=== PATIENT | male | born 1975 | race Caucasian/White ===

== ENCOUNTER 2016-12-18 11:32 | Emergency (ER) | payer OTHER ==
[2016-12-18 13:18] LABS: Hematocrit 43 % (42-52); Hemoglobin 14.5 g/dl (14.0-18.0); Mean Corpuscular HGB Conc 34 g/dl (31-36); Mean Corpuscular Hemoglobin 32 pg (27-31); Mean Corpuscular Volume 94 fL (80-94); Mean Platelet Volume 10 um3 (7.4-10.4); Red Blood Count 4.59 10^6/ul (4.0-5.4); Red Cell Distribution Width 13 % (10.5-15); White Blood Count 10.3 10^3/ul (3.5-10.8)
[2016-12-18 13:44] LABS: Albumin 4.5 g/dL (3.2-5.2); BUN/Creatinine Ratio 11.2 (8-20); Calcium 9.1 mg/dL (8.6-10.3); EGFR African American 89.7 (>60); EGFR Non-African American 69.7 (>60); Potassium 3.6 mmol/L (3.5-5.0); Total Bilirubin 0.4 mg/dL (0.2-1.0); Total Protein 7.5 g/dL (6.4-8.9)
[2016-12-18 14:56] LABS: C Reactive Protein 1.74 mg/L (< 5.00)
--- NOTE | 2016-12-18 15:28 | RAD ---
Indication: Headache; worsening migraines. Visual changes. Comparison: September 26, 2006 MRI brain. Technique: Noncontrast CT vertex of skull through foramen magnum. Report: Indolent foci of ossification of the interhemispheric falx without concern. Unremarkable cerebral sulci, ventricles, and basal cisterns. Negative for mendez matter white matter obscuration, intra or extra-axial hemorrhage, or mass effect. Unremarkable orbital contents. No suspicious calvarial or skull base lesion evident. Grossly clear visualized paranasal sinuses and mastoid air spaces. Unremarkable scalp. IMPRESSION: Negative unenhanced CT of the brain.
[2016-12-18 16:22] LABS: Urine Bilirubin Negative (Negative); Urine Glucose Negative (Negative); Urine Nitrite Negative (Negative)
[2016-12-18] MEDS ORDERED: Lidocaine 1% INJ* 10 MG/ML 30 ML SDV ONE (18:16)
[2016-12-18 18:28] LABS: Erythrocyte Sed Rate 9 mm/Hr (0-14)
[2016-12-18] MEDS ORDERED: NS 0.9% 1000 ML* 1,000 ML IV ONE (19:07)
[2016-12-18] MEDS ORDERED: Ondansetron INJ* 2 MG/ML VIAL IV ONE (19:07)
[2016-12-18 19:38] LABS: CSF Glucose 65 mg/dL (40-70)
[2016-12-18 20:03] LABS: BF WBC Count #1 2; BF WBC Count #2 5; Body Fluid Appearance Clear
[2016-12-18 20:04] LABS: WBC counts within 15%? Yes
[2016-12-18 20:05] LABS: BF RBC Count #1 6; BF RBC Count #2 6; RBC counts within 6%? Yes
[2016-12-18 20:07] LABS: Body Fluid WBC 4 /mcL
[2016-12-18 21:49] VITALS: BP 136/76
--- NOTE | 2016-12-19 10:02 | ED ---
Ashley Marie Auryana, scribed for Ulysses Gamez MD on 12/18/16 at 1453 . Neurological HPI - HPI Summary HPI Summary: 41 year old male presents with diffuse myalgia starting 1.5 weeks ago and worse since a few days ago. He reports it started as a migraine 2 weeks straight (MRA - negative), and then developed arm pain, and neck pain. He reports that the headache returned but is not like a migraine (/10 currently). For 1 week he has had numbness in the bilateral upper and lower extremities with numbness at the roof of the mouth. He also reports eye pain with eye movement, middle back pain (starting 5 days ago), and SOB on exertion (starting about 5 days ago). He denies any rashes, arthralgia, chest pain or any photophobia. Patient was seen on Sunday at Dr. Maher office (PCP) - suspected reaction to a mosquito bite a few weeks ago. PMHx is significant for migraines (usually last 8-10 hours). He denies any tobacco use (former) and rare alcohol use. - History of Current Complaint Chief Complaint: EDNeurologicalDeficit Stated Complaint: NUMBNESS, IN HAND AND FEET AND MOUTH Time Seen by Provider: 12/18/16 12:14 Hx Obtained From: Patient Onset/Duration: Gradual Onset, Started weeks ago, Still Present Timing: Constant Onset Severity: Moderate Current Severity: Mild Neurological Deficit Location: Generalized Headache Location: Diffuse (Right), Diffuse (Left) Pain Intensity: 5 Pain Scale Used: 0-10 Numeric Character: Numbness/Tingling Associated Signs and Symptoms: Positive: Headache, Pain - myalgia diffuse, Neck Pain/Stiffness, Shortness of Breath - Allergy/Home Medications Allergies/Adverse Reactions: Allergies Allergy/AdvReac Type Severity Reaction Status Date / Time Codeine Allergy Mild Rash Verified 11/22/16 13:44 Home Medications: Home Medications Beclomethasone Dipropionate (N [Qnasl] 2 spray BOTH NARES DAILY 12/18/16 [ History Confirmed 12/18/16] LevoCETirizine TAB (NF) [Xyzal TAB (NF)] 5 mg PO BEDTIME 12/18/16 [History Confirmed 12/18/16] PMH/Surg Hx/FS Hx/Imm Hx Endocrine/Hematology History: Denies: Hx Diabetes Cardiovascular History: Denies: Hx Hypercholesterolemia, Hx Hypertension, Hx Pacemaker/ICD, Hx Peripheral Vascular Disease Respiratory History: Reports: Hx Asthma History: Denies: Hx Dialysis, Hx Renal Disease Musculoskeletal History: Denies: Hx Arthritis, Hx Rheumatoid Arthritis, Hx Osteoporosis, Hx Scoliosis Sensory History: Denies: Hx Cataracts, Hx Contacts or Glasses, Hx Glaucoma, Hx Hearing Aid Opthamlomology History: Denies: Hx Cataracts, Hx Contacts or Glasses, Hx Glaucoma Neurological History: Reports: Hx Headaches Denies: Hx Seizures, Hx Transient Ischemic Attacks (TIA), Other Neuro Impairments/Disorders Psychiatric History: Denies: Hx Anxiety, Hx Depression, Hx Panic Disorder - Surgical History Surgery Procedure, Year, and Place: ADNOIDS REMOVED 6MTHS OLD, LT KNEE ARTHROSCOPY 02/06, URETHERAL STRICTURE REMOVED 2007 Infectious Disease History: No Infectious Disease History: Denies: Traveled Outside the [place] in Last 30 Days - Family History Known Family History: Negative: Seizure Disorder - Social History Alcohol Use: None Hx Substance Use: No Substance Use Type: Reports: None Hx Tobacco Use: No Smoking Status (MU): Never Smoked Tobacco Review of Systems Constitutional: Negative Negative: Fever, Chills Eyes: Other - eye pain with movement Negative: Photophobia, Erythema ENT: Negative Negative: Sore Throat Cardiovascular: Negative Negative: Chest Pain Positive: Shortness Of Breath - on exertion Genitourinary: Negative Negative: dysuria, hematuria Positive: Myalgia. Negative: Arthralgia Skin: Negative Negative: Rash Positive: Headache, Numbness - bilateral upper and lower ext ; and the roof of the mouth Psychological: Normal All Other Systems Reviewed And Are Negative: Yes Physical Exam - Summary Physical Exam Summary: Constitutional: Well-developed, Well-nourished, Alert. (-) Distressed Skin: Warm, Dry HENT: Eyes: Conjunctiva normal, appears photophobic. Neck: Musculoskeletal ROM normal neck. (-) JVD, (-) Stridor, (-) Tracheal deviation Cardio: Rhythm regular, rate normal, Heart sounds normal; Intact distal pulses; The pedal pulses are 2+ and symmetric. Radial pulses are 2+ and symmetric. (-) Murmur Pulmonary/Chest wall: Effort normal. (-) Respiratory distress, (-) Wheezes, (-) Rales Abd: Soft. (-) Tenderness, (-) Distension, (-) Guarding, (-) Rebound Musculoskeletal: (-) Edema Lymph: (-) Cervical adenopathy Neuro: Alert, Oriented x3, Strength normal, Cranial nerves II-XII are grossly intact. (-) Dysmetria, (-) Nystagmus, (-) Ataxia by finger to nose testing, (-) Sensory deficit. Psych: Mood and affect Normal. Triage Information Reviewed: Yes Vital Signs On Initial Exam: Initial Vitals Temp Pulse Resp BP 98.2 F 129 20 144/98 12/18/16 11:41 12/18/16 11:41 12/18/16 11:41 12/18/16 11:41 Vital Signs Reviewed: Yes - [place] Coma Scale Coma Scale Total: 15 Procedures - Lumbar Puncture Position: Lateral Decubitus - left Aseptic Technique: Local Anesthesia Spinal Needle Used: 22 Gauge - 3.5 in needle Lumbar Puncture Note: technique is limited by body habitus, 1/2 mL of fluid obtained during leg extension for intracranial reading. due leg extensions, fluid stopped flowing. Patient was unable to tolerate left lateral decubitis position further and became pre-syncopal in upright position. opening pressure = 14cm of H2O Diagnostics - Vital Signs Vital Signs Temp Pulse Resp BP Pulse Ox 12/18/16 13:00 114 18 124/103 97 12/18/16 12:32 97.6 F 119 16 152/110 97 12/18/16 12:30 122 13 152/110 96 12/18/16 12:27 137/94 12/18/16 12:15 96 12/18/16 11:41 98.2 F 129 20 144/98 - Laboratory Lab Results: Lab Results 12/18/16 12/18/16 12/18/16 Range/Units 12:55 12:55 12:55 WBC 10.3 (3.5-10.8) 10^3/ul RBC 4.59 (4.0-5.4) 10^6/ul Hgb 14.5 (14.0-18.0) g/dl Hct 43 (42-52) % MCV 94 (80-94) fL MCH 32 H (27-31) pg MCHC 34 (31-36) g/dl RDW 13 (10.5-15) % Plt Count 287 (150-450) 10^3/ul MPV 10 (7.4-10.4) um3 Neut % (Auto) 52.0 (38-83) % Lymph % (Auto) 34.6 (25-47) % Churchill % (Auto) 8.7 (1-9) % Eos % (Auto) 3.2 (0-6) % Baso % (Auto) 1.5 (0-2) % Absolute Neuts (auto) 5.3 (1.5-7.7) 10^3/ul Absolute Lymphs (auto) 3.5 (1.0-4.8) 10^3/ul Absolute Monos (auto) 0.9 H (0-0.8) 10^3/ul Absolute Eos (auto) 0.3 (0-0.6) 10^3/ul Absolute Basos (auto) 0.2 (0-0.2) 10^3/ul Absolute Nucleated RBC 0.01 10^3/ul Nucleated RBC % 0.1 INR (Anticoag Therapy) 0.91 (0.89-1.11) APTT 30.0 (26.0-36.3) seconds Sodium 139 (133-145) mmol/L Potassium 3.6 (3.5-5.0) mmol/L Chloride 104 (101-111) mmol/L Carbon Dioxide 27 (22-32) mmol/L Anion Gap 8 (2-11) mmol/L BUN 13 (6-24) mg/dL Creatinine 1.16 (0.67-1.17) mg/dL Est GFR ( Amer) 89.7 (>60) Est GFR (Non-Af Amer) 69.7 (>60) BUN/Creatinine Ratio 11.2 (8-20) Glucose 98 (70-100) mg/dL Lactic Acid (0.5-2.0) mmol/L Calcium 9.1 (8.6-10.3) mg/dL Total Bilirubin 0.40 (0.2-1.0) mg/dL AST 21 (13-39) U/L ALT 40 (7-52) U/L Alkaline Phosphatase 109 H (34-104) U/L Troponin I 0.00 (<0.04) ng/mL Total Protein 7.5 (6.4-8.9) g/dL Albumin 4.5 (3.2-5.2) g/dL Globulin 3.0 (2-4) g/dL Albumin/Globulin Ratio 1.5 (1-3) // Range/Units 12:55 WBC (3.5-10.8) 10^3/ul RBC (4.0-5.4) 10^6/ul Hgb (14.0-18.0) g/dl Hct (42-52) % MCV (80-94) fL MCH (27-31) pg MCHC (31-36) g/dl RDW (10.5-15) % Plt Count (150-450) 10^3/ul MPV (7.4-10.4) um3 Neut % (Auto) (38-83) % Lymph % (Auto) (25-47) % Churchill % (Auto) (1-9) % Eos % (Auto) (0-6) % Baso % (Auto) (0-2) % Absolute Neuts (auto) (1.5-7.7) 10^3/ul Absolute Lymphs (auto) (1.0-4.8) 10^3/ul Absolute Monos (auto) (0-0.8) 10^3/ul Absolute Eos (auto) (0-0.6) 10^3/ul Absolute Basos (auto) (0-0.2) 10^3/ul Absolute Nucleated RBC 10^3/ul Nucleated RBC % INR (Anticoag Therapy) (0.89-1.11) APTT (26.0-36.3) seconds Sodium (133-145) mmol/L Potassium (3.5-5.0) mmol/L Chloride (101-111) mmol/L Carbon Dioxide (22-32) mmol/L Anion Gap (2-11) mmol/L BUN (6-24) mg/dL Creatinine (0.67-1.17) mg/dL Est GFR ( Amer) (>60) Est GFR (Non-Af Amer) (>60) BUN/Creatinine Ratio (8-20) Glucose (70-100) mg/dL Lactic Acid 1.6 (0.5-2.0) mmol/L Calcium (8.6-10.3) mg/dL Total Bilirubin (0.2-1.0) mg/dL AST (13-39) U/L ALT (7-52) U/L Alkaline Phosphatase (34-104) U/L Troponin I (<0.04) ng/mL Total Protein (6.4-8.9) g/dL Albumin (3.2-5.2) g/dL Globulin (2-4) g/dL Albumin/Globulin Ratio (1-3) Result Diagrams: 12/18/16 12:55 12/18/16 12:55 Lab Statement: Any lab studies that have been ordered have been reviewed, and results considered in the medical decision making process. - CT BRAIN CT Interpretation: No Acute Changes CT Interpretation Completed By: Radiologist - EKG 12:50 EKG Interpretation: sinus tachycardia @ 11 BPM. Re-Evaluation - Re-Evaluation First Eval Re-Evaluation Time: 19:25 - patient declines pain medication Course/Dx - Course Assessment/Plan: 41 year old male presents with diffuse myalgia starting 1.5 weeks ago and worse since a few days ago. He reports it started as a migraine 2 weeks straight (MRA- negative), and then developed arm pain, and neck pain. He reports that the headache returned but is not like a migraine (/10 currently). For 1 week he has had numbness in the bilateral upper and lower extremities with numbness at the roof of the mouth. He also reports eye pain with eye movement, middle back pain (starting 5 days ago), and SOB on exertion (starting about 5 days ago). He denies any rashes, arthralgia, chest pain or any photophobia. Patient was seen on Sunday at Dr. Maher office (PCP) - suspected reaction to a mosquito bite a few weeks ago. PMHx is significant for migraines ( usually last 8-10 hours). He denies any tobacco use (former) and rare alcohol use. Test results show normal anticoagulants, D-Dimer <200, lactic acid #1 1.6 , lactic acid #2 1.1, Alk. Phos. 109, troponin #1 0.00, troponin #2 0.00, and CRP 1.74. UA is negative. CT BRAIN- NAD. EKG sinus tachycardia @ 11 BPM. DDx: radiculopathy, electrolyte abnormality, viral meningitis, conversion d/o. -do not suspect stroke. Patient will be signed out to Dr. Hirsch at 20: 00 pending CSF lab results and diagnosis. - Differential Dx Differential Diagnoses Neuro: Positive: Other - radiculopathy, electrolyte abnormality, viral meningitis, conversion d/o -do not suspect stroke - Diagnoses Provider Diagnoses: Myalgia, Parasthesia - Physician Notifications Discussed Care Of Patient With: Jalen Rodriguez Time Discussed With Above Provider: 14:51 - agrees with plan to do LP, and alco recommends metabolic work up Discharge - Discharge Plan Condition: Stable Disposition: OTHER Discharge Disposition Comment: signout to Dr. Hirsch at 20:00 pending CSF follow up, diagnosis, and dispo Patient Education Materials: Musculoskeletal Pain (ED) Referrals: Jalen Rodriguez MD [Medical Doctor] - 3 Days (Please f/u in 2-3 days please.) Jun Maher MD [Primary Care Provider] - The documentation as recorded by the Ashley gatica Auryana accurately reflects the service I personally performed and the decisions made by me, Ulysses Gamez MD.
== END 2016-12-18 22:05 ==
LOC: ED 11:32
DX: M79.1 Myalgia (principal); R20.2 Paresthesia of skin; R51 Headache; R06.02 Shortness of breath
CPT/HCPCS: 36415; 70450; 80053; 81003; 82945; 83605; 84157; 84484; 85025; 85379; 85610; 85652; 85730; 86140; 87070; 87205; 89051; 93005; 96374; 99283; J2001; J2405

== ENCOUNTER 2016-12-22 17:23 | Emergency (ER) | payer OTHER ==
[2016-12-22 18:58] VITALS: BP 155/97
--- NOTE | 2016-12-22 19:13 | ED ---
Felisha Marie Edward, scribed for Jose Ramon Swartz MD on 12/22/16 at 1742 . Neurological HPI - HPI Summary HPI Summary: 41 y/o male presents to ED c/o L sided facial droop at around 15:00 today. Patient also c/o numbness in feet and in the roof of his mouth going on for a couple of weeks. No motor weakness of extremities. Patient states there are no problems swallowing and no speech deficit. Denies GRIFFITH, CP and loss of vision. Patient was having an MRI as his symptoms started today. - History of Current Complaint Chief Complaint: EDNeurologicalDeficit Stated Complaint: NUMBNESS LT SIDE OF FACE/HANDS/FEET Hx Obtained From: Patient Onset/Duration: Sudden Onset, Started hours ago - 15:00 today, Still Present Timing: Constant Neurological Deficit Location: Facial - L side face and mouth, RLE - Feet, LLE - Feet Character: Numbness/Tingling - Extremities and L side face, Sensory Loss - Allergy/Home Medications Allergies/Adverse Reactions: Allergies Allergy/AdvReac Type Severity Reaction Status Date / Time Codeine Allergy Mild Rash Verified 12/20/16 10:50 PMH/Surg Hx/FS Hx/Imm Hx Previously Healthy: No Endocrine/Hematology History: Denies: Hx Diabetes Cardiovascular History: Denies: Hx Hypercholesterolemia, Hx Hypertension, Hx Pacemaker/ICD, Hx Peripheral Vascular Disease Respiratory History: Reports: Hx Asthma History: Denies: Hx Dialysis, Hx Renal Disease Musculoskeletal History: Denies: Hx Arthritis, Hx Rheumatoid Arthritis, Hx Osteoporosis, Hx Scoliosis Sensory History: Denies: Hx Cataracts, Hx Contacts or Glasses, Hx Glaucoma, Hx Hearing Aid Opthamlomology History: Denies: Hx Cataracts, Hx Contacts or Glasses, Hx Glaucoma Neurological History: Reports: Hx Headaches Denies: Hx Seizures, Hx Transient Ischemic Attacks (TIA), Other Neuro Impairments/Disorders Psychiatric History: Denies: Hx Anxiety, Hx Depression, Hx Panic Disorder - Surgical History Surgery Procedure, Year, and Place: ADNOIDS REMOVED 6MTHS OLD, LT KNEE ARTHROSCOPY 02/06, URETHERAL STRICTURE REMOVED 2007 Infectious Disease History: Denies: Traveled Outside the [place] in Last 30 Days - Family History Known Family History: Negative: Seizure Disorder - Social History Occupation: Employed Full-time Alcohol Use: None Hx Substance Use: No Substance Use Type: Reports: None Hx Tobacco Use: No Smoking Status (MU): Never Smoked Tobacco Review of Systems Constitutional: Negative Eyes: Negative ENT: Negative Cardiovascular: Negative Negative: Chest Pain Respiratory: Negative Gastrointestinal: Negative Genitourinary: Negative Musculoskeletal: Negative Skin: Negative Neurological: Other - No trouble swallowing, no loss of vision Positive: Weakness - L side face, Numbness - Extremities and roof of mouth. Negative: Headache, Slurred Speech Psychological: Normal All Other Systems Reviewed And Are Negative: Yes Physical Exam - Summary Physical Exam Summary: The patient is well-nourished in no acute distress and in no acute pain. The skin is warm and dry and skin color reflects adequate perfusion. HEENT: The head is normocephalic and atraumatic. The pupils are equal and reactive. The conjunctivae are clear and without drainage. Nares are patent and without drainage. There is droop off of the nostrils but no rhinorrhea. Mouth reveals moist mucous membranes and the throat is without erythema and exudate. The external ears are intact. The ear canals are patent and without drainage. The tympanic membranes are intact. The corner of his mouth and droops down. He is not able to lift or furrow his eyebrows. Neck is supple with full range of motion and non-tender. There are no carotid bruits. There is no neck vein distension. Respiratory: Chest is non-tender. Lungs are clear to auscultation and breath sounds are symmetrical and equal. Cardiovascular: Hear is regular rate and tachycardic. There is no murmur or rub auscultated. There is no peripheral edema and pulses are symmetrical and equal. Abdomen: The abdomen is obese, soft and non-tender. There are normal bowel sounds heard in all four quadrants and there is no organomegaly palpated. Musculoskeletal: There is no back pain noted. Extremities are non-tender with full range of motion. There is good capillary refill. There is no peripheral edema or calf tenderness elicited. There are good distal pulses. Neurological: Patient is alert and oriented to person, place and time. The patient has symmetrical motor strength in all four extremities. Cranial nerves are grossly intact except for cranial nerve 7 - both motor and sensory. Deep tendon reflexes are symmetrical and equal in all four extremities. There is no pronator drift. The patient's [id number] and [id number] are intact. There is no speech deficit. There are no focal neurological deficits except cranial nerve 7. Psychiatric: The patient has an appropriate affect and does not exhibit any anxiety or depression. No GRIFFITH. GRIFFITH beginning of the week. [facility] symptoms started before MRI. Hasn't smoked in 20 years. No PMHx. Employed full-time Triage Information Reviewed: Yes Vital Signs On Initial Exam: Initial Vitals Temp Pulse Resp BP Pulse Ox 98.4 F 135 20 175/107 98 12/22/16 17:32 12/22/16 17:32 12/22/16 17:32 12/22/16 17:32 12/22/16 17:32 Vital Signs Reviewed: Yes Diagnostics - Vital Signs Vital Signs Temp Pulse Resp BP Pulse Ox 12/22/16 17:32 98.4 F 135 20 175/107 98 - Laboratory Lab Statement: Any lab studies that have been ordered have been reviewed, and results considered in the medical decision making process. - EKG 1 EKG Rhythm: Sinus Tachycardia ST Segment: Normal NIH Scale - NIH Scale Level of Consciousness: Alert/Keenly Responsive Ask Patient the Month and His/Her Age: Both Correct Ask Pt to Open/Close Eyes and Leach Runner/Release Non-Paretic Hand: Both Correctly Best Gaze (Only Horizontal Eye Movement): Normal Visual Field Testing: No Visual Loss Facial Paresis-Pt to Smile & Close Eyes or Grimace Symmetry: Partial Paralysis Motor Function - Right Arm: No Drift-Holds 10 Seconds Motor Function - Left Arm: No Drift-Holds 10 Seconds Motor Function - Right Leg: No Drift-Holds 10 Seconds Motor Function - Left Leg: No Drift-Holds 10 Seconds Limb Ataxia-Must be out of Proportion to Weakness Present: Absent Sensory (Use Pinprick to Test Arms/Legs/Trunk/Face): Normal Best Language (Describe Picture, Name Items): No Aphasia Dysarthria (Read Several Words): Normal Extinction and Inattention: No Abnormality Total Score: 2 Course/Dx - Course Assessment/Plan: 41 y/o male presents to ED c/o L sided facial droop at around 15:00 today. Patient also c/o numbness in feet and in the roof of his mouth going on for a couple of weeks. No motor weakness of extremities. Patient states there are no problems swallowing and no speech deficit. Denies GRIFFITH, CP and loss of vision. Patient was having an MRI as his symptoms started today. EKG done in the ED shows sinus tachycardia with no ST elevations. Patient's old medical records were reviewed on visit. An MRI of the brain taken today was negative for acute pathology, although it did show some disc disease in the neck. Discussed the case with Dr. Rodriguez who came to the MD to see the patient. Dr. Rodriguez believes the patient has Lyme's disease. The patient will be discharged home with a prescription of Doxycycline and instructed to f/u with Dr. Maher and Dr. De La Rosa. - Differential Dx Differential Diagnoses Neuro: Positive: Monroy's Palsy, Transient Ischemic Attack , Other - cranial nerve palsy, GB, trigeminal neuralgia - Diagnoses Provider Diagnoses: Lyme disease - Physician Notifications Discussed Care Of Patient With: Jalen Rodriguez Time Discussed With Above Provider: 17:55 Instructed by Provider To: MD Will See In ED Discharge - Discharge Plan Condition: Stable Disposition: HOME Prescriptions: DOXYcycline CAP(*) [DOXYcycline 100MG CAP(*)] 100 mg PO BID #42 cap Patient Education Materials: Lyme Disease (ED) Referrals: Jun Maher MD [Primary Care Provider] - 3 Days (Please f/u in 2-3 days) Aruna De La Rosa MD [Medical Doctor] - 3 Days (Please f/u in 2-3 days) The documentation as recorded by the Felisha gatica Edward accurately reflects the service I personally performed and the decisions made by , Jose Ramon Swartz MD.
--- NOTE | 2016-12-23 04:01 | CONS ---
CC: Jun Maher MD; Aruna De La Rosa MD NEUROLOGY CONSULTATION REPORT: DATE OF CONSULTATION: 12/22/16 REFERRING PROVIDER: Jose Ramon Swartz DO. LOCATION: He is in the emergency room. CHIEF COMPLAINT: Facial palsy, hand and feet pain and numbness. HISTORY OF PRESENT ILLNESS: John Barrett is a 41-year-old gentleman, who first started to become ill just about 2 weeks ago or perhaps a little less. He started to get pain and numbness in his hands and wrists. Within a few days he was getting pain and numbness in his feet. It has been persistent ever since and progressed a little bit proximally. He developed back pain and some neck pain and also a headache. He ended up in the emergency room on 12/18/16 with a bad headache and the symptoms described above. He had a number of laboratory investigations including a spinal tap notable for 4 white blood cells per microliter, 7 red blood cells, glucose of 65 and a CSF total protein elevated at 65. There is no differential reported on the white cells, said to be quantity insufficient. Today, he had an MRI of the brain and cervical spine ordered by Dr. Aruna De La Rosa, who he saw in consultation a few days ago. Just prior to the MRI or maybe a couple of hours before, he started to have some numbness to the left side of his face. It progressed over several hours to left facial weakness. He came over to the emergency room from MRI scanning after development of a left facial weakness. He had a bad headache last night, but he does not have one today. He has some left ear pain that just began a couple of hours ago around the time the face started to feel numb. He continues with pain in his hands, wrists, and forearms , and numbness in his hands. He also has pain and numbness in his feet and aching in his proximal lower extremities, particularly in the hamstrings which feel tight. He still has some back pain. He has not had any bug bites other than a mosquito bite a couple of weeks ago. He has not had any rashes, swollen joints, fevers, or chills. He has not had any recent travel. He has not had any infectious illnesses in the last couple of months, specifically, no diarrhea or flu-like symptoms. He has not had any immunizations. His feet feel numb, but he does not feel that he has lost any strength and he feels his balance is preserved. He has not noticed any double vision. There has been no change in speech. He just had a number of laboratory studies, which I was able to review on our office EMR ordered by Dr. De La Rosa. He had a negative Lyme screen on 12/19/16, negative CCP, negative NACHO, normal vitamin B12. Blood work from the emergency room visit on 12/18/16 notable for normal CBC, sedimentation rate of 9, INR and PTT within normal limits, chemistry profile unremarkable other than a borderline elevated alkaline phosphatase at 109, CRP normal at 1.74. PAST MEDICAL HISTORY: His past medical history is notable for generally good health. He has seasonal allergies. He does not take any prescription medications on a regular basis other than beclomethasone nasal spray. He takes Xyzal at bedtime when his allergies flare up. He has not had any antibiotics in recent weeks. ALLERGIES: He is listed as having an allergy to CODEINE. REVIEW OF SYSTEMS: Negative for intestinal problems, no problems with constipation, urinary retention. He does state that he seems to void more frequently recently. He denied any faint or lightheadedness. He has not had any falls. He has not noticed any change in taste or change in hearing. He is not aware of any tick bites. There has been no swelling of joints or skin rashes. PHYSICAL EXAMINATION: He is well nourished and well hydrated. Temperature is 98.4 temporally, blood pressure is 150/100 on the monitor, heart rate is running 110 to 120 and sinus on the monitor, respiratory rate is 20, oxygen saturation is 98% on room air. Skin is warm and dry. Lungs are clear bilaterally. Heart is in a regular rate and rhythm without murmurs heard. Carotid pulses are present and no bruits. Oral mucosa is moist and atraumatic. Tympanic membrane on the left is clear and I do not see any lesions in the external auditory canal. Neck is supple. Neurological exam: Pupils react equally from 6 down to 3 mm. Eye movements are normal. Funduscopic exam reveals sharp discs bilaterally. Visual cisneros are full to confrontation. There is peripheral pattern in left facial palsy. He is able to close the left eye. He is not able to raise the left frontalis very much and he has weakness on the left lower facial musculature as well. Right facial musculature appears normal. Palate and tongue appear normal, tongue protrudes at the midline, and palate rises symmetrically. There is no dysarthria. Sensory exam to light touch is reported as less in the left face than the right but he feels it. Hearing is intact bilaterally and neck strength is normal. Motor exam reveals normal muscle tone, strength, and bulk, although there is pain with proximal lower extremity testing. He does have mild intrinsic hand muscle weakness in the ulnar distribution bilaterally. Sensory exam is notable for stocking glove loss of light touch to just above the wrists and in the lower extremities to just above the ankles. There is decreased vibration in the toes bilaterally, but proprioception is intact. Pin discrimination is diminished in the legs to about 3 or 4 inches above the ankles and in the hands to about the wrists. Reflexes are rated biceps 2/2, brachioradialis 2/2, knees 2/2, ankles 1/1. Plantar responses are flexor bilaterally. He has no sustention or action tremor. Gcfzro-pw-yznr maneuver is normal. Heel -to- davis maneuver is normal but caused pain in his proximal leg muscles. Romberg sign is absent. Gait tested just a few steps in the exam room is normal. He is alert and oriented and a good detailed historian. Memory is intact and language is fluent. He has good attention, concentration, and fund of knowledge. DIAGNOSTIC STUDIES/LAB DATA: Other data includes a cervical spine MRI, which I reviewed and feels a small disk bulge at C5-6 but no intraaxial abnormalities or central canal stenosis. MRI of the brain was likewise reviewed and looks to be a normal MRI of the brain without contrast. EKG is reviewed with Dr. Swartz and revealed sinus tachycardia but normal intervals. He had a MR angiogram of the brain on 11/30/[address] Maher for headaches and that was normal. Incidentally, I should note that he does have a history of migraine headaches going back for about a year. IMPRESSION: My impression is that Mr. Barrett may have Lyme disease. His Lyme titers are negative on 12/19/16, but he has only had symptoms for just about 2 weeks or perhaps a little less. 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 Guillain-[place] syndrome or one of its variants is a consideration but he has had symptoms now for 2 weeks or close to it and has just now developed a facial palsy, which would be a pretty late development. Also he has intact reflexes in the upper extremities and knees, which would also strongly argue against Guillain-[place] syndrome with almost 2 weeks of symptoms. West Nile can cause meningoencephalitis with facial palsy, but I would expect him to be encephalopathic, febrile, and have an inflammatory spinal fluid. Connective tissue disease has been evaluated with a number of laboratory studies and he has a normal sed rate and that seems unlikely as well. Recommend treating him with doxycycline 100 mg twice per day for 3 weeks. I told him if he gets worse instead of better he should come back to the emergency room, we can admit him for intravenous antibiotics and possible repeat spinal tap. I have discussed my impression with Dr. Swartz as well. Provided he does improve on doxycycline, then I think he can follow up with Dr. Maher and Dr. De La Rosa. [id number]/[facility] #: [id number] MTDD
== END 2016-12-22 19:14 | disposition home or self-care (01) ==
LOC: ED 17:23
DX: A69.20 Lyme disease, unspecified (principal); R53.1 Weakness
CPT/HCPCS: 93005; 99282

== ENCOUNTER 2016-12-25 10:02 | Inpatient (IN) | payer OTHER ==
[2016-12-25] MEDS ORDERED: NS 0.9% 1000 ML* 1,000 ML IV ONE (13:36)
[2016-12-25] MEDS ORDERED: Ondansetron INJ* 2 MG/ML VIAL IV PRN (13:36)
[2016-12-25 14:04] LABS: Hematocrit 47 % (42-52); Hemoglobin 15.4 g/dl (14.0-18.0); Mean Corpuscular HGB Conc 33 g/dl (31-36); Mean Corpuscular Hemoglobin 31 pg (27-31); Mean Corpuscular Volume 93 fL (80-94); Mean Platelet Volume 9 um3 (7.4-10.4); Red Blood Count 5.04 10^6/ul (4.0-5.4); Red Cell Distribution Width 13 % (10.5-15); White Blood Count 10.8 10^3/ul (3.5-10.8)
[2016-12-25 14:21] LABS: Albumin 4.5 g/dL (3.2-5.2); BUN/Creatinine Ratio 14.7 (8-20); C Reactive Protein 1.76 mg/L (< 5.00); Calcium 9.5 mg/dL (8.6-10.3); EGFR Non-African American 80.9 (>60); Globulin 3.2 g/dL (2-4); Potassium 3.7 mmol/L (3.5-5.0); Total Bilirubin 0.8 mg/dL (0.2-1.0); Total Protein 7.7 g/dL (6.4-8.9)
[2016-12-25 14:47] LABS: Erythrocyte Sed Rate 18 mm/Hr (0-14)
[2016-12-25] MEDS: Ondansetron INJ* 2 MG/ML VIAL IV SCH ×2 (15:00→21:27)
[2016-12-25] MEDS: Meclizine TAB* 12.5 MG PO SCH ×2 (15:00→21:27)
[2016-12-25] MEDS ORDERED: Gadoteridol* (CONTRAST) 279.3 MG/ML 10 ML IV ONE (15:03)
--- NOTE | 2016-12-25 15:50 | RAD ---
Indication: Progressive polyneuropathy. Sagittal axial and coronal T1-weighted images were obtained after intravenous injection of 20 mL of ProHance. Review of the noncontrast images performed on December 22, 2016 was performed. Ventricular structures are midline. No abnormally enhancing lesions are identified. Mastoid air cells and paranasal sinuses are unremarkable. IMPRESSION: No abnormally enhancing lesions are identified.
[2016-12-25] MEDS: NS 0.9% 1000 ML* 1,000 ML IV SCH (17:04)
[2016-12-25] MEDS ORDERED: PROCHLORPERAZINE INJ 5 MG/ML 2 ML VIAL IV PRN (18:53)
[2016-12-25] MEDS ORDERED: Cyanocobalamin INJ * 1,000 MCG/ML VIAL 1 ML VIAL IM ONE (19:20)
--- NOTE | 2016-12-25 21:02 | RAD ---
INDICATION: Thoracic spine pain COMPARISON: None TECHNIQUE: Sagittal T2 localizing, coronal T2, sagittal T2, sagittal T1, sagittal inversion recovery, and T2 weighted axial images were acquired. FINDINGS: Cord: There are no intrinsic abnormalities in the cord. Alignment: There is mild kyphosis. Thoracic spine alignment is otherwise normal. Vertebrae: There are no compression deformities. There is normal marrow signal. Disc spaces: There is mild multilevel degenerative disc disease with loss of the height and water content of multiple discs. At T7-T8 and T8-T9 there are moderate-sized central disc herniations which leads to effacement of the CSF anterior to the cord. There are no additional significant disc bulges or herniations. Paravertebral soft tissues: Normal IMPRESSION: Mid thoracic spine degenerative disc disease with small moderate-sized central disc herniations at T7-T8 and T8-T9.
[2016-12-25] MEDS: Artificial Tear OPHTH.OINT* 3.5 GM BOTH EYES SCH (21:36)
[2016-12-25] MEDS ORDERED: Artificial Tear OPHTH.OINT* 3.5 GM LEFT EYE SCH (22:00)
[2016-12-26] MEDS: Artificial Tear OPHTH.OINT* 3.5 GM BOTH EYES SCH ×7 (01:57→23:54)
[2016-12-26] MEDS: Ondansetron INJ* 2 MG/ML VIAL IV SCH ×4 (01:57→20:19)
[2016-12-26] MEDS: Meclizine TAB* 12.5 MG PO SCH ×3 (05:15→21:30)
--- NOTE | 2016-12-26 05:43 | HP ---
CC: Dr. De La Rosa; Dr. Maher * HISTORY AND PHYSICAL: DATE OF CONSULTATION: 12/25/16 PRIMARY CARE PROVIDER: Dr. Maher. CHIEF COMPLAINT: Double vision and vomiting. HISTORY OF PRESENT ILLNESS: Mr. Barrett is a 41-year-old male who's story began in mid October. He states that since that time, he has been having daily migraines. The patient saw Dr. Maher in the office where an MRA was ordered of the brain. The patient states that this was performed. He continued to have headaches. On 12/07/16, he had awakened with his hands and arms hurting. He states that by 12/09/16, the pain has turned to numbness. The patient states that by 12/18/16, his feet were also numb and he continued to have headaches. His back also hurt. Therefore, he presented to the emergency room. In the ER, an LP was performed. He states that the LP was not felt to be of any significance and he was discharged home. The patient was referred to Dr. De La Rosa who he saw on either the or of this past week and was ordered to have an MRI of the brain again. The patient states that he went to have the MRI done at [facility]. He noted that when he got out of the MRI , his left face was droopy. The patient went to the emergency room to be evaluated. In the ER, the patient was seen in consultation by Dr. Rodriguez, who noted that the patient's CSF from his lumbar puncture on 12/18/16 had an elevated protein level. Lab work obtained from Dr. Maher's office was essentially negative including a negative Lyme screen. At that time, it was Dr. Rodriguez's impression that he had polyradiculoneuritis, joint pain, and a facial palsy. Lyme disease was considered to be high up on the differential. Guillain- [place] was considered; however, the patient has intact reflexes in the upper extremities and knees, which would argue against Guillain-[place]. West Nile meningoencephalitis with facial palsy was considered; however, as he was not encephalopathic or febrile, felt that this was much more unlikely. It was recommended at that time the patient be treated with doxycycline 100 mg twice daily for 3 weeks. On the morning of the day of admission, 12/25/16, the patient contacted Dr. De La Rosa's office to inform them that he developed double vision and vomiting. The patient states that he had developed mild nausea on Sunday. By Sunday, he states he could not keep anything down. The patient states that he had off and on double vision starting on the Sunday prior to admission; however, by Sunday, the double vision was constant. He has been holding his right eye closed as it improves the double vision. He states that he cannot close his left eye completely. He does note that the vomiting started about the same time as the double vision became constant. He denies any zaida spinning sensation while at rest; however, when he is standing, he does note a slight spinning sensation. The patient denies any recent sick contact. He denies any recent viral illnesses. PAST MEDICAL HISTORY: 1. Asthma. 2. Allergic rhinitis. PAST SURGICAL HISTORY: 1. Left knee arthroscopy. 2. Ureteral stricture removal. 3. Adenoidectomy. MEDICATIONS: 1. Xyzal. 2. Qnasl. ALLERGIES: CODEINE, which causes hallucinations or vomiting. FAMILY HISTORY: Mother is living, she is 60 and healthy. Dad is living, he is 71 and has a history of hypertension. SOCIAL HISTORY: The patient does not smoke. He drinks alcohol on occasion. 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 He is not . He has no children. He indicates that his mom, Lorraine, would be his healthcare proxy. REVIEW OF SYSTEMS: The patient denies any weakness in his arms and legs. He states that the numbness in his hands and feet is not progressing, but has not improved. He does not feel hungry at all. He only states that he feels like he is going to vomit. He states that he has felt hot at home, but his temperature has been normal when checked. He denies any chest pain, palpitations, or lower extremity swelling. He denies any cough, shortness of breath. He admits to the nausea and vomiting as well as abdominal discomfort that he believes is from frequent vomiting. He denies any diarrhea or constipation. No hematochezia. No hematuria. No dysuria. No difficulty swallowing. He continues to have a daily headache. He had been taking Advil for the pain; however, since this past Sunday, he has not been taking anything as he vomits it right back up. He does note that when he has tried to walk, he does feel like if he is staggering, but does not tend to tip to one side over another. PHYSICAL EXAMINATION GENERAL: The patient is a well-developed, middle-aged male, sitting up in the stretcher, holding a basin up to his chin, but in no acute distress. VITAL SIGNS: Blood pressure 151/95, pulse 101, respirations 16, temp 98.3, O2 sat is 97% on room air. HEENT: Pupils are round. They appear to constrict to light. Extraocular muscle movements are intact. However, the patient states that it makes him incredibly nauseous to be looking in different directions and have both eyes opened. When the patient is looking directly forward, it almost appears as if his eyes are slightly crossed. Oropharynx is clear. Oral mucosa is moist. There is no submandibular, cervical, or supraclavicular adenopathy. Thyroid is not enlarged. No thyroid nodules are noted. PULMONARY: Lungs are clear to auscultation bilaterally. CARDIAC: Normal S1 and S2. Heart rate is mildly tachycardic, but regular. There is no lower extremity edema. ABDOMEN: Bowel sounds are present. Abdomen is soft, nontender, nondistended. MUSCULOSKELETAL: There is no cyanosis or clubbing of the digits. There is full active range of motion of all 4 extremities. SKIN: Warm and dry. There are no rashes. NEURO: The patient's upper extremity strength is normal and symmetric bilaterally. Lower extremity strength is 5/5 and symmetric bilaterally. The patient does note intact sensation to his hands and feet; however, it does feel more dull than sensation more proximally in the hands and feet. PSYCH: The patient is alert. He is oriented x3 and affect appears appropriate. LABORATORY DATA/DIAGNOSTIC STUDIES: WBC 10.8, hemoglobin 15.4, hematocrit 47, platelets 319. ESR 118. INR 0.96. Sodium 134, potassium 3.7, chloride 100, CO2 23, BUN of 15, creatinine 1.02, glucose 111. Calcium 9.5. Bilirubin 0.8, AST 24, ALT 41, alk phos 116. CRP 1.76. Albumin 4.5. MRI brain, no abnormally enhancing lesions identified. ASSESSMENT AND PLAN: Mr. Barrett is a 41-year-old male who has had in approximately a month and a half progression of symptoms, which started as migraine headaches to the development of numbness of his hands and feet, a left facial palsy, now double vision, who is admitted directly [facility] for evaluation of the progressive symptoms. 1. Polyradiculoneuritis, diplopia. At this point, I am awaiting consultation by Dr. Miner. It is highly likely he will need a repeat lumbar puncture. Lyme is still on the differential as to the cause of his symptoms. Therefore, we will go ahead and start IV ceftriaxone. Will have the patient patch one eye to help with his diplopia. 2. Vomiting. I question if this may be related to the doxycycline versus his diplopia. Despite him keeping one eye closed, he notes that he still is vomiting. Again, we will switch from doxycycline to IV ceftriaxone for the possibility of Lyme disease. Vashti have multiple antiemetics available to the patient for his nausea. 3. DVT prophylaxis. According to the Adult Thrombosis Prophylaxis Risk Factor Assessment Guide, the patient has a total risk factor score of 1, making him low risk. SCDs for now will be utilized as DVT prophylaxis while awaiting a decision on repeat lumbar puncture. 4. Code status is full and again, the patient indicates his mom is his healthcare proxy. TIME SPENT: 65 minutes were spent admitting this patient. [id number]/[facility] #: [id number] BLU
[2016-12-26] MEDS: NS 0.9% 1000 ML* 1,000 ML IV SCH (06:22)
--- NOTE | 2016-12-26 06:42 | CONS ---
CONSULTATION REPORT: DATE OF CONSULT: 12/25/16 REASON FOR CONSULT: Progressive neurologic symptoms. REQUESTING PHYSICIAN: Dr. Torres. DATE OF REQUEST: 12/25/16 HISTORY OF PRESENT ILLNESS: John Barrett is a 41-year-old gentleman who was recently discharged from the hospital after workup for progressive neurologic symptoms. He started approximately two weeks ago with discomfort in hands which progressed to a numbness, followed by his feet becoming numb, top of roof of his mouth becoming numb and pain in the thoracic region of his spine in the area of T8- T9. He was evaluated in the emergency room 12/18 for these symptoms along with bad headache and neck pain. He had a spinal tap, which showed protein of 65, 4 white blood cells, 7 red blood cells with no growth on culture. He went on to have an MRI of the brain and cervical spine on 12/22/16 , which did not reveal a cause for his symptoms. He, that day started having progression of symptoms with left facial weakness, left facial numbness. Dr. Rodriguez saw him in consultation on the 22 December (see his consultation for summary of Mr. Barrett's workup). He had had as an outpatient a low normal B12 at 234. His sedimentation rate was 10, repeated at 18. Today, his CRP was 1.76. CCP, IgG and IgA were negative. Lyme IgG and IgM were negative. His NACHO was negative. In 2012, he had had an SSA, SSB, double stranded DNA and [employer]. In the last couple of days since discharge he has developed, nausea, vomiting and double vision. He describes a binocular horizontal diplopia. Of note, there has been no rashes, petechiae, change in speech, change in swallow, chest pain, chest pressure, shortness of breath. He denies any change in bowel or bladder function including retention or incontinence. There has been no history of blood transfusions, IV drug use, sexual partners with HIV or known risk factors for HIV. He has been on doxycycline for Lyme since his admission. He does note that he is unsteady on his feet; this started with diplopia. He has also noticed that his muscles are tight and when he straightens them, they are painful. He denies any joint pain other than his back. There has been no fever. His is neck is stiff, but he is able to turn it without significant increase in pain. There has been no position related headache. PAST MEDICAL HISTORY: Includes seasonal allergies, and he has had previous arthroscopic surgery on his knee. CURRENT MEDICATIONS: Include: 1. Ceftriaxone 2 g q.24 hours. 2. Meclizine 25 mg q.8 hours. 3. Ondansetron 4 mg IV q.6 hours. 4. Compazine 10 mg q.6 hours p.r.n., nausea. 5. Sodium chloride at 100 mL an hour. ALLERGIES: He has allergy to codeine, listed in the chart. He denied any other drug allergies. FAMILY HISTORY: Includes his mother in 60s and father in 70s who are in good health, his brother who is healthy. He has no children. He is single. SOCIAL HISTORY: There is no history of recent smoking. He denies alcohol use, drug use, IV drug use or use of in the past of cocaine or heroin. 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 PHYSICAL EXAM: On examination, Mr. Barrett's temperature is 98.3. His heart rate is 86. Respiratory rate 25, saturation 97. Blood pressure 151/95. He had a regular cardiac rhythm. His lungs were clear to auscultation. There was no carotid bruits. There was no evidence of rash, petechiae, splinter hemorrhages. He had no evidence of cord palpation of his legs. His neck was supple. He was awake, alert, and articulate. His pupils were equal and responsive to light. There was no evidence I could see of papilledema in the right eye, the left was harder to visualize. There are full extraocular movements with the exception of some difficulty in upward gaze of the right eye which seem to have slower lag behind the left eye. He felt there was double vision however in all eye movements. His facial expression was asymmetric with a left peripheral VIIth. He could close his eyes, but his orbicularis oculi was weaker on the left than the right. His smile was best on the left. He had decreased sensation to light touch in the V1, V2, V3 distribution on the left. His hearing was equal to finger rub. His palate was upgoing. Tongue was midline. Sternocleidomastoid and trapezius were 5/5 in strength. There was normal bulk and tone. No pronator drift. Full strength in the upper and lower extremities with [id number]-qr-redp and qeku-tg-kxlz movements. Vibration sensation was decreased by 20 seconds at the large toe, 10 seconds at the ankle. Proprioception was intact. There was no asymmetry to pinprick, cold or light touch. He did have decreased sharp to the ankle, decreased cool to the ankle and to the just above the elbows. His reflexes were 2+ in the upper extremities , 2+ at the knees, 1+ at the ankles. Toes were flexor response. Further gait testing was not performed given clinical status. The patient visibly looked uncomfortable with holding his left hand over his left eye. DIAGNOSTIC STUDIES/LAB DATA: Data today includes, CBC with a white count of 10.8. Hemoglobin and hematocrit were within normal limits with normal platelet count. He had 8.1 absolute neutrophils. Sedimentation rate today was 18. His INR was 0.96. His chemistry showed a chloride that was low at 100. Glucose elevated at 111. Alk- phos elevated at 116. His C. reactive protein was 1.76. Again his B12 as an outpatient was 234, previous sedimentation rate 10. CCP, IgG, IgA negative. NACHO negative. Lyme IgG and IgM negative and previous spinal fluid was as noted above. His MRI post gadolinium did not show any significant changes. He has previously had an MRA of the brain on 11/29/16. MRI pre-gadolinium on 12/22/16, MRI of the cervical spine on 12/22/16, none of which showed pathology to explain his current symptoms. Disk disease was noted on cervical spine and evidence of some osteoarthritis. Please see reports for further details. Dr. Rodriguez's note was reviewed. IMPRESSION: This 41-year-old gentleman with multifocal progressive neurologic symptoms and findings including cranial neuropathies, hand and foot numbness and headache raising suspicion of CSF process given the distribution of symptoms. Given the pain in the thoracic region with his initial symptoms, I will ask for an MRI of the thoracic spine to make sure we do not see an obvious process in the cord or abscess. As long as there are no contraindications on this film we will suggest proceeding with a lumbar puncture with Anesthesiology' s help obtaining an opening pressure in left lateral decubitus position, further direction regarding CSF analysis will be given in the morning. We may need ID input according to the results of cell count, protein, glucose. I have reviewed his MRI scans and I will plan to re-review his MRI brain with radiology as looking at the post heriberto images I question whether there may be a falx process with small areas of enhancement. Depending on the above results, the EMG nerve conduction studies may be needed in regards to demyelinating autoimmune process. The GBS is less likely given the headache and persistent reflexes, however, it is on differential diagnosis. He does have a left bells palsy and I will suggest proceeding with artificial tears and Lacri-Lube for eye protection. He has ongoing difficulty with nausea and scheduled ondansetron should be provided, meclizine has also been provided, however, I am hearing less history of vertigo on today's visit more that of instability in the setting of diplopia. Nursing has requested eye patch which may be helpful with his diplopia. For now, he is continued on ceftriaxone IV for treatment of central nervous system process. TIME SPENT: Over an hour and a half was spent in direct patient care. All above was discussed with the patient. All questions were answered. [id number]/[facility] #: [id number] BLU
--- NOTE | 2016-12-26 07:52 | PN ---
Subjective Date of Service: 12/26/16 Interval History: Pt is feeling better in that he does not feel like he needs to throw up. He states he actually feels hungry. He has had an eye patch in place which has helped with the double vision. The patient states he has not removed the patch to see if he still has double vision with it removed. Objective Active Medications: Artificial Tears (Lacrilube Oint*) 1 applic BOTH EYES Q4H [facility] Last Admin: 12/26/16 05:16 Dose: Not Given Artificial Tears (Lacrilube Oint*) 1 applic LEFT EYE UC ONCE [facility] Stop: 12/29/16 23:59 Sodium Chloride (Ns 0.9% 1000 Ml*) 1,000 mls @ 100 mls/hr IV PER RATE [facility] Stop: 12/26/16 23:44 Last Admin: 12/26/16 06:22 Dose: 100 mls/hr Ceftriaxone Sodium 2 gm/ (Sodium Chloride) 100 mls @ 200 mls/hr IVPB Q24H [facility] Last Admin: 12/25/16 17:03 Dose: 200 mls/hr Meclizine HCl (Antivert Tab*) 25 mg PO Q8HR [facility] Last Admin: 12/26/16 05:15 Dose: 25 mg Ondansetron HCl (Zofran Inj*) 4 mg IV Q6H [facility] Last Admin: 12/26/16 01:57 Dose: 4 mg Prochlorperazine Edisylate (Compazine Inj*) 10 mg IV Q6H PRN PRN Reason: NAUSEA Vital Signs 12/25/16 12/25/16 12/25/16 13:46 15:00 16:00 Temperature 98.3 F Pulse Rate 101 Respiratory 16 10 25 Rate Blood Pressure 151/95 (mmHg) O2 Sat by Pulse 97 Oximetry 12/25/16 12/25/16 12/25/16 19:50 20:00 23:48 Temperature 98.2 F 99.4 F Pulse Rate 73 77 Respiratory 20 20 18 Rate Blood Pressure 138/79 145/61 (mmHg) O2 Sat by Pulse 97 97 Oximetry 12/26/16 03:45 Temperature 98.3 F Pulse Rate 66 Respiratory 16 Rate Blood Pressure 136/81 (mmHg) O2 Sat by Pulse 95 Oximetry Oxygen Devices in Use Now: None Appearance: Middle aged male lying in bed, NAD Eyes: No Scleral Icterus, - - L eye patched, but when removed left eye ? turned in medially, pt reports continued diplopia Ears/Nose/Mouth/Throat: Mucous Membranes Moist Respiratory: Symmetrical Chest Expansion and Respiratory Effort, Clear to Auscultation Cardiovascular: NL Sounds; No Murmurs; No JVD, RRR, No Edema Abdominal: NL Sounds; No Tenderness; No Distention Extremities: No Clubbing, Cyanosis Skin: No Rash or Ulcers, No Nodules or Sclerosis Neurological: Alert and Oriented x 3, NL Muscle Strength and Tone Result Diagrams: 12/25/16 13:55 12/25/16 13:55 Assess/Plan/Problems-Billing Mr Barrett is a 41 yo M who has a h/o seasonal allergies and asthma who has developed multifocal progressive cranial neuropathies, hand/foot numbness and headache and was admitted yesterday after he developed diplopia. - Patient Problems (1) Polyneuropathy Current Visit: Yes Status: Acute Code(s): G62.9 - POLYNEUROPATHY, UNSPECIFIED SNOMED Code(s): 69952940 Comment: The patient has developed progressive polyneuropathies. Dr. Miner saw the patient last evening and has recommended repeat LP with opening pressure. Will also get ID involved due to the concern of lyme disease. Continue ceftriaxone 2g IV daily for now. Await further recommendations from neurology/ID. I will get ahold of anesthesia to get the LP performed hopefully this AM. (2) Diplopia Current Visit: Yes Status: Acute Code(s): H53.2 - DIPLOPIA SNOMED Code(s) : 60914779 Comment: Only better with patching the eye. Continue the patching for now. (3) Asthma Current Visit: Yes Status: Acute Code(s): J45.909 - UNSPECIFIED ASTHMA, UNCOMPLICATED SNOMED Code(s): 251794674 Comment: No signs of exacerbation. Monitor for symptoms. (4) DVT prophylaxis Current Visit: Yes Status: Acute Code(s): IWC3448 - SNOMED Code(s): 983402187 Comment: SCDs (5) Full code status Current Visit: Yes Status: Acute Code(s): Z78.9 - OTHER SPECIFIED HEALTH STATUS SNOMED Code(s): 886709522
[2016-12-26] MEDS: Acetaminophen TAB* 325 MG PO PRN ×3 (11:32→21:30)
[2016-12-26 17:01] LABS: CSF Glucose 66 mg/dL (40-70)
[2016-12-26 17:10] LABS: Body Fluid Appearance Clear
[2016-12-26 17:27] LABS: Body Fluid Total Cells Counted 100
[2016-12-26 17:28] LABS: BF RBC Count #1 0; BF RBC Count #2 0; BF WBC Count #1 11; BF WBC Count #2 9; Body Fluid WBC 10 /mcL; WBC counts within 15%? Yes
[2016-12-26 17:29] LABS: RBC counts within 6%? Yes; Technical Review Performed By MER0007
[2016-12-26] MEDS: Acetaminophen TAB* 325 MG PO SCH (18:17)
[2016-12-26] MEDS ORDERED: diPHENhydraMINE IV* 50 MG in NS 0.9% 50 ML* 50 ML IVPB SCH (18:30)
[2016-12-26] MEDS ORDERED: IMMUNE GLOBULN IV SCH (19:00)
[2016-12-26] MEDS ORDERED: [UNRECOGNIZED DRUG - OTHER] IV SCH (19:00)
[2016-12-27] MEDS: Ondansetron INJ* 2 MG/ML VIAL IV SCH ×4 (02:12→20:47)
[2016-12-27] MEDS: Artificial Tear OPHTH.OINT* 3.5 GM BOTH EYES SCH ×6 (04:32→23:20)
[2016-12-27] MEDS: Morphine INJ* 2 MG/ML 1 ML SYRINGE IV PRN ×2 (04:38→23:32)
[2016-12-27] MEDS: Meclizine TAB* 12.5 MG PO SCH ×3 (05:53→21:45)
--- NOTE | 2016-12-27 08:33 | PN ---
Subjective Date of Service: 12/27/16 Interval History: Pt is feeling ok. He has not noticed any new neurologic symptoms. Last night while/after receiving the IVIG he felt a sensation of fluid sloshing in his chest. He denied SOB with that. Objective Active Medications: Acetaminophen (Tylenol Tab*) 650 mg PO Q4H PRN PRN Reason: PAIN Last Admin: 12/26/16 21:30 Dose: 650 mg Acetaminophen (Tylenol Tab*) 650 mg PO Q24HR@1800 [facility] Stop: 12/30/16 18:01 Last Admin: 12/26/16 18:17 Dose: Not Given Artificial Tears (Lacrilube Oint*) 1 applic BOTH EYES Q4H [facility] Last Admin: 12/27/16 04:32 Dose: Not Given Artificial Tears (Lacrilube Oint*) 1 applic LEFT EYE UC ONCE [facility] Stop: 12/29/16 23:59 Ceftriaxone Sodium 2 gm/ (Sodium Chloride) 100 mls @ 200 mls/hr IVPB Q24H [facility] Last Admin: 12/26/16 14:03 Dose: 200 mls/hr Immune Globulin 5 gm/ Immune (Globulin 40 gm/ IV Solution) 900 mls @ 0 mls/hr IV DAILY@1800 [facility]; Per Protocol PRN Reason: Protocol Stop: 12/30/16 18:01 Diphenhydramine HCl 50 mg/ (Sodium Chloride) 51 mls @ 102 mls/hr IVPB Q24HR@ 1730 [facility] Stop: 12/30/16 17:59 Meclizine HCl (Antivert Tab*) 25 mg PO Q8HR [facility] Last Admin: 12/27/16 05:53 Dose: 25 mg Morphine Sulfate (Morphine Inj (Syringe)*) 2 mg IV Q4H PRN PRN Reason: PAIN - MILD Last Admin: 12/27/16 04:38 Dose: 2 mg Ondansetron HCl (Zofran Inj*) 4 mg IV Q6H [facility] Last Admin: 12/27/16 02:12 Dose: 4 mg Prochlorperazine Edisylate (Compazine Inj*) 10 mg IV Q6H PRN PRN Reason: NAUSEA Vital Signs 12/26/16 12/26/16 12/26/16 11:26 15:12 15:19 Temperature 99.0 F 98.7 F 99.1 F Pulse Rate 89 96 92 Respiratory 18 20 16 Rate Blood Pressure 137/75 137/85 150/84 (mmHg) O2 Sat by Pulse 96 96 95 Oximetry 12/26/16 12/26/16 12/26/16 16:50 19:20 20:00 Temperature 98.5 F 99.4 F Pulse Rate 71 87 Respiratory 16 20 16 Rate Blood Pressure 142/82 142/85 (mmHg) O2 Sat by Pulse 97 94 Oximetry 12/26/16 12/26/16 12/26/16 20:22 21:14 21:15 Temperature Pulse Rate 83 Respiratory 16 19 16 Rate Blood Pressure 145/83 (mmHg) O2 Sat by Pulse 95 Oximetry 12/26/16 12/26/16 12/26/16 21:19 21:22 21:30 Temperature 97.9 F Pulse Rate Respiratory 16 Rate Blood Pressure 145/80 (mmHg) O2 Sat by Pulse Oximetry 12/26/16 12/26/16 12/26/16 21:44 21:45 21:59 Temperature Pulse Rate 76 74 Respiratory Rate Blood Pressure 133/81 146/85 (mmHg) O2 Sat by Pulse 95 94 Oximetry 12/26/16 12/26/16 12/26/16 22:01 22:14 22:29 Temperature Pulse Rate 78 76 78 Respiratory Rate Blood Pressure 152/85 (mmHg) O2 Sat by Pulse 94 94 95 Oximetry 12/26/16 12/26/16 12/26/16 22:30 22:45 22:59 Temperature Pulse Rate 76 74 Respiratory Rate Blood Pressure 148/80 137/79 136/79 (mmHg) O2 Sat by Pulse 95 94 Oximetry 12/26/16 12/26/16 12/26/16 23:01 23:09 23:14 Temperature 98.0 F Pulse Rate 75 76 71 Respiratory 20 Rate Blood Pressure (mmHg) O2 Sat by Pulse 95 97 95 Oximetry 12/26/16 12/26/16 12/26/16 23:15 23:16 23:26 Temperature Pulse Rate 72 71 Respiratory Rate Blood Pressure 130/82 140/82 (mmHg) O2 Sat by Pulse 95 95 Oximetry 12/26/16 12/27/16 12/27/16 23:44 00:00 00:15 Temperature Pulse Rate 74 69 66 Respiratory Rate Blood Pressure 136/87 120/66 (mmHg) O2 Sat by Pulse 94 94 95 Oximetry 12/27/16 12/27/16 12/27/16 00:25 01:00 02:00 Temperature Pulse Rate 75 Respiratory 0 0 Rate Blood Pressure 127/65 (mmHg) O2 Sat by Pulse 96 Oximetry 12/27/16 12/27/16 12/27/16 03:00 03:38 04:00 Temperature 98.0 F Pulse Rate 73 Respiratory 0 16 15 Rate Blood Pressure 148/59 (mmHg) O2 Sat by Pulse 98 Oximetry 12/27/16 12/27/16 04:38 05:38 Temperature Pulse Rate Respiratory 16 16 Rate Blood Pressure (mmHg) O2 Sat by Pulse Oximetry Oxygen Devices in Use Now: None Appearance: Middle aged male sitting up in bed, eating breakfast, NAD Eyes: No Scleral Icterus, - - L eye patched Respiratory: Symmetrical Chest Expansion and Respiratory Effort, Clear to Auscultation Cardiovascular: NL Sounds; No Murmurs; No JVD, RRR, No Edema Extremities: No Clubbing, Cyanosis Skin: No Nodules or Sclerosis Neurological: Alert and Oriented x 3, NL Muscle Strength and Tone Result Diagrams: 12/25/16 13:55 12/25/16 13:55 Microbiology and Other Data: Microbiology 12/26/16 16:12 CSF Gram Stain (Tube 3) - Final Cerebral Spinal Fluid Assess/Plan/Problems-Billing Mr Barrett is a 41 yo M who has a h/o seasonal allergies and asthma who has developed multifocal progressive cranial neuropathies, hand/foot numbness and headache and was admitted yesterday after he developed diplopia. - Patient Problems (1) Polyneuropathy Current Visit: Yes Status: Acute Code(s): G62.9 - POLYNEUROPATHY, UNSPECIFIED SNOMED Code(s): 53609343 Comment: Dr. Miner has initiated IVIG thearpy due to features of demyelination and abnormal protein level in the CSF. Continue ceftriaxone 2g IV daily. Await any further recommendations from Dr. Ag. (2) Diplopia Current Visit: Yes Status: Acute Code(s): H53.2 - DIPLOPIA SNOMED Code(s) : 04731662 Comment: Only better with patching the eye. Continue the patching for now. (3) Asthma Current Visit: Yes Status: Acute Code(s): J45.909 - UNSPECIFIED ASTHMA, UNCOMPLICATED SNOMED Code(s): 419299292 Comment: No signs of exacerbation. Monitor for symptoms. (4) DVT prophylaxis Current Visit: Yes Status: Acute Code(s): QPO6314 - SNOMED Code(s): 295805394 Comment: SCDs (5) Full code status Current Visit: Yes Status: Acute Code(s): Z78.9 - OTHER SPECIFIED HEALTH STATUS SNOMED Code(s): 146894186
--- NOTE | 2016-12-27 13:40 | PM ---
PAIN TREATMENT PROCEDURE NOTE: DATE OF PROCEDURE: 12/26/16 CHIEF COMPLAINT: Double vision. HISTORY: The patient is a 41-year-old male who was an inpatient in the hospital. He was admitted wi th diplopia and vomiting. The patient had been seen in the emergency room where a lumbar puncture w as performed and was worked up for possible polyradicular neuritis. Lyme disease was also considere d behind the differential. He was prescribed doxycycline 100 mg twice a day for 3 weeks, however, ye day the patient developed double vision and vomiting. So, he was admitted to the hospital. He was seen in consultation by Dr. Miner who recommended a repeat diagnostic lumbar puncture, checkin g opening pressures. I had a chance to discuss the procedure with the patient. I went over the ris k, benefits and alternatives to therapy. I discussed the possibility of a postdural puncture headac he and pain at the site of the procedure. After discussing this, informed consent was obtained. PROCEDURE NOTE: The patient was placed in a left lateral decubitus position. His low back prepped and draped in the usual sterile fashion. 3 cc of 1% lidocaine was used for local anesthesia at the L3-4 interspace. A 22-gauge spinal needle was directed to the interspinous space at the L3-L4 level . Initially I had a transient right lower extremity paraesthesia. The needle was redirected and up on redirection, I was able to identify the subarachnoid space without paresthesias or blood noted, w ith free flow of clear cerebrospinal fluid. An opening pressure was obtained and it was 860 mm. I then proceeded to collect 4 vials of cerebrospinal fluid, which will be sent to the laboratory per Lily Miner's orders. The needle was withdrawn. The patient tolerated the procedure well and will b e returned to his room. [id number]/[facility] #: [id number]
[2016-12-27 14:29] LABS: Albumin 3.3 g/dL (3.4-4.7); Total Protein(PEP) 6.4 g/dL (6.3 - 7.9)
--- NOTE | 2016-12-27 15:13 | PN ---
CC: Dr. Jalen Rodriguez; Dr. Aruna De La Rosa * PROGRESS NOTE: DATE OF SERVICE: 12/26/16 HISTORY OF PRESENT ILLNESS: Mr. John Barrett had similar symptoms overnight. There was some decreased nausea with eye patch and medications. We proceeded to obtain an EMG, nerve conduction this morning that showed findings of sensorimotor axonal polyneuropathy with some features on nerve conduction studies to suggest early demyelination with temporal dispersion as well as increased distal latency. 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 Given increased headache with progression of symptoms , repeat LP was suggested and was obtained this afternoon. He had had an MRI of the thoracic spine which did not show any swelling in the cord, this was a noncontrast film with disk disease but no clear intrinsic cord abnormality or compression of the cord. Please see report for further details. This film was reviewed directly. PHYSICAL EXAMINATION: On examination, Mr. Barrett's blood pressure was 142/82, his pulse was 71, respiratory rate 16, saturation 97%, temperature is 98.5 degrees Fahrenheit. There is a regular cardiac rhythm. His lungs are clear to auscultation. There is no evidence of peripheral edema and no evidence of petechiae. He is wearing an eye patch, when removing this he did have full extraocular movements; however, again there were a lag on upgaze in the right eye and this was again evident when closing eyes and opening eyes. His pupil on the right side was slightly large compared to the left. His facial expression was asymmetric with a left peripheral seventh nerve palsy. He was able to close his eyes, however, not with as much force as the contralateral side. There was normal bulk and tone. No pronator drift. Good strength in the upper and lower extremities. Normal ihrqmy-py-xdgn movements. I held off on his hetz-yb-icxe movements as he has just had a lumbar puncture. His reflexes continued to be 2+ in the upper extremities. In the lower extremities , his right knee was 2+, left knee was hard to obtain, right ankle was absent, left was 1+. He denied asymmetries to light touch. DIAGNOSTIC STUDIES/LAB DATA: Data includes MRI of the thoracic spine, which showed no clear cause for his symptoms. Please see report for details. His film was reviewed directly. EMG and nerve conduction studies, which again showed findings of a sensorimotor axonal polyneuropathy with some features to suggest early demyelination with simple dispersion. There was also increased distal latency in some nerves and some minimal changes on EMG. Please see report for details. Repeat lumbar puncture showed an opening pressure of 160 mm. His glucose was 66, protein was elevated at 129. He had 10 white blood cells, no red blood cells. MAR was reviewed. IMPRESSION: Mr. aBrrett is a 41-year-old gentleman with progressive multifocal symptoms with symptoms of peripheral neuropathy in the hands and feet, multiple cranial neuropathies with left seventh nerve palsy, possible sixth involvement with decreased sensation on the left hand side and now diplopia and suggestion of partial right third nerve palsy with significant elevation on protein with minimal increase in white count. 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 We will proceed with treatment with IVIG with premedication of Benadryl and Tylenol. Education was given to the patient regarding the fact this is a blood product and there can be allergic reaction. We talked about protocol of close following vitals and infusion and premedications. For differential diagnosis of AMSAN, we will check anti-ganglioside antibodies. We will be checking a GQ1b antibody for Sims Kuhn syndrome. Differential diagnosis does include paraneoplastic antibody panel and I have asked that this be performed including anti-Hu antibody, as we will also check an SPEP, both in peripheral and on CSF, as well as arsenic level and vitamin B1 level. No risk factors for HIV could be identified. Of note, GBS can be associated with Campylobacter jejuni, CMV, EBV, HIV, and Zika. Dr. Ag is evaluating the patient and I appreciated him giving input re: importance of further ID testing. He is on ceftriaxone IV. TIME SPENT: Over an hour and half was spent in direct patient care in addition to performing EMG and nerve conduction studies. Over 50% of this time was spent in education and counseling regarding diagnosis, differential diagnosis, findings on exam, workup to date, further workup planned, potential for using medications, medication potential side effects and benefits. All questions were answered. [id number]/[facility] #: [id number] [facility]
--- NOTE | 2016-12-27 17:03 | CONS ---
CONSULTATION REPORT: DATE OF CONSULT: 12/27/16 REQUESTING PHYSICIAN: Dr. Torres. CONSULTING SERVICE: Infectious Disease. REASON FOR CONSULT: Neuropathy, elevated spinal fluid protein, question infectious etiology. IMPRESSION: Two to three weeks of peripheral neuropathy, abnormal EMG, normal brain imaging with MRI with and without contrast, no spinal cord lesion, also with left 7th nerve palsy. I do not suspect an infectious etiology for this constellation of symptoms. Question of borrelia infection, its usual neurologic involvement, the peripheral nerves has painful radiculopathy, I think , involvement of polyneuropathy is unlikely for Lyme. HIV test is not a bad idea for any patient. RECOMMENDATION: I will add HIV antibody, which he gave verbal consent for and follow up the spinal fluid results that were recently obtained. HISTORY OF PRESENT ILLNESS: This is a 41-year-old man with numbness of his hands and feet, left 7th nerve palsy. He had no symptoms of infectious prodrome , no preceding diarrhea or fever. He had a lumbar puncture done in the ER on , the protein was 65, white cells were 4. He had another one done yesterday, white cells 10, protein 129, glucose 66. Outpatient Lyme antibody was negative. CSF Gram stain here was negative. Brain MRI was negative. He had IVIG last night. He has had no travel or sick contacts. PAST MEDICAL HISTORY: 1. Asthma. 2. Rhinitis. 3. Status post left knee arthroscopy. 4. Status post treatment of ureteral stricture. MEDICATIONS: 1. Tylenol. 2. Meclizine. 3. Benadryl. ALLERGIES: CODEINE. FAMILY HISTORY: No recurrent infections. SOCIAL HISTORY: He lives in [place]. 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 No travel. No sick contacts. He has a pet cat. REVIEW OF SYSTEMS: All negative to full review of systems except as noted above. PHYSICAL EXAM: Vital Signs: Temperature 36.8, heart rate 80, respiratory rate 12, blood pressure 143/83, O2 sat 97% on room air. General: He is awake, not in distress. HEENT: There is no conjunctival hemorrhage. Oropharynx without lesions. Neck is supple without nuchal rigidity. Heart has regular rate and rhythm without murmurs, rubs, or gallops. Lungs are clear to auscultation bilaterally. Abdomen: Soft, nontender, and nondistended. There are bowel sounds present. Skin: There is no rash or splinter hemorrhages. Musculoskeletal: There is no spine tenderness to palpation. No joint synovitis. Neurologic: He moves all the extremities. Strength is 5/5 in the biceps, triceps, quadriceps, tibialis anterior, gastrocnemius bilaterally. There is no lower extremity clonus bilaterally. He has left facial weakness. He seems to have a slightly dysconjugate gaze but with seemingly full range of motion of the eye balls. LABORATORY DATA: White blood cell count 10, hemoglobin 15, platelets 319. Creatinine 1. ALT 41. CRP 1.7. Please see impressions and recommendations outlined above, which I have discussed with Dr. Torres. Thank you for asking me to see Mr. Barrett in consultation. [id number]/[facility] #: [id number] BLU
[2016-12-27] MEDS: diPHENhydraMINE IV* 50 MG in NS 0.9% 50 ML* 50 ML IVPB SCH (17:16)
[2016-12-27] MEDS: Acetaminophen TAB* 325 MG PO SCH (17:16)
[2016-12-27] MEDS: [UNRECOGNIZED DRUG - OTHER] IV SCH (18:42)
[2016-12-27] MEDS: IMMUNE GLOBULN IV SCH (18:42)
[2016-12-28] MEDS: Ondansetron INJ* 2 MG/ML VIAL IV SCH ×4 (02:26→21:24)
--- NOTE | 2016-12-28 03:34 | PN ---
FOLLOWUP NOTE: DATE OF FOLLOWUP: 12/27/16 HISTORY OF PRESENT ILLNESS: Mr. Barrett received his first dose of IVIG last night for differential diagnosis of Guillain-[place] syndrome, in particular Sims Kuhn syndrome, he tolerated it well. At the after the infusion, however, he felt a 'sloshing' in his chest, his sat was 95%, respiratory rate was 18. Crackles were noted in the lower lobes by Nursing. He also had some pain in his head and his back, which improved with morphine. Of note, he had this prior to IVIG. He denies any other new symptoms on today's visit. PHYSICAL EXAMINATION: On examination, his temperature is 98 degrees, pulse was 88, respiratory rate 16, saturation 98%, blood pressure 148/59. He had a regular cardiac rhythm. His lungs were clear to auscultation. There is no carotid bruit. No evidence of rash and no evidence of edema at the ankles. Also , there was no cord palpated in his calves. He was awake, alert, articulate. He continues to have diplopia with difficulty with stability and upward movement of the right eye, perhaps slight fullness to the right eyelid compared to the left. He continues having a significant left peripheral 7th nerve palsy , able to close the left eye, but weaker orbicularis oculi, and weakness in orbicularis humaira movement on the left. There was no pronator drift. He had full strength in his upper and lower extremities. His vibration sensation continued to be decreased at the large toes by 20 seconds, 10 seconds at the ankles. Proprioception was intact. His reflexes were 2+ in the upper extremity , 2+ at the right knee, absent at the left knee, absent at the ankles. MEDICATIONS: MAR was reviewed. He will be receiving his second dose of IVIG tonight. IMPRESSION: Mr. 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 Workup for this differential diagnosis with anti- ganglioside antibodies has been sent off along with workup for differential diagnosis including thiamine deficiency, arsenic exposure, sarcoidosis, and neoplastic cause with perineoplastic antibody and SPEP. I await ID input as Guillain-[place] can be associated with Campylobacter jejuni, CMV, EBV, HIV and Zika. I appreciate Dr. Ag's input. Because of his feeling of fluid in his chest after IVIG, I will ask that the infusion rate be kept at 283 mL an hour. Pharmacy has been notified, and I will discuss this with nursing staff. TIME SPENT: Over 30 minutes were spent in direct patient care. Education was given to the patient regarding diagnosis, differential diagnosis, laboratory workup, and plans for treatment. [id number]/[facility] #: [id number] MTDD
[2016-12-28] MEDS: Artificial Tear OPHTH.OINT* 3.5 GM BOTH EYES SCH ×5 (04:47→21:24)
[2016-12-28] MEDS: Meclizine TAB* 12.5 MG PO SCH ×3 (05:59→21:23)
[2016-12-28 06:09] LABS: Whole Blood Vitamin B1 Level 116 nmol/L (70-180)
[2016-12-28] MEDS: Acetaminophen TAB* 325 MG PO PRN (08:53)
--- NOTE | 2016-12-28 10:16 | PN ---
Progress Note - Progress Note Date of Service: 12/28/16 SOAP: Subjective: CC: numbness HPI: 41 yo man with neuropathy and CN 7 palsy with double vision, on IVIG. No fever or rash. Loose stool x3 today, not urgent, a few times yesterday, no abd pain; appetite ok. Objective: [] Vital Signs Temp 37.0 C 12/28/16 07:15 Pulse 86 12/28/16 07:15 Resp 12 12/28/16 08:00 BP 158/81 12/28/16 07:15 Pulse Ox 97 12/28/16 07:15 Intake & Output 12/27/16 12/28/16 12/28/16 18:59 06:59 18:59 Intake Total 920 867 230 Output Total 0 Balance 920 867 230 Intake: Medicated IV 867 Immunoglobulin 867 Oral 920 0 230 Output: Urine 0 Other: Estimated Void Medium # Bowel Movements 0 # Voids 3 3 Gen:awake, no distress HEENT:PERRL, MMM Neck:supple Heart:RRR no murmur Lungs:CTA BL Abd:+BS NTND soft Skin: no rash MSK: no spine tenderness Laboratory Results - last 24 hr 12/26/16 12/26/16 12/26/16 14:16 14:16 14:16 Total Protein (PEP) 6.4 Albumin (PEP) 3.3 L Albumin/Globulin (PEP) 1.05 Disnq-0-Frtbpuduq 0.2 Hkxbb-8-Yqynjvsxa 0.8 Ouyc-0-Eymovfnq 1.1 Gamma Globulins 1.0 PEP Impression See comment Angiotensin Convert Enz 21 Whole Bld Vitamin B1 116 Fluid Cell Count Rvw By Arsenic <1 HIV 1&2 Antibody 12/26/16 12/26/16 14:16 16:12 Total Protein (PEP) Albumin (PEP) Albumin/Globulin (PEP) Xvgvb-6-Slczgzmrx Rtuzh-4-Uypxwkhzh Hicv-3-Zomfqaxm Gamma Globulins PEP Impression Angiotensin Convert Enz Whole Bld Vitamin B1 Fluid Cell Count Rvw By Arsenic HIV 1&2 Antibody Nonreactive Assessment: 1. diarrhea, likely abx associated; not related to underlying neurologic issue, had a loose stool a couple weeks ago which also is not c/w infectious colitis 2. peripheral and cranial neuropathy ?AIDP Plan: 1. imodium prn Discussed with Dr Torres
[2016-12-28] MEDS ORDERED: Loperamide CAP* 2 MG PO ONE (10:17)
[2016-12-28 15:07] LABS: BUN/Creatinine Ratio 12.5 (8-20); Blood Urea Nitrogen 15 mg/dL (6-24); CO2 Carbon Dioxide 23 mmol/L (22-32); Calcium 8.8 mg/dL (8.6-10.3); Chloride 102 mmol/L (101-111); EGFR African American 86.2 (>60); EGFR Non-African American 67.1 (>60); Glucose 116 mg/dL (70-100); Sodium 134 mmol/L (133-145)
[2016-12-28] MEDS ORDERED: HYDROcodone/ACETAMIN 5-325 MG* 1 TAB PO PRN (16:07)
--- NOTE | 2016-12-28 16:19 | PN ---
Subjective Date of Service: 12/28/16 Interval History: Pt is having loose stools. He stated 5 stools today. He has a headache today as well. No SOB. No odd sloshing feeling when receiving the IVIG last night. He states he still has double vision when his eye is not patched. Objective Active Medications: Acetaminophen (Tylenol Tab*) 650 mg PO Q4H PRN PRN Reason: PAIN Last Admin: 12/28/16 08:53 Dose: 650 mg Acetaminophen (Tylenol Tab*) 650 mg PO Q24HR@1800 [facility] Stop: 12/30/16 18:01 Last Admin: 12/27/16 17:16 Dose: 650 mg Hydrocodone Bitart/Acetaminophen ([place] 5-325 Tab*) 1 tab PO Q4H PRN PRN Reason: PAIN Artificial Tears (Lacrilube Oint*) 1 applic BOTH EYES Q4H [facility] Last Admin: 12/28/16 11:28 Dose: 1 applic Artificial Tears (Lacrilube Oint*) 1 applic LEFT EYE UC ONCE [facility] Stop: 12/29/16 23:59 Immune Globulin 5 gm/ Immune (Globulin 40 gm/ IV Solution) 900 mls @ 0 mls/hr IV DAILY@1800 KAYCEE; Per Protocol PRN Reason: Protocol Stop: 12/30/16 18:01 Last Admin: 12/27/16 18:42 Dose: 71 mls/hr Diphenhydramine HCl 50 mg/ (Sodium Chloride) 51 mls @ 102 mls/hr IVPB Q24HR@ 1730 [facility] Stop: 12/30/16 17:59 Last Admin: 12/27/16 17:16 Dose: 102 mls/hr Loperamide HCl (Imodium Cap*) 2 mg PO .SEE DIRECTIONS PRN PRN Reason: DIARRHEA Meclizine HCl (Antivert Tab*) 25 mg PO Q8HR [facility] Last Admin: 12/28/16 14:29 Dose: 25 mg Morphine Sulfate (Morphine Inj (Syringe)*) 2 mg IV Q4H PRN PRN Reason: PAIN - MILD Last Admin: 12/27/16 23:32 Dose: 2 mg Ondansetron HCl (Zofran Inj*) 4 mg IV Q6H [facility] Last Admin: 12/28/16 14:29 Dose: 4 mg Prochlorperazine Edisylate (Compazine Inj*) 10 mg IV Q6H PRN PRN Reason: NAUSEA Vital Signs 12/27/16 12/27/16 12/27/16 17:16 18:16 18:34 Temperature Pulse Rate 88 Respiratory 18 16 Rate Blood Pressure (mmHg) O2 Sat by Pulse 94 Oximetry 12/27/16 12/27/16 12/27/16 18:42 18:45 18:58 Temperature 99.2 F Pulse Rate 91 88 99 Respiratory 18 Rate Blood Pressure 143/90 143/90 145/84 (mmHg) O2 Sat by Pulse 91 91 98 Oximetry 12/27/16 12/27/16 12/27/16 19:00 19:15 19:30 Temperature Pulse Rate 82 90 85 Respiratory Rate Blood Pressure 151/84 148/91 144/82 (mmHg) O2 Sat by Pulse 91 91 94 Oximetry 12/27/16 12/27/16 12/27/16 19:31 19:45 20:00 Temperature Pulse Rate 83 79 Respiratory 18 Rate Blood Pressure 147/77 (mmHg) O2 Sat by Pulse 89 92 Oximetry 12/27/16 12/27/16 12/27/16 20:15 20:30 20:45 Temperature Pulse Rate 87 85 87 Respiratory Rate Blood Pressure 147/80 150/82 155/89 (mmHg) O2 Sat by Pulse 93 91 92 Oximetry 12/27/16 12/27/16 12/27/16 20:50 21:00 22:00 Temperature Pulse Rate 144 78 81 Respiratory Rate Blood Pressure 147/79 143/74 (mmHg) O2 Sat by Pulse 96 93 95 Oximetry 12/27/16 12/27/16 12/27/16 22:30 23:00 23:13 Temperature 98.5 F Pulse Rate 78 86 Respiratory Rate Blood Pressure 139/74 153/89 (mmHg) O2 Sat by Pulse 94 98 Oximetry 12/27/16 12/28/16 12/28/16 23:32 00:32 03:38 Temperature 98.7 F Pulse Rate 71 Respiratory 16 16 16 Rate Blood Pressure 161/96 (mmHg) O2 Sat by Pulse 98 Oximetry 12/28/16 12/28/16 12/28/16 03:41 07:15 08:00 Temperature 98.7 F 98.6 F Pulse Rate 78 86 Respiratory 16 12 12 Rate Blood Pressure 148/92 158/81 (mmHg) O2 Sat by Pulse 96 97 Oximetry 0812/28/16 12/28/16 11:12 11:28 13:28 Temperature 98.9 F Pulse Rate 87 Respiratory 12 18 20 Rate Blood Pressure 151/72 (mmHg) O2 Sat by Pulse 97 Oximetry 12/28/16 15:32 Temperature 99.2 F Pulse Rate 84 Respiratory 20 Rate Blood Pressure 145/80 (mmHg) O2 Sat by Pulse 97 Oximetry Oxygen Devices in Use Now: None Appearance: Middle aged male sitting up in bed, NAD Eyes: No Scleral Icterus Ears/Nose/Mouth/Throat: Mucous Membranes Moist Respiratory: Symmetrical Chest Expansion and Respiratory Effort, Clear to Auscultation Cardiovascular: NL Sounds; No Murmurs; No JVD, RRR, No Edema Abdominal: NL Sounds; No Tenderness; No Distention Extremities: No Clubbing, Cyanosis Skin: No Rash or Ulcers, No Nodules or Sclerosis Neurological: Alert and Oriented x 3, NL Muscle Strength and Tone Result Diagrams: 12/25/16 13:55 12/28/16 14:18 Microbiology and Other Data: Microbiology 12/26/16 16:12 CSF Gram Stain (Tube 3) - Final Cerebral Spinal Fluid Assess/Plan/Problems-Billing Mr Barrett is a 41 yo M who has a h/o seasonal allergies and asthma who has developed multifocal progressive cranial neuropathies, hand/foot numbness and headache and was admitted yesterday after he developed diplopia. - Patient Problems (1) Polyneuropathy Current Visit: Yes Status: Acute Code(s): G62.9 - POLYNEUROPATHY, UNSPECIFIED SNOMED Code(s): 28227998 Comment: Continue IVIG therapy-tonight will be day #3/5. ? Guillian Cordell vs Levi Kuhn. No further recommendations at this time. (2) Diarrhea Current Visit: Yes Status: Acute Code(s): R19.7 - DIARRHEA, UNSPECIFIED SNOMED Code(s): 40789200 Comment: Likely secondary to ceftriaxone. This has now been stopped. Continue to monitor and give imodium. (3) Diplopia Current Visit: Yes Status: Acute Code(s): H53.2 - DIPLOPIA SNOMED Code(s) : 40511096 Comment: Only better with patching the eye. Continue the patching for now. (4) Asthma Current Visit: Yes Status: Acute Code(s): J45.909 - UNSPECIFIED ASTHMA, UNCOMPLICATED SNOMED Code(s): 245798950 Comment: No signs of exacerbation. Monitor for symptoms. (5) DVT prophylaxis Current Visit: Yes Status: Acute Code(s): SED2605 - SNOMED Code(s): 480414269 Comment: SCDs (6) Full code status Current Visit: Yes Status: Acute Code(s): Z78.9 - OTHER SPECIFIED HEALTH STATUS SNOMED Code(s): 533503913
[2016-12-28] MEDS: Acetaminophen TAB* 325 MG PO SCH (17:05)
[2016-12-28] MEDS: diPHENhydraMINE IV* 50 MG in NS 0.9% 50 ML* 50 ML IVPB SCH (17:05)
[2016-12-28] MEDS: Loperamide CAP* 2 MG PO PRN (17:57)
[2016-12-28] MEDS: IMMUNE GLOBULN IV SCH (17:58)
[2016-12-28] MEDS: [UNRECOGNIZED DRUG - OTHER] IV SCH (17:58)
[2016-12-28 21:04] LABS: Anion Gap 9 mmol/L (2-11)
[2016-12-29] MEDS: Artificial Tear OPHTH.OINT* 3.5 GM BOTH EYES SCH ×6 (00:09→21:24)
[2016-12-29] MEDS: Ondansetron INJ* 2 MG/ML VIAL IV SCH ×4 (02:19→19:26)
[2016-12-29 05:17] LABS: BUN/Creatinine Ratio 10.5 (8-20); Calcium 8.7 mg/dL (8.6-10.3); EGFR African American 91.5 (>60); EGFR Non-African American 71.1 (>60); Potassium 3.9 mmol/L (3.5-5.0)
[2016-12-29] MEDS: Meclizine TAB* 12.5 MG PO SCH ×3 (05:44→21:22)
--- NOTE | 2016-12-29 05:46 | PN ---
FOLLOWUP NOTE: DATE OF FOLLOWUP: 12/28/16 HISTORY OF PRESENT ILLNESS: Overnight, John Barrett received IVIG. His rate was kept at lower than previous. He denies any difficulty other than some headache and back pain. His headache improved with Tylenol, his back pain with morphine. There has been no new symptoms. If anything he feels, he is stabilized. On further questioning with the diplopia, there may be some improvement as there seems to be less spread of the images. He has had no nausea or vomiting. His headache may be improved. PHYSICAL EXAMINATION: On examination, his most recent temperature was 98.6 degrees Fahrenheit, heart rate 86, respiratory rate 18, saturation 97%, and blood pressure was 158/81. He had a regular cardiac rhythm. His lungs were clear to auscultation. There is no carotid bruit. He had no peripheral edema. Peripheral pulses were intact in the feet. He was awake, alert, articulate. He had full extraocular movements and it was hard to visualize any change in the movement of the right eye. He continues to have stable left peripheral 7th nerve palsy. There was no pronator drift. He had full strength in his upper and lower extremities. Vibration sensation was decreased at the right large toe by 15 to 20 seconds, 10 seconds at the right ankle, decreased at the left large toe by 10 seconds. Proprioception was intact. Sharp and cool were decreased at the ankles. Pinprick to the wrist, cool was otherwise intact, and the arm reflexes were 2+ in the upper extremities, 2+ in the right knee, 1+ in the left knee, absent in the right ankle, 1+ in the left ankle. LABORATORY DATA: Laboratory tests do reveal a BI level 116. His HIV is nonreactive. Arsenic is less than 1. We will await further testing from [facility]. 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 He is on day 3 of IVIG, which he will receive this evening. It appears he has stabilized, if not improved. ID input is very much appreciated. I have suggested that he proceed with physical therapy and occupational therapy given his instability. He is to let us know how he does with pain control. He may need medication with Tylenol and morphine given different responsiveness of his different types of pain. I will repeat metabolic panel to ensure stable renal function in the setting of receiving significant volume of IVIG. Lastly, I questioned a falx process on his previous MRI and reviewed this with Radiology who indicated it is most likely calcification. TIME SPENT: Over 30 minutes was spent in direct patient care. [id number]/[facility] #: [id number] MTDLily
[2016-12-29] MEDS: Acetaminophen TAB* 325 MG PO PRN (08:54)
--- NOTE | 2016-12-29 10:46 | PN ---
Subjective Date of Service: 12/29/16 Interval History: Pt is feeling better. He continues to have double vision but the images are closer together than they were previously. He feels nauseated currently due to his eye not being patched (he requested the patch to stay off for now due to irritation related to the tape). Objective Active Medications: Acetaminophen (Tylenol Tab*) 650 mg PO Q4H PRN PRN Reason: PAIN Last Admin: 12/29/16 08:54 Dose: 650 mg Acetaminophen (Tylenol Tab*) 650 mg PO Q24HR@1800 [facility]CE[facility] Stop: 12/30/16 18:01 Last Admin: 12/28/16 17:05 Dose: 650 mg Hydrocodone Bitart/Acetaminophen ([place] 5-325 Tab*) 1 tab PO Q4H PRN PRN Reason: PAIN Artificial Tears (Lacrilube Oint*) 1 applic BOTH EYES Q4H [facility] Last Admin: 12/29/16 08:57 Dose: 1 applic Artificial Tears (Lacrilube Oint*) 1 applic LEFT EYE UC ONCE [facility] Stop: 12/29/16 23:59 Immune Globulin 5 gm/ Immune (Globulin 40 gm/ IV Solution) 900 mls @ 0 mls/hr IV DAILY@1800 [facility]CE[facility]; Per Protocol PRN Reason: Protocol Stop: 12/30/16 18:01 Last Admin: 12/28/16 17:58 Dose: 71 mls/hr Diphenhydramine HCl 50 mg/ (Sodium Chloride) 51 mls @ 102 mls/hr IVPB Q24HR@ 1730 [facility] Stop: 12/30/16 17:59 Last Admin: 12/28/16 17:05 Dose: 102 mls/hr Loperamide HCl (Imodium Cap*) 2 mg PO .SEE DIRECTIONS PRN PRN Reason: DIARRHEA Last Admin: 12/28/16 17:57 Dose: 2 mg Meclizine HCl (Antivert Tab*) 25 mg PO Q8HR [facility] Last Admin: 12/29/16 05:44 Dose: 25 mg Morphine Sulfate (Morphine Inj (Syringe)*) 2 mg IV Q4H PRN PRN Reason: PAIN - MILD Last Admin: 12/27/16 23:32 Dose: 2 mg Ondansetron HCl (Zofran Inj*) 4 mg IV Q6H [facility] Last Admin: 12/29/16 08:55 Dose: 4 mg Prochlorperazine Edisylate (Compazine Inj*) 10 mg IV Q6H PRN PRN Reason: NAUSEA Vital Signs 12/28/16 12/28/16 12/28/16 11:12 11:28 13:28 Temperature 98.9 F Pulse Rate 87 Respiratory 12 18 20 Rate Blood Pressure 151/72 (mmHg) O2 Sat by Pulse 97 Oximetry 12/28/16 12/28/16 12/28/16 15:32 17:05 17:57 Temperature 99.2 F Pulse Rate 84 Respiratory 20 20 20 Rate Blood Pressure 145/80 (mmHg) O2 Sat by Pulse 97 Oximetry 12/28/16 12/28/16 12/28/16 18:00 18:04 18:08 Temperature 99.2 F 99.2 F Pulse Rate 96 92 Respiratory 18 18 18 Rate Blood Pressure 145/78 145/78 (mmHg) O2 Sat by Pulse 98 97 Oximetry 12/28/16 12/28/16 12/28/16 18:15 18:30 18:45 Temperature Pulse Rate 92 90 91 Respiratory Rate Blood Pressure 140/78 154/75 141/74 (mmHg) O2 Sat by Pulse 98 97 97 Oximetry 12/28/16 12/28/16 12/28/16 19:00 19:15 19:27 Temperature Pulse Rate 94 88 Respiratory 16 Rate Blood Pressure 143/73 143/72 (mmHg) O2 Sat by Pulse 96 95 Oximetry 12/28/16 12/28/16 12/28/16 19:30 19:43 19:57 Temperature 99.0 F Pulse Rate 91 92 Respiratory 20 16 Rate Blood Pressure 146/76 146/67 (mmHg) O2 Sat by Pulse 96 96 Oximetry 12/29/16 12/29/16 12/29/16 00:01 03:49 07:24 Temperature 99.4 F 99.3 F 98.8 F Pulse Rate 82 82 77 Respiratory 16 16 24 Rate Blood Pressure 156/92 161/82 156/85 (mmHg) O2 Sat by Pulse 96 95 98 Oximetry 12/29/16 08:00 Temperature Pulse Rate Respiratory 16 Rate Blood Pressure (mmHg) O2 Sat by Pulse Oximetry Oxygen Devices in Use Now: None Appearance: Middle aged male sitting in a chair, NAD Eyes: No Scleral Icterus Ears/Nose/Mouth/Throat: Mucous Membranes Moist Respiratory: Symmetrical Chest Expansion and Respiratory Effort, Clear to Auscultation Cardiovascular: NL Sounds; No Murmurs; No JVD, RRR, No Edema Abdominal: NL Sounds; No Tenderness; No Distention Extremities: No Clubbing, Cyanosis Skin: No Rash or Ulcers, No Nodules or Sclerosis Neurological: Alert and Oriented x 3 Result Diagrams: 12/25/16 13:55 12/29/16 04:48 Microbiology and Other Data: Microbiology 12/26/16 16:12 CSF Gram Stain (Tube 3) - Final Cerebral Spinal Fluid Assess/Plan/Problems-Billing Mr Barrett is a 41 yo M who has a h/o seasonal allergies and asthma who has developed multifocal progressive cranial neuropathies, hand/foot numbness and headache and was admitted yesterday after he developed diplopia. - Patient Problems (1) Polyneuropathy Current Visit: Yes Status: Acute Code(s): G62.9 - POLYNEUROPATHY, UNSPECIFIED SNOMED Code(s): 78819658 Comment: Continue IVIG therapy-tonight will be day #4/5. ? Guillian [place] vs Levi Kuhn. He seems to have had some mild improvement in symptoms. (2) Diarrhea Current Visit: Yes Status: Acute Code(s): R19.7 - DIARRHEA, UNSPECIFIED SNOMED Code(s): 48879218 Comment: Loose stools continue though he had not had any diarrhea today. (3) Diplopia Current Visit: Yes Status: Acute Code(s): H53.2 - DIPLOPIA SNOMED Code(s) : 01209116 Comment: Continues but perhaps is slightly better. Continue to patch as needed. (4) Asthma Current Visit: Yes Status: Acute Code(s): J45.909 - UNSPECIFIED ASTHMA, UNCOMPLICATED SNOMED Code(s): 353740080 Comment: No signs of exacerbation. Monitor for symptoms. (5) DVT prophylaxis Current Visit: Yes Status: Acute Code(s): ISA0684 - SNOMED Code(s): 634958132 Comment: SCDs (6) Full code status Current Visit: Yes Status: Acute Code(s): Z78.9 - OTHER SPECIFIED HEALTH STATUS SNOMED Code(s): 963784717
[2016-12-29] MEDS: Loperamide CAP* 2 MG PO PRN (13:47)
[2016-12-29 17:16] LABS: CSF Angiotension Conv Enz 1.8 U/L (0.0-2.5)
[2016-12-29] MEDS: diPHENhydraMINE IV* 50 MG in NS 0.9% 50 ML* 50 ML IVPB SCH (18:23)
[2016-12-29] MEDS: Acetaminophen TAB* 325 MG PO SCH (19:31)
[2016-12-29] MEDS: IMMUNE GLOBULN IV SCH (19:47)
[2016-12-29] MEDS: [UNRECOGNIZED DRUG - OTHER] IV SCH (19:47)
[2016-12-30] MEDS: Acetaminophen TAB* 325 MG PO PRN (00:22)
[2016-12-30] MEDS: Artificial Tear OPHTH.OINT* 3.5 GM BOTH EYES SCH ×7 (00:25→23:24)
[2016-12-30] MEDS: Morphine INJ* 2 MG/ML 1 ML SYRINGE IV PRN (01:21)
[2016-12-30] MEDS: Ondansetron INJ* 2 MG/ML VIAL IV SCH ×4 (01:21→22:27)
--- NOTE | 2016-12-30 03:18 | PN ---
PROGRESS NOTE: DATE OF FOLLOWUP: 12/29/16 HISTORY: Mr. Barrett received his third dose of IVIg last night. He continues to get headaches and back pain which he is able to manage with current pain regimen. He has noticed some continued improvement in vision and balance. PHYSICAL EXAMINATION: On examination, his most recent vitals include temperature of 98.8 degrees Fahrenheit, pulse 77, respiratory rate 18, saturation 98%, blood pressure 156/84. He had a regular cardiac rhythm. His lungs were clear to auscultation. He continued to have weakness of the left face compared to the right. He had full extraocular movements with question of some lag and upgaze on the right. There was no pronator drift. He had normal biscfh-pj-ygtd and heel-to- davis movements. His reflexes were 2+ in the upper extremities and 2+ in the knees, absent at the ankles. DATA: Includes a metabolic panel from today which showed sodium slightly low at 131, creatinine was improved at 1.14, glucose is 107. His ganglioside antibody panel came back negative. Paraneoplastic antibody panel was pending. IMPRESSION AND PLAN: Mr. Barrett is a 41-year-old gentleman with history of progressive neuropathy with cranial neuropathies most consistent with Guillain- [place]; however, differential diagnosis does include acute motor sensory axonal neuropathy. He is day number 4 with IVIG. I have asked for repeat creatinine to ensure stability. His blood pressure is slightly elevated and I will defer treatment to the hospitalist team. His lungs are clear. He seems to be tolerating the fluid load without difficulty. Paraneoplastic panel is still pending. As an outpatient, he saw Dr. De La Rosa. After discharge on Sunday, he should follow up with Dr. De La Rosa over the next 2 to 3 weeks. Overall, I am pleased to see how well he is doing. On today's visit, his mother was at bedside. Education was provided and all questions were answered. [id number]/[facility] #: [id number] BLU
[2016-12-30 06:24] LABS: EGFR African American 95.3 (>60); EGFR Non-African American 74.1 (>60); Potassium 4.5 mmol/L (3.5-5.0)
[2016-12-30] MEDS: Loperamide CAP* 2 MG PO PRN ×2 (07:08→14:32)
[2016-12-30] MEDS: Meclizine TAB* 12.5 MG PO SCH ×3 (07:08→21:55)
--- NOTE | 2016-12-30 13:45 | PN ---
Subjective Date of Service: 12/30/16 Interval History: Mr. Barrett notes minimal but continued improvement in his diplopia and hand/ feet numbness. He denies other complaint including chest pain, SOB, nausea, or abdominal pain. He continues to have a small amount of diarrhea, 3 small BMs reported today. Objective Active Medications: Acetaminophen (Tylenol Tab*) 650 mg PO Q4H PRN Acetaminophen (Tylenol Tab*) 650 mg PO Q24HR@1800 KAYCEE Hydrocodone Bitart/Acetaminophen ([place] 5-325 Tab*) 1 tab PO Q4H PRN Artificial Tears (Lacrilube Oint*) 1 applic BOTH EYES Q4H KAYCEE Immune Globulin 5 gm/ Immune (Globulin 40 gm/ IV Solution) 900 mls @ 0 mls/hr IV DAILY@1800 KAYCEE; Per Protocol Diphenhydramine HCl 50 mg/ (Sodium Chloride) 51 mls @ 102 mls/hr IVPB Q24HR@ 1730 KAYCEE Loperamide HCl (Imodium Cap*) 2 mg PO .SEE DIRECTIONS PRN Meclizine HCl (Antivert Tab*) 25 mg PO Q8HR KAYCEE Morphine Sulfate (Morphine Inj (Syringe)*) 2 mg IV Q4H PRN Ondansetron HCl (Zofran Inj*) 4 mg IV Q6H KAYCEE Prochlorperazine Edisylate (Compazine Inj*) 10 mg IV Q6H PRN Vital Signs 12/29/16 12/29/16 12/29/16 13:47 15:47 15:54 Temperature 98.2 F Pulse Rate 74 Respiratory 18 18 16 Rate Blood Pressure 156/86 (mmHg) O2 Sat by Pulse 97 Oximetry 12/29/16 12/29/16 12/29/16 18:23 19:23 19:36 Temperature 98.0 F Pulse Rate 82 Respiratory 18 20 16 Rate Blood Pressure 166/92 (mmHg) O2 Sat by Pulse 100 Oximetry 12/29/16 12/29/16 12/29/16 20:00 20:17 20:21 Temperature 97.7 F Pulse Rate 79 80 Respiratory 20 14 Rate Blood Pressure 154/86 (mmHg) O2 Sat by Pulse 98 97 Oximetry 12/29/16 12/29/16 12/29/16 20:46 21:01 21:20 Temperature 98.4 F 98.1 F 98.2 F Pulse Rate 70 74 71 Respiratory 16 20 16 Rate Blood Pressure 145/82 145/86 143/88 (mmHg) O2 Sat by Pulse 98 98 98 Oximetry 12/29/16 12/29/16 12/29/16 21:37 21:43 22:20 Temperature 98.1 F 98.1 F 98.4 F Pulse Rate 71 69 70 Respiratory 16 16 16 Rate Blood Pressure 148/88 148/88 142/82 (mmHg) O2 Sat by Pulse 97 98 95 Oximetry 12/29/16 12/29/16 12/29/16 22:46 23:22 23:23 Temperature 98.4 F 98.5 F 98.5 F Pulse Rate 65 66 66 Respiratory 16 20 20 Rate Blood Pressure 147/85 145/82 145/82 (mmHg) O2 Sat by Pulse 96 98 98 Oximetry 12/29/16 12/30/16 12/30/16 23:56 00:11 00:37 Temperature 98.4 F 98.4 F 98.4 F Pulse Rate 74 76 65 Respiratory 20 20 20 Rate Blood Pressure 138/82 142/82 153/84 (mmHg) O2 Sat by Pulse 96 97 97 Oximetry 12/30/16 12/30/16 12/30/16 01:21 02:21 07:08 Temperature Pulse Rate Respiratory 18 20 18 Rate Blood Pressure (mmHg) O2 Sat by Pulse Oximetry 12/30/16 12/30/16 12/30/16 07:16 07:34 09:08 Temperature 98.1 F Pulse Rate 65 Respiratory 18 18 18 Rate Blood Pressure 147/82 (mmHg) O2 Sat by Pulse 98 Oximetry Oxygen Devices in Use Now: None Appearance: Male sitting up in bed in NAD Eyes: No Scleral Icterus Ears/Nose/Mouth/Throat: Mucous Membranes Moist Neck: Trachea Midline Respiratory: Symmetrical Chest Expansion and Respiratory Effort, Clear to Auscultation Cardiovascular: NL Sounds; No Murmurs; No JVD, No Edema Abdominal: NL Sounds; No Tenderness; No Distention Lymphatic: No Cervical Adenopathy Extremities: No Edema Skin: No Rash or Ulcers Neurological: Alert and Oriented x 3, NL Muscle Strength and Tone, - - Reports numbness to feet and hands Nutrition: Taking PO's Result Diagrams: 12/25/16 13:55 12/30/16 05:23 Microbiology and Other Data: Microbiology 12/26/16 16:12 CSF Gram Stain (Tube 3) - Final Cerebral Spinal Fluid Assess/Plan/Problems-Billing Mr Barrett is a 41 yo M who has a h/o seasonal allergies and asthma who has developed multifocal progressive cranial neuropathies, hand/foot numbness and headache and was admitted yesterday after he developed diplopia. - Patient Problems (1) Polyneuropathy Comment: - He continues to have had some mild improvement in symptoms. - Appreciate neurology consultation. 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 - Continue IVIG therapy-tonight will be day #5/5. (2) Diplopia Comment: - Continues but perhaps is slightly better. - Continue to patch as needed. (3) Diarrhea Comment: - Minimal loose stools. - Continue imodium prn. (4) Asthma Comment: - No signs of exacerbation. (5) Hypertension Comment: - SBP 140-160s. - Patient denies having elevated BP in the past and would like to wait to follow up with Dr. Maher before starting a new medication. (6) DVT prophylaxis Comment: - SCDs. (7) Full code status Status and Disposition: Inpatient with LOS > 2 days. Anticipate discharge to home tomorrow.
[2016-12-30] MEDS ORDERED: amLODIPine TAB* 5 MG PO SCH (17:00)
[2016-12-30] MEDS: diPHENhydraMINE IV* 50 MG in NS 0.9% 50 ML* 50 ML IVPB SCH (17:01)
[2016-12-30] MEDS: Acetaminophen TAB* 325 MG PO SCH (17:05)
[2016-12-30] MEDS: IMMUNE GLOBULN IV SCH (18:13)
[2016-12-30] MEDS: [UNRECOGNIZED DRUG - OTHER] IV SCH (18:13)
--- NOTE | 2016-12-30 23:45 | PN ---
PROGRESS NOTE: DATE OF VISIT/DICTATION: 12/30/16 PATIENT OF: Dr. Neeta Miner and Dr. Torres. 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 His headache is somewhat better now. He still has some back pain. He is able to walk with a walker and feels stable in this setting. He still has numbness. He had a subjective sense of global weakness before, but he does not feel that at this current time. MEDICATIONS: Include: 1. Meclizine 25 mg q.8 hours. 2. Lacri-Lube 3. His p.r.n. medications including hydrocodone, Imodium, and Compazine. PHYSICAL EXAMINATION: He has no other complaints. Temperature today 99.3, pulse 87, respiratory rate 18, blood pressure 158/91. He is alert and oriented with normal speech and comprehension. He still complains of double vision with slight inability to fully abduct his eye on either side, this was not noticed before, but he does not notice any increased double vision on lateral gaze. He had some slight left facial weakness. Strength was 5/5. Reflexes were 1+ with trace ankle jerks. Chest: Clear. Cardiovascular: Regular rate and rhythm. LABORATORY DATA: I reviewed his testing including negative Lyme titers, ganglioside antibody panel negative. His CSF had 10 white cells and a total protein of 129 on the second spinal tap. PLAN: The plan is for him to complete his IVIG and then discharged to home with close followup with either Dr. De La Rosa or if he is not available, Dr. Miner in the next week or two. I discussed with the family getting an eye patch. Apparently, it is not in the hospital and the mom is going to get this at the pharmacy. Thank you for sharing his case. [id number]/[facility] #: [id number] [facility] SYSTEM[facility]
[2016-12-31] MEDS: Ondansetron INJ* 2 MG/ML VIAL IV SCH ×2 (01:37→08:10)
[2016-12-31] MEDS: Artificial Tear OPHTH.OINT* 3.5 GM BOTH EYES SCH ×3 (04:01→08:44)
[2016-12-31] MEDS: Meclizine TAB* 12.5 MG PO SCH (05:08)
[2016-12-31] MEDS: Morphine INJ* 2 MG/ML 1 ML SYRINGE IV PRN (05:28)
[2016-12-31 08:12] VITALS: BP 138/67
[2016-12-31] MEDS: Acetaminophen TAB* 325 MG PO PRN (11:15)
--- NOTE | 2016-12-31 11:43 | PN ---
Subjective Date of Service: 12/31/16 Interval History: Mr. Barrett states that he feels slightly better than yesterday. He continues to have some diplopia and hand/foot numbness. He denies chest pain, SOB, nausea , or abdominal pain. Objective Active Medications: Acetaminophen (Tylenol Tab*) 650 mg PO Q4H PRN PRN Reason: PAIN Last Admin: 12/31/16 11:15 Dose: 650 mg Hydrocodone Bitart/Acetaminophen ([place] 5-325 Tab*) 1 tab PO Q4H PRN PRN Reason: PAIN Last Admin: 12/29/16 13:47 Dose: 1 tab Artificial Tears (Lacrilube Oint*) 1 applic BOTH EYES Q4H KAYCEE Last Admin: 12/31/16 08:44 Dose: 1 applic Loperamide HCl (Imodium Cap*) 2 mg PO .SEE DIRECTIONS PRN PRN Reason: DIARRHEA Last Admin: 12/30/16 14:32 Dose: 2 mg Meclizine HCl (Antivert Tab*) 25 mg PO Q8HR [facility] Last Admin: 12/31/16 05:08 Dose: 25 mg Morphine Sulfate (Morphine Inj (Syringe)*) 2 mg IV Q4H PRN PRN Reason: PAIN - MILD Last Admin: 12/31/16 05:28 Dose: 2 mg Ondansetron HCl (Zofran Inj*) 4 mg IV Q6H [facility] Last Admin: 12/31/16 08:10 Dose: Not Given Prochlorperazine Edisylate (Compazine Inj*) 10 mg IV Q6H PRN PRN Reason: NAUSEA Vital Signs 12/30/16 12/30/16 12/30/16 14:32 15:08 16:32 Temperature 99.3 F Pulse Rate 87 Respiratory 18 20 16 Rate Blood Pressure 158/91 (mmHg) O2 Sat by Pulse 97 Oximetry 12/30/16 12/30/16 12/30/16 17:01 18:01 18:18 Temperature Pulse Rate 104 Respiratory 18 16 Rate Blood Pressure 162/90 (mmHg) O2 Sat by Pulse 96 Oximetry 12/30/16 12/30/16 12/30/16 18:19 18:30 18:45 Temperature 98.8 F 98.7 F 98.6 F Pulse Rate 104 96 98 Respiratory 16 16 16 Rate Blood Pressure 162/90 141/79 147/82 (mmHg) O2 Sat by Pulse 96 95 96 Oximetry 12/30/16 12/30/16 12/30/16 19:00 19:15 19:30 Temperature 98.6 F 98.8 F Pulse Rate 97 92 96 Respiratory 16 16 16 Rate Blood Pressure 142/83 144/80 139/80 (mmHg) O2 Sat by Pulse 96 95 97 Oximetry 12/30/16 12/30/16 12/30/16 19:41 20:00 22:12 Temperature 98.9 F 98.7 F 98.6 F Pulse Rate 98 86 82 Respiratory 16 18 17 Rate Blood Pressure 136/82 137/83 142/78 (mmHg) O2 Sat by Pulse 95 95 97 Oximetry 12/30/16 12/31/16 12/31/16 23:49 03:57 05:28 Temperature 98.6 F 98.7 F Pulse Rate 86 75 Respiratory 16 16 20 Rate Blood Pressure 134/85 146/92 (mmHg) O2 Sat by Pulse 95 96 Oximetry 12/31/16 12/31/16 12/31/16 06:28 07:21 08:00 Temperature 98.5 F Pulse Rate 76 Respiratory 18 18 18 Rate Blood Pressure 138/67 (mmHg) O2 Sat by Pulse 98 Oximetry Oxygen Devices in Use Now: None Appearance: Male lying in bed in NAD Eyes: No Scleral Icterus Ears/Nose/Mouth/Throat: NL Teeth, Lips, Gums, Mucous Membranes Moist Neck: Trachea Midline Respiratory: Symmetrical Chest Expansion and Respiratory Effort, Clear to Auscultation Cardiovascular: NL Sounds; No Murmurs; No JVD, No Edema Abdominal: NL Sounds; No Tenderness; No Distention Lymphatic: No Cervical Adenopathy Extremities: No Edema Skin: No Rash or Ulcers Neurological: Alert and Oriented x 3, NL Muscle Strength and Tone, - - Numbness to hands and feet Nutrition: Taking PO's Result Diagrams: 12/25/16 13:55 12/30/16 05:23 Microbiology and Other Data: Microbiology 12/26/16 16:12 CSF Gram Stain (Tube 3) - Final Cerebral Spinal Fluid Assess/Plan/Problems-Billing Mr Barrett is a 41 yo M who has a h/o seasonal allergies and asthma who has developed multifocal progressive cranial neuropathies, hand/foot numbness and headache and was admitted yesterday after he developed diplopia. - Patient Problems (1) Polyneuropathy Comment: - He continues to have had some mild improvement in symptoms. - Appreciate neurology consultation. 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 - Completed course of IVIG therapy. (2) Diplopia Comment: - Continues but perhaps is slightly better. - Continue to patch as needed. (3) Diarrhea Comment: - Resolved. (4) Asthma Comment: - No signs of exacerbation. (5) Hypertension Comment: - SBP 140-160s. - Patient denies having elevated BP in the past and would like to wait to follow up with Dr. Maher before starting a new medication. (6) DVT prophylaxis Comment: - SCDs. (7) Full code status Status and Disposition: Inpatient with LOS > 2 days. Discharge to home.
--- NOTE | 2017-01-01 06:31 | DS ---
CC: Dr. Maher * [facility] MEDICINE DISCHARGE SUMMARY: DATE OF ADMISSION: 12/25/16 DATE OF DISCHARGE: 12/31/16 PRIMARY CARE PHYSICIAN: Dr. Maher. ATTENDING PHYSICIAN: Dr. Nieves Jain * (dictation provided by Aide Poon NP.). PRIMARY DIAGNOSIS: Guillain-Willoughby with Sims Kuhn syndrome. SECONDARY DIAGNOSES: 1. Asthma. 2. Allergic rhinitis. PAST SURGICAL HISTORY: 1. Left knee arthroscopy. 2. Ureteral stricture removal. 3. Adenoidectomy. MEDICATIONS AT THE TIME OF DISCHARGE: 1. Xyzal p.r.n. 2. QNASL p.r.n. HOSPITAL COURSE: Mr. Barrett is a 41-year-old male with a past medical history of asthma, who presented to the hospital on 12/25/16 with concern for double vision and vomiting. Please see the dictated H and P from Dr. Sugey Torres for complete details but in brief, the patient was having daily migraines since mid October. He was followed in Dr. Maher's office where he had an MRA of the brain performed and showed no acute abnormality. On 12/07/16, he awakened with his hands and arms hurting, and then by 12/09/16, he states that this pain in his hands and arms had turned to numbness, and then by 12/18/16, he tells his feet were also numb. He continued to have headaches throughout this time. He also had pain in his back. He was seen in the ER on 12/18/16, at which time, a lumbar puncture was performed, which was essentially unremarkable except for an elevated protein level to 65. He was referred to Dr. De La Rosa, had an MRI of the brain performed on 12/22/16, which showed no acute abnormality. He has had a negative lyme screen. However, based on overall clinical picture, it was still felt that lyme was high in the differential and therefore the patient was treated with doxycycline. On 12/25/16, the patient contacted Dr. De La Rosa's office to inform him that he had now developed double vision and vomiting. During this hospitalization, Mr. Barrett had an MRI of the brain on 12/25/16, which showed no abnormality. He had a thoracic spine MRI, which showed mid thoracic spine degenerative disk disease with small moderate-sized central disk herniations at T7-T8 and T8-T9. He was seen in consultation by Dr. Neeta Miner, who suspected that perhaps the patient had Guillain-Willoughby with possible Sims Kuhn variant. He did have a lumbar puncture repeated on 12/26 and again the protein was elevated now to 129. I refer you to Dr. Miner' s note for full details of her differential diagnosis and concerns; however ultimately she felt that the constellation of symptoms was highly suggestive of Sims Kuhn variant Guillain- Willoughby and opted to start IVIG treatment. The patient received a 5-day course of IVIG. Over the course of this period of time , he has had slow but steady improvement in his symptoms of diplopia and numbness although they do persist. We will note that Mr. Barrett was seen in consultation by Dr. Ag from Infectious Diseases, who did not suspect an infectious etiology for the constellation of symptoms. Mr. Barrett is doing well today and plans are for him to be discharged home to follow up with Dr. De La Rosa or Dr. Miner in the office in the next 1 to 2 weeks. DISPOSITION: To home. DIET: Regular. ACTIVITY: As tolerated. FOLLOWUP PLANS: Please follow up with Dr. De La Rosa or Dr. Miner depending on their availability in the next 1 to 2 weeks. TIME SPENT: Approximately 60 minutes was spent on the discharge of this patient , more than half the time spent with the patient at the bedside reviewing the events leading up to this hospitalization, performing the physical examination, and reviewing my plan of care. AIDE POON NP [id number]/[facility] #: [id number] BLU
[2017-01-01 16:17] LABS: Anti-Glial/Neuronal Nuc Ab-1 A Negative titer (<1:240); Anti-Neuronal Nuclear Ab Type1 Negative titer (<1:240); Anti-Neuronal Nuclear Ab Type2 Negative titer (<1:240); Anti-Neuronal Nuclear Ab Type3 Negative titer (<1:240); CRMP-5 IgG Antibody Negative titer (<1:240); Purkinje Cell Cytoplasm Typ Tr Negative titer (<1:240); Purkinje Cell Cytoplasm Type 1 Negative titer (<1:240); Purkinje Cell Cytoplasm Type 2 Negative titer (<1:240)
== END 2016-12-31 12:59 | disposition home or self-care (01) | DRG 95 ==
LOC: UNDOADMOB 13:42 → MEDTELE 13:42 → OBSVTOIN 13:43 → MEDTELE 13:43
PROVIDERS: ADMIT Hospitalist; ATTEND Internal Medicine
PROC: 009U3ZX Drainage of Spinal Canal, Percutaneous Approach, Diagnostic (ICD-10-PCS; principal; 2016-12-26)
PROC: 4A10X4Z Monitoring of Central Nervous Electrical Activity, External Approach (ICD-10-PCS; 2016-12-26)
PROC: 30233S1 Transfusion of Nonautologous Globulin into Peripheral Vein, Percutaneous Approach (ICD-10-PCS; 2016-12-26)
DX: G61.0 Guillain-Barre syndrome (principal); K52.1 Toxic gastroenteritis and colitis; G62.9 Polyneuropathy, unspecified; M51.24 Other intervertebral disc displacement, thoracic region; I10 Essential (primary) hypertension; G43.909 Migraine, unspecified, not intractable, without status migrainosus; Z88.5 Allergy status to narcotic agent; Z82.49 Family history of ischemic heart disease and other diseases of the circulatory system; Z72.89 Other problems related to lifestyle; G51.0 Bell's palsy; H53.2 Diplopia; R11.10 Vomiting, unspecified; M47.892 Other spondylosis, cervical region; M54.9 Dorsalgia, unspecified; J45.909 Unspecified asthma, uncomplicated; M51.34 Other intervertebral disc degeneration, thoracic region; T36.95XA Adverse effect of unspecified systemic antibiotic, initial encounter
CPT/HCPCS: 36415; 70552; 72146; 80048; 80053; 82164; 82175; 82550; 82945; 83516; 83519; 83520; 84155; 84157; 84165; 84425; 85025; 85610; 85652; 85730; 86140; 86255; 86256; 86703; 87070; 87205; 89051; 95885; 95886; 95911; A9270-GY; A9579; J0696; J1200; J1568; J2270; J2405; J3420

== ENCOUNTER 2017-07-17 16:20 | Observation (INO) | payer OTHER ==
--- OUTSIDE RECORDS SUMMARY | 2017-07-17 17:00 | XMS REPORT ---
:1975 External Reference #:[id number] Author Organization [facility] Address [address] [address] Phone [phone] Care Team Providers Name Role Phone Jun Maher MD Primary Care Physician Unavailable Payers Type Date Identification Numbers Payment Provider Subscriber Commercial Policy Number: [id number] [employer] John Barrett PayID: [id number] [address] [place] [address] Problems Date Description Provider Status Onset: 05/14/2017 Migraine without aura Aruna De La Rosa M.D. Active Onset: 05/14/2017 Guillain-Tazewell syndrome Aruna De La Rosa M.D. Active Family History Date Family Member(s) Problem(s) Comments General No Current Problems Social History Type Date Description Comments ETOH Use Occasionally consumes alcohol Smoking Patient is a former smoker Recreational Drug Use Denies Drug Use Allergies, Adverse Reactions, Alerts Date Description Reaction Status Severity Comments 12/19/2016 Codeine active Medications Medication Date Status Form Strength Qnty SIG Indications Ordering Provider Zomig 06/21/ Active Tablets 2.5mg 12tabs take 1-2 G65.0 Arunamikey Mata 2017 tablet by Rj mouth as M.D. needed Sumatriptan 05/14/ Active Tablets 100mg 12tabs 1/2-1 tab G43.009 Aruna Mata 2017 by mouth Rj, as needed M.D. Dulera / Active Aerosol 100-5mcg/A [address] twice a day Qnasl / Active Aerosol 80mcg/Act twice a Unknown 0000 day Pseudoephedrine / Active Tablets 30mg 1 by Unknown HCL 0000 mouth three times a day as needed Excedrin Extra / Active Tablets 250-250-65 2-3 tab Unknown Strength 0000 mg by mouth prn. Tylenol Extra / Active Tablets 500mg 2 by Unknown Strength 0000 mouth as needed Aspirin / Active Tablets 325mg [address] mouth every day prn Levocetirizine / Active Tablets 5mg Take 1 Unknown Dihydrochloride 0000 Tablet By Mouth At Bedtime Flexeril 02/23/ Hx Tablets 10mg 40tabs 1 po qhs Arnold 2010 - prn Justin 01/02Manoj Ramírez 2016 Medications Administered in Office Medication Date Status Form Strength Qnty SIG Indications Ordering Provider Depomedrol Administered Injection Arnold 80MG 012 Desiree Anderson Vital Signs Date Vital Result Comment 06/21/2017 Height 71 inches 5'11" Weight 258.00 lb Heart Rate 86 /min BP Systolic Sitting 128 mmHg BP Diastolic Sitting 76 mmHg Respiratory Rate 16 /min BMI (Body Mass Index) 36.0 kg/m2 05/14/2017 Height 71 inches 5'11" Weight 258.00 lb Heart Rate 92 /min BP Systolic 126 mmHg BP Diastolic 88 mmHg Respiratory Rate 14 /min BMI (Body Mass Index) 36.0 kg/m2 03/15/2017 Height 71 inches 5'11" Weight 255.00 lb Heart Rate 84 /min BP Systolic Sitting 126 mmHg BP Diastolic Sitting 80 mmHg Respiratory Rate 16 /min BMI (Body Mass Index) 35.6 kg/m2 01/02/2017 Height 71 inches 5'11" Weight 260.00 lb Heart Rate 88 /min BP Systolic Sitting 136 mmHg BP Diastolic Sitting 92 mmHg Respiratory Rate 16 /min BMI (Body Mass Index) 36.3 kg/m2 12/19/2016 Height 71 inches 5'11" Weight 265.00 lb Heart Rate 84 /min BP Systolic 130 mmHg BP Diastolic 84 mmHg Respiratory Rate 15 /min Pain Level 5 took tylenol before visit BMI (Body Mass Index) 37.0 kg/m2 07/21/2010 Height 71 inches 5'11" Weight 254.00 lb BP Systolic 130 mmHg BP Diastolic 82 mmHg BMI (Body Mass Index) 35.4 kg/m2 Results Description No Information Procedures Date CPT Code Description Status 12/26/2016 84767 Nerve Conduction 07-08 Studies Completed 12/26/2016 38818 Needle Electromyography Complete, Five Or More Muscles Completed Studied 12/26/2016 07734 Needle Electromyography Each Extremity W/Related Completed Paraspinal Areas 12/18/2011 06398 Arthroscopy,Knee, Synovectomy Plica Or Shelf Resect Completed 12/18/2011 57373 Arthroscopy,Knee, Synovectomy Plica Or Shelf Resect Completed 07/12/2011 10442 Inject/Drain Joint/Bursa Major Completed 02/23/2011 69864 Rad Shoulder Comp, Min. 2 Views Completed 03/31/2009 96220 ECHO Transthoracic, Real-Time 2D With Doppler And Color Completed Flow 03/09/2009 55065 ECHO Stress Test Incl Perf Contiuous ekg Monitoring Completed W/Phys Superv Encounters Type Date Location Provider CPT E/M Dx Office Visit 05/14/2017 [facility] Aruna De La Rosa, 99736 G43.009 1:[facility]p [facility] R53.83 G65.0 Office Visit 03/15/2017 10:00a [facility] Aruna De La Rosa 41334 G61.0 [facility] H53.2 Office Visit 01/02/2017 9:45a [facility] Aruna De La Rosa, 13145 G61.0 [facility] Office Visit 12/31/2016 8:35a [facility], Aide Poon, N.P. 18272 G61.0 Hospitalists J45.20 H53.2 J30.2 Office Visit 12/30/2016 11:19a [facility] [address] G61.0 Office Visit 12/30/2016 8:35a [facility]heide Poon, N.P. 82993 G61.0 Hospitalists J45.20 H53.2 J30.2 Office Visit 12/29/2016 11:19a [facility] Neeta Miner 68149 G61.0 Desiree Office Visit 12/29/2016 8:34a [facility],heide Torres 56490 G61.0 Hospitalists Desiree J45.20 H53.2 J30.2 Office Visit 12/28/2016 12:51p [facility] Azael Urban, 01444 R19.7 Infectious Diseases Desiree G51.8 G62.9 Office Visit 12/28/2016 11:19a [facility] Neeta Miner, 57257 G61.0 M.D. Office Visit 12/28/2016 8:34a [facility] Sugey Fitchr, 16052 G61.0 Hospitalists M.DChandana J45.20 H53.2 J30.2 Office Visit 12/27/2016 8:33a [facility], Sugey Brian, 59546 G61.0 Hospitalists M.DChandana J45.20 H53.2 J30.2 Office Visit 12/27/2016 11:18a [facility] Neeta Khanfroilan, 84087 G61.0 M.D. Office Visit 12/27/2016 12:47p [facility] Azael Osullivan 58481 G51.8 Infectious Diseases Desiree Urban G62.9 Office Visit 12/26/2016 11:17a [facility] Neeta Khanfroilan, 17721 G61.0 M.D. Office Visit 12/26/2016 8:33a [facility], Sugey Torres, 51516 G62.9 Hospitalists MSloane J45.20 H53.2 J30.2 Office Visit 12/25/2016 11:16a [facility] Neeta Khanfroilan, 49630 G52.7 MSloane R20.2 R51 Office Visit 12/25/2016 8:33a [facility], Sugey Torres, 31101 G62.9 Hospitalists MSloane J45.20 H53.2 J30.2 Office Visit 12/22/2016 11:14a [facility] Jalen Loya 97906 R29.810 Desiree Rodriguez R20.2 Office Visit 12/19/2016 9:00a [facility] Aruna De La Rosa, 64233 R51 [facility] R20.2 Office Visit 08/08/2012 3:15p [facility], 26959 719.46 C.M.Paresh Ramírez Office Visit 11/22/2011 8:30a [facility] 06041 836.0 C.M.A. M.D. Office Visit 08/23/2011 9:30a [facility] 81128 836.0 C.M.A. M.DChandana 719.46 Office Visit 07/12/2011 9:30a [facility] AllenDesiree thurston 82392 836.0 C.M.A. 715.96 Office Visit 07/04/2011 8:30a [facility] AllenDesiree thurston 54226 836.0 C.M.A. 836.0 Office Visit 04/06/2011 4:00p [facility] 63486 719.46 C.M.A. M.D. Office Visit 12/15/2010 10:00a [facility] 64392 719.46 C.M.A. M.D. Office Visit 10/20/2010 10:00a [facility] 09866 719.46 C.M.A. M.D. Office Visit 09/08/2010 10:00a [facility] 34160 719.46 C.M.A. M.D. Office Visit 03/09/2009 10:30a [facility] Poonam Loya 60498 786.50 Desiree Sidhu 785.1 Plan of Care Future Appointment(s):10/11/2017 8:45 am - Aruna De La Rosa M.D. at [facility]06/21/2017 - Aruna De La Rosa M.D.G65.0 Sequelae of Guillain-Tazewell syndromeNew Medication:Zomig 2.5 mgFollow up:4 MONTHSRecommendations:with next migraines, first try zomig 2.5 mg without aleve....if not helpful eniough then take [id number] mg 1 hr later....then for next headache taske zomig 2.5 mg plus aleve 440 mg, and if that not fully helpful with next headache take zomig 5 mg plus aleve 440 mg.....if zomig not helpul or not tolerated call me about Rx for relpax 40 mg. keep accurate headache calendar.G43.009 Migraine w/o aura, not intractable, w/o status migrainosus
[2017-07-17] MEDS ORDERED: Aspirin Low Dose CHEW TAB* 81 MG PO ONE (17:24)
--- NOTE | 2017-07-17 17:55 | RAD ---
INDICATION: Chest pain COMPARISON: August 10, 2011 TECHNIQUE: An AP portable view obtained at 1744 hours is submitted. FINDINGS: Bones/Soft Tissues: There are no acute bony findings. Cardiomediastinal: The cardiomediastinal silhouette is normal. Lungs: There are no infiltrates. Pleura: There are no pleural effusions. Other: None IMPRESSION: NO ACTIVE DISEASE.
[2017-07-17 18:17] LABS: ABS Basophils 0.2 10^3/ul (0-0.2); ABS Eosinophils 0.3 10^3/ul (0-0.6); ABS Lymphocytes 2.1 10^3/ul (1.0-4.8); ABS Monocytes 0.6 10^3/ul (0-0.8); ABS Neutrophils 4.9 10^3/ul (1.5-7.7); ABS Nucleated RBC 0 10^3/ul; Eosinophil % 3.6 % (0-6); Hematocrit 47 % (42-52); Hemoglobin 15.7 g/dl (14.0-18.0); Lymphocyte % 26.3 % (25-47); Mean Corpuscular HGB Conc 34 g/dl (31-36); Mean Corpuscular Hemoglobin 31 pg (27-31); Mean Corpuscular Volume 92 fL (80-94); Mean Platelet Volume 9 um3 (7.4-10.4); Nucleated Red Blood Cells % 0.1; Platelet Count 302 10^3/ul (150-450); Red Blood Count 5.04 10^6/ul (4.0-5.4); Red Cell Distribution Width 14 % (10.5-15)
[2017-07-17 18:33] LABS: EGFR Non-African American 67.4 (>60)
[2017-07-17] MEDS ORDERED: Nitroglycerin TAB 0.4 MG* 0.4 MG TAB SL ONE (18:36)
--- NOTE | 2017-07-17 19:02 | RAD ---
INDICATION: Syncope COMPARISON: CT brain December 18, 2016 TECHNIQUE: Noncontrast axial source images were acquired from the skull base to the vertex. FINDINGS: Ventricles/sulci: The ventricles and cisterns are normal in size and configuration for age. Brain parenchyma: There is no focal parenchymal finding, evidence of intracranial mass, or intracranial mass effect. Intracranial hemorrhage:None. Extra-axial spaces: There are no abnormal extra axial fluid collections or evidence of extra-axial mass. Calvarium: There is no calvarial fracture or other calvarial abnormality. Scalp: There is no evidence of scalp or extracalvarial soft tissue abnormality. Paranasal sinuses/mastoid: The paranasal sinuses and mastoid air cells are clear. Other: Incidental note is made of calcification of the falx. IMPRESSION: NEGATIVE EXAMINATION
[2017-07-17] MEDS ORDERED: Ondansetron INJ* 2 MG/ML VIAL IV PRN (19:31)
[2017-07-17] MEDS ORDERED: Acetaminophen TAB* 325 MG PO PRN (19:31)
[2017-07-17] MEDS ORDERED: Albuterol 2.5 MG/3 ML NEB.SOL* (0.083%) INH PRN (19:45)
--- NOTE | 2017-07-17 20:23 | ED ---
Lianet Marie Thomas, scribed for Ruma Ortiz MD on 07/17/17 at 1805 . HPI Chest Pain - HPI Summary HPI Summary: The patient is a 42 year old male who took his migraine medication Zolmitriptan 1.25 mg for this first time today at 08:30. The patient developed chest pain at around 08:45. Shortly after developing chest pain, the patient had loss of consciousness for four hours. After becoming conscious again, the patient waited in his apartment before driving himself to the emergency department. In the emergency department, he has left-sided chest pain described as tightness. The pain is rated 4/10, but previously it was 8/10. There is no radiation of the pain. He has never experienced chest pain before. The patient denies leg pain. - History of Current Complaint Chief Complaint: EDChestPainROMI Time Seen by Provider: 07/17/17 17:23 Hx Obtained From: Patient Onset/Duration: Started Hours Ago - onset this morning, Still Present Time of Onset: 08:40 Timing: Constant Current Severity: Moderate Pain Intensity: 4 Pain Scale Used: 0-10 Numeric Chest Pain Radiates: No Character: Tightness Aggravating Factor(s): Nothing Alleviating Factor(s): Nothing Associated Signs and Symptoms: Positive: Chest Pain, Other: - Loss of consciousness; NEGATIVE: leg pain. Negative: Fever Related History: Obesity - Additional Pertinent History Primary Care Physician: [id number] - Allergy/Home Medications Allergies/Adverse Reactions: Allergies Allergy/AdvReac Type Severity Reaction Status Date / Time MS Codeine [Codeine] Allergy Mild hallucinations Verified 12/26/16 09:11 and vomiting Home Medications: Home Medications Beclomethasone Dipropionate [Qnasl] 2 spray BOTH NARES DAILY 07/17/17 [History Confirmed 07/17/17] Zolmitriptan (NF) [Zomeg (NF)] 5 - 10 mg PO DAILY PRN 07/17/17 [History Confirmed 07/17/17] PMH/Surg Hx/FS Hx/Imm Hx Endocrine/Hematology History: Denies: Hx Diabetes, Hx Anemia, Hx Unexplained Bleeding, Other Endocrine/ Hematological Disorders Cardiovascular History: Denies: Hx Aneurysm, Hx Angina, Hx Angioplasty, Hx Auto Implanted Cardiovert Defib, Hx Cardiac Arrest, Hx Cardiomegaly, Hx Congenital Heart Disease, Hx Congestive Heart Failure, Hx Coronary Artery Disease, Hx Deep Vein Thrombosis, Hx Embolism, Hx Hypercholesterolemia, Hx Hypotension, Hx Hypertension, Hx Pacemaker/ICD, Hx Peripheral Vascular Disease, Hx Rheumatic Fever, Hx Syncope, Hx Valvular Heart Disease, Other Cardiovascular Problems/Disorders Respiratory History: Reports: Hx Asthma, Hx Pneumonia, Hx Seasonal Allergies Denies: Other Respiratory Problems/Disorders GI History: Denies: Other GI Disorders History: Denies: Hx Dialysis, Hx Renal Disease, Other Problems/Disorders Musculoskeletal History: Reports: Hx Arthritis, Hx Back Problems Denies: Hx Rheumatoid Arthritis, Hx Osteoporosis, Hx Scoliosis, Other Musculoskeletal History Sensory History: Reports: Hx Contacts or Glasses - glasses Denies: Hx Cataracts, Hx Eye Injury, Hx Eye Prosthesis, Hx Glaucoma, Hx Legally Blind, Hx Macular Degeneration, Hx Vision Problem, Hx Deafness, Hx Hearing Aid, Hx Hearing Problem, Other Sensory Impairments Opthamlomology History: Reports: Hx Contacts or Glasses - glasses Denies: Hx Cataracts, Hx Eye Injury, Hx Eye Prosthesis, Hx Glaucoma, Hx Legally Blind, Hx Macular Degeneration, Hx Vision Problem, Other Sensory Impairments Neurological History: Reports: Hx Headaches, Hx Migraine Denies: Hx Dementia, Hx Developmental Delay, Hx Nerve Disease, Hx Seizures, Hx Spinal Cord Injury, Hx Transient Ischemic Attacks (TIA), Other Neuro Impairments/Disorders Psychiatric History: Reports: Hx Depression, Hx Inpatient Treatment - 2008, Hx Suicide Attempt Denies: Hx Anxiety, Hx Panic Disorder, Other Psychiatric Issues/Disorders - Surgical History Surgery Procedure, Year, and Place: ADNOIDS REMOVED 6MTHS OLD, LT KNEE ARTHROSCOPY 02/06, URETHERAL STRICTURE REMOVED 2007 Hx Anesthesia Reactions: No Infectious Disease History: No Infectious Disease History: Reports: Hx Shingles Denies: Traveled Outside the [place] in Last 30 Days - Family History Known Family History: Negative: Cardiac Disease, Seizure Disorder - Social History Alcohol Use: None Hx Substance Use: No Substance Use Type: Reports: None Hx Tobacco Use: Yes Smoking Status (MU): Former Smoker Review of Systems Negative: Fever Positive: Chest Pain Negative: Other - leg pain Neurological: Other - Loss of consiousness All Other Systems Reviewed And Are Negative: Yes Physical Exam - Summary Physical Exam Summary: Appearance: well-appearing, mild pain distress, Well-nourished Skin: Warm, color reflects adequate perfusion Head: Normal Head/Face inspection Eyes: Conjunctiva clear. Pupils are enlarged. ENT: Normal inspection Neck: Supple, no nodes, no JVD. Respiratory: Lungs clear, Normal breath sounds, no respiratory distress Cardio: RRR, No murmur, pulses normal, brisk capillary refill Abdomen: soft, nontender Bowel sounds: present Musculoskeletal: Strength Intact/ ROM intact. No calf tenderness. No edema. Neuro: Alert and oriented x3, muscle tone normal, facial symmetry, speech normal , sensory/motor intact . CN II-XII intact. Motor function 5/5. Sensations intact. Gait WNL Psychological: Normal Triage Information Reviewed: Yes Vital Signs On Initial Exam: Initial Vitals Temp Pulse Resp BP Pulse Ox 98.3 F 94 18 138/87 100 07/17/17 16:26 07/17/17 16:26 07/17/17 16:26 07/17/17 16:26 07/17/17 16:26 Vital Signs Reviewed: Yes Diagnostics - Vital Signs Vital Signs Temp Pulse Resp BP Pulse Ox 07/17/17 16:26 98.3 F 94 18 138/87 100 - Laboratory Lab Results: Lab Results 07/17/17 07/17/17 07/17/17 Range/Units 18:00 18:00 18:00 WBC 8.0 (3.5-10.8) 10^3/ul RBC 5.04 (4.0-5.4) 10^6/ul Hgb 15.7 (14.0-18.0) g/dl Hct 47 (42-52) % MCV 92 (80-94) fL MCH 31 (27-31) pg MCHC 34 (31-36) g/dl RDW 14 (10.5-15) % Plt Count 302 (150-450) 10^3/ul MPV 9 (7.4-10.4) um3 Neut % (Auto) 60.7 (38-83) % Lymph % (Auto) 26.3 (25-47) % [place] % (Auto) 7.4 (1-9) % Eos % (Auto) 3.6 (0-6) % Baso % (Auto) 2.0 (0-2) % Absolute Neuts (auto) 4.9 (1.5-7.7) 10^3/ul Absolute Lymphs (auto) 2.1 (1.0-4.8) 10^3/ul Absolute Monos (auto) 0.6 (0-0.8) 10^3/ul Absolute Eos (auto) 0.3 (0-0.6) 10^3/ul Absolute Basos (auto) 0.2 (0-0.2) 10^3/ul Absolute Nucleated RBC 0 10^3/ul Nucleated RBC % 0.1 INR (Anticoag Therapy) 0.90 (0.77-1.02) APTT 33.0 (26.0-36.3) seconds D-Dimer, Quantitative < 200 (Less Than 230) ng/mL Sodium 136 (133-145) mmol/L Potassium 4.0 (3.5-5.0) mmol/L Chloride 101 (101-111) mmol/L Carbon Dioxide 28 (22-32) mmol/L Anion Gap 7 (2-11) mmol/L BUN 15 (6-24) mg/dL Creatinine 1.19 H (0.67-1.17) mg/dL Est GFR ( Amer) 86.6 (>60) Est GFR (Non-Af Amer) 67.4 (>60) BUN/Creatinine Ratio 12.6 (8-20) Glucose 91 (70-100) mg/dL Lactic Acid (0.5-2.0) mmol/L Calcium 10.0 (8.6-10.3) mg/dL Magnesium 2.3 (1.9-2.7) mg/dL Total Bilirubin 0.50 (0.2-1.0) mg/dL AST 22 (13-39) U/L ALT 59 H (7-52) U/L Alkaline Phosphatase 148 H (34-104) U/L Total Creatine Kinase 84 (10-223) U/L CK-MB (CK-2) 0.9 (0.6-6.3) ng/mL Troponin I 0.00 (<0.04) ng/mL Total Protein 8.6 (6.4-8.9) g/dL Albumin 5.1 (3.2-5.2) g/dL Globulin 3.5 (2-4) g/dL Albumin/Globulin Ratio 1.5 (1-3) 07/17/17 Range/Units 18:00 WBC (3.5-10.8) 10^3/ul RBC (4.0-5.4) 10^6/ul Hgb (14.0-18.0) g/dl Hct (42-52) % MCV (80-94) fL MCH (27-31) pg MCHC (31-36) g/dl RDW (10.5-15) % Plt Count (150-450) 10^3/ul MPV (7.4-10.4) um3 Neut % (Auto) (38-83) % Lymph % (Auto) (25-47) % [place] % (Auto) (1-9) % Eos % (Auto) (0-6) % Baso % (Auto) (0-2) % Absolute Neuts (auto) (1.5-7.7) 10^3/ul Absolute Lymphs (auto) (1.0-4.8) 10^3/ul Absolute Monos (auto) (0-0.8) 10^3/ul Absolute Eos (auto) (0-0.6) 10^3/ul Absolute Basos (auto) (0-0.2) 10^3/ul Absolute Nucleated RBC 10^3/ul Nucleated RBC % INR (Anticoag Therapy) (0.77-1.02) APTT (26.0-36.3) seconds D-Dimer, Quantitative (Less Than 230) ng/mL Sodium (133-145) mmol/L Potassium (3.5-5.0) mmol/L Chloride (101-111) mmol/L Carbon Dioxide (22-32) mmol/L Anion Gap (2-11) mmol/L BUN (6-24) mg/dL Creatinine (0.67-1.17) mg/dL Est GFR ( Amer) (>60) Est GFR (Non-Af Amer) (>60) BUN/Creatinine Ratio (8-20) Glucose (70-100) mg/dL Lactic Acid 1.2 (0.5-2.0) mmol/L Calcium (8.6-10.3) mg/dL Magnesium (1.9-2.7) mg/dL Total Bilirubin (0.2-1.0) mg/dL AST (13-39) U/L ALT (7-52) U/L Alkaline Phosphatase (34-104) U/L Total Creatine Kinase (10-223) U/L CK-MB (CK-2) (0.6-6.3) ng/mL Troponin I (<0.04) ng/mL Total Protein (6.4-8.9) g/dL Albumin (3.2-5.2) g/dL Globulin (2-4) g/dL Albumin/Globulin Ratio (1-3) Result Diagrams: 07/17/17 18:00 07/17/17 18:00 Lab Statement: Any lab studies that have been ordered have been reviewed, and results considered in the medical decision making process. - Radiology CXR Xray Interpretation: No Acute Changes - NO ACTIVE DISEASE. Dr. Ortiz has reviewed this report. Radiology Interpretation Completed By: Radiologist - CT CT Brain CT Interpretation Completed By: Radiologist - ORDERED--SEE [facility] - EKG 16:31 Cardiac Rate: NL EKG Rhythm: Sinus Rhythm - at 87 BPM EKG Interpretation: Normal AVIVCT, normal QTc, normal axis. EKG Comparison: No Significant Change - from prior EKG on 12/22/16 Chest Pain Course/Dx - Course Course Of Treatment: Patients medications reviewed this visit. High blood pressure noted. Allergies noted. Assessment/Plan: The patient is a 42 year old male who took his migraine medication Zolmitriptan 1.25 mg for this first time today at 08:30. The patient developed chest pain at around 08:45. Shortly after developing chest pain, the patient had loss of consciousness for four hours. After becoming conscious again , the patient waited in his apartment before driving himself to the emergency department. In the emergency department, he has left-sided chest pain described as tightness. The patient was given ASA 324. Bloodwork was ordered. EKG and CXR were obtained. CT Brain is ordered--see [facility] for results. I spoke with Dr. Olivarez, neurology, who tells me to instruct the patient never to take triptans again. Dr. Olivarez says that triptans do give vagal spasms, so the patient should be brought in and observed. He says triptans do not cause carotid dissections. He says triptans do not cause carotid dissections. Dr. Scherer will admit the patient. - Diagnoses Provider Diagnoses: Chest pain, Adverse reaction to Zolmitriptan - Provider Notifications Discussed Care Of Patient With: Kirt Olivarez Time Discussed With Above Provider: 18:24 Instructed by Provider To: Other - I spoke with Dr. Olivarez, neurology, who tells me to instruct the patient never to take triptans again. Dr. Olivarez says that triptans do give vagal spasms, so the patient should be brought in and observed. He says triptans do not cause carotid dissections. Dr. Scherer will admit the patient. Discharge - Discharge Plan Condition: Stable Disposition: ADMITTED TO [facility] The documentation as recorded by the Lianet gatica Thomas accurately reflects the service I personally performed and the decisions made by me, Ruma Ortiz MD.
--- NOTE | 2017-07-17 21:42 | HP ---
CC: Dr. Maher * HISTORY AND PHYSICAL: DATE OF ADMISSION: 07/17/17 PRIMARY CARE PROVIDER: Dr. Maher. ATTENDING PHYSICIAN WHILE IN THE HOSPITAL: Dr. Sugey Torres * (report dictated by Regan Howard NP). CHIEF COMPLAINT: 1. Chest pain. 2. Syncope. HISTORY OF PRESENTING ILLNESS: Mr. Barrett is a 42-year-old male patient. 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 He says he gets 1 to 2 migraines a week. He had been taking triptans previously. He recently was started on Zomig. He took 1 dose this morning as he was having a migraine. Shortly after taking it, he noticed he was getting chest tightness, pressure that was going into his jaw, down his arm in the left side. Again, described as a pressure. He shortly thereafter fainted. He believes he was on the floor for about 4 hours. He says he woke up, still having some chest pressure. It had not gone completely away, but it certainly felt improved. He was concerned. He called his neurologist, told him about the Zomig. They told him to stop taking that. Recommended that if he was continuing to have chest pain that he should come into the ER. He says that he typically can walk up a flight of stairs. He does not get any chest pain with this. He denied having any associated nausea or shortness of breath. He says days leading up to this, he had not been sick, he had not been short of breath. He has not been having any episodes of chest tightness or pressure. No abdominal discomfort. He came into the ED. There was concern because of this syncope and the fact he did have a syncopal episode , we were asked to evaluate for admission. PAST MEDICAL HISTORY: Significant for: 1. Asthma. 2. Allergic rhinitis. 3. Guillain-Mccool. 4. Migraines. PAST SURGICAL HISTORY: 1. He has had knee arthroscopy. 2. He has had urethral stricture repair. 3. He has had an adenoidectomy. MEDICATIONS: Home meds include: 1. Zomig 1 tablet daily as needed for migraines. 2. QNASL 2 sprays both nares daily. ALLERGIES TO MEDICATIONS: Include TRIPTANS and CODEINE. FAMILY HISTORY: He says his mother is healthy. Father has a history of hypertension. SOCIAL HISTORY: Surrogate decision maker is the patient's mother, Ana. The patient does not smoke. He does not drink. REVIEW OF SYSTEMS: There is no documented fever. He denied having any significant weight change. No double vision. No ear discharge. Denied having any rhinorrhea. No sore throat. No thyroid enlargement. There is chest pain per my HPI. There is no abdominal pain. No nausea, no vomiting. No dysuria, no frequency. No seizure, no loss of consciousness. No pruritus, no skin ulcerations. Review of 14 systems completed, all others negative. PHYSICAL EXAMINATION GENERAL: At this time, Mr. Barrett is a 42-year-old male patient. He appears to be well-nourished and well-developed, does not appear to be in any acute distress. VITAL SIGNS: Blood pressure 129/75, pulse 92, respirations 16, O2 sat 98%, temperature 98.3. HEENT: Head: Atraumatic, normocephalic. Eyes: EOMs are intact. Sclerae are anicteric and not pale. Throat: Oral mucosa appears to be moist. No oropharyngeal erythema. NECK: Supple. LUNGS: Clear to auscultation bilaterally. No wheeze, rales, or rhonchi. HEART: Sounds S1, S2. Regular rate and rhythm. No murmurs, rubs, or gallops. ABDOMEN: Soft, flat, and nontender. Bowel sounds present. EXTREMITIES: Pulses 2+ throughout. Able to move all 4 extremities with 5/5 strength. NEUROLOGIC: The patient is awake, alert, and oriented x3. Splitting Machine Operator were equal. No gross focal deficits. SKIN: Intact. DIAGNOSTIC STUDIES/LAB DATA: WBC of 8, RBC of 4.04, hemoglobin of 15.7, hematocrit 47, platelet count of 302. INR of 0.90, PTT of 33, D-dimer less than 200. Sodium was 136, potassium was 4, chloride of 101, bicarb 28, BUN 15, creatinine 1.19, glucose 91, lactate 1.2, calcium 10, total mag 2.3. Total bili 0.5, AST 22, ALT 59, alk phos 148. CK 84, CK-MB 0.9. Troponin is 0. Albumin of 5.1. CT brain was negative exam. Chest x-ray showed no active disease. EKG shows normal sinus rhythm, rate of 87. No ST elevations. No T-wave inversions. He has got flattened T waves in lead II; actually, they were inverted in lead III and aVF. We looked at the previous EKG, inconsistent. Old medical records were reviewed. ASSESSMENT AND PLAN: Mr. Barrett is a 42-year-old male patient coming into the ED today with complaints of chest discomfort and syncope in the setting of Zomig. We were asked to evaluate for admission. He will be admitted under observation status for: 1. Chest pain. At this point, currently it could be related to the triptan. I am going to go ahead and cycle those troponins. We will get a lipid, A1c in the morning. In addition to this, also we will go ahead and do a stress test tomorrow and we will check an echo and we will continue to follow, but I suspect . I will place the patient on aspirin daily. 2. Syncope. I looked up Zomig, there is a risk they can cause syncope. I will get orthostatic blood pressures. I will get that echo and we will continue to follow. 3. Elevated liver function tests. They are mildly elevated. We will repeat these in the morning. If they do not come down, we could consider imaging. 4. Asthma. I will continue p.r.n. nebs. 5. Allergic rhinitis. Continue meds as described. 6. History of Guillian-Mccool and migraines. Follow with his primary neurologist. 7. Code status. Full code. 8. DVT prophylaxis. He will be placed on SCDs. 9. Fluids, electrolytes, and nutrition. He can have a healthy diet and n.p.o. after midnight. TIME SPENT: On the admission 60 minutes, greater than half the time was spent face- to-face with the patient obtaining my history and physical; other half time was spent going over the plan of care with the patient and implementing plan of care. I did discuss the plan of care with my attending, Dr. Torres; she is in agreement. REGAN HOWARD, STEPHEN [id number]/[facility] #: [id number] [facility]
[2017-07-18 06:27] LABS: ABS Basophils 0.2 10^3/ul (0-0.2); ABS Eosinophils 0.4 10^3/ul (0-0.6); ABS Lymphocytes 3.4 10^3/ul (1.0-4.8); ABS Monocytes 0.7 10^3/ul (0-0.8); ABS Neutrophils 4.1 10^3/ul (1.5-7.7); ABS Nucleated RBC 0 10^3/ul; Eosinophil % 4.6 % (0-6); Hematocrit 40 % (42-52); Hemoglobin 13.4 g/dl (14.0-18.0); Lymphocyte % 38.8 % (25-47); Mean Corpuscular HGB Conc 34 g/dl (31-36); Mean Corpuscular Hemoglobin 31 pg (27-31); Mean Corpuscular Volume 92 fL (80-94); Mean Platelet Volume 9 um3 (7.4-10.4); Nucleated Red Blood Cells % 0.1; Platelet Count 267 10^3/ul (150-450); Red Blood Count 4.33 10^6/ul (4.0-5.4); Red Cell Distribution Width 13 % (10.5-15); White Blood Count 8.7 10^3/ul (3.5-10.8)
[2017-07-18 06:37] LABS: INR 0.93 (0.77-1.02)
[2017-07-18 06:42] LABS: EGFR Non-African American 75.3 (>60)
[2017-07-18] MEDS ORDERED: Perflutren Lipid Microsphere* 3 ML VIAL ONE (08:59)
[2017-07-18] MEDS ORDERED: Aspirin EC Low Dose* 81 MG TAB.EC PO SCH (09:00)
--- NOTE | 2017-07-18 11:13 | ECHO ---
Patient: LESLIE GAMBINO [facility] Rec#: [id number] : 1975 Date: 07/18/2017 Age: 42y Height: 177.8 cm / 70.0 in Weight: 116.57 kg / 256.9 lbs Sex: M BSA: 2.32 Room#: [facility] Admit Date#: 07/17/2017 Type: Inpatient Referring: Regan Howard NP Reading: Johanny Regan MD Cytopathology Technologist: Neeta Patterson,TANVICS,RDMS CC: Jun Maher MD Transthoracic Echocardiogram Indication: CP, Syncope BP: 113/60 HR: 73 Rhythm: NSR Findings History: Guillian-[place], asthma Technical Comments: The study quality is good. Left Ventricle: The left ventricular chamber size is normal. Mild concentric left ventricular hypertrophy is observed. There is a prominent septal knuckle. Global left ventricular wall motion and contractility are within normal limits. The estimated ejection fraction is 55-60%. Normal left ventricular diastolic filling is observed. Left Atrium: The left atrial chamber size is normal. Right Ventricle: The right ventricular chamber size and systolic function are within normal limits. The right ventricle wall thickness is mildly increased. Right Atrium: The right atrium is mildly dilated. Aortic Valve: The aortic valve is trileaflet. There is no evidence of aortic valve thickening. Systolic excursion of the aortic valve is normal. There is a trace of aortic regurgitation. There is no evidence of aortic stenosis. Mitral Valve: The mitral valve leaflets appear normal. There is a trace of mitral regurgitation. There is no evidence of mitral stenosis. Tricuspid Valve: The tricuspid valve leaflets are normal. There is trace tricuspid regurgitation. No pulmonary hypertension is noted. Pulmonic Valve: There is no evidence of pulmonic valve thickening. There is a trace pulmonic regurgitation. Pericardium: There is no significant pericardial effusion. Aorta: There is no dilatation of the ascending aorta. There is no dilatation of the aortic arch. The aortic root is normal in size. Pulmonary Artery: The main pulmonary artery appears normal. Venous: The inferior vena cava appears normal in size. There is an approximate 50% respiratory change in the inferior vena cava dimension. Contrast: Definity was used to optimize study. A total of 2 ml was used Conclusions Mild concentric left ventricular hypertrophy is observed. Global left ventricular wall motion and contractility are within normal limits. The estimated ejection fraction is 55-60%. Normal left ventricular diastolic filling is observed. The right ventricle wall thickness is mildly increased. The right ventricular chamber size and systolic function are within normal limits. The right atrium is mildly dilated. All valves appear structurally normal. There is a trace of mitral regurgitation. No prior echo to compare. There is trace tricuspid regurgitation. Measurements Name Value Normal Range RVIDd (AP) 2D 3 cm (0.9 - 2.6) RVDdMajor (2D) 3.1 cm (2.2 - 4.4) RAd ISD 4CH 5.1 cm (3.4 - 4.9) RA (A4C)W 4.8 cm (2.9 - 4.6) IVSd (2D) 1.5 cm (0.6 - 1) LVPWd (2D) 1.3 cm (0.6 - 1) LVIDd (2D) 4.8 cm (3.6 - 5.4) LVIDs (2D) 2.4 cm - LV FS (2D) 50 % (25 - 45) Aortic Annulus 2.2 cm (1.4 - 2.6) Ao root diameter (2D) 3.8 cm (2.1 - 3.5) Ascending Ao 2.9 cm (2.1 - 3.4) Aortic arch 2.7 cm (1.8 - 3.4) LA dimension (AP) 2D 4.2 cm (2.3 - 3.8) LAd ISD 4CH 6.3 cm (2.9 - 5.3) LA ISD 4CH W 4.6 cm (2.5 - 4.5) Name Value Normal Range LA ESV SP 4CH (A/L) 64.26 ml - LA ESV SP 2CH (A/L) 57.6 ml - LA ESV BP (A/L) 63.91 ml - LA ESV BP (A/L) index 28 ml/m2 - LA ESV SP 4CH (MOD) 59.04 ml - LA ESV SP 2CH (MOD) 54.81 ml - Name Value Normal Range MV E-wave Vmax 0.8 m/sec - MV deceleration time 186 msec - MV A-wave Vmax 0.5 m/sec - MV E:A ratio 1.6 ratio - P. vein S-wave Vmax 0.5 m/sec - P. vein D-wave Vmax 0.44 m/sec - P. vein S:D Vmax ratio 1.1 ratio - P. vein A-wave duration 140 msec - LV septal e' Vmax 0.08 m/sec - LV lateral e' Vmax 0.11 m/sec - LV E:e' septal ratio 10 ratio - LV E:e' lateral ratio 7 ratio - Name Value Normal Range AV Vmax 1.2 m/sec - AV VTI 24.2 cm - AV peak gradient 6 mmHg - AV mean gradient 2.9 mmHg - LVOT Vmax 1 m/sec - LVOT VTI 21 cm - LVOT peak gradient 4 mmHg - LVOT mean gradient 2.1 mmHg - VICTOR M Vmax 1.2 m/sec - Name Value Normal Range RAP 8 mmHg - IVC diameter 1.6 cm - Name Value Normal Range PV Vmax 0.6 m/sec - PV peak gradient 1.4 mmHg -
--- NOTE | 2017-07-18 11:30 | RAD ---
Edited for charges. INDICATION: Chest pain. COMPARISON: There are no prior studies available for comparison. Technique: A single day myocardial perfusion stress study was performed. Initially a resting study was performed. The patient was given an intravenous injection of 10.8 mCi of technetium 99m tetrofosmin and and the heart was imaged in multiple projections. The patient returned later in the day and under the direction of Dr. Regan, the patient was exercised to a peak heart rate of 171 beats per minute which was 96% of the maximum predicted heart rate. Subsequently the patient was given intravenous injection of 25.4 mCi of technetium 99m tetrofosmin and the heart was imaged in multiple projections. Images were reconstructed in the axial, sagittal and coronal planes and in a 3- D format. FINDINGS: The left ventricle ejection fraction is calculated at 53%. There appears to be normal wall motion present. Review of the images demonstrates a small area of decreased activity on the post exercise images in the anterior wall which appears normal on the resting data set. No other focal abnormalities are seen. IMPRESSION: FINDINGS SUGGESTIVE OF A SMALL AREA OF ISCHEMIA IN THE ANTERIOR WALL. ASSESSMENT: Low risk. Based on imaging criteria from ACC/AHA 2002 Guideline Update for the Management of Patients With Chronic Stable Angina Table 23. Noninvasive Risk Stratification. MTDD
[2017-07-18 11:42] VITALS: BP 127/71
--- NOTE | 2017-07-19 11:50 | DS ---
DISCHARGE SUMMARY: DATE OF ADMISSION: 07/17/17. DATE OF DISCHARGE: 07/18/17. ADMITTING PROVIDER: Regan Howard NP PRIMARY CARE PROVIDER: Dr. Maher. ATTENDING PHYSICIAN: Jagjit Prince MD CHIEF COMPLAINT: Chest pain/tightness; syncope. 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 HISTORY OF PRESENT ILLNESS AND HOSPITAL COURSE: John Barrett is a 42-year-old male with past [facility] history of asthma, allergic rhinitis, Guillain-Hathaway, migraine headaches, former smoker. He was recently started on zolmitriptan (Zomig) for his migraines and is followed by Dr. De La Rosa of [facility] for this condition. On morning of admission around 8 a.m., he had a migraine and within about 10 t o 15 minutes after taking it, he started developing chest tightness and pressure that radiated up to his jaw, down his arm on the left side. He was in bed and believes he lost consciousness and woke up 4 hours later. He was still having some chest pressure in the emergency room, though much better th an before. He called his neurologist, who told him to stop taking the zolmitriptan and to present fo r evaluation in the emergency room. He is still having chest tightness. There, he received 324 mg a spirin and 0.4 mg nitroglycerin and his chest tightness has abated ever since. He was admitted for s yncope, chest pain, ACS rule out. He had 3 troponins that were 0.00, 0.00, and 0.00. He had a risk stratification workup. His LDL was 145, HDL 41. A1c was 5.4. He had an echocardiogram, which showed ejection fraction of 55% to 60%, trace mitral valve regurgitation, trace tricuspid valve regurgitati on, and nuclear stress test which was read as low risk, though did have a suggestion of a small area of ischemia in the anterior wall. His EKGs prior were consistent with T-wave inversions in the infer ior leads. He is being recommended to follow up with a supervisor [facility] as an outpatient given his risk factors of hyperlipidemia, obesity (BMI 35.7). He denies significant family history of cardiac disea se. He is a former smoker, 5 to 6 pack a year total, quit approximately 20 years ago, he says. His suspicion is that his triptan may have caused coronary artery vasospasm causing his chest tightness/p ain. He was given a referral to Dr. Johanny Regan and told to also discuss lifestyle modifications wi th Dr. Maher. His 10-year ASCVD risk is 2.3%. He was not started on statin upon discharge, but russ d to discuss with Dr. Maher. DISCHARGE MEDICATIONS: Include QNASL 2 sprays both nares daily. Of note, he was told to stop his zolmitriptan (Zomig). DISCHARGE DIET: Recommended heart healthy. ACTIVITY LEVEL: No restrictions. Recommended to increase exertion and activity levels, which he aguirre s not do currently. FOLLOWUP: Please follow up with Dr. Maher. He has appointment scheduled on 07/23/17 at 3:30 p.m.. Also suggested to follow up with Dr. Johanny Regan of Cardiology. TIME SPENT: Time spent on discharge was 35 minutes. [id number]/[facility] #: [id number]
== END 2017-07-18 12:50 | disposition home or self-care (01) ==
LOC: ED 16:20 → MEDTELE 19:28
PROVIDERS: ADMIT Hospitalist; ATTEND Internal Medicine
DX: R07.9 Chest pain, unspecified (principal); Z87.891 Personal history of nicotine dependence; R55 Syncope and collapse; J45.909 Unspecified asthma, uncomplicated; J30.9 Allergic rhinitis, unspecified; G61.0 Guillain-Barre syndrome; G43.909 Migraine, unspecified, not intractable, without status migrainosus; R94.5 Abnormal results of liver function studies
CPT/HCPCS: 36415; 70450; 71045; 78452; 80048; 80053; 80061; 80076; 80307; 82550; 82553; 83036; 83605; 83735; 84484; 85025; 85379; 85610; 85730; 93005; 93017; 93306; 96374; 99285; A9270-GY; A9502; G0378

== ENCOUNTER 2018-10-02 13:53 | Inpatient (IN) | payer OTHER ==
--- NOTE | 2018-10-02 14:22 | ED ---
Skin Complaint - HPI Summary HPI Summary: Pt. is a 43 y.o male who presents to the ER for weakness in bilateral LEs since yesterday. Pt. also notes numbness up to his chest and an overall "pins and needles" pain. Pt. has a hx of Guillain-[place] syndrome. He follows with neurologist, Dr. Olivarez, who referred pt. to ER today. Past medical hx of asthma and allergies. Pt. notes some chest discomfort today. Symptoms are severe in severity. No current modifying factors. Pt. ambulatory with a cane today. - History of Current Complaint Chief Complaint: EDNeurologicalDeficit Time Seen by Provider: 10/02/18 14:04 Stated Complaint: NUMBNESS PER DR OFFICE Pain Intensity: 8 - Additional Pertinent History Primary Care Physician: [id number] - Allergy/Home Medications Allergies/Adverse Reactions: Allergies Allergy/AdvReac Type Severity Reaction Status Date / Time codeine Allergy Mild Hallucinati Verified 09/17/18 14:48 ons gabapentin Allergy Anxiety Verified 10/02/18 14:11 [id number] Antimigraine Allergy Palpitation Verified 10/02/18 13:58 Agents s Home Medications: Home Medications Azelastine/Fluticasone RONNIE(NF [Dymista(NF)] 2 spray BOTH NARES BID 10/02/18 [ History Confirmed 10/02/18] Omeprazole CAP (NF) [Prilosec CAP* 20 MG] 20 mg PO DAILY 10/02/18 [History Confirmed 10/02/18] predniSONE [Prednisone 20 MG TAB] 60 mg PO DAILY 10/02/18 [History Confirmed 01/13] PMH/Surg Hx/FS Hx/Imm Hx Previously Healthy: Yes Endocrine/Hematology History: Denies: Hx Diabetes, Hx Anemia, Hx Unexplained Bleeding, Other Endocrine/ Hematological Disorders Cardiovascular History: Reports: Hx Hypercholesterolemia Denies: Hx Aneurysm, Hx Angina, Hx Angioplasty, Hx Auto Implanted Cardiovert Defib, Hx Cardiac Arrest, Hx Cardiomegaly, Hx Congenital Heart Disease, Hx Congestive Heart Failure, Hx Coronary Artery Disease, Hx Deep Vein Thrombosis, Hx Embolism, Hx Hypotension, Hx Hypertension, Hx Pacemaker/ICD, Hx Peripheral Vascular Disease, Hx Rheumatic Fever, Hx Syncope, Hx Valvular Heart Disease, Other Cardiovascular Problems/Disorders Respiratory History: Reports: Hx Asthma, Hx Pneumonia, Hx Seasonal Allergies Denies: Other Respiratory Problems/Disorders GI History: Denies: Other GI Disorders History: Denies: Hx Dialysis, Hx Renal Disease, Other Problems/Disorders Musculoskeletal History: Reports: Hx Arthritis, Hx Back Problems Denies: Hx Rheumatoid Arthritis, Hx Osteoporosis, Hx Scoliosis, Other Musculoskeletal History Sensory History: Reports: Hx Contacts or Glasses - glasses Denies: Hx Cataracts, Hx Eye Injury, Hx Eye Prosthesis, Hx Glaucoma, Hx Legally Blind, Hx Macular Degeneration, Hx Vision Problem, Hx Deafness, Hx Hearing Aid, Hx Hearing Problem, Other Sensory Impairments Opthamlomology History: Reports: Hx Contacts or Glasses - glasses Denies: Hx Cataracts, Hx Eye Injury, Hx Eye Prosthesis, Hx Glaucoma, Hx Legally Blind, Hx Macular Degeneration, Hx Vision Problem, Other Sensory Impairments Neurological History: Reports: Hx Headaches, Hx Migraine Denies: Hx Dementia, Hx Developmental Delay, Hx Nerve Disease, Hx Seizures, Hx Spinal Cord Injury, Hx Transient Ischemic Attacks (TIA), Other Neuro Impairments/Disorders Psychiatric History: Reports: Hx Depression, Hx Inpatient Treatment - 2008, Hx Suicide Attempt Denies: Hx Anxiety, Hx Panic Disorder, Other Psychiatric Issues/Disorders - Surgical History Surgery Procedure, Year, and Place: LEFT KNEE ARTHOSCOPY. STRICTURE REMOVED FROM [facility]. ADENOIDS Hx Anesthesia Reactions: No Infectious Disease History: No Infectious Disease History: Reports: Hx Shingles Denies: Traveled Outside the [place] in Last 30 Days - Family History Known Family History: Positive: Non-Contributory Negative: Cardiac Disease, Seizure Disorder - Social History Occupation: Employed Full-time Lives: Alone Alcohol Use: None Hx Substance Use: No Substance Use Type: Reports: None Hx Tobacco Use: Yes Smoking Status (MU): Former Smoker Review of Systems Constitutional: Negative Negative: Fever, Chills Eyes: Negative ENT: Negative Positive: Chest Pain. Negative: Palpitations Respiratory: Negative Negative: Shortness Of Breath, Cough Gastrointestinal: Negative Negative: Abdominal Pain, Vomiting, Diarrhea Genitourinary: Negative Positive: Other - leg weakness Skin: Negative Positive: Headache, Numbness All Other Systems Reviewed And Are Negative: Yes Physical Exam Triage Information Reviewed: Yes Vital Signs On Initial Exam: Initial Vitals Temp Pulse Resp BP Pulse Ox 98.1 F 119 18 187/127 97 10/02/18 13:54 10/02/18 13:54 10/02/18 13:54 10/02/18 13:54 10/02/18 13:54 Vital Signs Reviewed: Yes Appearance: Positive: Well-Appearing - Pt. sitting on side of bed, present. Pleasant. Skin: Positive: Warm, Dry Head/Face: Positive: Normal Head/Face Inspection Eyes: Positive: Normal, EOMI, AMPARO, Conjunctiva Clear Neck: Positive: Supple. Negative: Nuchal Rigidity Respiratory/Lung Sounds: Positive: Clear to Auscultation, Breath Sounds Present Cardiovascular: Positive: Normal, RRR Musculoskeletal: Positive: Other - 3/5 strength in bilateral LEs. Neurological: Positive: Normal, Alert, Oriented to Person Place, Time, CN Intact II-III Psychiatric: Positive: Affect/Mood Appropriate - [place] Coma Scale Best Eye Response: 4 - Spontaneous Best Motor Response: 6 - Obeys Commands Best Verbal Response: 5 - Oriented Coma Scale Total: 15 Diagnostics - Vital Signs Vital Signs Temp Pulse Resp BP Pulse Ox 10/02/18 13:54 98.1 F 119 18 187/127 97 - Laboratory Result Diagrams: 10/02/18 14:33 10/02/18 14:33 Lab Statement: Any lab studies that have been ordered have been reviewed, and results considered in the medical decision making process. Course/Dx - Course Course Of Treatment: Pt. presenting with worsening leg weakness and numbness. Pt. examined by Dr. Olivarez, neurology. He is concerned for CIDP. Dr. Olivarez would like pt. admitted for IGIV and further workup. I spoke hospitalist, Dr. Grant, and she has accepted pt. to her service. ECG done at 1409 shows a sinus tachy of 111, normal axis, no ST elevation or depression. similar to prior tracing. - Diagnoses Provider Diagnoses: Chronic inflammatory demyelinating polyneuritis Discharge - Sign-Out/Discharge Documenting (check all that apply): Patient Departure Patient Received Moderate/Deep Sedation with Procedure: No - Discharge Plan Condition: Stable Disposition: ADMITTED TO [facility] Referrals: Jun Maher MD [Primary Care Provider] - - Billing Disposition and Condition Condition: STABLE Disposition: Admitted to [facility]
[2018-10-02 14:44] LABS: Hematocrit 46 % (42-52); Hemoglobin 15.5 g/dL (14.0-18.0); Mean Corpuscular HGB Conc 34 g/dL (31-36); Mean Corpuscular Hemoglobin 31 pg (27-31); Mean Corpuscular Volume 91 fL (80-94); Mean Platelet Volume 8.6 fL (7.4-10.4); Platelet Count 349 10^3/uL (150-450); Red Blood Count 5.07 10^6 /uL (4.18-5.48); Red Cell Distribution Width 14 % (10.5-15); White Blood Count 10.7 10^3/uL (3.5-10.8)
--- OUTSIDE RECORDS SUMMARY | 2018-10-02 14:52 | XMS REPORT | Continuity of Care Document ---
:1975 External Reference #:[id number] Author Name Fabiola Coello Care Team Providers Name Role Phone Jun Maher MD Primary Care Physician Unavailable Payers Date Identification Numbers Payment Provider Subscriber Policy Number: [id number] [employer] Leslie Barrett PayID: [id number] [address] [place] [address] Advance Directives Description No Information Available Problems Active Problems Provider Date Migraine without aura Aruna De La Rosa M.D. Onset: 05/14/2017 Guillain-[place] syndrome Aruna De La Rosa M.D. 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 Tobacco Use Start: Unknown Former Cigarette End: Unknown Smoker Smoking Status Reviewed: 09/23/18 Former Cigarette Smoker ETOH Use Rarely consumes alcohol Tobacco Use Start: Unknown Patient is a former quit 1997 End: Unknown smoker Recreational Drug Use Denies Drug Use Exercise Type/Frequency Does not exercise Allergies, Adverse Reactions, Alerts Active Allergies Reaction Severity Comments Date Codeine 12/19/2016 Triptans 10/05/2017 Gabapentin 01/21/2018 Ambien 01/21/2018 Medications Active Medications SIG Qnty Indications Ordering Date Provider Prednisone 3 tablets by 120tabs G61.81 Jose Antonio Howard 09/23/2018 20mg Tablets mouth daily N.P. Calcium 600 + D 1 tablet daily 30tabs G61.81 Jose Antonio Howard 09/23/2018 N.P. [id number] Tablets Omeprazole 1 by mouth 30caps G61.81 Jose Antonio Howard, 09/23/[address] every day N.P. Vitamin Deficiency inject 1000 mcg 3units Neeta Miner, 08/23/2018 Injectable System-B12 every week for M.D. 4 weeks 1000mcg/ML Kit Pseudoephedrine HCL 1 by mouth Unknown 30mg three times a Tablets day as needed Aspirin 1 by mouth Unknown 325mg Tablets DR every day prn Levocetirizine Take 1 Tablet Unknown Dihydrochloride By Mouth AT 5mg Tablets Bedtime Advair HFA Inhale 2 Puffs Unknown 115-21mcg/Act By Mouth Twice Aerosol Daily Dymista one puff each Unknown 137-50mcg/Act nostril bid am Suspension and hs Vitamin B-12 1 by mouth Unknown 1000mcg every day (OTC) Tablets History Medications Amoxicillin/Clavulanate 1 tab by 10tabs J31.2 Alejandro Osullivan 02/04/2018 - Potassium mouth two Desiree Ag 02/15/2018 500-125mg Tablets times per day Diltiazem CD 1 by mouth 90caps R94.39 Navin Loya 10/05/2017 - 120mg Caps ER 24HR every day DO Juan 08/04/2018 (PT Not FACC Taking) Atorvastatin Calcium 1 by mouth 90tabs I20.1 Navin Loya 10/05/2017 - 20mg Tablets every day DO Juan 08/04/2018 (PT Not FACC Taking) Zomig take 1-2 12tabs G43.009 Aruna Mata 06/21/2017 - 2.5mg Tablets tablet by Desiree De La Rosa 09/19/2017 mouth as needed Sumatriptan Succinate 1/2-1 tab 12tabs G43.009 Aruna Mata 05/14/2017 - 100mg Tablets by mouth as Desiree De La Rosa 09/19/2017 needed Flexeril 1 po qhs 40tabs Arnold 02/23/2011 - 10mg Tablets prn Desiree Anderson 01/02/2017 Advair Diskus 1 puff by 60units Unknown - 250-50mcg/Dose Aerosol mouth twice 09/12/2017 a day Qnasl twice a day Unknown - 80mcg/Act Aerosol 11/25/2017 Excedrin Extra Strength 2-3 tab by Unknown - [phone] mouth prn. 08/04/2018 Tablets Tylenol Extra Strength 2 by mouth Unknown - 500mg Tablets as needed 08/04/2018 Dulera inhale two Unknown - 100-5mcg/Act Aerosol puffs by 07/08/2017 mouth twice a day Medications Administered in Office Medication SIG Qnty Indications Ordering Provider Date Depomedrol 80MG Arnold Anderson M.D. 07/12/2011 Injection Immunizations Description No Information Available Vital Signs Date Vital Result Comment 09/23/2018 3:34pm Height 71 inches 5'11" Weight 260.00 lb Heart Rate 93 /min BP Systolic 130 mmHg BP Diastolic 82 mmHg BMI (Body Mass Index) 36.3 kg/m2 08/28/2018 3:12pm Height 71 inches 5'11" Weight 265.00 lb Heart Rate 96 /min BP Systolic Sitting 140 mmHg BP Diastolic Sitting 86 mmHg BMI (Body Mass Index) 37.0 kg/m2 08/05/2018 3:16pm Height 71 inches 5'11" Weight 264.00 lb Heart Rate 84 /min BP Systolic 116 mmHg BP Diastolic 84 mmHg Body Temperature 97.6 F Pain Level 0 BMI (Body Mass Index) 36.8 kg/m2 02/04/2018 4:35pm Height 71 inches 5'11" Weight 274.12 lb Heart Rate 120 /min BP Systolic Sitting 110 mmHg BP Diastolic Sitting 90 mmHg Respiratory Rate 14 /min Body Temperature 99.3 F BMI (Body Mass Index) 38.2 kg/m2 01/21/2018 2:21pm Height 71 inches 5'11" Weight 276.38 lb Heart Rate 107 /min BP Systolic Sitting 130 mmHg BP Diastolic Sitting 84 mmHg Respiratory Rate 14 /min Body Temperature 98.9 F O2 % BldC Oximetry 97 % BMI (Body Mass Index) 38.5 kg/m2 11/26/2017 4:07pm Height 71 inches 5'11" Weight 272.00 lb with shoes Heart Rate 86 /min BP Systolic 120 mmHg lue lg cuff BP Diastolic 72 mmHg lue lg cuff BP Systolic Sitting 115 mmHg BP Diastolic Sitting 80 mmHg Respiratory Rate 17 /min BMI (Body Mass Index) 37.9 kg/m2 Ejection Fraction 55-60% 07/18/2017 echo 10/05/2017 10:16am Height 71 inches 5'11" Weight 268.00 lb w/ shoes Heart Rate 68 /min BP Systolic 120 mmHg Lue BP Diastolic 86 mmHg Lue BP Systolic Sitting 124 mmHg Rue BP Diastolic Sitting 86 mmHg Rue BP Systolic Standing 114 mmHg Rue BP Diastolic Standing 80 mmHg Rue Respiratory Rate 18 /min BMI (Body Mass Index) 37.4 kg/m2 Ejection Fraction 55-60% as of 06/2017 echo 09/20/2017 8:42am Height 71 inches 5'11" Weight 258.00 lb Heart Rate 80 /min BP Systolic 114 mmHg BP Diastolic 78 mmHg Respiratory Rate 14 /min BMI (Body Mass Index) 36.0 kg/m2 06/21/2017 10:12am Height 71 inches 5'11" Weight 258.00 lb Heart Rate 86 /min BP Systolic Sitting 128 mmHg BP Diastolic Sitting 76 mmHg Respiratory Rate 16 /min BMI (Body Mass Index) 36.0 kg/m2 05/14/2017 1:51pm Height 71 inches 5'11" Weight 258.00 lb Heart Rate 92 /min BP Systolic 126 mmHg BP Diastolic 88 mmHg Respiratory Rate 14 /min BMI (Body Mass Index) 36.0 kg/m2 03/15/2017 10:10am Height 71 inches 5'11" Weight 255.00 lb Heart Rate 84 /min BP Systolic Sitting 126 mmHg BP Diastolic Sitting 80 mmHg Respiratory Rate 16 /min BMI (Body Mass Index) 35.6 kg/m2 01/02/2017 9:37am Height 71 inches 5'11" Weight 260.00 lb Heart Rate 88 /min BP Systolic Sitting 136 mmHg BP Diastolic Sitting 92 mmHg Respiratory Rate 16 /min BMI (Body Mass Index) 36.3 kg/m2 12/19/2016 9:09am Height 71 inches 5'11" Weight 265.00 lb Heart Rate 84 /min BP Systolic 130 mmHg BP Diastolic 84 mmHg Respiratory Rate 15 /min Pain Level 5 took tylenol before visit BMI (Body Mass Index) 37.0 kg/m2 07/21/2010 3:38pm Height 71 inches 5'11" Weight 254.00 lb BP Systolic 130 mmHg BP Diastolic 82 mmHg BMI (Body Mass Index) 35.4 kg/m2 Results Test Date Facility Test Result H/L Range Note Laboratory test 09/17/2018 [facility] CSF Protein 99 mg/dL High 15-45 finding [address] [place] [address] [phone] CSF Glucose 65 mg/dL N 40-70 CSF Cell Count 09/17/2018 [facility] Body Fluid Cerebral Spinal [address] [place] [address] [phone] Body Fluid Appearance Clear Body Fluid Color Colorless CSF Tube # 4 Body Fluid Volume 1.5 mL Body Fluid WBC 0 /mcL Body Fluid RBC 2 /mcL Body Fluid Neutrophils 1 % Body Fluid Lymph 85 % Body Fluid Burke 14 % Body Fluid Other Cells 2 Body Fluid Total Cells Counted 100 Body Fluid Comment SEE COMMENTS 1 Fluid Reviewed By MD (SEE NOTE) 2 Vitamin B12 And 08/23/2018 [facility] Vitamin B12 283 pg/mL N 180-914 3 Folate Serum [facility] [place] [address] [phone] Folic Acid (Folate) 10.14 ng/mL >3.99 Laboratory test 08/23/2018 [facility] Hemoglobin A1c 5.5 % N 4.0-5.6 4 finding [facility] (Glyco HGB) [place] [address] [phone] Lyme Screen W/ Reflex To WB Negative Negative Protein 08/23/2018 [facility] Total 6.9 g/dL 6.3 - Electrophoresis [facility] Protein(Pep) 7.[address] [place] [address] [phone] Albumin 3.6 g/dL 3.4-4.7 Alpha-1 Globulin 0.1 g/dL 0.1-0.3 Alpha-2 Globulin 0.9 g/dL 0.6-1.0 Beta Globulin 1.1 g/dL 0.7-1.2 Gamma Globulin 1.2 g/dL 0.6-1.6 Albumin/Globulin Ratio 1.09 Impression See Comment 5 Laboratory test 08/23/2018 [facility] Cyclic Citrullinated < 15.6 U 6 finding 101 [facility] [place] [address] [phone] Nuclear AB (Luisa) By Ifa Igg <1:80 (Negative) 7 Ssa/SSB Abs Igg 08/23/2018 [facility] SS-A/Ro Antibody <0.[address] [place] [address] [phone] SS-B/La Antibody <0.2 U 9 Neutrophil Cytoplasmic 08/23/2018 [facility] C-Anca Negative Negative AB [address] [place] [address] [phone] P-Anca Negative Negative 10 Ganglioside 08/23/2018 [facility] Monosialo GM1 <1:250 <=1: 500 Antibody Panel 101 [facility] [place] [address] [phone] Monosialo GM1 IgM Antibody <1:250 <=1:1000 Asialo GM1 IgG Antibody <1:250 <=1:4000 Asialo GM1 IgM Antibody <1:250 <=1:4000 Disialo GD1b IgG Antibody <1:250 <=1:1000 Disialo GD1b IgM Antibody <1:250 <=1:1000 11 Laboratory test 03/08/2018 [facility] Homocysteine 14 mcmol/L Abnormal 12 finding [address] [place] [address] [phone] Vitamin B12 And 03/04/2018 [facility] Vitamin B12 169 pg/mL Low 180- 13 Folate Serum 101 [facility] [address] [place] [address] [phone] Folic Acid (Folate) 10.26 ng/mL >3.99 Protein 03/04/2018 [facility] Total 7.0 g/dL 6.3 - Electrophoresis 101 [facility] Protein(Pep) 7.9 [place] [address] [phone] Albumin 3.6 g/dL 3.4-4.7 Alpha-1 Globulin 0.2 g/dL 0.1-0.3 Alpha-2 Globulin 0.9 g/dL 0.6-1.0 Beta Globulin 1.1 g/dL 0.7-1.2 Gamma Globulin 1.2 g/dL 0.6-1.6 Albumin/Globulin Ratio 1.08 Impression See Comment 14 Iron & Iron Binding 03/04/2018 [facility] Iron 139 g/dL N 50 -212 [address] [place] [address] [phone] Unsaturated Iron Binding 215 g/dL Total Iron Binding Capacity 354 g/dL N 250-450 Transferrin 253 mg/dL N 203-362 % Iron Saturation 39 % N 15-55 Laboratory test 03/04/2018 [facility] Intrinsic Negative Negative [address] [place] [address] Blocking AB [phone] Methylmalonic Acid Mma 0.16 nmol/mL <=0.40 16 Tick-Borne Panel 02/19/2018 [facility] Babesia Negative Negative PCR Blood [address] [place] [address] [phone] Babesia ducani Negative Negative Babesia divergens/Mo-1 Negative Negative 17 Anaplasma phagocytophilum Negative Negative Ehrlichia chaffeensis Negative Negative Ehrlichia ewingii/canis Negative Negative Ehrlichia muris-like Negative Negative 18 B. miyamotoi PCR, B Negative Negative 19 CBC Auto Diff 02/19/2018 [facility] White Blood 6.4 10^3/uL N 3.5-10.[address] [place] [address] [phone] Red Blood Count 4.27 10^6/uL N 4.00-5.40 Hemoglobin 13.1 g/dL Low 14.0-18.0 Hematocrit 38 % Low 42-52 Mean Corpuscular Volume 90 fL N 80-94 Mean Corpuscular Hemoglobin 31 pg N 27-31 Mean Corpuscular HGB Conc 34 g/dL N 31-36 Red Cell Distribution Width 14 % N 10.5-15 Platelet Count 278 10^3/uL N 150-450 Mean Platelet Volume 9.5 um3 N 7.4-10.4 Abs Neutrophils 3.1 10^3/uL N 1.5-7.7 Abs Lymphocytes 2.4 10^3/uL N 1.0-4.8 Abs Monocytes 0.6 10^3/uL N 0-0.8 Abs Eosinophils 0.2 10^3/uL N 0-0.6 Abs Basophils 0.1 10^3/uL N 0-0.2 Abs Nucleated RBC 0 10^3/uL Granulocyte % 48.6 % N 38-83 Lymphocyte % 37.5 % N 25-47 Monocyte % 9.0 % High 0-7 Eosinophil % 3.5 % N 0-6 Basophil % 1.4 % N 0-2 Nucleated Red Blood Cells % 0.1 Laboratory test 02/19/2018 [facility] Ferritin 54.5 ng/mL N 24 -[address] [place] [address] [phone] C Reactive Protein 1.94 mg/L N <8.01 Blood Culture SEE RESULT BELOW 20 N gonorrhoea Misc 01/21/2018 [facility] Neisseria TNP () [address] [place] [address] [phone] C trachomatis Misc 01/21/2018 [facility] Chlamydia TNP () [address] [place] [address] [phone] Urinalysis Profile 01/21/2018 [facility] Urine Color Yellow [address] [place] [address] [phone] Urine Appearance Clear Urine Specific [place] 1.011 N 1.010-1.030 Urine pH 5.0 N 5-9 Urine Urobilinogen Negative Negative Urine Ketones Negative Negative Urine Protein Negative Negative Urine Leukocytes Negative Negative Urine Blood Negative Negative Urine Nitrite Negative Negative Urine Bilirubin Negative Negative Urine Glucose Negative Negative Laboratory test 01/21/2018 [facility] Hemoglobin A1c 5.5 % N 4.0-5.[address] (Glyco HGB) [place] [address] [phone] Comp Metabolic 01/21/2018 [facility] Sodium 140 N 135-[address] mmol/[place] [address] [phone] Potassium 3.8 mmol/L N 3.5-5.0 Chloride 107 mmol/L N 101-111 Co2 Carbon Dioxide 27 mmol/L N 22-32 Anion Gap 6 mmol/L N 2-11 Glucose 103 mg/dL High 70-100 Blood Urea Nitrogen 13 mg/dL N 6-24 Creatinine 1.07 mg/dL N 0.67-1.17 BUN/Creatinine Ratio 12.1 N 8-20 Calcium 9.0 mg/dL N 8.6-10.3 Total Protein 6.5 g/dL N 6.4-8.9 Albumin 4.1 g/dL N 3.2-5.2 Globulin 2.4 g/dL N 2-4 Albumin/Globulin Ratio 1.7 N 1-3 Total Bilirubin 0.30 mg/dL N 0.2-1.0 Alkaline Phosphatase 151 U/L High 34-104 Alt 80 U/L High 7-52 Ast 33 U/L N 13-39 Egfr Non- 76.2 >60 Egfr 92.2 >60 24 Laboratory test 01/21/2018 [facility] Blood Culture SEE RESULT [address] [place] [address] [phone] C Reactive Protein 1.97 mg/L N <8.01 HIV 1/2 AB 01/21/2018 [facility] HIV 1 2 Nonreactive Nonreactive [address] [place] [address] [phone] CBC Auto Diff 01/21/2018 [facility] White Blood 6.2 10^3/uL N 3.5-10.[address] [place] [address] [phone] Red Blood Count 4.15 10^6/uL N 4.00-5.40 Hemoglobin 12.7 g/dL Low 14.0-18.0 Hematocrit 38 % Low 42-52 Mean Corpuscular Volume 91 fL N 80-94 Mean Corpuscular Hemoglobin 31 pg N 27-31 Mean Corpuscular HGB Conc 34 g/dL N 31-36 Red Cell Distribution Width 14 % N 10.5-15 Platelet Count 281 10^3/uL N 150-450 Mean Platelet Volume 9.2 um3 N 7.4-10.4 Abs Neutrophils 3.1 10^3/uL N 1.5-7.7 Abs Lymphocytes 2.2 10^3/uL N 1.0-4.8 Abs Monocytes 0.5 10^3/uL N 0-0.8 Abs Eosinophils 0.3 10^3/uL N 0-0.6 Abs Basophils 0.2 10^3/uL N 0-0.2 Abs Nucleated RBC 0 10^3/uL Granulocyte % 49.9 % N 38-83 Lymphocyte % 35.3 % N 25-47 Monocyte % 7.4 % High 0-7 Eosinophil % 4.9 % N 0-6 Basophil % 2.5 % High 0-2 Nucleated Red Blood Cells % 0 Laboratory test 11/23/2017 [facility] LDL Cholesterol 75 mg/dL [address] [place] [address] [phone] 1 DIFF DONE ON CONCENTRATED SMEAR 2 No evidence of an acute inflammatory response. No evidence of malignancy. Reviewed by Colette Vital MD 3 Normal Range 180 to 914 Indeterminate Range 145 to 180 Deficient Range <145 4 Therapeutic target for the treatment of diabetes mellitus patients is <7% HBA1C, and in selective patients <6.0%. Please refer to [place] [employer] diabetic care guidelines for further information. 5 RESULT: No apparent monoclonal protein on serum electrophoresis. Test Performed by: [place] [address] 6 REFERENCE VALUE <20.0 (Negative) Test Performed by: [place] [address] 7 <1:80 (Negative) REFERENCE VALUE <1:80 (Negative) Test Performed by: [place] [address] 8 REFERENCE VALUE <1.0 (Negative) 9 REFERENCE VALUE <1.0 (Negative) Test Performed by: [place] [address] 10 Negative for cANCA and pANCA patterns by immunofluorescence. ADDITIONAL INFORMATION This test was developed and its performance characteristics determined by [facility] in a manner consistent with CLIA requirements. This test has not been cleared or approved by the U.S. Food and Drug Administration. Test Performed by: [facility] - [address] [address] 11 ADDITIONAL INFORMATION This test was developed and its performance characteristics determined by [facility] in a manner consistent with CLIA requirements. This test has not been cleared or approved by the U.S. Food and Drug Administration. Test Performed by: [facility] - [address] [address] 12 The homocysteine concentration is elevated in this sample. Increased homocysteine has been associated with an increased risk of cardiovascular disease, cerebrovascular disease, peripheral arterial disease and thrombosis. Vitamin deficiencies (B6, B12 and folic acid) may also cause an increased homocysteine concentration. Inborn errors of methionine metabolism are a potential, but less likely, possibility for hyperhomocysteinemia. Consider plasma or serum methylmalonic acid analysis to rule out vitamin B12 deficiency. REFERENCE VALUE <=13 (Fasting) ADDITIONAL INFORMATION This test was developed and its performance characteristics determined by [facility] in a manner consistent with CLIA requirements. This test has not been cleared or approved by the U.S. Food and Drug Administration. Test Performed by: [facility] - [address] [address] 13 Normal Range 180 to 914 Indeterminate Range 145 to 180 Deficient Range <145 14 RESULT: No apparent monoclonal protein on serum electrophoresis. Test Performed by: [facility] - [address] [address] 15 Positive in 50% of persons with pernicious anemia. Test Performed by: [facility] - [address] [address] 16 ADDITIONAL INFORMATION This test was developed and its performance characteristics determined by [facility] in a manner consistent with CLIA requirements. This test has not been cleared or approved by the U.S. Food and Drug Administration. Test Performed by: [facility] - [address] [address] 17 ADDITIONAL INFORMATION This test was developed and its performance characteristics determined by [facility] in a manner consistent with CLIA requirements. This test has not been cleared or approved by the U.S. Food and Drug Administration. 18 ADDITIONAL INFORMATION This test was developed and its performance characteristics determined by [facility] in a manner consistent with CLIA requirements. This test has not been cleared or approved by the U.S. Food and Drug Administration. 19 ADDITIONAL INFORMATION This test was developed and its performance characteristics determined by [facility] in a manner consistent with CLIA requirements. This test has not been cleared or approved by the U.S. Food and Drug Administration. Test Performed by: [facility] - [address] [address] 20 SEE RESULT BELOW Name: LESLIE BARRETT : [address]: Alejandro Ag MD Acct: [id number] Unit: [id number] AGE: 42 Location: LABCRAFT Re02/19/18 SEX: M Status: REG REF SPEC: [id number] MAXIMINO: 02/19/[address]: Alejandro Ag MD REQ: [id number] RECD: 02/19/18 STATUS: COMP _ SOURCE: BLOOD ART SPDESC: ORDERED: Blood Cult Procedure Result Reported Site Aerobic Culture Bottle Final 02/24/18- 1243 ML No Growth Day 5 Anaerobic Culture Bottle Final 02/24/18- 1243 ML No Growth Day 5 * ML - Main Lab . END OF REPORT DEPARTMENT OF PATHOLOGY, [address] [place] [address] Olegario Eagle M.D. Director [facility] # [id number] 21 Mary Grace vazquez [facility] [place], Amplified RNA was cancelled on 01/23/2018 at 16:17; Improper collection. Test Performed by: [facility] [address] [place] [id number] 22 Prudencio cid [facility] [place], Amplified RNA was cancelled on 01/23/2018 at 16:17; Improper collection. Test Performed by: [facility] [address] [id number] 23 Therapeutic target for the treatment of diabetes mellitus patients is <7% HBA1C, and in selective patients <6.0%. Please refer to [place] [employer] diabetic care guidelines for further information. 24 Because ethnic data is not always readily available, this report includes an eGFR for both -Americans and non- Americans. The National Kidney Disease Education Program (NKDEP) does not endorse the use of the MDRD equation for patients that are not between the ages of 18 and 70, are , have extremes of body size, muscle mass, or nutritional status, or are non- or non-. According to the National Kidney Foundation, irrespective of diagnosis, the stage of the disease is based on the level of kidney function: Stage Description GFR(mL/min/1.73 m(2)) 1 Kidney damage with normal or decreased GFR 90 2 Kidney damage with mild decrease in GFR 60-89 3 Moderate decrease in GFR 30-59 4 Severe decrease in GFR 15-29 5 Kidney failure <15 (or dialysis) 25 SEE RESULT BELOW Name: IMMANUELLESLIE : [address]: Alejandro Ag MD Acct: [id number] Unit: [id number] AGE: 42 Location: LAB Re01/21/18 SEX: M Status: REG REF SPEC: [id number] MAXIMINO: 01/21/18-[address] [facility] [address]: Alejandro Ag MD REQ: [id number] RECD: 01/21/18 STATUS: COMP _ SOURCE: BLOOD,VENO SPDESC: ORDERED: Blood Cult Procedure Result Reported Site Aerobic Culture Bottle Final 01/26/18- 1632 ML No Growth Day 5 Anaerobic Culture Bottle Final 01/26/18- 1632 ML No Growth Day 5 * ML - Main Lab . END OF REPORT DEPARTMENT OF PATHOLOGY, [address] [place] [address] Olegario Eagle M.D. Director [facility] # [id number] 26 It is recognized that currently available assays for the detection of antibodies to HIV-1 and/or HIV-2 may not detect all infected individuals. HIV antibodies may be undetectable in some stages of the infection and in some clinical conditions. The performance of this assay has not been established for populations of infants or children. Assayed by Chemiluminescence Microparticle Immunoassay on the Siemens Advia Centaur CP. Values obtained with different methods or kits cannot be used interchangeably.The diagnostic specificity of the ADVIA Centaur 1/O/2 Enhanced assay in the low risk population was 99.90% (6052/6058) with a 95% confidence interval of 99.78 to 99.96%. 27 Desirable: <100 Near Optimal: 100-129 Borderline High: 130-159 High: 160-189 Very High: >189 Procedures Date Code Description Status 08/23/2018 72409 Nerve Conduction -08 Studies Completed 08/23/2018 95522 Needle Electromyography Each Extremity W/Related Completed Paraspinal Areas 10/23/2017 87727 Holter Monitor Review (24 hr)dr review & interp only Completed 10/17/2017 66558 ECG Monitor/Recording W/Visual Superimposition Completed Scanning 10/05/2017 68149 EKG Tracing & Interpretation Completed 07/18/2017 88119 ECHO Transthorasic Realtime 2D W Doppler & Color Flow Completed Hosp 07/18/2017 19212 Treadmill Interp/Report Only Completed 07/18/2017 83944 Stress Test Supervsn W/Out I/R Completed 12/26/2016 40109 Needle Electromyography Each Extremity W/Related Completed Paraspinal Areas 12/26/2016 68126 Needle Electromyography Complete, Five Or More Muscles Completed Studied 12/26/2016 69017 Nerve Conduction 07-08 Studies Completed 12/19/2016 [id number] Diabetic Retinal Eye Exam Completed 12/18/2011 48465 Arthroscopy,Knee, Synovectomy Plica Or Shelf Resect Completed 12/18/2011 17844 Arthroscopy,Knee, Synovectomy Plica Or Shelf Resect Completed 07/12/201110 Inject/Drain Joint/Bursa Major W/O US Completed 02/23/2011 96644 Rad Shoulder Comp, Min. 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, unsp cervical region R20.0 Anesthesia of skin Office Visit 02/04/2018 4:20p [facility] Azael Osullivan J31.2 Chronic Infectious Desiree Ag pharyngitis Diseases R50.9 Fever, unspecified Office Visit 01/21/2018 2:00p [facility] Azael Osullivan R50.9 Fever, Infectious Desiree Ag unspecified Diseases J03.90 Acute tonsillitis, unspecified Office Visit 11/26/2017 4:00p [facility] Navin Loya I20.9 Angina pectoris, Of [facility] [address] DO Juan unspecified FACC E78.5 Hyperlipidemia, unspecified Office Visit 10/05/2017 [place] Navin SChandana R94.39 Abnormal result of 10:40a Cardiology Of [facility], other cardiovascular [facility] function study I20.1 Angina pectoris with documented spasm E78.5 Hyperlipidemia, unspecified E66.8 Other obesity Z68.37 Body mass index (BMI) 37.0-37.9, adult Office Visit 09/20/2017 [place] Krishna G43.009 Migraine w/o 8:30a Neurologic Desiree Bear aura, not Services Of [facility] [address] intractable, w/o status migrainosus R20.2 Paresthesia of skin 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 Jagjit Prince, R07.9 Chest pain, Assoc,pc unspecified Hospitalists R55 Syncope and collapse J45.20 Mild intermittent asthma, uncomplicated Office Visit 07/17/2017 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 R53.83 Other fatigue Office Visit 05/14/2017 [place] Aruna Mata G43.009 Migraine w/o aura, 1:45p Neurologic Desiree De La Rosa not intractable, Services Of [facility] [address] w/o status migrainosus R53.83 Other fatigue 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 Aide Poon G61.0 Guillain-[place] 8:35a Assoc,pc N.P. syndrome Hospitalists J45.20 Mild intermittent asthma, uncomplicated H53.2 Diplopia J30.2 Other seasonal allergic rhinitis Office 12/30/2016 Neurohospitalist Kirt G61.0 Guillain[place] Visit 11:19a Clinic MD Sher syndrome Office 12/30/2016 [facility] Aide Poon G61.0 Guillain[place] Visit 8:35a Assoc,pc Hospitalists Maosn. syndrome J45.20 Mild intermittent asthma, uncomplicated H53.2 Diplopia J30.2 Other seasonal allergic rhinitis Office 12/29/2016 Neurohospitalist Neeta G61.0 Guillain[place] Visit 11:19a Clinic Desiree Miner syndrome Office 12/29/2016 [facility] Sugey G61.0 Guillain[place] Visit 8:34a Assoc,pc Hospitalists Rhea Torres syndrome J45.20 Mild intermittent asthma, uncomplicated H53.2 Diplopia J30.2 Other seasonal allergic rhinitis Office 12/28/2016 Neurohospitalist Neeta G61.0 Guillain[place] Visit 11:19a Africa Miner M.D. syndrome Office 12/28/2016 [facility] Azael Osullivan R19.7 Diarrhea, Visit 12:51p Infectious Diseases conchita Ag M.D. G51.8 Other disorders of facial nerve G62.9 Polyneuropathy, unspecified Office Visit 12/28/2016 [facility] G61.0 Guillain[place] 8:34a Assoc,heide Torres D.OChandana syndrome Hospitalists J45.20 Mild intermittent asthma, uncomplicated H53.2 Diplopia J30.2 Other seasonal allergic rhinitis Office Visit 12/27/2016 12:47p [facility] Azael Osullivan G51.8 Other disorders Infectious Desiree Ag of facial nerve Diseases G62.9 Polyneuropathy, unspecified Office 12/27/2016 Neurohospitalist Neeta G61.0 Guillain[place] Visit 11:18a Africa Miner M.D. syndrome Office 12/27/2016 [facility] G61.0 Guillain[place] Visit 8:33a Assoc, Hospitalists Brian D.O. syndrome J45.20 Mild intermittent asthma, uncomplicated H53.2 Diplopia J30.2 Other seasonal allergic rhinitis Office Visit 12/26/2016 [facility] G62.9 Polyneuropathy, 8:33a Assoc,heide Torres D.OChandana unspecified Hospitalists J45.20 Mild intermittent asthma, uncomplicated H53.2 Diplopia J30.2 Other seasonal allergic rhinitis Office 12/26/2016 Neurohospitalist Neeta G61.0 Guillain[place] Visit 11:17a Africa Miner M.D. syndrome Office 12/25/2016 Neurohospitalist Neeta G52.7 Disorders of Visit 11:16a Africa Miner M.D. multiple cranial nerves R20.2 Paresthesia of skin R51 Headache Office Visit 12/25/2016 [facility] G62.9 Polyneuropathy, 8:33a Assoc,heide Torres D.O. unspecified Hospitalists J45.20 Mild intermittent asthma, uncomplicated H53.2 Diplopia J30.2 Other seasonal allergic rhinitis Office Visit 12/22/2016 Neurohospitalist aJlen Loya R29.810 Facial 11:14a Clinic Desiree Rodriguez weakness R20.2 Paresthesia of skin Office Visit 12/19/2016 9:00a [place] Neu[facility]ic Aruna De La Rosa, R51 Headache Services Of [place] Ramírez R20.2 Paresthesia of skin Office Visit 08/08/2012 3:15p Orthopedic Arnold 719.46 Pain Joint Lower Services Of Desiree Anderson Leg C.M.A. Office Visit 11/22/2011 8:30a Barak Barrett 836.0 Dislocation Knee Services Of Desiree Anderson Tear Of Medial C.M.A. Cartilage Or Meniscus Curren Office Visit 08/23/2011 9:30a Barak Barrett 836.0 Dislocation Knee Services Of Desiree Anderson Tear Of Medial C.M.A. Cartilage Or Meniscus Curren 719.46 Pain Joint Lower Leg Office Visit 07/12/2011 9:30a Barak Anderson 836.0 Dislocation Knee Services Of M.DChandana Tear Of Medial C.M.A. Cartilage Or Meniscus Curren 715.96 Osteoarthrosis Unspec Genlzd Or Localized Lower Leg Office Visit 07/04/2011 8:30a Barak Anderson 836.0 Dislocation Knee Services Of M.DChandana Tear Of Medial C.M.A. Cartilage Or Meniscus Curren 836.0 Dislocation Knee Tear Of Medial Cartilage Or Meniscus Curren Office Visit 04/06/2011 4:00p Barak Anderson 719.46 Pain Joint Services Of C.M.A. M.D. Lower Leg Office Visit 12/15/2010 10:00a Barak Anderson 719.46 Pain Joint Services Of C.M.A. M.D. Lower Leg Office Visit 10/20/2010 10:00a Barak Anderson 719.46 Pain Joint Services Of C.M.A. M.D. Lower Leg Office Visit 09/08/2010 10:00a Barak Anderson 719.46 Pain Joint Services Of C.M.A. M.D. Lower Leg Office Visit 03/09/2009 10:30a [place] [facility] Poonam Loya 786.50 Pain Chest Desiree Sidhu Unspec 785.1 Palpitations Plan of Treatment Future Appointment(s):10/25/2018 3:30 pm - Jose Antonio Howard N.P. at [place] [facility]09/23/2018 - Jose Antonio Howard N.P.G61.81 Chronic inflammatory demyelinating polyneuritisNew Medication:Prednisone 20 mg - 3 tablets by mouth dailyCalcium 600 + D 600-200 mg-Unit - 1 tablet dailyOmeprazole 20 mg - 1 by mouth every dayReferral:[facility], Clinic/CenterFollow up:4 weeksRecommendations:call in a week to let us know how he is wcuuyR80.009 Migraine without aura, not intractable, without status migra
[2018-10-02 15:02] LABS: Albumin 4.6 g/dL (3.2-5.2); Albumin/Globulin Ratio 1.5 (1-3); BUN/Creatinine Ratio 17.3 (8-20); Calcium 9.7 mg/dL (8.6-10.3); EGFR African American 94.8 (>60); EGFR Non-African American 78.3 (>60); Magnesium 2.1 mg/dL (1.9-2.7); Potassium 4.3 mmol/L (3.5-5.0); Total Bilirubin 0.7 mg/dL (0.2-1.0); Total Protein 7.6 g/dL (6.4-8.9)
[2018-10-02 15:22] LABS: ABS Basophils 0.1 10^3/ul (0-0.2); ABS Lymphocytes 1.2 10^3/ul (1.0-4.8); ABS Monocytes 0.3 10^3/ul (0-0.8); ABS Neutrophils 9.2 10^3/ul (1.5-7.7); Nucleated Red Blood Cells % 0.1
[2018-10-02] MEDS ORDERED: Al Hydrox/Mg Hydrox/Simet LIQ* 30 ML UDC PO PRN (16:07)
[2018-10-02] MEDS ORDERED: IMMUNE GLOBULN IV ONE (16:07)
[2018-10-02] MEDS ORDERED: [UNRECOGNIZED DRUG - OTHER] IV ONE (16:07)
[2018-10-02] MEDS ORDERED: hydrALAZINE IV* 20 MG/ML VIAL IV SLOW PU PRN (16:28)
[2018-10-02] MEDS: Acetaminophen TAB* 325 MG PO PRN (16:44)
[2018-10-02] MEDS ORDERED: [UNRECOGNIZED DRUG - OTHER] IV SCH (17:00)
[2018-10-02] MEDS ORDERED: IMMUNE GLOBULN IV SCH (17:00)
--- NOTE | 2018-10-02 18:55 | HP ---
CC: Dr. Jun Maher; Dr. Jalen Rodriguez* HISTORY AND PHYSICAL: DATE OF ADMISSION: 10/02/18 PROVIDER: AI Cantu ATTENDING PHYSICIAN: Dr. La Grant* (dictated by AI Cantu). PRIMARY CARE PROVIDER: Dr. Jun Maher. NEUROLOGIST: Dr. Jalen Rodriguez. CHIEF COMPLAINT: New peripheral weakness and increased neuropathy. HISTORY OF PRESENT ILLNESS: John Barrett is a 43-year-old white male with past medical history significant for chronic inflammatory demyelinating polyneuropathy, Guillain-[place] syndrome in 2017, migraine without aura, asthma, hypertension, hyperlipidemia, who presents to the emergency department with new weakness and increasing numbness. The patient has been following at Dr. Rodriguez 's office for his chronic inflammatory demyelinating polyneuropathy. He was last seen in the office on 09/23/18 by nurse practitioner, Regan Howard. At that time, his progressive numbness was increasing and then included numbness from his feet to just below his navel as well as numbness from his hands up to his shoulders bilaterally and numbness to the left side of his face. He was not experiencing weakness at this time. From that visit, he was prescribed 60 mg of prednisone as well as oral calcium and vitamin D and Prilosec and he has been taking these medications as prescribed. For the last week, the numbness has spread to about his nipple line and since yesterday, he has been developing weakness. He noticed since yesterday, he has had difficulty ambulating. He has not driven since this time. Today he noticed that he was having difficulty buttoning his shirt. His left-sided facial numbness is still present and he noticed that it does feel more numb. He has not had difficulty with bowel movements, passing urine, or with breathing. Denies chest pain and chest palpitations. He denies fever/chills, recent illness, and sick contacts. ED COURSE: Vital signs when the patient arrived to the emergency department included temperature 98.1, heart rate 119, respiratory rate 18, O2 sat 97%, blood pressure 187/127. The patient did not receive any medication in the emergency department. The hospitalists were asked to evaluate the patient for admission. PAST MEDICAL HISTORY: 1. Chronic inflammatory demyelinating polyneuropathy since 2018 2. Guillain-[place] syndrome in 2017. 3. Migraine without aura. 4. Environmental allergies. 5. Asthma. 6. Hyperlipidemia. 7. Hypertension. PAST SURGICAL HISTORY: 1. Right knee arthroscopy. 2. Urethral stricture surgery. 3. Adenoidectomy. HOME MEDICATIONS: 1. Pseudoephedrine 30 mg by mouth 3 times a day p.r.n. 2. Aspirin 325 p.o. p.r.n. pain. 3. Levocetirizine 5 mg p.o. daily. 4. Advair 115/21 mcg inhaled 2 puffs daily. 5. Dymista 137/50 mcg inhaled each nostril b.i.d. 6. Vitamin B12 1000 mcg 1 p.o. daily. 7. Prednisone 60 mg p.o. daily. 8. Omeprazole 20 mg p.o. daily. 9. Calcium and vitamin D supplement. ALLERGIES: The patient had vasospasm to TRIPTANS. The patient reports hallucination to CODEINE, paranoia to GABAPENTIN, and suicidal ideation to AMBIEN. FAMILY HISTORY: Father with hypertension, alive at age 73. Mother with history of breast cancer, alive at age 70. SOCIAL HISTORY: The patient is unmarried, without children. He lives alone. He works in [employer] at [employer]. He is a former smoker, who smoked about 1-pack a day for 5 years and quit in 1997. He denies alcohol and drug use. The patient lists his mother, Ana Barrett as his surrogate medical decision maker, her phone number is [phone]. REVIEW OF SYSTEMS: An 11-point review of systems was completed and all pertinent positives and negatives are above in the HPI. All other systems are negative. PHYSICAL EXAMINATION GENERAL: Obese white male, lying comfortably upright in the hospital stretcher , appearing in no acute distress. HEENT: Head: Normocephalic, atraumatic. Eyes: PERRL. Sclerae anicteric. EOMI. No nystagmus. ENT: Mucous membranes moist. NECK: Supple without JVP. LUNGS: Chest expansion is symmetrical with respirations. Lungs are clear to auscultation throughout. CARDIO: Regular rate and rhythm without murmurs, rubs, or gallops. ABDOMEN: Normoactive bowel sounds x4 quadrants. Abdomen is soft, nontender and nondistended without masses or hepatosplenomegaly. EXTREMITIES: No clubbing, edema, or cyanosis. NEURO: Reflexes 0/4 patella and Achilles reflex. Biceps reflex 2/4 bilaterally. No sensation of pain, rather the patient feels pressure throughout lower extremities bilaterally. Sensation to light touch is not intact throughout lower extremities bilaterally. Sensation to light touch throughout the upper extremities is diminished, but equal. Sensation to light touch is diminished on the left aspect of the face. Upper extremity and handgrip strength is 5/5 bilaterally. Strength is 4/5 bilaterally in the quads and at the ankles. The patient is unable to ambulate on toes. The patient is unable to squat. The patient is able to ambulate without ataxia, otherwise no ataxia present. Cranial nerves II through XII are grossly intact. PSYCH: The patient is pleasant and cooperative. SKIN: Skin is warm, dry and intact. No ecchymosis or rashes. DIAGNOSTIC STUDIES/LAB DATA: White blood cell count 10.7, hemoglobin 15.5, hematocrit 46, platelet count 349. Sodium 135, potassium 4.3, chloride 102, carbon dioxide 21, anion gap 12, BUN 18, creatinine 1.04, glucose 151, calcium 9.7, mag 2.1. Trop 0.00. Total bili 0.70, AST 67, ALT 101, alk phos 146. Total protein 7.6, albumin 4.6, globulin 3.0. EKG on 10/02/18, normal sinus rhythm with tachycardia to 111 beats per minute. No ST elevations or depressions. Isolated wide QRS to lead III, not consistent with any bundle branch blocks, otherwise unchanged from EKG in 2018. ASSESSMENT AND PLAN: John Barrett is a 43-year-old white male with past medical history of chronic inflammatory demyelinating polyneuropathy, history of Guillain- [place] syndrome in 2017, asthma, hypertension, hyperlipidemia and migraine without aura, who presents to the emergency department with increasing numbness and new peripheral weakness. The patient will be admitted inpatient for: 1. Acute on chronic polyneuropathy with new peripheral weakness. Neurology has been consulted and Dr. Olivarez recommends treatment with IVIG. The patient will be started on 50 g IVIG daily for 5 days. The patient will have neuro checks every 4 hours, negative inspiratory force measured every 6 hours. Postvoid residual is pending. MRI of head without contrast has been ordered. His home prednisone has been held and Neurology will continue to follow and we appreciate recommendations. Ordering continuous pulse ox as well. At this time , the patient has no difficulty with bowel/bladder incontinence and respiratory status is stable. 2. Elevated LFTs. It appears that the patient had LFTs within normal limits during his last hospitalization. We will recheck this tomorrow and check hepatitis panel. It is possible that the patient may have nonalcoholic steatosis. He does not have a history of drinking heavily. If LFTs remain elevated, consider liver ultrasound. 3. Hypertension. The patient carries a history of hypertension, but appears to not be taking daily medications. He was not hypertensive in the clinic on his most recent neurology visit, but he has been hypertensive in the emergency department today. I ordered p.r.n. hydralazine for systolic blood pressure over 160. Additionally, we will order metoprolol tartrate 12.5 mg p.o. b.i.d. and continue to monitor especially considering the patient has been tachycardic. 4. Tachycardia. EKG is without ischemic changes. The patient does have history of anxiety and this is likely a contributing factor. As previously mentioned, added metoprolol and we will continue to monitor. The patient will be admitted on telemetry. 5. Asthma. The patient takes Advair at home and we will continue with the formulary equivalent. 6. FEN. Electrolytes are within normal limits. No IV fluids indicated. 7. Code status: The patient is full code. 8. DVT prophylaxis. The patient has a DVT risk score of 2. We will start Lovenox 40 mg daily. TIME SPENT: Approximately 55 minutes was spent on this admission, approximately half this time was spent at bedside. This case has been reviewed by my attending, Dr. La Grant, and she agrees with this plan of care. AI CANTU [id number]/[facility] #: [id number] BLU
--- NOTE | 2018-10-02 19:12 | CONS ---
CONSULTATION REPORT: DATE OF CONSULT: 10/02/18 PATIENT OF: Dr. Bear; Regan Howard NP; and Dr. Grant.* HISTORY OF PRESENT ILLNESS: This is a 43-year-old man that I am asked to evaluate for progressive numbness and gait disturbance. Of note, he presented in November 2016 with what was felt to be a [place] variant of Guillain- [place]. 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 He had negative Lyme titers. Ganglioside antibody panel was negative. He then had no symptoms other than some mild left facial numbness for the next 2 years' time; however, he developed numbness that began in his feet and fingers and over the past several months progressed over and includes his whole hand and increased up over his legs up to his trunk. He has had worsening left facial numbness with this as well. When he was seen on 08/28/18 by Moi Vazquez NP, he felt that his strength had been decreased in his lower extremities, but denied any falls. He had loss of reflexes and he had decreased sensation distally. He has had an EMG on 08/23/18, which showed a demyelinating sensory and motor polyneuropathy. He had a spinal tap and had followup on 09/23/18 with Regan Howard NP, who noticed further numbness. He also had worsening migraines. He has had a history of recent kidney stones. At that time, his Romberg showed minimum moderate sway with eyes closed and he had trace reflexes, sensory loss. His CSF had a protein of 99 with 0 white cells. He was started on 60 mg of prednisone at that point. In the past few days' time, he has had progressive weakness in his legs and he has been unable to stand without support in the past day. He has had no change in bowel or bladder. No shortness of breath. No difficulty swallowing. His numbness has continued to slowly worsen over time. PAST MEDICAL HISTORY: Medical problems include migraines, asthma, hyperlipidemia, kidney stones. MEDICATIONS: Include: 1. Vitamin B12. 2. Pseudoephedrine as needed. 3. Prednisone 3 tabs p.o. daily. 4. Omeprazole 20 mg every day. 5. Levocetirizine at bedtime. 6. Aspirin 325 as needed. 7. Advair 2 puffs by mouth twice a day. FAMILY HISTORY: There is family history of hypertension and breast cancer. 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 He is a former smoker, quit in 1997. He rarely consumes alcohol. PHYSICAL EXAM: Vital signs include temperature 98.1, pulse 110, respirations 22 , blood pressure 163/121. He is alert and oriented with normal speech and comprehension. Cranial nerves II through XII were intact other than subjective feelings of decreased sensation in the left side of his face. He had a somewhat flat affect, but he states that this is what he always is like and that is not any facial weakness. Neck was supple. Motor exam revealed normal tone in the arms other than trace weakness in both triceps. He had in his legs weakness including 3/5 strength in dorsiflexion of both feet with plantarflexion just being trace weak. He had trace weakness in his quadriceps bilaterally. He had 5-/5 strength in his right hip flexors. He had significant glove stocking, vibratory and light touch loss in arms and legs. He had absent reflexes. He had difficulty standing. When he stood, he needed to use a cane. He had a positive Romberg and he had wide- based stance. I allowed him to take a step or two and he was very unsteady. Chest: Clear. Cardiovascular: Regular rate and rhythm. Abdomen is soft with positive bowel sounds. DIAGNOSTIC STUDIES/LAB DATA: Labs include a normal CBC. Chemistry had a bicarb of 21, glucose 151, AST 67, ALT 101. His lumbar MRI scan done in June showed mild degenerative disk disease. IMPRESSION AND PLAN: I discussed with the patient, Regan Howard, and Dr. Grant that most likely this represents return of his inflammatory polyradiculopathy. 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 It is essentially would be the same disease process. He has been briefly on steroids , but given his significant worsening, we will need to treat him with IVIG. I have spoken to Dr. Grant and she is beginning this. We would be checking a postvoid residual and screening him for his pulmonary function, but I think that these things would like to be normal since he does not have any symptoms referable to this. He will be on a monitored bed. I am not sure why his liver function tests are elevated, but I will ask Dr. Grant to do appropriate studies before IVIG is given and his serologies may be obscured. Thank you for sharing his case. [id number]/[facility] #: [id number] BLU
[2018-10-02] MEDS ORDERED: Morphine INJ* 2 MG/ML 1 ML SYRINGE (TWO MG - NEW SYRINGE VERSION) IV PRN (20:16)
[2018-10-02] MEDS ORDERED: NF:Azelastine/Fluticasone 137-50 MCG BTL (NF) BOTH NARES SCH (21:00)
[2018-10-02] MEDS: Enoxaparin(*) 40 MG/0.4 ML SYR SUBCUT SCH (21:03)
[2018-10-02] MEDS: Metoprolol Tartrate TAB* 25 MG PO SCH ×3 (21:04→21:21)
[2018-10-02] MEDS: Cetirizine* 10 MG TAB PO SCH (21:06)
[2018-10-02] MEDS: Mometasone/Formoter 200/5 MDI INH SCH (22:05)
[2018-10-02] MEDS: Fluticasone NASAL SPRAY 50MCG* 16 gm SPRAY BTL BOTH NARES SCH (23:05)
[2018-10-03 07:18] LABS: ABS Basophils 0.1 10^3/ul (0-0.2); ABS Eosinophils 0.1 10^3/ul (0-0.6); ABS Neutrophils 6.7 10^3/ul (1.5-7.7); Eosinophil % 1.4 %; Hematocrit 39 % (42-52); Hemoglobin 13.1 g/dL (14.0-18.0); Lymphocyte % 27.7 %; Mean Corpuscular HGB Conc 34 g/dL (31-36); Mean Corpuscular Hemoglobin 31 pg (27-31); Mean Corpuscular Volume 91 fL (80-94); Nucleated Red Blood Cells % 0.1; Platelet Count 264 10^3/uL (150-450); Red Blood Count 4.26 10^6 /uL (4.18-5.48); Red Cell Distribution Width 14 % (10.5-15); White Blood Count 10.9 10^3/uL (3.5-10.8)
[2018-10-03 07:42] LABS: BUN/Creatinine Ratio 17.6 (8-20); Calcium 8.9 mg/dL (8.6-10.3); EGFR African American 96.9 (>60); EGFR Non-African American 80.1 (>60); Potassium 3.9 mmol/L (3.5-5.0)
[2018-10-03] MEDS: Metoprolol Tartrate TAB* 25 MG PO SCH ×2 (08:34→20:56)
[2018-10-03] MEDS: Pantoprazole TAB * 40 MG TAB PO SCH (08:34)
[2018-10-03] MEDS: Fluticasone NASAL SPRAY 50MCG* 16 gm SPRAY BTL BOTH NARES SCH ×2 (08:34→23:00)
[2018-10-03] MEDS: Cyanocobalamin TAB* 500 MCG PO SCH (08:34)
[2018-10-03] MEDS: Mometasone/Formoter 200/5 MDI INH SCH ×2 (09:24→19:00)
[2018-10-03 11:19] LABS: Hepatitis B Surface Antigen Nonreactive (Nonreactive)
[2018-10-03 11:38] LABS: Hepatitis C Antibody Nonreactive (Nonreactive)
--- NOTE | 2018-10-03 13:30 | PN ---
Subjective Date of Service: 10/03/18 Interval History: Patient is without complaints at time of evaluation. He believes his weakness in his arms and legs is improving. He reports that the pain associated with his numbness/tingling is improving as well. Denies difficulty with taking deep inspiration or other respiratory difficulty. Passing urine and moving bowels. Denies chest pain, abd pain, n/v. Patient has been ambulating with walker while in this hospital. Objective Active Medications: Acetaminophen (Tylenol Tab*) 650 mg PO Q4H PRN PRN Reason: FEVER/PAIN Last Admin: 10/02/18 16:44 Dose: 650 mg Al Hydrox/Mg Hydrox/Simethicone (Maalox Plus*) 30 ml PO Q6H PRN PRN Reason: INDIGESTION Cetirizine HCl (Zyrtec*) 10 mg PO BEDTIME [facility] Last Admin: 10/02/18 21:06 Dose: 10 mg Cyanocobalamin (Vitamin B12 Tab*) 1,000 mcg PO DAILY [facility] Last Admin: 10/03/18 08:34 Dose: 1,000 mcg Enoxaparin Sodium (Lovenox(*)) 40 mg SUBCUT Q24H [facility] Last Admin: 10/02/18 21:03 Dose: 40 mg Fluticasone Propionate (Flonase Nasal [place] 50mcg*) 2 spray BOTH NARES BID [facility] Last Admin: 10/03/18 08:34 Dose: 2 spray Hydralazine HCl (Apresoline Iv*) 5 mg IV SLOW PU Q6H PRN PRN Reason: SYSTOLIC BP GREATER THAN: Immune Globulin 40 gm/ Immune (Globulin 10 gm/ IV Solution) 500 mls @ 0 mls/hr IV 1945 [facility]; Protocol Stop: 10/06/18 19:46 Metoprolol Tartrate (Lopressor Tab*) 12.5 mg PO BID [facility] Last Admin: 10/03/18 08:34 Dose: 12.5 mg Mometasone Furoate/Formoterol Fumar (Dulera 200/5 Mdi*) 1 puff INH BID [facility]; Protocol Last Admin: 10/03/18 09:24 Dose: 1 puff Morphine Sulfate (Morphine Inj (Syringe))*) 2 mg IV Q4H PRN PRN Reason: PAIN - MILD Last Admin: 10/02/18 21:02 Dose: 2 mg Pantoprazole Sodium (Protonix Tab*) 40 mg PO DAILY [facility] Last Admin: 10/03/18 08:34 Dose: 40 mg Vital Signs - 8 hr 10/03/18 10/03/18 10/03/18 05:30 06:07 06:30 Temperature 98.1 F 98.2 F 97.7 F Pulse Rate 87 80 78 Respiratory 17 19 16 Rate Blood Pressure 131/75 135/78 138/80 (mmHg) O2 Sat by Pulse 97 98 100 Oximetry 10/03/18 10/03/18 10/03/18 07:00 07:30 08:00 Temperature 98.2 F 98.1 F 97.4 F Pulse Rate 81 81 78 Respiratory 18 14 14 Rate Blood Pressure 116/69 118/65 123/72 (mmHg) O2 Sat by Pulse 99 97 96 Oximetry 10/03/18 10/03/18 10/03/18 08:30 09:00 09:25 Temperature 98.7 F 98.0 F Pulse Rate 78 80 Respiratory 14 14 14 Rate Blood Pressure 141/83 134/74 (mmHg) O2 Sat by Pulse 95 96 Oximetry 10/03/18 09:30 Temperature 97.6 F Pulse Rate 77 Respiratory 16 Rate Blood Pressure 136/69 (mmHg) O2 Sat by Pulse 98 Oximetry Oxygen Devices in Use Now: None Appearance: Obese white male, laying upright in hospital bed, appearing comfortable and in NAD Eyes: No Scleral Icterus, PERRLA Ears/Nose/Mouth/Throat: Mucous Membranes Moist Neck: NL Appearance and Movements; NL JVP Respiratory: Symmetrical Chest Expansion and Respiratory Effort, Clear to Auscultation Cardiovascular: NL Sounds; No Murmurs; No JVD, RRR Abdominal: - - Abdomen soft, nontender, nondistended, no masses or hepatosplenomegaly Extremities: No Edema, No Clubbing, Cyanosis Skin: No Rash or Ulcers Neurological: Alert and Oriented x 3, - - Strength 5/5 in bilateral UEs and LEs , however unable to walk on toes or squat; sensation to pain diminished in bilateral LEs; sensation to light touch not intact from toes to nipples which is unchanged; sensation to light touch throughout UEs bilaterally diminished which is unchanged Result Diagrams: 10/03/18 06:40 10/03/18 06:40 Assess/Plan/Problems-Billing Assessment: 43 yo white male with PMHx hx of Guillain [place] syndrome, chronic inflammatory demyelinating polyneuropathy, asthma, migraine, HTN, and HLD presents with worsening off neuropathy and new weakness. Admitted for treatment with IVIG. - Patient Problems (1) Chronic inflammatory demyelinating polyradiculoneuropathy Code(s): G61.81 - CHRONIC INFLAMMATORY DEMYELINATING POLYNEURITIS SNOMED Code( s): 379819018 Comment: -strength diminished at admission, appears improved today although he remains unable to toe walk or squat; level and degree of neuropathy appears unchanged today -no respiratory difficulty, no bowel/bladder incontinence -patient last seen in neurology office 09/23/18 in which it was noted he was having neuropathy from toes to navel bilaterally and from fingertips to shoulders bilaterally; at this time his strength was intact; at admission, his neuropathy had spread from navel to approx nipple line -IVIG 50 grams daily to continue, today is day 2/5; no infusion reactions yesterday and will continue to monitor -measuring NIF q6hrs; NIF today 60 cm/H2O -post void residual was 45 ml yesterday in ED; will recheck post void residual today -Neurology is following and appreciate Dr. 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; no peripheral residual sxs until development in January 2018; has been following with [facility] Neurology outpatient (3) Transaminitis Code(s): R74.0 - NONSPEC ELEV OF LEVELS OF TRANSAMNS & LACTIC ACID DEHYDRGNSE SNOMED Code(s): 743900066 Comment: -At admission: AST 67, ALT 101, Alk Phos 146 -Today: AST 21, ALT 65, Alk phos 108 -improving today, possibly due to poor perfusion of liver in setting of illness -hepatitis panel negative -no alcohol use hx (4) Asthma Code(s): J45.909 - UNSPECIFIED ASTHMA, UNCOMPLICATED SNOMED Code(s): 446072311 Comment: -continue home LABA/steroid inhaler; no evidence of acute exacerbation (5) Hypertension Code(s): I10 - ESSENTIAL (PRIMARY) HYPERTENSION SNOMED Code(s): 43391462 Comment: -pt carries prior dx of hypertension but does not take medication at home for this -pt was hypertensive at admission as well as tachycardic -started metoprolol tartrate 12.5 mg po BID, will continue -tachycardia now resolved, pt normotensive today -prn hydralazine IV for SBP>160 is ordered (6) DVT prophylaxis Code(s): LJG2500 - SNOMED Code(s): 952662372 Comment: -continue lovenox 40 mg (7) Full code status Code(s): Z78.9 - OTHER SPECIFIED HEALTH STATUS SNOMED Code(s): 888884462 Status and Disposition: Admitted inpatient for IVIG treatment for 5 days. Appreciate PT/OT evaluations for disposition planning.
[2018-10-03 15:04] LABS: Albumin 3.6 g/dL (3.2-5.2); Indirect Bilirubin 0.4 mg/dL (0.3-1.0); Total Bilirubin 0.5 mg/dL (0.2-1.0)
[2018-10-03 15:10] LABS: Globulin 3.5 g/dL (2-4); Total Protein 7.1 g/dL (6.4-8.9)
[2018-10-03] MEDS: Enoxaparin(*) 40 MG/0.4 ML SYR SUBCUT SCH (17:13)
[2018-10-03] MEDS ORDERED: IMMUNE GLOBULN IV SCH (19:45)
[2018-10-03] MEDS ORDERED: [UNRECOGNIZED DRUG - OTHER] IV SCH (19:45)
--- NOTE | 2018-10-03 20:03 | PN ---
PROGRESS NOTE: DATE OF SERVICE: 10/03/18. PATIENT OF: AI Cantu and Regan Howard NP HISTORY: This is a 43-year-old man I am seeing in followup of his inflammatory polyradiculopathy. He notes that his tingling in his hands and feet are improved and he feels stronger and he can stand a little bit with more strength and less wobbly than yesterday. PHYSICAL EXAM: Cranial nerves II through XII were normal other than he still has left facial numbness. Motor exam reveals improvement in dorsiflexion. He has 5-/5 strength in dorsiflexion bilaterally. He has only trace weakness in hip flexion. Triceps were both trace weak still. Chest: Clear. Cardiovascular : Regular rate and rhythm. Abdomen is soft with positive bowel sounds. DIAGNOSTIC STUDIES/LAB DATA: His MRI scan was normal and I reviewed it. He had normal CBC, CMP other than mildly elevated liver function tests and he had negative hepatitis B and C antibodies. IMPRESSION: John has an inflammatory neuropathy that it appears improved even with the first dose of IVIG. He will complete a 5 day course. I discussed with him and his that it is very possible he will need episodic treatment with IVIG in the future, but we will see how his course goes and he will need to be followed closely as an outpatient. Thank you for sharing his case. [id number]/[facility] #: [id number] BLU
[2018-10-03] MEDS: Cetirizine* 10 MG TAB PO SCH (20:56)
[2018-10-04 05:35] LABS: ABS Basophils 0.1 10^3/ul (0-0.2); ABS Eosinophils 0.2 10^3/ul (0-0.6); ABS Lymphocytes 3.4 10^3/ul (1.0-4.8); ABS Monocytes 0.7 10^3/ul (0-0.8); ABS Neutrophils 3.4 10^3/ul (1.5-7.7); Eosinophil % 2.7 %; Hematocrit 37 % (42-52); Hemoglobin 12.5 g/dL (14.0-18.0); Lymphocyte % 43.7 %; Mean Corpuscular HGB Conc 34 g/dL (31-36); Mean Corpuscular Hemoglobin 31 pg (27-31); Mean Corpuscular Volume 91 fL (80-94); Mean Platelet Volume 8.6 fL (7.4-10.4); Nucleated Red Blood Cells % 0.2; Platelet Count 254 10^3/uL (150-450); Red Blood Count 4.07 10^6 /uL (4.18-5.48); Red Cell Distribution Width 14 % (10.5-15); White Blood Count 7.9 10^3/uL (3.5-10.8)
[2018-10-04 05:50] LABS: BUN/Creatinine Ratio 17.5 (8-20); Calcium 8.5 mg/dL (8.6-10.3); EGFR African American 85.2 (>60); EGFR Non-African American 70.4 (>60); Potassium 3.9 mmol/L (3.5-5.0)
[2018-10-04] MEDS: Mometasone/Formoter 200/5 MDI INH SCH ×2 (08:39→19:22)
[2018-10-04] MEDS: Fluticasone NASAL SPRAY 50MCG* 16 gm SPRAY BTL BOTH NARES SCH ×2 (09:02→20:01)
[2018-10-04] MEDS: Cyanocobalamin TAB* 500 MCG PO SCH (09:02)
[2018-10-04] MEDS: Pantoprazole TAB * 40 MG TAB PO SCH (09:02)
[2018-10-04] MEDS: Metoprolol Tartrate TAB* 25 MG PO SCH ×2 (09:02→20:01)
--- NOTE | 2018-10-04 11:58 | PN ---
Subjective Date of Service: 10/04/18 Interval History: Pt seen and examined. Meds and labs reviewed. CC: Mentions that the pins and needles sensation and discomfort is better today than yesterday; progressive improvement ROS: Denied GRIFFITH/dizziness, F/C, N/V, CP, SOB, increased cough, sputum production , abd pain, diarrhea, constipation, dysuria, throat pain, and new skin lesions. The rest of the 14 point ROS are unremarkable. PHYSICAL EXAM: GEN APPEARANCE: Awake, not in acute distress HEENT: NC/AT, PERRLA, moist oral mucosa, (-) throat erythema NECK: Soft, supple, (-) cervical LAD, (-)JVD HEART: S1S2 WNL, RRR, No MRG CHEST: CTA, BL, GAE, No W/R/R ABD: Soft, ND/NT, NABS 4x Q EXT: No C/C/E SKIN: Warm to touch PSYCH: No active psychosis, hallucinations, depression, SI/HI Objective Active Medications: Acetaminophen (Tylenol Tab*) 650 mg PO Q4H PRN PRN Reason: FEVER/PAIN Last Admin: 10/02/18 16:44 Dose: 650 mg Al Hydrox/Mg Hydrox/Simethicone (Maalox Plus*) 30 ml PO Q6H PRN PRN Reason: INDIGESTION Cetirizine HCl (Zyrtec*) 10 mg PO BEDTIME [facility] Last Admin: 10/03/18 20:56 Dose: 10 mg Cyanocobalamin (Vitamin B12 Tab*) 1,000 mcg PO DAILY [facility] Last Admin: 10/04/18 09:02 Dose: 1,000 mcg Enoxaparin Sodium (Lovenox(*)) 40 mg SUBCUT Q24H [facility] Last Admin: 10/03/18 17:13 Dose: 40 mg Fluticasone Propionate (Flonase Nasal [place] 50mcg*) 2 spray BOTH NARES BID [facility] Last Admin: 10/04/18 09:02 Dose: 2 spray Hydralazine HCl (Apresoline Iv*) 5 mg IV SLOW PU Q6H PRN PRN Reason: SYSTOLIC BP GREATER THAN: Immune Globulin 40 gm/ Immune (Globulin 10 gm/ IV Solution) 500 mls @ 0 mls/hr IV 194 [facility]; Protocol Stop: 10/06/18 19:46 Last Admin: 10/03/18 19:43 Dose: 36 mls/hr Metoprolol Tartrate (Lopressor Tab*) 12.5 mg PO BID [facility] Last Admin: 10/04/18 09:02 Dose: 12.5 mg Mometasone Furoate/Formoterol Fumar (Dulera 200/5 Mdi*) 1 puff INH BID [facility]; Protocol Last Admin: 10/04/18 08:39 Dose: 1 puff Morphine Sulfate (Morphine Inj (Syringe))*) 2 mg IV Q4H PRN PRN Reason: PAIN - MILD Last Admin: 10/02/18 21:02 Dose: 2 mg Pantoprazole Sodium (Protonix Tab*) 40 mg PO DAILY [facility] Last Admin: 10/04/18 09:02 Dose: 40 mg Vital Signs - 8 hr 10/04/18 10/04/18 10/04/18 04:15 04:45 05:15 Temperature 98.1 F 98.4 F 97.4 F Pulse Rate 73 76 83 Respiratory 16 20 20 Rate Blood Pressure 108/56 112/63 124/68 (mmHg) O2 Sat by Pulse 97 97 96 Oximetry 10/04/18 10/04/18 10/04/18 05:45 06:15 06:45 Temperature 72 F 98.2 F 98.5 F Pulse Rate 72 71 74 Respiratory 18 18 17 Rate Blood Pressure 115/60 119/62 114/64 (mmHg) O2 Sat by Pulse 97 97 98 Oximetry 10/04/18 10/04/18 10/04/18 07:15 07:23 07:45 Temperature 98.1 F 98.3 F Pulse Rate 97 76 Respiratory 16 16 16 Rate Blood Pressure 113/64 114/65 (mmHg) O2 Sat by Pulse 94 96 Oximetry 10/04/18 10/04/18 08:41 11:45 Temperature 98.1 F Pulse Rate 70 74 Respiratory 16 16 Rate Blood Pressure 148/94 (mmHg) O2 Sat by Pulse 97 98 Oximetry Oxygen Devices in Use Now: None Result Diagrams: 10/04/18 05:07 10/04/18 05:07 Assess/Plan/Problems-Billing Assessment: 43 yo white male with PMHx hx of Guillain [place] syndrome, chronic inflammatory demyelinating polyneuropathy, asthma, migraine, HTN, and HLD presents with worsening off neuropathy and new weakness. Admitted for treatment with IVIG. - Patient Problems (1) Chronic inflammatory demyelinating polyradiculoneuropathy Current Visit: Yes Status: Acute Code(s): G61.81 - CHRONIC INFLAMMATORY DEMYELINATING POLYNEURITIS SNOMED Code(s): 390108717 Comment: -Continues to improve -Strength diminished at admission, appears improved today although he remains unable to toe walk or squat; level and degree of neuropathy appears unchanged today -no respiratory difficulty, no bowel/bladder incontinence -patient last seen in neurology office 09/23/18 in which it was noted he was having neuropathy from toes to navel bilaterally and from fingertips to shoulders bilaterally; at this time his strength was intact; at admission, his neuropathy had spread from navel to approx nipple line -IVIG 50 grams daily, day 3/ -Will await further Neurology input (2) History of Guillain-[place] syndrome Current Visit: Yes Status: Acute Code(s): Z86.69 - PERSONAL HISTORY OF DIS OF THE NERVOUS SYS AND SENSE ORGANS SNOMED Code(s): 595515012399154 Comment: -diagnosed GBS in 2016 with associated [place] Palsy; no peripheral residual sxs until development in January 2018; has been following with [facility] Neurology outpatient -measuring NIF q6hrs; NIF today 60 cm/[id number] w/respiratory therapist given he has been passing this; asked respiratory therapist to D/C monitoring; no S/S consistent with diapgragmatic paralysis or effects in secondary muscles of respiration (3) Transaminitis Current Visit: Yes Status: Acute Code(s): R74.0 - NONSPEC ELEV OF LEVELS OF TRANSAMNS & LACTIC ACID DEHYDRGNSE SNOMED Code(s): 095805486 Comment: -LFTs continue to improve -Unclear cause but may be due to hepatosteatosis ---will obtain Liver U/S -hepatitis panel negative -no alcohol use hx (4) Asthma Current Visit: No Status: Acute Code(s): J45.909 - UNSPECIFIED ASTHMA, UNCOMPLICATED SNOMED Code(s): 044737829 Comment: -Not in acute exacerbation -continue home LABA/steroid inhaler (5) Hypertension Current Visit: No Status: Acute Code(s): I10 - ESSENTIAL (PRIMARY) HYPERTENSION SNOMED Code(s): 34578838 Comment: -pt carries prior dx of hypertension but does not take medication at home for this -pt was hypertensive at admission as well as tachycardic -started metoprolol tartrate 12.5 mg po BID, will continue -tachycardia now resolved, pt normotensive today -prn hydralazine IV for SBP>160 is ordered (6) DVT prophylaxis Current Visit: No Status: Acute Code(s): VKK7651 - SNOMED Code(s): 313656581 Comment: -continue lovenox 40 mg Status and Disposition: Admitted inpatient for IVIG treatment for 5 days. Appreciate PT/OT evaluations for disposition planning.
[2018-10-04] MEDS: Acetaminophen TAB* 325 MG PO PRN ×2 (16:17→21:35)
[2018-10-04] MEDS: Enoxaparin(*) 40 MG/0.4 ML SYR SUBCUT SCH (16:17)
[2018-10-04] MEDS: IMMUNE GLOBULN IV SCH (16:54)
[2018-10-04] MEDS: [UNRECOGNIZED DRUG - OTHER] IV SCH (16:54)
[2018-10-04] MEDS ORDERED: Ondansetron INJ* 2 MG/ML VIAL IV PRN (18:51)
--- NOTE | 2018-10-04 18:53 | PN ---
NEUROLOGICAL FOLLOWUP NOTE: DATE OF SERVICE: 10/04/18 HISTORY: He feels that he is stronger in his extremities today compared to yesterday and that his walking is much improved. He feels like he has rolled back the clock on the progression to at least several weeks. He is able to walk with assistance of a walker around the halls. No shortness of breath. PHYSICAL EXAM: Temperature 98.1, pulse 74, respiratory rate 16, blood pressure 148/94. He is alert and oriented with normal speech and comprehension. Cranial nerves II through XII were intact other than some left facial numbness. Motor exam revealed normal tone. He had trace weakness in his right dorsiflexion and plantar flexion. Intact strength in his left foot and he has only trace weakness in his both triceps, otherwise strength was intact. Reflexes remain trace. Chest: Clear. Cardiovascular: Regular rate and rhythm. Abdomen is soft with positive bowel sounds. IMPRESSION: John has a chronic progressive demyelinating disease with a significant improvement on his IVIG and he will complete his 5-day course. I will have him call in to Dr. Knight to see if we can move the infusions up a little bit each day, so he can go home on Sunday evening rather than being here until Sunday. I will be signing his case out to Dr. Bear, who will be the one who is following him up as an outpatient as well. Thank you for sharing his case. [id number]/[facility] #: [id number] BLU
[2018-10-04] MEDS: Cetirizine* 10 MG TAB PO SCH (20:01)
[2018-10-05] MEDS: Mometasone/Formoter 200/5 MDI INH SCH ×2 (07:03→20:09)
[2018-10-05] MEDS: Pantoprazole TAB * 40 MG TAB PO SCH (09:12)
[2018-10-05] MEDS: Fluticasone NASAL SPRAY 50MCG* 16 gm SPRAY BTL BOTH NARES SCH ×2 (09:12→20:16)
[2018-10-05] MEDS: Cyanocobalamin TAB* 500 MCG PO SCH (09:12)
[2018-10-05] MEDS: Metoprolol Tartrate TAB* 25 MG PO SCH ×2 (09:12→20:16)
[2018-10-05] MEDS ORDERED: Polyethylene Glycol 3350* 17 GM PACKET PO STA (10:27)
[2018-10-05] MEDS ORDERED: ASA APAP CAFFEINE ES PO PRN (10:28)
[2018-10-05] MEDS: Senna TAB PO SCH (12:10)
[2018-10-05] MEDS: Docusate CAP* 100 MG PO SCH (12:10)
--- NOTE | 2018-10-05 12:10 | PN ---
Subjective Date of Service: 10/05/18 Length of Stay: 3 Days Interval History: He continues to improve. Strength is returning, he is now ambulating. Sensory symptoms are improved as well. He continues to have a level around T1-2 which has not changed but the painful paresthesias have improved. No shortness of breath, no dysphagia. Tolerating the IVIG. Has had some headaches, more migrainous in nature with some photophobia/phonophobia, none currently. Mild nausea, no vomiting. No meningismus. He is otherwise doing very well. Objective Active Medications: Acetam/Aspirin/Caff/Calcium Glucon (Excedrin Extra Strength 250-250-65 Mg (Nf)) 2 tab PO Q6H PRN PRN Reason: MIGRAINE HEADACHE Acetaminophen (Tylenol Tab*) 650 mg PO Q4H PRN PRN Reason: FEVER/PAIN Last Admin: 10/04/18 21:35 Dose: 650 mg Al Hydrox/Mg Hydrox/Simethicone (Maalox Plus*) 30 ml PO Q6H PRN PRN Reason: INDIGESTION Cetirizine HCl (Zyrtec*) 10 mg PO BEDTIME [facility] Last Admin: 10/04/18 20:01 Dose: 10 mg Cyanocobalamin (Vitamin B12 Tab*) 1,000 mcg PO DAILY [facility] Last Admin: 10/05/18 09:12 Dose: 1,000 mcg Docusate Sodium (Colace Cap*) 100 mg PO DAILY [facility] Enoxaparin Sodium (Lovenox(*)) 40 mg SUBCUT Q24H [facility] Last Admin: 10/04/18 16:17 Dose: 40 mg Fluticasone Propionate (Flonase Nasal [place] 50mcg*) 2 spray BOTH NARES BID [facility] Last Admin: 10/05/18 09:12 Dose: 2 spray Hydralazine HCl (Apresoline Iv*) 5 mg IV SLOW PU Q6H PRN PRN Reason: SYSTOLIC BP GREATER THAN: Immune Globulin 40 gm/ Immune (Globulin 10 gm/ IV Solution) 500 mls @ 0 mls/hr IV 1500 [facility]; Protocol Stop: 10/06/18 15:01 Last Admin: 10/04/18 16:54 Dose: 36 mls/hr Metoprolol Tartrate (Lopressor Tab*) 12.5 mg PO BID [facility] Last Admin: 10/05/18 09:12 Dose: 12.5 mg Mometasone Furoate/Formoterol Fumar (Dulera 200/5 Mdi*) 1 puff INH BID [facility]; Protocol Last Admin: 10/05/18 07:03 Dose: 1 puff Morphine Sulfate (Morphine Inj (Syringe))*) 2 mg IV Q4H PRN PRN Reason: PAIN - MILD Last Admin: 10/02/18 21:02 Dose: 2 mg Ondansetron HCl (Zofran Inj*) 4 mg IV Q6H PRN PRN Reason: NAUSEA Last Admin: 10/04/18 19:08 Dose: 4 mg Pantoprazole Sodium (Protonix Tab*) 40 mg PO DAILY [facility] Last Admin: 10/05/18 09:12 Dose: 40 mg Senna (Senokot Tab*) 2 tab PO DAILY [facility] Vital Signs 10/04/18 10/04/18 10/04/18 15:04 17:00 17:15 Temperature 99.7 F 98.9 F 99.1 F Pulse Rate 90 101 96 Respiratory 20 16 16 Rate Blood Pressure 156/88 152/83 164/85 (mmHg) O2 Sat by Pulse 100 100 100 Oximetry 10/04/18 10/04/18 10/04/18 17:30 17:45 18:00 Temperature 98.6 F 99.6 F 99.4 F Pulse Rate 108 100 97 Respiratory 16 16 16 Rate Blood Pressure 165/97 153/83 157/88 (mmHg) O2 Sat by Pulse 99 99 100 Oximetry 10/04/18 10/04/18 10/04/18 18:30 19:00 19:22 Temperature 100.6 F 100.0 F Pulse Rate 98 103 98 Respiratory 16 16 20 Rate Blood Pressure 164/88 152/78 (mmHg) O2 Sat by Pulse 99 97 98 Oximetry 10/04/18 10/04/18 10/04/18 19:35 20:06 20:07 Temperature 99.9 F 98.9 F Pulse Rate 104 101 Respiratory 16 16 16 Rate Blood Pressure 149/82 142/83 (mmHg) O2 Sat by Pulse 98 96 Oximetry 10/04/18 10/04/18 10/04/18 20:30 21:09 21:30 Temperature 99.8 F 100.7 F 98.1 F Pulse Rate 94 99 89 Respiratory 16 16 16 Rate Blood Pressure 143/82 145/76 135/75 (mmHg) O2 Sat by Pulse 98 97 98 Oximetry 10/04/18 10/04/18 10/04/18 22:05 22:36 23:04 Temperature 99.7 F 98.4 F 98.4 F Pulse Rate 82 91 80 Respiratory 16 16 16 Rate Blood Pressure 137/79 145/77 131/74 (mmHg) O2 Sat by Pulse 100 99 97 Oximetry 10/04/18 10/05/18 10/05/18 23:40 00:12 00:45 Temperature 98.3 F 98.2 F 99.0 F Pulse Rate 83 74 81 Respiratory 16 16 16 Rate Blood Pressure 146/86 136/77 141/80 (mmHg) O2 Sat by Pulse 97 97 98 Oximetry 10/05/18 10/05/18 10/05/18 01:05 01:35 02:33 Temperature 98.1 F 97.7 F 97.9 F Pulse Rate 81 72 81 Respiratory 16 16 16 Rate Blood Pressure 131/73 135/78 145/85 (mmHg) O2 Sat by Pulse 98 97 97 Oximetry 10/05/18 10/05/18 10/05/18 03:06 03:40 04:06 Temperature 97.9 F 98.0 F 98.2 F Pulse Rate 80 73 75 Respiratory 16 16 16 Rate Blood Pressure 137/77 141/81 145/91 (mmHg) O2 Sat by Pulse 97 97 96 Oximetry 10/05/18 10/05/18 10/05/18 04:30 04:36 05:07 Temperature 97.9 F 97.9 F 97.7 F Pulse Rate 80 80 80 Respiratory 18 18 16 Rate Blood Pressure 145/84 145/84 138/87 (mmHg) O2 Sat by Pulse 97 96 98 Oximetry 10/05/18 10/05/18 10/05/18 05:56 07:14 08:00 Temperature 98.0 F 99.0 F Pulse Rate 75 86 Respiratory 16 16 16 Rate Blood Pressure 152/86 144/86 (mmHg) O2 Sat by Pulse 97 96 Oximetry Intake and Output Last 24 Hours 10/03/18 10/04/18 10/05/18 10/06/18 06:59 06:59 06:59 06:59 Intake Total 920 2358 3679 480 Output Total 0 Balance 920 2358 3679 480 Weight 286 lb 1.6 oz Intake: IV Fluids 468 469 IGG 468 469 Oral 920 1890 3210 480 Output: Urine 0 Other: Estimated Void Large Medium # Bowel Movements 0 0 # Voids 1 1 Oxygen Devices in Use Now: None Neurology Exam: General: Well nourished, well developed, and in no acute distress HEENT: Normocephalic/atraumatic, sclera anicteric, mucous membranes moist Neck: Supple, negative Kernigs, Brudinski Chest: Clear to auscultation bilaterally Cardiovascular: Regular rate and rhythm without murmurs, rubs, gallops Abdomen: Soft, non-tender/non-distended Extremities: No clubbing, cyanosis, or edema. No redness or palpable cords Neurological Findings: Awake, alert, and oriented to person, place, and time. Speech: fluent without dysarthria, repetition intact Cranial Nerve: PERRL, EOM intact, VFF, mild left ptosis, no nystagmus, facial sensation intact, hearing intact to finger rub bilaterally, palate elevates symmetrically, tongue midline Motor: 5/5 throughout, proximal and distal extremities x4 with tone/bulk normal , no drift Sensation: Loss of LT/PP in the arms/legs/torso to upper chest, improved with no current pain Deep Tendon Reflex: Trace at the patella and biceps, absent TC, ankles. 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 He has been hospitalized now for 5 days of IVIG, now on day 4, last dose tomorrow with marked improvement in his symptoms. Hospital course has been complicated by headaches but no evidence of meningitis at this point. He notes that the headaches are very similar to his migraines. Otherwise , he has been tolerating the IVIG well. --CIDP with acute relapse. --Day 4/5 of IVIG today. Plan for D/C home tomorrow if stable --History of headaches, no strong evidence of aseptic meningitis. Headaches are similar in nature to his migraines. PRN pain meds --Marked improvement in symptoms. --He will need o/p follow up and has an appointment at [facility] in November. --We will likely need regular IVIG boosters in the upcoming weeks/months with slow wean if possible. --No evidence of blood clots, kidney function is doing well. On DVT prophylaxis --No issues with shortness of air, swallowing, speaking --He is now ambulating much better. --Mild left sided ptosis, no other focal deficits, will monitor --Headaches: History of migraines --Current headaches may be exacerbation of migraines or related to IVIG. No evidence of Aseptic meningitis --Suspicion for something like venous thrombosis is very low. Suspect these are migrainous in nature --Continue symptomatic prn treatment. Will write for Fioricet for severe headaches --If any new neurologic symptoms, will plan on imaging. --Elevated LFTs: Improved. --HTN: Better on B-dustin. Needs to follow up with PCP as outpatient. --History of asthma: Stable
--- NOTE | 2018-10-05 13:26 | PN ---
Subjective Date of Service: 10/05/18 Interval History: Pt seen and examined. Meds and labs reviewed. CC: N/A ROS: Denied GRIFFITH/dizziness, F/C, N/V, CP, SOB, increased cough, sputum production , abd pain, diarrhea, constipation, dysuria, myalgias, arthralgias, throat pain , and new skin lesions. The rest of the 14 point ROS are unremarkable. PHYSICAL EXAM: GEN APPEARANCE: Awake, not in acute distress HEENT: NC/AT, PERRLA, moist oral mucosa, (-) throat erythema NECK: Soft, supple, (-) cervical LAD, (-)JVD HEART: S1S2 WNL, RRR, No MRG CHEST: CTA, BL, GAE, No W/R/R ABD: Soft, ND/NT, NABS 4x Q EXT: No C/C/E SKIN: Warm to touch PSYCH: No active psychosis, hallucinations, depression, SI/HI Objective Active Medications: Acetaminophen (Tylenol Tab*) 650 mg PO Q4H PRN PRN Reason: FEVER/PAIN Last Admin: 10/04/18 21:35 Dose: 650 mg Acetaminophen/Butalbital/Caffeine (Fioricet Tab*) 1 tab PO Q6H PRN PRN Reason: HEADACHE/DISCOMFORT Al Hydrox/Mg Hydrox/Simethicone (Maalox Plus*) 30 ml PO Q6H PRN PRN Reason: INDIGESTION Cetirizine HCl (Zyrtec*) 10 mg PO BEDTIME [facility] Last Admin: 10/04/18 20:01 Dose: 10 mg Cyanocobalamin (Vitamin B12 Tab*) 1,000 mcg PO DAILY [facility] Last Admin: 10/05/18 09:12 Dose: 1,000 mcg Docusate Sodium (Colace Cap*) 100 mg PO DAILY [facility] Last Admin: 10/05/18 12:10 Dose: 100 mg Enoxaparin Sodium (Lovenox(*)) 40 mg SUBCUT Q24H [facility] Last Admin: 10/04/18 16:17 Dose: 40 mg Fluticasone Propionate (Flonase Nasal [place] 50mcg*) 2 spray BOTH NARES BID [facility] Last Admin: 10/05/18 09:12 Dose: 2 spray Hydralazine HCl (Apresoline Iv*) 5 mg IV SLOW PU Q6H PRN PRN Reason: SYSTOLIC BP GREATER THAN: Immune Globulin 40 gm/ Immune (Globulin 10 gm/ IV Solution) 500 mls @ 0 mls/hr IV 1500 [facility]; Protocol Stop: 10/06/18 15:01 Last Admin: 10/04/18 16:54 Dose: 36 mls/hr Metoprolol Tartrate (Lopressor Tab*) 25 mg PO BID [facility] Mometasone Furoate/Formoterol Fumar (Dulera 200/5 Mdi*) 1 puff INH BID [facility]; Protocol Last Admin: 10/05/18 07:03 Dose: 1 puff Morphine Sulfate (Morphine Inj (Syringe))*) 2 mg IV Q4H PRN PRN Reason: PAIN - MILD Last Admin: 10/02/18 21:02 Dose: 2 mg Ondansetron HCl (Zofran Inj*) 4 mg IV Q6H PRN PRN Reason: NAUSEA Last Admin: 10/04/18 19:08 Dose: 4 mg Pantoprazole Sodium (Protonix Tab*) 40 mg PO DAILY [facility] Last Admin: 10/05/18 09:12 Dose: 40 mg Senna (Senokot Tab*) 2 tab PO DAILY [facility] Last Admin: 10/05/18 12:10 Dose: 2 tab Vital Signs - 8 hr 10/05/18 10/05/18 10/05/18 05:56 07:14 08:00 Temperature 98.0 F 99.0 F Pulse Rate 75 86 Respiratory 16 16 16 Rate Blood Pressure 152/86 144/86 (mmHg) O2 Sat by Pulse 97 96 Oximetry Oxygen Devices in Use Now: None Result Diagrams: 10/04/18 05:07 10/04/18 05:07 Assess/Plan/Problems-Billing Assessment: 43 year old gentleman with a 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 He has been hospitalized now for 5 days of IVIG, now on day 4, last dose tomorrow with marked improvement in his symptoms. Hospital course has been complicated by headaches but no evidence of meningitis at this point. He notes that the headaches are very similar to his migraines. Otherwise , he has been tolerating the IVIG well. --CIDP with acute relapse. --Day 4/5 of IVIG today. Plan for D/C home tomorrow if stable --History of headaches, no strong evidence of aseptic meningitis. Headaches are similar in nature to his migraines. PRN pain meds --Marked improvement in symptoms. --He will need o/p follow up and has an appointment at [facility] Neuromuscular clinic in November. --We will likely need regular IVIG boosters in the upcoming weeks/months with slow wean if possible. --No evidence of blood clots, kidney function is doing well. On DVT prophylaxis --No issues with shortness of air, swallowing, speaking --He is now ambulating much better. --Mild left sided ptosis, no other focal deficits, will monitor --Headaches: History of migraines --Current headaches may be exacerbation of migraines or related to IVIG. No evidence of Aseptic meningitis --Suspicion for something like venous thrombosis is very low. Suspect these are migrainous in nature --Continue symptomatic prn treatment. Will write for Fioricet for severe headaches --If any new neurologic symptoms, will plan on imaging. --Elevated LFTs: Improved. --HTN: Better on B-dustin. Needs to follow up with PCP as outpatient. --History of asthma: Stable - Patient Problems (1) Chronic inflammatory demyelinating polyradiculoneuropathy Current Visit: Yes Status: Acute Code(s): G61.81 - CHRONIC INFLAMMATORY DEMYELINATING POLYNEURITIS SNOMED Code(s): 576770115 Comment: -Continues to improve -Strength diminished at admission, appears improved today although he remains unable to toe walk or squat; level and degree of neuropathy appears unchanged today -no respiratory difficulty, no bowel/bladder incontinence -patient last seen in neurology office 09/23/18 in which it was noted he was having neuropathy from toes to navel bilaterally and from fingertips to shoulders bilaterally; at this time his strength was intact; at admission, his neuropathy had spread from navel to approx nipple line -IVIG 50 grams daily, day 4/5---updated and adjusted time, however, pt mentioned did not finish infusion until early this AM; will defer w/Neuro; if so ; pt may not be able to go home until Sunday despite change (2) Angiomyolipoma Current Visit: Yes Status: Acute Code(s): D17.9 - BENIGN LIPOMATOUS NEOPLASM , UNSPECIFIED SNOMED Code(s): 43811388 Comment: -Right renal -D/W Dr. Schmitz who mentioned that any lesion <5 cm, does not even need to be followed even w/subsequent imaging -Informed pt and will defer (3) History of Guillain-[place] syndrome Current Visit: Yes Status: Acute Code(s): Z86.69 - PERSONAL HISTORY OF DIS OF THE NERVOUS SYS AND SENSE ORGANS SNOMED Code(s): 658833674412041 Comment: -diagnosed GBS in 2017 with associated [place] Palsy; no peripheral residual sxs until development in January 2018; has been following with [facility] Neurology outpatient -measuring NIF q6hrs; NIF today 60 cm/[id number] w/respiratory therapist given he has been passing this; asked respiratory therapist to D/C monitoring; no S/S consistent with diapgragmatic paralysis or effects in secondary muscles of respiration (4) Transaminitis Current Visit: Yes Status: Acute Code(s): R74.0 - NONSPEC ELEV OF LEVELS OF TRANSAMNS & LACTIC ACID DEHYDRGNSE SNOMED Code(s): 532650203 Comment: -LFTs continue to improve -Unclear cause but may be due to hepatosteatosis ---liver u/s did not reveal steatohepatitis although still possible with mild cases -Given history of CIDP, consider AIH or its related autoimmune causes of transaminitis if reccurs or gets worse -hepatitis panel negative -no alcohol use hx (5) Asthma Current Visit: No Status: Acute Code(s): J45.909 - UNSPECIFIED ASTHMA, UNCOMPLICATED SNOMED Code(s): 928299403 Comment: -Not in acute exacerbation -continue home LABA/steroid inhaler (6) Hypertension Current Visit: No Status: Acute Code(s): I10 - ESSENTIAL (PRIMARY) HYPERTENSION SNOMED Code(s): 80906159 Comment: -Uncontrolled -Increase Metoprolol to 25 mg PO BID as ordered -tachycardia now resolved, pt normotensive today -Continue prn hydralazine IV for SBP>160 is ordered (7) DVT prophylaxis Current Visit: No Status: Acute Code(s): LNT3794 - SNOMED Code(s): 941143690 Comment: -continue lovenox 40 mg Status and Disposition: Admitted inpatient for IVIG treatment for 5 days. Appreciate PT/OT evaluations for disposition planning.
[2018-10-05] MEDS: Butalb/Acetamin/Caff TAB* 1 TAB PO PRN ×2 (15:35→22:54)
[2018-10-05] MEDS: IMMUNE GLOBULN IV SCH (16:03)
[2018-10-05] MEDS: [UNRECOGNIZED DRUG - OTHER] IV SCH (16:03)
[2018-10-05] MEDS: Enoxaparin(*) 40 MG/0.4 ML SYR SUBCUT SCH (16:12)
[2018-10-05] MEDS: Cetirizine* 10 MG TAB PO SCH (20:16)
[2018-10-06] MEDS: Mometasone/Formoter 200/5 MDI INH SCH ×2 (07:06→19:19)
--- NOTE | 2018-10-06 10:12 | PN ---
Subjective Date of Service: 10/06/18 Interval History: Pt seen and examined. Meds and labs reviewed. No O/N issues. CC: N/A ROS: Denied GRIFFITH/dizziness, F/C, N/V, CP, SOB, increased cough, sputum production , abd pain, diarrhea, constipation, dysuria, myalgias, arthralgias, throat pain , and new skin lesions. The rest of the 14 point ROS are unremarkable. PHYSICAL EXAM: GEN APPEARANCE: Awake, not in acute distress HEENT: NC/AT, PERRLA, moist oral mucosa, (-) throat erythema NECK: Soft, supple, (-) cervical LAD, (-)JVD HEART: S1S2 WNL, RRR, No MRG CHEST: CTA, BL, GAE, No W/R/R ABD: Soft, ND/NT, NABS 4x Q EXT: No C/C/E SKIN: Warm to touch PSYCH: No active psychosis, hallucinations, depression, SI/HI Objective Active Medications: Acetaminophen (Tylenol Tab*) 650 mg PO Q4H PRN PRN Reason: FEVER/PAIN Last Admin: 10/04/18 21:35 Dose: 650 mg Acetaminophen/Butalbital/Caffeine (Fioricet Tab*) 1 tab PO Q6H PRN PRN Reason: HEADACHE/DISCOMFORT Last Admin: 10/05/18 22:54 Dose: 1 tab Al Hydrox/Mg Hydrox/Simethicone (Maalox Plus*) 30 ml PO Q6H PRN PRN Reason: INDIGESTION Cetirizine HCl (Zyrtec*) 10 mg PO BEDTIME [facility] Last Admin: 10/05/18 20:16 Dose: 10 mg Cyanocobalamin (Vitamin B12 Tab*) 1,000 mcg PO DAILY [facility] Last Admin: 10/05/18 09:12 Dose: 1,000 mcg Docusate Sodium (Colace Cap*) 100 mg PO DAILY [facility] Last Admin: 10/05/18 12:10 Dose: 100 mg Enoxaparin Sodium (Lovenox(*)) 40 mg SUBCUT Q24H [facility] Last Admin: 10/05/18 16:12 Dose: 40 mg Fluticasone Propionate (Flonase Nasal [place] 50mcg*) 2 spray BOTH NARES BID [facility] Last Admin: 10/05/18 20:16 Dose: 2 spray Hydralazine HCl (Apresoline Iv*) 5 mg IV SLOW PU Q6H PRN PRN Reason: SYSTOLIC BP GREATER THAN: Immune Globulin 40 gm/ Immune (Globulin 10 gm/ IV Solution) 500 mls @ 0 mls/hr IV 1500 [facility]; Protocol Stop: 10/06/18 15:01 Last Admin: 10/05/18 16:03 Dose: 39 mls/hr Metoprolol Tartrate (Lopressor Tab*) 25 mg PO BID [facility] Last Admin: 10/05/18 20:16 Dose: 25 mg Mometasone Furoate/Formoterol Fumar (Dulera 200/5 Mdi*) 1 puff INH BID [facility]; Protocol Last Admin: 10/06/18 07:06 Dose: 1 puff Morphine Sulfate (Morphine Inj (Syringe))*) 2 mg IV Q4H PRN PRN Reason: PAIN - MILD Last Admin: 10/02/18 21:02 Dose: 2 mg Ondansetron HCl (Zofran Inj*) 4 mg IV Q6H PRN PRN Reason: NAUSEA Last Admin: 10/04/18 19:08 Dose: 4 mg Pantoprazole Sodium (Protonix Tab*) 40 mg PO DAILY [facility] Last Admin: 10/05/18 09:12 Dose: 40 mg Senna (Senokot Tab*) 2 tab PO DAILY [facility] Last Admin: 10/05/18 12:10 Dose: 2 tab Vital Signs - 8 hr 10/06/18 10/06/18 02:30 03:39 Temperature 98.2 F Pulse Rate 70 Respiratory 16 19 Rate Blood Pressure 118/72 (mmHg) O2 Sat by Pulse 97 Oximetry Oxygen Devices in Use Now: None Result Diagrams: 10/04/18 05:07 10/04/18 05:07 Assess/Plan/Problems-Billing Assessment: 43 year old gentleman with a 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 He has been hospitalized now for 5 days of IVIG, now on day 4, last dose tomorrow with marked improvement in his symptoms. Hospital course has been complicated by headaches but no evidence of meningitis at this point. He notes that the headaches are very similar to his migraines. Otherwise , he has been tolerating the IVIG well. --CIDP with acute relapse. --Day 4/5 of IVIG today. Plan for D/C home tomorrow if stable --History of headaches, no strong evidence of aseptic meningitis. Headaches are similar in nature to his migraines. PRN pain meds --Marked improvement in symptoms. --He will need o/p follow up and has an appointment at [facility] Neuromuscular clinic in November. --We will likely need regular IVIG boosters in the upcoming weeks/months with slow wean if possible. --No evidence of blood clots, kidney function is doing well. On DVT prophylaxis --No issues with shortness of air, swallowing, speaking --He is now ambulating much better. --Mild left sided ptosis, no other focal deficits, will monitor --Headaches: History of migraines --Current headaches may be exacerbation of migraines or related to IVIG. No evidence of Aseptic meningitis --Suspicion for something like venous thrombosis is very low. Suspect these are migrainous in nature --Continue symptomatic prn treatment. Will write for Fioricet for severe headaches --If any new neurologic symptoms, will plan on imaging. --Elevated LFTs: Improved. --HTN: Better on B-dustin. Needs to follow up with PCP as outpatient. --History of asthma: Stable - Patient Problems (1) Chronic inflammatory demyelinating polyradiculoneuropathy Current Visit: Yes Status: Acute Code(s): G61.81 - CHRONIC INFLAMMATORY DEMYELINATING POLYNEURITIS SNOMED Code(s): 858879362 Comment: -Continues to improve -Strength diminished at admission, appears improved today although he remains unable to toe walk or squat; level and degree of neuropathy appears unchanged today -no respiratory difficulty, no bowel/bladder incontinence -patient last seen in neurology office 09/23/18 in which it was noted he was having neuropathy from toes to navel bilaterally and from fingertips to shoulders bilaterally; at this time his strength was intact; at admission, his neuropathy had spread from navel to approx nipple line -IVIG 50 grams daily, day#55---updated and adjusted time, however, infusion finishes late; for D/C in AM (2) Angiomyolipoma Current Visit: Yes Status: Acute Code(s): D17.9 - BENIGN LIPOMATOUS NEOPLASM , UNSPECIFIED SNOMED Code(s): 73415768 Comment: -Right renal -D/W Dr. Schmitz who mentioned that any lesion <5 cm, does not even need to be followed even w/subsequent imaging -Informed pt and will defer (3) History of Guillain-[place] syndrome Current Visit: Yes Status: Acute Code(s): Z86.69 - PERSONAL HISTORY OF DIS OF THE NERVOUS SYS AND SENSE ORGANS SNOMED Code(s): 383593032939513 Comment: -diagnosed GBS in 2017 with associated [place] Palsy; no peripheral residual sxs until development in January 2018; has been following with [facility] Neurology outpatient -measuring NIF q6hrs; NIF today 60 cm/[id number] w/respiratory therapist given he has been passing this; asked respiratory therapist to D/C monitoring; no S/S consistent with diapgragmatic paralysis or effects in secondary muscles of respiration (4) Transaminitis Current Visit: Yes Status: Acute Code(s): R74.0 - NONSPEC ELEV OF LEVELS OF TRANSAMNS & LACTIC ACID DEHYDRGNSE SNOMED Code(s): 184846711 Comment: -LFTs continue to improve -Unclear cause but may be due to hepatosteatosis ---liver u/s did not reveal steatohepatitis although still possible with mild cases -Given history of CIDP, consider AIH or its related autoimmune causes of transaminitis if reccurs or gets worse -Recheck levels in AM (5) Asthma Current Visit: No Status: Acute Code(s): J45.909 - UNSPECIFIED ASTHMA, UNCOMPLICATED SNOMED Code(s): 144799454 Comment: -Not in acute exacerbation -continue home LABA/steroid inhaler (6) Hypertension Current Visit: No Status: Acute Code(s): I10 - ESSENTIAL (PRIMARY) HYPERTENSION SNOMED Code(s): 50698310 Comment: -Well-controlled since yesterdays change -Continue Metoprolol to 25 mg PO BID as ordered -Continue prn hydralazine IV for SBP>160 is ordered (7) DVT prophylaxis Current Visit: No Status: Acute Code(s): OZA1867 - SNOMED Code(s): 281113749 Comment: -continue lovenox 40 mg Status and Disposition: -D/C in AM
[2018-10-06] MEDS: Metoprolol Tartrate TAB* 25 MG PO SCH ×2 (10:13→20:02)
[2018-10-06] MEDS: Pantoprazole TAB * 40 MG TAB PO SCH (10:13)
[2018-10-06] MEDS: Docusate CAP* 100 MG PO SCH (10:13)
[2018-10-06] MEDS: Cyanocobalamin TAB* 500 MCG PO SCH (10:13)
[2018-10-06] MEDS: Senna TAB PO SCH (10:13)
[2018-10-06] MEDS: Fluticasone NASAL SPRAY 50MCG* 16 gm SPRAY BTL BOTH NARES SCH ×2 (10:17→20:03)
[2018-10-06] MEDS: IMMUNE GLOBULN IV SCH (16:00)
[2018-10-06] MEDS: [UNRECOGNIZED DRUG - OTHER] IV SCH (16:00)
[2018-10-06] MEDS: predniSONE TAB* 20 MG PO SCH (16:04)
[2018-10-06] MEDS: Enoxaparin(*) 40 MG/0.4 ML SYR SUBCUT SCH (16:04)
--- NOTE | 2018-10-06 17:07 | CONS ---
CC: Dr. Bear * NEUROLOGY CONSULT FOLLOWUP: DATE OF FOLLOWUP: 10/06/18 LOCATION: He is an inpatient in room 403. HOSPITALIST: Dr. Knight. CHIEF COMPLAINT: Inflammatory neuropathy. INTERVAL HISTORY: Since yesterday, John feels well. He does not have any numbness. He has been walking independently. He had a mild headache earlier, but not now. MEDICATIONS: Reviewed, 1. He is on his last day of intravenous immunoglobulin. 2. Metoprolol 25 mg p.o. b.i.d. 3. Zofran 4 mg IV q.6 hours as needed for nausea. 4. Vitamin B12 at 1000 mcg p.o. daily. 5. Fioricet 1 p.o. q.6 hours as needed for headache. PHYSICAL EXAM: He is well nourished and well hydrated. Blood pressure 132/77, heart rate is 98 and regular, temperature 98.3. Respiratory rate is 16 and oxygen saturation is 98% on room air. Neurological Exam: Facial musculature is symmetric. Palate and tongue are normal and speech is clear. He has normal strength proximally and distally in upper and lower extremities. He is areflexic. He is alert and oriented with intact memory and fluent language. LABORATORY DATA: No new labs in the last 2 days. IMPRESSION AND PLAN: Impression is that of a chronic inflammatory demyelinating polyneuropathy responsive to IVIG. He was on prednisone for about 7 days prior to admission. I think he should be put back on prednisone and so we will start him on 60 mg today. Tentatively, he will be discharged tomorrow and follow up with Dr. Bear as an outpatient. He should continue prednisone 60 mg per day until followup at which time taper could be attempted. [id number]/[facility] #: [id number] [facility]
[2018-10-06] MEDS: Butalb/Acetamin/Caff TAB* 1 TAB PO PRN (20:02)
[2018-10-06] MEDS: Cetirizine* 10 MG TAB PO SCH (20:02)
[2018-10-07] MEDS: Acetaminophen TAB* 325 MG PO PRN (01:15)
[2018-10-07] MEDS: Butalb/Acetamin/Caff TAB* 1 TAB PO PRN (04:39)
[2018-10-07] MEDS: Mometasone/Formoter 200/5 MDI INH SCH (07:56)
[2018-10-07 08:12] LABS: Hematocrit 44 % (42-52); Hemoglobin 14.6 g/dL (14.0-18.0); Mean Corpuscular HGB Conc 34 g/dL (31-36); Mean Corpuscular Hemoglobin 31 pg (27-31); Mean Corpuscular Volume 92 fL (80-94); Mean Platelet Volume 9.4 fL (7.4-10.4); Platelet Count 293 10^3/uL (150-450); Red Blood Count 4.75 10^6 /uL (4.18-5.48); Red Cell Distribution Width 14 % (10.5-15); White Blood Count 14.6 10^3/uL (3.5-10.8)
[2018-10-07 08:14] LABS: Albumin 3.8 g/dL (3.2-5.2); Albumin/Globulin Ratio 0.5 (1-3); BUN/Creatinine Ratio 24.6 (8-20); Calcium 9.4 mg/dL (8.6-10.3); EGFR African American 85.2 (>60); EGFR Non-African American 70.4 (>60); Globulin 7.5 g/dL (2-4); Magnesium 2.2 mg/dL (1.9-2.7); Phosphorus 4.9 mg/dL (2.5-5.0); Potassium 4.3 mmol/L (3.5-5.0); Total Bilirubin 0.5 mg/dL (0.2-1.0); Total Protein 11.3 g/dL (6.4-8.9)
[2018-10-07 08:15] LABS: BUN/Creatinine Ratio 24.6 (8-20); Calcium 9.3 mg/dL (8.6-10.3); EGFR African American 85.2 (>60); EGFR Non-African American 70.4 (>60); Potassium 4.2 mmol/L (3.5-5.0)
[2018-10-07] MEDS: Senna TAB PO SCH (08:39)
[2018-10-07] MEDS: Fluticasone NASAL SPRAY 50MCG* 16 gm SPRAY BTL BOTH NARES SCH (08:39)
[2018-10-07] MEDS: Docusate CAP* 100 MG PO SCH (08:40)
[2018-10-07] MEDS: Cyanocobalamin TAB* 500 MCG PO SCH (08:40)
[2018-10-07] MEDS: Pantoprazole TAB * 40 MG TAB PO SCH (08:40)
[2018-10-07] MEDS: Metoprolol Tartrate TAB* 25 MG PO SCH (08:40)
[2018-10-07] MEDS: predniSONE TAB* 20 MG PO SCH (08:40)
[2018-10-07 11:11] VITALS: BP 151/78
--- NOTE | 2018-10-07 15:35 | DS ---
CC: Dr. La Grant; Dr. Tonya Liu; Dr. Kirt Olivarez; Dr. Jun Maher * DISCHARGE SUMMARY: DATE OF ADMISSION: DATE OF DISCHARGE: 10/07/18 DISCHARGE CONDITION: Stable. DISCHARGE DISPOSITION: Home. DISCHARGE DIAGNOSES: As follows: 1. Chronic inflammatory demyelinating polyradiculoneuropathy, exacerbation, improved. 2. Incidental angiomyolipoma of right kidney; less than 5 cm. 3. History of Guillain-[place], stable. 4. Transaminitis, unclear cause; improved; viral hepatitis and abdominal ultrasound unremarkable; defer further investigation of other causes such as autoimmune causes, to PCP given above history. 5. Asthma, history of. 6. Hypertension, history of. DISCHARGE MEDICATIONS: As follows: 1. Tylenol 650 mg p.o. q.6 p.r.n. 2. Fioricet 1 tab p.o. q.6 p.r.n., 12 tabs dispensed with 0 refills. 3. Colace 200 mg p.o. daily. 4. Advair HFA 1 puff inhalation b.i.d. 5. Levocetirizine (Xyzal) 5 mg p.o. q.h.s. 6. Metoprolol 25 mg p.o. b.i.d. 7. Omeprazole 20 mg p.o. daily. 8. Aspirin 325 mg p.o. q.6 p.r.n. 9. Dymista spray 2 sprays to both nares b.i.d. 10. Prednisone 60 mg p.o. daily. HISTORY OF PRESENT ILLNESS/HOSPITAL COURSE: The patient is a 43-year-old gentleman with history of chronic inflammatory demyelinating polyneuropathy, Guillain-[place] syndrome that was diagnosed back in 2017, as well as migraine without aura, who presented with new peripheral weakness and increased neuropathy. More specifically, he complained of progressive numbness of his feet just below his navel as well as from his hands up to his shoulders bilaterally and numbness in the left side of his face. This was thought to be due to an exacerbation of chronic inflammatory demyelinating polyneuropathy and had been seen in consultation with Neurology, who then recommended IVIG treatment, which he has received for 5 days. During his course, he had pretty unremarkable course except for bouts of his known migraine headache that is otherwise responsive to Fioricet. He was also found to have hypertension and he was advised lifestyle modifications and was started on metoprolol and currently now normotensive. He is also on pseudoephedrine and had been advised to only use this sparingly given his hypertension. He was also found to have mildly elevated liver function tests, which have subsequently improved during his hospital course. Of note, his viral screen was otherwise unremarkable along with his abdominal ultrasound, which was silent in terms of fatty liver disease given the patient is obese. It is still possible that the patient may have fatty liver disease that is not sensitive to ultrasound at this time; however, it is concerning that his LFTs also improved with improvement of his CIDP, which is thought to have some autoimmune cause. Therefore, we would defer to the patient's PCP to recheck liver function tests in the future and especially if the patient presents with drastically elevated LFTs without known cause and we will defer on this note and suggest possible future workup for autoimmune causes. The patient had been advised to follow up and/or call his PCP within 3 days post discharge. He was advised to follow up with Dr. Bear as discussed with him and he was advised to call his office to make/confirm his appointment. He was advised to try to avoid pseudoephedrine given his high blood pressure and to continue his 60 mg of prednisone and discuss any changes if any on his followup with Dr. Bear. He was advised that if his symptoms resume or develop new ones or feel unwell for any reason, he is to call his PCP first. If his PCP cannot entertain him due to scheduling issues alone, he was advised to call [facility] if the issue is nonemergent. He was advised to call my office regarding any questions, concerns, or further clarifications regarding his discharge plans and/or prescriptions and to take his medications as prescribed. REVIEW OF SYSTEMS: The patient denied any recent headaches, dizziness, fevers, chills, nausea, vomiting, chest pain, shortness of breath, increased coughing and/or sputum production, abdominal pain, diarrhea, constipation, pain and/or increased frequency on urination, myalgias, arthralgias, throat pain, or new skin lesions. The rest of the 14-point review of systems is otherwise unremarkable. PHYSICAL EXAMINATION: Reveals the most recent vital signs of record with blood pressure of 129/73, 95% saturation on room air, 68 beats per minute heart rate, 97.6 degrees Fahrenheit. General Appearance: The patient is awake, alert, and oriented x3, not in acute distress. HEENT: Normocephalic, atraumatic. PERRLA. Extraocular muscles intact. Negative for icterus. Moist oral mucosa. Negative throat erythema. Neck is soft, supple with no cervical lymphadenopathy , no JVD. Heart: S1, S2 within normal limits. Regular rate and rhythm. No murmurs, rubs, or gallops. Chest: Clear to auscultation bilaterally. Good air entry. No wheezes, rales, or rhonchi. Abdomen is soft, nondistended, nontender. Normoactive bowel sounds x4 quadrants. Extremities: No cyanosis, clubbing, or edema. Psychiatric: No active psychosis, depression, suicidal or homicidal ideation. Skin is warm to touch. TIME SPENT: The total time spent evaluating the patient, reviewing pertinent data and appropriate documentation is 45 minutes. [id number]/[facility] #: [id number] [facility]
== END 2018-10-07 11:45 | disposition home or self-care (01) | DRG 74 ==
LOC: ED 13:53 → MED 16:07
PROVIDERS: ADMIT Internal Medicine; ATTEND Student in an Organized Health Care Education/Training Program
PROC: 30233S1 Transfusion of Nonautologous Globulin into Peripheral Vein, Percutaneous Approach (ICD-10-PCS; principal; 2018-10-02)
DX: G61.81 Chronic inflammatory demyelinating polyneuritis (principal); G61.0 Guillain-Barre syndrome; E78.00 Pure hypercholesterolemia, unspecified; M19.90 Unspecified osteoarthritis, unspecified site; J45.909 Unspecified asthma, uncomplicated; G43.909 Migraine, unspecified, not intractable, without status migrainosus; F32.9 Major depressive disorder, single episode, unspecified; R40.2362 Coma scale, best motor response, obeys commands, at arrival to emergency department; D17.71 Benign lipomatous neoplasm of kidney; R40.2142 Coma scale, eyes open, spontaneous, at arrival to emergency department; R40.2252 Coma scale, best verbal response, oriented, at arrival to emergency department; I10 Essential (primary) hypertension; R00.0 Tachycardia, unspecified; K76.0 Fatty (change of) liver, not elsewhere classified; E66.9 Obesity, unspecified; R74.0 Nonspecific elevation of levels of transaminase and lactic acid dehydrogenase [LDH]; E78.5 Hyperlipidemia, unspecified; Z91.5 Personal history of self-harm; Z88.6 Allergy status to analgesic agent; Z88.5 Allergy status to narcotic agent; Z88.8 Allergy status to other drugs, medicaments and biological substances; Z86.19 Personal history of other infectious and parasitic diseases; Z87.891 Personal history of nicotine dependence; Z87.442 Personal history of urinary calculi; Z82.49 Family history of ischemic heart disease and other diseases of the circulatory system; Z68.39 Body mass index [BMI] 39.0-39.9, adult; Z79.82 Long term (current) use of aspirin; Z79.52 Long term (current) use of systemic steroids
CPT/HCPCS: 36415; 70551; 76705; 80048; 80053; 80074; 80076; 83735; 84100; 84484; 85025; 85027; 90283; 93005; 94640; 99285; A9270-GY; J1459; J1650; J2270; J2405; J7512

== ENCOUNTER 2019-04-02 18:19 | Emergency (ER) | payer OTHER ==
--- NOTE | 2019-04-02 18:23 | UC ---
Laceration HPI - HPI Summary HPI Summary: 43 yo male presents with finger laceration. 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 Bandaged the area and came directly to . States last tetanus was within the last 3 years. - History Of Current Complaint Stated Complaint: FINGER LAC Time Seen by Provider: 04/02/19 18:20 Hx Obtained From: Patient Laceration Location: Finger Mechanism Of Injury: Sharp Trauma Onset/Duration: Sudden Onset - Allergies/Home Medications Allergies/Adverse Reactions: Allergies Allergy/AdvReac Type Severity Reaction Status Date / Time codeine Allergy Mild Hallucinati Verified 04/02/19 18:32 ons gabapentin Allergy Anxiety Verified 04/02/19 18:32 [id number] Antimigraine Allergy Palpitation Verified 04/02/19 18:32 Agents s Home Medications: Home Medications Aspirin TAB* [Aspirin 325 MG TAB*] 325 mg PO DAILY PRN 04/02/19 [History Confirmed 04/02/19] Immune Globuln 10%-10GM(PRIVI) [Privigen 10% - 10GM*] 10 gm IV 04/02/19 [History ] PMH/Surg Hx/FS Hx/Imm Hx - Additional Past Medical History Additional PMH: Guillan-barre Polyneuritis Transaminitis Cardiovascular History: Hypertension Respiratory History: COPD, Asthma - Surgical History Surgical History: Yes Surgery Procedure, Year, and Place: LEFT KNEE ARTHOSCOPY. STRICTURE REMOVED FROM [facility]. ADENOIDS - Family History Known Family History: Positive: Non-Contributory Negative: Cardiac Disease, Seizure Disorder - Social History Lives: With Family Alcohol Use: None Substance Use Type: None Smoking Status (MU): Former Smoker Length of Time of Smoking/Using Tobacco: 5 years Have You Smoked in the Last Year: No When Did the Patient Quit Smoking/Using Tobacco: 20 years ago - Immunization History Most Recent Influenza Vaccination: unknown Most Recent Pneumonia Vaccination: unknown Review of Systems All Other Systems Reviewed And Are Negative: No Constitutional: Positive: Negative Skin: Positive: Other - Finger laceration Neurovascular: Positive: Negative Neurological: Positive: Negative Psychological: Positive: Negative Physical Exam - Summary Physical Exam Summary: GENERAL: NAD. WDWN. No pain distress. SKIN: LEFT MIDDLE FINGER: ulnar aspect with 5mm superficial flap-like skin tear well approximated at rest. RIGHT 5th digit: overlying proximal phalax with very superficial 3mm linear laceration well approximated at rest. CHEST: No accessory muscle use. Breathing comfortably and in no distress. CV: Pulses intact. Cap refill <2seconds NEURO: Alert. PSYCH: Age appropriate behavior. Triage Information Reviewed: Yes Vital Signs: Vital Signs: Temp Pulse Resp BP Pulse Ox 98 F 105 17 144/100 97 04/02/19 18:23 04/02/19 18:23 04/02/19 18:23 04/02/19 18:23 04/02/19 18:23 Vital Signs Reviewed: Yes Laceration Repair - Laceration Repair 1 Description: Linear Laceration Size After Repair: Length (cm) - 0.5 Irrigation With Pressure Irrigation Device: Yes Closure Material: Skin Adhesive Closure Method: Single Layer Suture Of: Skin Laceration Course/Dx - Course/Dx Course Of Treatment: Wounds were cleansed with saline. Both wounds well approximated at rest and superficial in nature, therefore dermabond was applied and bandaged with band-aid. Advised to change band-aid daily until well healed - Diagnosis Provider Diagnosis: Finger laceration Discharge ED - Sign-Out/Discharge Documenting (check all that apply): Patient Departure All imaging exams completed and their final reports reviewed: No Studies - Discharge Plan Condition: Stable Disposition: HOME Patient Education Materials: Laceration (ED), Skin Adhesive Care (ED) Referrals: Jun Maher MD [Primary Care Provider] - Additional Instructions: If you develop a fever, shortness of breath, chest pain, new or worsening symptoms - please call your PCP or go to the ED immediately. Your blood pressure was high at todays visit. Please see your primary provider within 4 weeks for recheck and re-evaluation. Change the band-aid daily until well healed (likely 4-5 days) - Billing Disposition and Condition Condition: STABLE Disposition: Home
--- OUTSIDE RECORDS SUMMARY | 2019-04-02 18:24 | XMS REPORT | Continuity of Care Document ---
:1975 External Reference #:[id number] Author Name Jose Antonio Howard N.P. (transmitted by agent of provider Hayley Dueñas) Address [address], [place] [address] Care Team Providers Name Role Phone Jun Maher MD - Family Care Team Information Manager Order [phone] Medicine Eran Carmona MD - Ophthalmology Care Team Information Manager Order Romain Vivar MD - Interventional Care Team Information Manager Order Pain Medicine Problems Active Problems Provider Date Migraine without aura Aruna De La Rosa M.D. 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 Onset: 02/10/2019 Social History Type Date Description Comments Sex Unknown Tobacco Use Start: Unknown End: Former Cigarette Smoker Unknown Smoking Status Reviewed: 03/13/19 Former Cigarette Smoker ETOH Use Rarely consumes alcohol Tobacco Use Start: Unknown End: Patient is a former smoker quit 1997 Unknown Recreational Drug Use Denies Drug Use Exercise Type/Frequency Does not exercise Allergies, Adverse Reactions, Alerts Active Allergies Reaction Severity Comments Date Codeine 12/19/2016 Triptans 10/05/2017 Gabapentin 01/21/2018 Ambien 01/21/2018 Medications Active Medications SIG Qnty Indications Ordering Provider Date Omeprazole Take 1 Capsule 90Caps Jose Antonio Howard, 01/28/2019 20mg Capsules By Mouth Every N.P. DR Moran Privigen 100 gm via iv Jose Antonio Howard, 01/06/2019 10GM/100ML over two days N.P. Solution every 3 weeks Prednisone take 6 pills a 180tabs G61.81 Jose Antonio [place], 10/23/2018 10mg Tablets day N.P. Calcium 600 + D 1 tablet daily 30tabs G61.81 [facility], 09/23/2018 N.P. [id number] Tablets Vitamin Deficiency inject 1000 mcg 3units Neeta Miner, 08/23/2018 Injectable System-B12 every week for M.D. 4 weeks 1000mcg/ML Kit Pseudoephedrine HCL 1 by mouth Unknown 30mg three times a Tablets day as needed Aspirin 1 by mouth Unknown 325mg Tablets DR every day prn Levocetirizine Take 1 Tablet Unknown Dihydrochloride By Mouth AT 5mg Bedtime Tablets Advair HFA Inhale 2 Puffs Unknown 115-21mcg/Act By Mouth Twice Aerosol Daily Dymista one puff each Unknown 137-50mcg/Act nostril bid am Suspension and hs Vitamin B-12 1 by mouth Unknown 1000mcg every day (OTC) Tablets Butalbital/Acetaminoph take 1 every 8 [facility]3], en/Caffeine hours for M.D. 50-300-40mg migraine Capsules headaches, History Medications Privigen 100gm via iv 400ml Jose Antonio Howard, 12/30/2018 - 40GM/400ML over two days N.P. 01/06/2019 Solution every 3 weeks first infusion 3 weeks after last 40gm infusion times 3 Prednisone 3 tablets by 120tabs G61.81 [facility], 09/23/2018 - 20mg mouth daily N.P. 10/23/2018 Tablets Omeprazole Take 1 Capsule 30caps G61.81 [facility], 09/23/2018 - 20mg By Mouth Every N.P. 01/27/[address] Day Medications Administered in Office Medication SIG Qnty Indications Ordering Provider Date Depomedrol 80MG Arnold Anderson M.D. 07/12/2011 Injection Immunizations Description No Information Available Vital Signs Date Vital Result Comment 03/13/2019 10:31am Height 71 inches 5'11" Weight 295.00 lb Heart Rate 82 /min BP Systolic 138 mmHg BP Diastolic 100 mmHg BMI (Body Mass Index) 41.1 kg/m2 02/10/2019 12:02pm Height 71 inches 5'11" Weight 290.00 lb Heart Rate 105 /min BP Systolic 122 mmHg BP Diastolic 92 mmHg BMI (Body Mass Index) 40.4 kg/m2 Results Test Date Facility Test Result H/L Range Note CBC Auto Diff 12/31/2018 [facility] White Blood 11.2 10^3/uL High 3.5-10.[address] [place] [address] [phone] Red Blood Count 4.30 10^6/uL Normal 4.18-5.48 Hemoglobin 14.0 g/dL Normal 14.0-18.0 Hematocrit 40 % Low 42-52 Mean Corpuscular Volume 94 fL Normal 80-94 Mean Corpuscular Hemoglobin 33 pg High 27-31 Mean Corpuscular HGB Conc 35 g/dL Normal 31-36 Red Cell Distribution Width 15 % Normal 10-15 Platelet Count 279 10^3/uL Normal 150-450 Mean Platelet Volume 9.6 fL Normal 7.4-10.4 Abs Neutrophils 9.8 10^3/uL High 1.5-7.7 Abs Lymphocytes 0.9 10^3/uL Low 1.0-4.8 Abs Monocytes 0.5 10^3/uL Normal 0-0.8 Abs Eosinophils 0.0 10^3/uL Normal 0-0.6 Abs Basophils 0.0 10^3/uL Normal 0-0.2 Abs Nucleated RBC 0.0 10^3/uL Granulocyte % 87.5 % Lymphocyte % 8.1 % Monocyte % 4.2 % Eosinophil % 0.0 % Basophil % 0.2 % Nucleated Red Blood Cells % 0.0 Comp Metabolic 12/31/2018 [facility] Sodium 139 mmol/L Normal 135-[address] [place] [address] [phone] Potassium 4.2 mmol/L Normal 3.5-5.0 Chloride 106 mmol/L Normal 101-111 Co2 Carbon Dioxide 22 mmol/L Normal 22-32 Anion Gap 11 mmol/L Normal 2-11 Glucose 248 mg/dL High 70-100 Blood Urea Nitrogen 20 mg/dL Normal 6-24 Creatinine 1.15 mg/dL Normal 0.67-1.17 BUN/Creatinine Ratio 17.4 Normal 8-20 Calcium 9.2 mg/dL Normal 8.6-10.3 Total Protein 6.6 g/dL Normal 6.4-8.9 Albumin 4.3 g/dL Normal 3.2-5.2 Globulin 2.3 g/dL Normal 2-4 Albumin/Globulin Ratio 1.9 Normal 1-3 Total Bilirubin 0.40 mg/dL Normal 0.2-1.0 Alkaline Phosphatase 104 U/L Normal 34-104 Alt 102 U/L High 7-52 Ast 35 U/L Normal 13-39 Egfr Non- 69.7 >60 Egfr 84.4 >60 1 Laboratory test 09/17/2018 [facility] CSF Protein 99 mg/dL High 15-45 finding [address] [place] [address] [phone] CSF Glucose 65 mg/dL Normal 40-70 CSF Cell Count 09/17/2018 [facility] Body Fluid Cerebral Spinal [address] [place] [address] [phone] Body Fluid Appearance Clear Body Fluid Color Colorless CSF Tube # 4 Body Fluid Volume 1.5 mL Body Fluid WBC 0 /mcL Body Fluid RBC 2 /mcL Body Fluid Neutrophils 1 % Body Fluid Lymph 85 % Body Fluid Chambers 14 % Body Fluid Other Cells 2 Body Fluid Total Cells Counted 100 Body Fluid Comment SEE COMMENTS 2 Fluid Reviewed By MD (SEE NOTE) 3 Laboratory test finding 09/17/2018 [facility] Miscellaneous Test C [address] [place] [address] [phone] 1 Because ethnic data is not always readily [...] 15-29 5 Kidney failure <15 (or dialysis) 2 DIFF DONE ON CONCENTRATED SMEAR 3 No evidence of an acute inflammatory response. No evidence of malignancy. Reviewed by Colette Vital MD 4 Protein Electro, Body Fluid Protein, Total 0.2 g/dL : Peritoneal : Pleural : Synovial : : : : : : : Transudate : Exudate : : : : : : : : Not Estab. : <3 g/dL : >3 g/dL : <2.5 g/dL : : : : : : The method performance specifications have not been established for this test in body fluid. The test result should be integrated into the clinical context for interpretation. Albumin 100.0 g/dL : Peritoneal : Pleural : Synovial : : : : : : : Transudate : Exudate : : : : : : : : Not Estab. : Not Estab. : Not Estab.: Not Estab. : : : : : : The method performance specifications have not been established for this test in body fluid. The test result should be integrated into the clinical context for interpretation. Toyhd-3-Fgbqdqgj 0.0 g/dL Not Estab. Ozedb-1-Alhlknfc 0.0 g/dL Not Estab. Beta Globulin 0.0 g/dL Not Estab. Gamma Globulin 0.0 g/dL Please note: Protein electrophoresis scan will follow via computer, mail, or sub arc operator delivery. Test Report Date: 09/19/2018; 09/21/2018 RN [facility] [address] [address] Dir: Carley De La Paz MD Procedures Date Code Description Status 12/19/2016 [id number] Diabetic Retinal Eye Exam Completed Medical Devices Description No Information Available Encounters Type Date Location Provider Dx Diagnosis Office Visit 03/13/2019 [place] Christy Brady G61.81 Chronic inflammatory 10:30a [facility] Howard NAlex demyelinating polyneuritis G43.009 Migraine w/o aura, not intractable, w/o status migrainosus R73.9 Hyperglycemia, unspecified Office Visit 02/10/2019 [place] Krishna G61.81 Chronic 12:00p Neurologic Desiree Bear inflammatory [facility] demyelinating polyneuritis G43.009 Migraine w/o aura, not intractable, w/o status migrainosus R73.9 Hyperglycemia, unspecified Office Visit 01/02/2019 [place] Jose Antonio G61.81 Chronic 2:30p Neurologic William Howard inflammatory [facility] demyelinating polyneuritis G43.009 Migraine w/o aura, not intractable, w/o status migrainosus R73.9 Hyperglycemia, unspecified Office Visit 12/09/2018 [place] Krishna G61.81 Chronic 12:15p Neurologic Desiree Bear inflammatory [facility] demyelinating polyneuritis Office Visit [place]2018 [place], G61.0 Guillain-Middleton 1:00p Neurologic N.P. syndrome [facility] G43.009 Migraine w/o aura, not intractable, w/o status migrainosus G61.81 Chronic inflammatory demyelinating polyneuritis Office Visit 10/08/2018 [place] Brady G61.0 Guillain-Middleton 11:00a Neurologic Lee N.P. syndrome 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 R74.0 Nonspec elev of levels of transamns & lactic acid dehydrgnse J45.909 Unspecified asthma, uncomplicated I10 Essential (primary) hypertension Office Visit 10/04/2018 [facility] Irineo Benitez G61.81 Chronic 9:23a Assoc,heide Knight MD inflammatory Hospital[facility] demyelinating polyneuritis 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 R74.0 Nonspec elev of levels of transamns & lactic acid dehydrgnse J45.909 Unspecified asthma, uncomplicated I10 Essential (primary) hypertension Office 10/04/2018 [facility] Kirt G61.81 Chronic Visit 7:00a Clinic MD Sher inflammatory demyelinating polyneuritis Office 10/03/2018 [facility] Kirt G61.81 Chronic Visit 7:00a Clinic MD Sher inflammatory demyelinating polyneuritis Office 10/03/2018 [facility] Karley G61.81 Chronic Visit 9:23a Assoc, Hospitalists ANTONIA Russo inflammatory demyelinating polyneuritis 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 R74.0 Nonspec elev of levels of transamns & lactic acid dehydrgnse J45.909 Unspecified asthma, uncomplicated I10 Essential (primary) hypertension Office 10/02/2018 [facility] Kirt G61.81 Chronic Visit 7:00a Clinic MD Sher inflammatory demyelinating polyneuritis Office 10/02/2018 [facility] R53.1 Weakness Visit 9:22a Assoc, Hospitalists ANTONIA Russo G62.9 Polyneuropathy, unspecified I10 Essential (primary) hypertension R00.0 Tachycardia, unspecified J45.909 Unspecified asthma, uncomplicated R74.8 Abnormal levels of other serum enzymes Office Visit 09/23/2018 [place] Jose Antonio G61.81 Chronic 3:30p Neurologic Lee N.PChandana inflammatory Services Of [employer] demyelinating polyneuritis G43.009 Migraine w/o aura, not intractable, w/o status migrainosus 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 polyneuritis 03/13/2019 G43.009 Migraine without aura, not Jose Antonio Howard, N.P. intractable, without status migra 03/13/2019 R73.9 Hyperglycemia, unspecified Jose Antonio Howard, N.P. 02/10/2019 G61.81 Chronic inflammatory demyelinating Krishna Bear M.D. polyneuritis 02/10/2019 G43.009 Migraine without aura, not Krishna Bear M.D. intractable, without status migra 02/10/2019 R73.9 Hyperglycemia, unspecified Krishna Bear M.D. 01/02/2019 G61.81 Chronic inflammatory demyelinating Jose Antonio Howard, N.P. polyneuritis 01/02/2019 G43.009 Migraine without aura, not Jose Antonio Howard, N.P. intractable, without status migra 01/02/2019 R73.9 Hyperglycemia, unspecified Jose Antonio Howard, N.P. 12/09/2018 G61.81 Chronic inflammatory demyelinating Krishna Bear M.D. 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 11/11/2018 G43.009 Migraine without aura, not Jose Antonio Howard, N.P. 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 10/08/2018 G43.009 Migraine without aura, not Jose Antonio Howard, N.P. 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 polyneuritis 10/05/2018 G43.009 Migraine without aura, not Krishna Bear M.D. 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 Irineo Knight MD 10/05/2018 R74.0 Nonspec elev of levels of transs & Irineo Knight MD lactic acid dehydrgnse 10/05/2018 J45.909 Unspecified asthma, uncomplicated Irineo Knight MD 10/05/2018 I10 Essential (primary) hypertension Irineo Knight MD 10/04/2018 G61.81 Chronic inflammatory demyelinating Kirt Olivarez MD polyneuritis 10/04/2018 G61.81 Chronic inflammatory demyelinating Irineo Knight MD polyneuritis 10/04/2018 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 Irineo Knight MD 10/04/2018 R74.0 Nonspec elev of levels of transamns & Irineo Knight MD lactic acid dehydrgnse 10/04/2018 J45.909 Unspecified asthma, uncomplicated Irineo Knight MD 10/04/2018 I10 Essential (primary) hypertension Irineo Knight MD 10/03/2018 G61.81 Chronic inflammatory demyelinating Kirt Olivarez MD polyneuritis 10/03/2018 G61.81 Chronic inflammatory demyelinating Karley Sanders'jone, PA-C polyneuritis 10/03/2018 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 Karley O'jone, PA-C 10/03/2018 R74.0 Nonspec elev of levels of transamns & Karley Tommy'jone, PA-C lactic acid dehydrgnse 10/03/2018 J45.909 Unspecified asthma, uncomplicated Karley O'jone, PA-C 10/03/2018 I10 Essential (primary) hypertension Karley Sanders'jone, PA-C 10/02/2018 G61.81 Chronic inflammatory demyelinating Kirt Olivarez MD polyneuritis 10/02/2018 R53.1 Weakness Karley O'jone, PA-C 10/02/2018 G62.9 Polyneuropathy, unspecified Karley O'jone, PA-C 10/02/2018 I10 Essential (primary) hypertension Karley O'jone, PA-C 10/02/2018 R00.0 Tachycardia, unspecified Karley O'jone, PA-C 10/02/2018 J45.909 Unspecified asthma, uncomplicated Karley O'jone, PA-C 10/02/2018 R74.8 Abnormal levels of other serum enzymes Karley Russo, PA- C 09/23/2018 G61.81 Chronic inflammatory demyelinating Jose Antonio Howard, N.P. polyneuritis 09/23/2018 G43.009 Migraine without aura, not Jose Antonio Howard N.Gregory. 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 Plan of Treatment Future Appointment(s):04/17/2019 9:30 am - Jose Antonio Howard N.Pam at [place] [facility]03/13/2019 - Jose Antonio Howard N.PamG61.81 Chronic inflammatory demyelinating polyneuritisFollow up:4 weeks ok to overbookRecommendations:keep a headache calendar make sure you have the office notes from [place] sent to usG43.009 Migraine without aura, not intractable, without status fxosjJ75.9 Hyperglycemia, unspecified Functional Status Description No Information Available Mental Status Description No Information Available Referrals Refer to Reason for Referral Status Appt Date [facility] Neuromuscular Dept [facility] Sent [address] [place] [address] [phone]
--- OUTSIDE RECORDS SUMMARY | 2019-04-02 18:25 | XMS REPORT | Continuity of Care Document ---
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 Active Problems Provider Date Elevated levels of transaminase & lactic Lacey Moore PA-C Onset: acid dehydrogenase Social History Type Date Description Comments Sex Unknown Tobacco Use Start: Unknown Patient has never smoked Smoking Status Reviewed: 01/08/19 Patient has never smoked Allergies, Adverse Reactions, Alerts Active Allergies Reaction Severity Comments Date Codeine 12/12/2018 Medications Active Medications SIG Qnty Indications Ordering Date Provider Levocetirizine 1 po qd 30tabs Zoie Hannon, 12/11/2013 Dihydrochloride [employer] 5mg Tablets Dymista Unknown 137-50mcg/Act Suspension Vitamin B-12 ER 1 by mouth every Unknown 1000mcg day Tablets ER Prednisone take 6 by mouth Unknown 10mg Tablets daily Fioricet 1 by mouth every 120caps Jun Maher, 50-300-40mg 6 hours as MD Capsules needed headache Colace 2 by mouth once Unknown 100mg Capsules daily Omeprazole 1 by mouth every Unknown 20mg Capsules DR day Metoprolol Tartrate Take 1 Tablet By Unknown 25mg Mouth Twice A Tablets Day Advair HFA Inhale 2 Puffs Unknown 115-21mcg/Act By Mouth Twice A Aerosol Day Vitamin B-2 4 tab daily Unknown 100mg Tablets Lilly 3 Unknown Calcium 600+D 1 by mouth once Unknown a day [id number] Tablets Pseudoephedrine HCL tid prn Unknown Immunizations Description No Information Available Vital Signs Date Vital Result Comment 01/08/2019 8:50am Height 71 inches 5'11" Weight 298.00 lb BP Systolic 154 mmHg BP Diastolic 86 mmHg Heart Rate 84 /min BMI (Body Mass Index) 41.6 kg/m2 Results Test Date Facility Test Result H/L Range Note Liver Function Panel 01/08/[place] [facility] [place]in 4.1 g/dL Normal 3.2-5.2 Total Bilirubin 0.40 mg/dL Normal 0.2-1.0 Direct Bilirubin 0.10 mg/dL Normal 0.03-0.18 Indirect Bilirubin 0.3 mg/dL Normal 0.3-1.0 Total Protein 6.9 g/dL Normal 6.4-8.9 Globulin 2.8 g/dL Normal 2-4 Albumin/Globulin Ratio 1.5 Normal 1-3 Alkaline Phosphatase 90 U/L Normal 34-104 Alt 161 U/L High 7-52 Ast 45 U/L High 13-39 Laboratory test 01/08/2019 [facility] [place] 1 Antitrypsin 76 mg/dL Abnormal 100 - 190 1 finding A1a Ceruloplasmin 20.5 mg/dL 2 Smooth Muscle Antibody Negative Negative 3 Liver-Kidney Microsome Igg Abs <5.0 U 4 Immunoglobulin G (Igg) 1510 mg/dL 767 - 1590 5 Lab Results 10/09/2018 N2N/CCD Import Total Protein 9.7 g/dL High 6.4- 8.3 6, 7 Albumin 4.2 g/dL 3.8-5.5 Globulin 5.5 g/dL High 2-4.8 A/G Ratio 0.8 CALC 0.6-2.3 Alk. Phosphatase 95 U/L 22-95 Alt (SGPT) 63 U/L High 7-35 8 Ast (Sgot) 22 U/L 5-34 Total Bilirubin 0.4 mg/dL 0.2-1.3 Direct Bilirubn 0.2 mg/dL 0-0.6 Indirect Bilirubin 0.20 mg/dL 0.1-1 Ferritin 112 ng/mL 22-340 GGTP 230 U/L High 9-50 9 Mitochondrial AB AMA M2 Igg 0.3 U Abnormal 10 Transferrin 252 mg/dL 203-362 11 Alkaline Phosphatase 113 U/L 40-129 Alp Liver 1% 71.6 % 27.8-76.3 Alp Liver 1 80.9 IU/L Abnormal 16.2-70.2 Alp Liver 2% 11.1 % Abnormal 0-8 Alp Liver 2 12.5 IU/L Abnormal 0-5.8 Alp Bone % 16.0 % Abnormal 19.1-67.7 Alp Bone 18.1 IU/L 12.1-42.7 Alp Intestine % 1.3 % 0-20.6 Alp Intestine 1.5 IU/L 0-11 Alp Placental NotPresent 12 Ebv Capsid Ag IgG Ab Positive Ebv Capsid Ag IgM Ab Negative Petros-Gomez Nuclear Antigen Positive Petros-Gomez Virus Interp See Comment 13 Lab Results 10/09/2018 N2N/CCD Import Ferritin 112 ng/mL 22-340 GGTP 230 U/L High 9-50 14 Mitochondrial AB AMA M2 Igg 0.3 U Abnormal 15 Transferrin 252 mg/dL 203-362 16 Alkaline Phosphatase 113 U/L 40-129 Alp Liver 1% 71.6 % 27.8-76.3 Alp Liver 1 80.9 IU/L Abnormal 16.2-70.2 Alp Liver 2% 11.1 % Abnormal 0-8 Alp Liver 2 12.5 IU/L Abnormal 0-5.8 Alp Bone % 16.0 % Abnormal 19.1-67.7 Alp Bone 18.1 IU/L 12.1-42.7 Alp Intestine % 1.3 % 0-20.6 Alp Intestine 1.5 IU/L 0-11 Alp Placental NotPresent 17 Ebv Capsid Ag IgG Ab Positive Ebv Capsid Ag IgM Ab Negative Petros-Gomez Nuclear Antigen Positive Petros-Gomez Virus Interp See Comment 18 Lab Results 10/09/2018 N2N/CCD Import Mitochondrial AB AMA M2 Igg 0.3 U Abnormal 19 Transferrin 252 mg/dL 203-362 20 Alkaline Phosphatase 113 U/L 40-129 Alp Liver 1% 71.6 % 27.8-76.3 Alp Liver 1 80.9 IU/L Abnormal 16.2-70.2 Alp Liver 2% 11.1 % Abnormal 0-8 Alp Liver 2 12.5 IU/L Abnormal 0-5.8 Alp Bone % 16.0 % Abnormal 19.1-67.7 Alp Bone 18.1 IU/L 12.1-42.7 Alp Intestine % 1.3 % 0-20.6 Alp Intestine 1.5 IU/L 0-11 Alp Placental NotPresent 21 Ebv Capsid Ag IgG Ab Positive Ebv Capsid Ag IgM Ab Negative Petros-Gomez Nuclear Antigen Positive Petros-Gomez Virus Interp See Comment 22 Lab Results 10/09/2018 N2N/CCD Import Alkaline Phosphatase 113 U/L 40- 129 Alp Liver 1% 71.6 % 27.8-76.3 Alp Liver 1 80.9 IU/L Abnormal 16.2-70.2 Alp Liver 2% 11.1 % Abnormal 0-8 Alp Liver 2 12.5 IU/L Abnormal 0-5.8 Alp Bone % 16.0 % Abnormal 19.1-67.7 Alp Bone 18.1 IU/L 12.1-42.7 Alp Intestine % 1.3 % 0-20.6 Alp Intestine 1.5 IU/L 0-11 Alp Placental NotPresent 23 Ebv Capsid Ag IgG Ab Positive Ebv Capsid Ag IgM Ab Negative Petros-Gomez Nuclear Antigen Positive Petros-Gomez Virus Interp See Comment 24 Lab Results 10/09/2018 N2N/CCD Import Ebv Capsid Ag IgG Ab Positive Ebv Capsid Ag IgM Ab Negative Petros-Gomez Nuclear Antigen Positive Petros-Gomez Virus Interp See Comment 25 CMV Igg/Igm 10/09/2018 N2N/CCD Import Cytomegalovirus IgG Positive Abnormal 26 Antibody Cytomegalovirus IgM Antibody Negative CBC Auto Diff 10/02/2018 N2N/CCD Import White Blood Count 10.7 10^3/uL 3.5-10.8 Red Blood Count 5.07 10^6/uL 4.18-5.48 Hemoglobin 15.5 g/dL 14-18 Hematocrit 46 % 42-52 Mean Corpuscular Volume 91 fL 80-94 Mean Corpuscular Hemoglobin 31 pg 27-31 Mean Corpuscular HGB Conc 34 g/dL 31-36 Red Cell Distribution Width 14 % 10.5-15 Platelet Count 349 10^3/uL 150-450 Mean Platelet Volume 8.6 fL 7.4-10.4 Abs Neutrophils 9.2 10^3/uL High 1.5-7.7 Abs Lymphocytes 1.2 10^3/uL 1-4.8 Abs Monocytes 0.3 10^3/uL 0-0.8 Abs Eosinophils 0.0 10^3/uL 0-0.6 Abs Basophils 0.1 10^3/uL 0-0.2 Abs Nucleated RBC 0.0 10^3/uL Nucleated Red Blood Cells % 0.1 1 Lab Results 10/02/2018 N2N/CCD Import Immature Granulocytes 2.0 % 0-9 Neutrophil % 84.0 % Lymphocytes % 12.0 % Monocytes % 2.0 % Metamyelocytes % 1.0 % 0-2 Myelocytes % 1.0 % 0-1 RBC Morphology Normal Comp Metabolic Panel 10/02/2018 N2N/CCD Import Sodium 135 mmol/L 135- 145 Potassium 4.3 mmol/L 3.5-5 Chloride 102 mmol/L 101-111 Co2 Carbon Dioxide 21 mmol/L Low 22-32 Anion Gap 12 mmol/L High 2-11 Glucose 151 mg/dL High 70-100 Blood Urea Nitrogen 18 mg/dL 6-24 Creatinine 1.04 mg/dL 0.67-1.17 BUN/Creatinine Ratio 17.3 1 8-20 Calcium 9.7 mg/dL 8.6-10.3 Total Protein 7.6 g/dL 6.4-8.9 Albumin 4.6 g/dL 3.2-5.2 Globulin 3.0 g/dL 2-4 Albumin/Globulin Ratio 1.5 1 1-3 Total Bilirubin 0.70 mg/dL 0.2-1 Alkaline Phosphatase 146 U/L High 34-104 Alt 101 U/L High 7-52 Ast 67 U/L High 13-39 Egfr Non- 78.3 1 Egfr 94.8 1 27 Lab Results 10/02/2018 N2N/CCD Import Magnesium 2.1 mg/dL 1.9-2.7 Troponin I 0.00 ng/mL 28 Hepatitis Acute 10/02/2018 N2N/CCD Import Hepatitis B Surface Nonreactive Panel Antigen Hepatitis B Core IgM Nonreactive Hepatitis A AB IgM Nonreactive HCV Index < 0.0 Index Hepatitis C Antibody Nonreactive Xray 09/05/2018 [facility] [place], Abdomen, Complete ([id number]) <pending> 1 Test Performed by: [facility] [employer] - [facility] [address] [place] [address] 2 REFERENCE VALUE 19.0 - 31.0 Test Performed by: [facility] [employer] - [facility] [address] [place] [address] 3 ADDITIONAL INFORMATION This test was developed and its performance characteristics determined by [facility] in a manner consistent with CLIA requirements. This test has not been cleared or approved by the U.S. Food and Drug Administration. Test Performed by: [facility] [place] [address] 4 REFERENCE VALUE <=20.0 (Negative) Test Performed by: [facility] [place] [address] 5 Test Performed by: [facility] - [address] [address] 6 3 Gold Top SSTs [id number] RESULTS VERIFIED BY REPEAT ANALYSIS 8 RESULTS VERIFIED BY REPEAT ANALYSIS 9 RESULTS VERIFIED BY REPEAT ANALYSIS 10 Interpretation: Borderline (0.1-0.3) REFERENCE VALUE <0.1 (Negative) Test Performed by: [facility] [place] [address] 11 3 Gold Top SSTs [id number] REFERENCE VALUE Not present Test Performed by: [facility] - [facility] [address] [place] [address] 13 RESULT: Results suggest past infection. ADDITIONAL INFORMATION In most populations, at least 90% of the adult population will have been infected with EBV sometime in the past and therefore, will be positive for anti-VCA/IgG and anti- EBNA. Antibodies to EBNA develop 6-8 weeks after primary infection and remain present for life. Presence of VCA/ IgM antibodies indicates recent primary infection with EBV. Test Performed by: [facility] [place] [address] 14 RESULTS VERIFIED BY REPEAT ANALYSIS 15 Interpretation: Borderline (0.1-0.3) REFERENCE VALUE <0.1 (Negative) Test Performed by: [facility] [place] [address] 16 3 Gold Top SSTs [id number] 17 REFERENCE VALUE Not present Test Performed by: [facility] - [place] [id number] 18 RESULT: Results suggest past infection. ADDITIONAL INFORMATION In most populations, at least 90% of the adult population will have been infected with EBV sometime in the past and therefore, will be positive for anti-VCA/IgG and anti- EBNA. Antibodies to EBNA develop 6-8 weeks after primary infection and remain present for life. Presence of VCA/ IgM antibodies indicates recent primary infection with EBV. Test Performed by: [facility] [place] [address] 19 Interpretation: Borderline (0.1-0.3) REFERENCE VALUE <0.1 (Negative) Test Performed by: [facility] [place] [address] 20 3 Gold Top SSTs [id number] REFERENCE VALUE Not present Test Performed by: [facility] - [facility] [address] [place] [address] 22 RESULT: Results suggest past infection. ADDITIONAL INFORMATION In most populations, at least 90% of the adult population will have been infected with EBV sometime in the past and therefore, will be positive for anti-VCA/IgG and anti- EBNA. Antibodies to EBNA develop 6-8 weeks after primary infection and remain present for life. Presence of VCA/ IgM antibodies indicates recent primary infection with EBV. Test Performed by: [facility] - [place] [employer] ([employer]) [facility] [place] [address] 23 REFERENCE VALUE Not present Test Performed by: [facility] - [facility] [address] [place] [address] 24 RESULT: Results suggest past infection. ADDITIONAL INFORMATION In most populations, at least 90% of the adult population will have been infected with EBV sometime in the past and therefore, will be positive for anti-VCA/IgG and anti- EBNA. Antibodies to EBNA develop 6-8 weeks after primary infection and remain present for life. Presence of VCA/ IgM antibodies indicates recent primary infection with EBV. Test Performed by: [facility] [place] [employer] ([employer]) [address] [place] [id number] RESULT: Results suggest past infection. ADDITIONAL INFORMATION In most populations, at least 90% of the adult population will have been infected with EBV sometime in the past and therefore, will be positive for anti-VCA/IgG and anti- EBNA. Antibodies to EBNA develop 6-8 weeks after primary infection and remain present for life. Presence of VCA/ IgM antibodies indicates recent primary infection with EBV. Test Performed by: [facility] [employer] - [facility] [address] [place] [address] 26 Interpretation: Borderline (0.1-0.3) REFERENCE VALUE <0.1 (Negative) Test Performed by: [facility] [employer] - [place] [id number] [place] [address] 27 Because ethnic data is not always readily [...] 15-29 5 Kidney failure <15 (or dialysis) 28 Troponin-I testing on Plasma Separator Tubes (PST) has a known false positive rate of 0.20-0.40%. All positive troponins reflex immediately to secondary confirmatory testing. Using the [employer] DxI 800 Access Immunoassay systems, the 99th percentile upper reference limit was demonstrated to be < 0.03 ng/mL. Procedures Description No Information Available Medical Devices Description No Information Available Encounters Type Date Location Provider Dx Diagnosis Office Visit 01/08/2019 Gastroenterology Lacey Cross R74.0 Nonspec elev of 8:45a [facility] Swanstrom, PA-C levels of transamns & lactic acid dehydrgnse Assessments Date Code Description Provider 01/08/2019 R74.0 Nonspecific elevation of levels of Laceytommy Cross Swyaatrom, PA -C transaminase and lactic acid dehydrogenase [LDH] Plan of Treatment No Information Available Functional Status Description No Information Available Mental Status Description No Information Available Referrals Description No Information Available
--- OUTSIDE RECORDS SUMMARY | 2019-04-02 18:25 | XMS REPORT | Continuity of Care Document ---
:1975 External Reference #:[id number] Author Name AI Galarza Address [address] [place] [address] Care Team Providers Name Role Phone Arnold Anderson MD - Orthopaedic Care Team Information Serology Technician Surgery Sherif Bojorquez And Pamella - Care Team Information Serology Technician Physical Therapist [facility] Utilization Drug Safety Data Management Specialist Care Team Information Serology Technician - Health Educator Eran Drake ([place] - Direct) Care Team Information Serology Technician - Otolaryngology Jun Maher MD - Family Medicine Care Team Information Serology Technician Leonel Bryan - Sports Medicine Care Team Information Serology Technician Doc Allergy & Asthma - Allergy & Care Team Information Serology Technician Immunology Martin Urban MD - Infectious Care Team Information Serology Technician [phone] Disease Problems Active Problems Provider Date Hyperlipidemia Jun Maher M.D. Onset: 04/10/2007 Asthma without status asthmaticus Jun Maher M.D. Onset: 01/24/2010 Bacterial pneumonia Jun Maher M.D. Onset: 07/26/2011 Derangement of knee Jun Maher M.D. Onset: 11/15/2011 Dermatophytosis Jun Maher M.D. Onset: 06/03/2012 Chronic nonalcoholic liver disease Jun Maher M.D. Onset: 09/11/2012 Neck pain Nasim Verma M.D. Onset: 12/30/2012 Neuralgia Nasim Verma M.D. Onset: 12/30/2012 Orchitis and epididymitis Nasim Verma M.D. Onset: 12/30/2012 Head and neck swelling Jun Maher M.D. Onset: 02/03/2013 Rheumatoid arthritis Jun Maher M.D. Onset: 09/28/2014 Refractory migraine without aura Jun Maher M.D. Onset: 02/12/2018 Allergic rhinitis Jun Maher M.D. Onset: 02/12/2018 Acute infective polyneuritis Jun Maher M.D. Onset: 10/09/2018 Social History Type Date Description Comments Sex Unknown Tobacco Use Start: Unknown Nonsmoker Tobacco Use Start: Unknown Patient has never smoked Smoking Status Reviewed: 01/07/19 Patient has never smoked Allergies, Adverse Reactions, Alerts Active Allergies Reaction Severity Comments Date Codeine hallucinations, emesis 02/01/2005 Triptans caused of heart attack 07/23/2017 Medications Active Medications SIG Qnty Indications Ordering Date Provider Freestyle Lite [facility] 01/[facility]2019 Glucose Monitoring sugar leodan Maher M.D. System times daily - Device dx e78.1 last seen 01/07/19 Freestyle Lite Test test blood 100units [place] A. 01/13/2019 Strips sugars leodan Maher M.D. times daily e78.1 last seen 01/07/19 Freestyle Lancets test blood [facility]units [facility] 01/13/2019 Misc sugar leodan Maher M.D. times a day dx: e78.1 - last seen 01/07/19 Levocetirizine 1 po qd 30tabs Zoie Hannon, 12/11/2013 Dihydrochloride CHANGE OVER 5mg Tablets Vitamin B2 400MG 1 po qd Unknown Calcium + D 1 tab daily Unknown Omeprazole 1 by mouth Unknown 20mg Capsules DR every day Metoprolol Tartrate take one tablet 60tabs [place] A. 25mg by mouth twice Desiree Maher Tablets a day Colace 2 by mouth once Unknown 100mg Capsules daily Fioricet 1 by mouth 120caps Jun Yoder 50-300-40mg every 6 hours Desiree Maher Capsules as needed headache Tylenol 2 by mouth Unknown 325mg Capsules every 6 hours as needed pain Prednisone take 3 by mouth Unknown 20mg Tablets daily Vitamin B12 1 by mouth Unknown 1000mcg Tablets every day ER Advair Diskus inhale 1 puff Unknown Aerosol by mouth two times daily - rinse mouth well after each use Dymista Unknown 137-50mcg/Act Suspension History Medications Accuchek Ashanti Meter For daily use, 1units E78.1 Jun Yoder 01/07/2019 - lifetime diagnosis Desiree Maher 01/13/2019 of E78.1 Easyplus R13N Please also 1units E78.1 Jun Yoder 01/07/2019 - Self-Monitoring dispense lancets, Desiree Maher 01/13/2019 Blood Glucose System strips, and alcohol swaps for w/Device Kit daily use to check blood sugars three times daily. Lifetime diagnosis of E78.1 Amoxicillin/Clavulan 1 by mouth two 14tabs Jun Yoder 10/24/2018 - ate Potassium times a day Desiree Maher 10/31/2018 875-125mg Tablets Work Note Out of work 10/01/18 Reynaldo Yoder 10/09/2018 - until further Desiree Maher 02/10/2019 notice Oseltamivir take 1 tablet 10caps Aimeex2 Jun Yoder 08/12/2018 - Phosphate twice a day for 5 Desiree Maher 10/09/2018 75mg days. Capsules Work Note Aimeex2 Jun Yoder 08/12/2018 - Desiree Maher 10/09/2018 Note For Work Please excuse from Reynaldo Yoder 08/12/2018 - work due to Desiree Maher 10/09/2018 illness until sypmtom free for 24 hours. Medications Administered in Office Medication SIG Qnty Indications Ordering Provider Date B-12 Injection Jun Maher M.D. 09/20/2018 Injection Injection Subcutaneous Or Jun Maher M.D. 09/20/2018 Intramuscular Injection B-12 Injection Jun Maher M.D. 09/13/2018 Injection Injection Subcutaneous Or Jun Maher M.D. 09/13/2018 Intramuscular Injection B-12 Injection Jun Maher M.D. 08/30/2018 Injection Injection Subcutaneous Or Jun Maher M.D. 08/30/2018 Intramuscular Injection B-12 Injection Jun Maher M.D. 08/23/2018 Injection Injection Subcutaneous Or Jun Maher M.D. 08/23/2018 Intramuscular Injection Immunizations CPT Code Status Date Vaccine Lot # [id number] Given 02/12/2018 Tetanus And Diptheria Adult Preservative Free [id number] >7Yrs 20006 Given 12/26/2006 Tdap Tetanus, W Pertussis [id number] Vital Signs Date Vital Result Comment 02/10/2019 8:01am BP Systolic 122 mmHg BP Diastolic 92 mmHg Heart Rate 96 /min Body Temperature 98.6 F Height 71 inches 5'11" Weight 293.00 lb BMI (Body Mass Index) 40.9 kg/m2 01/07/2019 9:06am BP Systolic 120 mmHg BP Diastolic 88 mmHg Heart Rate 80 /min Body Temperature 98.0 F Respiratory Rate 18 /min Height 71 inches 5'11" Weight 298.00 lb BMI (Body Mass Index) 41.6 kg/m2 Results Test Date Facility Test Result H/L Range Note Platelet Count 02/07/2019 [facility] Platelet Count 265 10^3/uL Normal 150-450 Mean Platelet Volume 9.2 fL Normal 7.4-10.4 Inr/Protime 02/07/2019 [facility] Inr 0.91 Normal 0.82-1.09 1 Laboratory test 02/07/2019 [facility] Partial 25.9 seconds Low 26.0-38.0 finding Thrombo Time PTT Invtg-5-Iowyycacq 01/23/2019 [facility] Wcoyg-9-Biuvz 68 mg/dL Low 90-200 2 in Phenotyp [address] [place] [address] (607)- - Phenotype (PI) MZ 3 Laboratory test 01/07/2019 [facility] Medicine Hemoglobin A1c 6.0% % High 4.1 -5.7 finding (607)- - (Fma) Laboratory test 12/18/2018 [facility]) [facility] Lab Test SEE ATTACHED finding Laboratory test 12/17/2018 [facility] Quickstrep negative Negative finding (607)- - Laboratory test 12/16/2018 [facility] Lab Test SEE ATTACHED finding Hepatic 10/09/2018 [facility](a) Total Protein 9.7 g/dL High 6.4- 8.3 4 Albumin 4.2 g/dL 3.8-5.5 Globulin 5.5 g/dL High 2.0-4.8 A/G Ratio 0.8 CALC 0.6-2.3 Alk. Phosphatase 95 U/L 22-95 Alt (SGPT) 63 U/L High 7-35 5 Ast (Sgot) 22 U/L 5-34 Total Bilirubin 0.4 mg/dL 0.2-1.3 Direct Bilirubn 0.2 mg/dL 0.0-0.6 Indirect Bilirubin 0.20 mg/dL 0.10-1.00 Laboratory test finding 10/09/2018 [facility](a) Ferritin 112 ng/mL 22-340 GGTP 230 U/L High 9-50 6 CMV Igg/Igm 10/09/2018 [facility] Cytomegalovirus IgG Positive Abnormal Negative 7, 8 Antibody Cytomegalovirus IgM Antibody Negative Negative Laboratory test finding 10/09/2018 [facility] Mitochondrial AB AMA M2 Igg 0.3 U Abnormal 9 Transferrin 252 mg/dL Normal 203-362 10 Alkaline Phos Isoenzymes 10/09/2018 [facility] Alkaline Phosphatase 113 U/L 40 - 129 Alp Liver 1% 71.6 % 27.8-76.3 Alp Liver 1 80.9 IU/L Abnormal 16.2-70.2 Alp Liver 2% 11.1 % Abnormal 0.0-8.0 Alp Liver 2 12.5 IU/L Abnormal 0.0-5.8 Alp Bone % 16.0 % Abnormal 19.1-67.7 Alp Bone 18.1 IU/L 12.1-42.7 Alp Intestine % 1.3 % 0.0-20.6 Alp Intestine 1.5 IU/L 0.0-11.0 Alp Placental NotPresent 11 Petros Gomez Comprehensive 10/09/2018 [facility] Ebv Capsid Ag IgG Ab Positive Negative Ebv Capsid Ag IgM Ab Negative Negative Petros-Gomez Nuclear Antigen Positive Negative Petrso-Gomez Virus Interp See Comment 12 CBC Auto Diff 10/02/2018 [facility] White Blood Count 10.7 10^3/uL Normal 3.5- 10.8 Red Blood Count 5.07 10^6/uL Normal 4.18-5.48 Hemoglobin 15.5 g/dL Normal 14.0-18.0 Hematocrit 46 % Normal 42-52 Mean Corpuscular Volume 91 fL Normal 80-94 Mean Corpuscular Hemoglobin 31 pg Normal 27-31 Mean Corpuscular HGB Conc 34 g/dL Normal 31-36 Red Cell Distribution Width 14 % Normal 10.5-15 Platelet Count 349 10^3/uL Normal 150-450 Mean Platelet Volume 8.6 fL Normal 7.4-10.4 Abs Neutrophils 9.2 10^3/uL High 1.5-7.7 Abs Lymphocytes 1.2 10^3/uL Normal 1.0-4.8 Abs Monocytes 0.3 10^3/uL Normal 0-0.8 Abs Eosinophils 0.0 10^3/uL Normal 0-0.6 Abs Basophils 0.1 10^3/uL Normal 0-0.2 Abs Nucleated RBC 0.0 10^3/uL Nucleated Red Blood Cells % 0.1 Hepatitis Acute Panel 10/02/2018 [facility] Hepatitis B Surface Nonreactive Nonreactive Antigen Hepatitis B Core IgM Nonreactive Nonreactive Hepatitis A AB IgM Nonreactive Nonreactive HCV Index < 0.0 Index Hepatitis C Antibody Nonreactive Nonreactive Laboratory test finding 10/02/2018 [facility] Magnesium 2.1 mg/dL Normal 1.9- 2.7 Troponin I 0.00 ng/mL <0.04 13 Comp Metabolic Panel 10/02/2018 [facility] Sodium 135 mmol/L Normal 135-145 Potassium 4.3 mmol/L Normal 3.5-5.0 Chloride 102 mmol/L Normal 101-111 Co2 Carbon Dioxide 21 mmol/L Low 22-32 Anion Gap 12 mmol/L High 2-11 Glucose 151 mg/dL High 70-100 Blood Urea Nitrogen 18 mg/dL Normal 6-24 Creatinine 1.04 mg/dL Normal 0.67-1.17 BUN/Creatinine Ratio 17.3 Normal 8-20 Calcium 9.7 mg/dL Normal 8.6-10.3 Total Protein 7.6 g/dL Normal 6.4-8.9 Albumin 4.6 g/dL Normal 3.2-5.2 Globulin 3.0 g/dL Normal 2-4 Albumin/Globulin Ratio 1.5 Normal 1-3 Total Bilirubin 0.70 mg/dL Normal 0.2-1.0 Alkaline Phosphatase 146 U/L High 34-104 Alt 101 U/L High 7-52 Ast 67 U/L High 13-39 Egfr Non- 78.3 >60 Egfr 94.8 >60 14 Manual Differential 10/02/2018 [facility] Immature Granulocytes 2.0 % Normal 0- 9 Neutrophil % 84.0 % Lymphocytes % 12.0 % Monocytes % 2.0 % Metamyelocytes % 1.0 % Normal 0-2 Myelocytes % 1.0 % Normal 0-1 RBC Morphology Normal Normal Laboratory test finding 09/17/2018 [facility] CSF Protein 99 mg/dL High 15-45 CSF Glucose 65 mg/dL Normal 40-70 CSF Cell Count 09/17/2018 [facility] Body Fluid Source Cerebral Spinal Body Fluid Appearance Clear Body Fluid Color Colorless CSF Tube # 4 Body Fluid Volume 1.5 mL Body Fluid WBC 0 /mcL Body Fluid RBC 2 /mcL Body Fluid Neutrophils 1 % Body Fluid Lymph 85 % Body Fluid [place] 14 % Body Fluid Other Cells 2 Body Fluid Total Cells Counted 100 Body Fluid Comment SEE COMMENTS 15 Fluid Reviewed By (SEE NOTE) 16 Laboratory test 09/17/2018 [facility] Miscellaneous Test C 17 finding CBC Auto Diff 09/02/2018 [facility] White Blood Count 6.3 10^3/uL Normal 3.5- 10.8 Red Blood Count 4.40 10^6/uL Normal 4.18-5.48 Hemoglobin 13.4 g/dL Low 14.0-18.0 Hematocrit 40 % Normal 36-46 Mean Corpuscular Volume 91 fL Normal 80-94 Mean Corpuscular Hemoglobin 30 pg Normal 27-31 Mean Corpuscular HGB Conc 34 g/dL Normal 31-36 Red Cell Distribution Width 14 % Normal 10.5-15 Platelet Count 309 10^3/uL Normal 150-450 Mean Platelet Volume 8.7 fL Normal 7.4-10.4 Abs Neutrophils 3.2 10^3/uL Normal 1.5-7.7 Abs Lymphocytes 2.1 10^3/uL Normal 1.0-4.8 Abs Monocytes 0.5 10^3/uL Normal 0-0.8 Abs Eosinophils 0.3 10^3/uL Normal 0-0.6 Abs Basophils 0.2 10^3/uL Normal 0-0.2 Abs Nucleated RBC 0 10^3/uL Granulocyte % 50.7 % Lymphocyte % 33.2 % Monocyte % 8.5 % Eosinophil % 4.7 % Basophil % 2.9 % Nucleated Red Blood Cells % 0 Comp Metabolic Panel 09/02/2018 [facility] Sodium 138 mmol/L Normal 135-145 Potassium 4.1 mmol/L Normal 3.5-5.0 Chloride 107 mmol/L Normal 101-111 Co2 Carbon Dioxide 25 mmol/L Normal 22-32 Anion Gap 6 mmol/L Normal 2-11 Glucose 95 mg/dL Normal 70-100 Blood Urea Nitrogen 11 mg/dL Normal 6-24 Creatinine 0.97 mg/dL Normal 0.67-1.17 BUN/Creatinine Ratio 11.3 Normal 8-20 Calcium 8.8 mg/dL Normal 8.6-10.3 Total Protein 6.8 g/dL Normal 6.4-8.9 Albumin 4.1 g/dL Normal 3.2-5.2 Globulin 2.7 g/dL Normal 2-4 Albumin/Globulin Ratio 1.5 Normal 1-3 Total Bilirubin 0.50 mg/dL Normal 0.2-1.0 Alkaline Phosphatase 121 U/L High 34-104 Alt 46 U/L Normal 7-52 Ast 19 U/L Normal 13-39 Egfr Non- 84.9 >60 Egfr 102.7 >60 18 Laboratory test 09/02/2018 [facility] LDH 150 U/L Normal 140-271 finding Laboratory test 08/23/2018 [facility] Hemoglobin A1c (Glyco 5.5 % Normal 4.0- 5.6 19 finding HGB) Folic Acid (Folate) 10.14 ng/mL >3.99 Vitamin B12 283 pg/mL Normal 180-914 20 Lyme Screen W/ Reflex To WB Negative Negative Anca AB Ser If 08/23/2018 [facility] C-Anca Negative Negative P-Anca Negative Negative 21 Laboratory test finding 08/23/2018 [facility] Nuclear AB (Luisa) By <1:80 (Negative ) 22 Ifa Igg Cyclic Citrullinated Pep Igg <15.6 U 23 Ssa/SSB Abs Igg 08/23/2018 [facility] SS-A/Ro Antibody <0.2 U 24 SS-B/La Antibody <0.2 U 25 Protein Electrophoresis 08/23/2018 [facility] Total Protein(Pep) 6.9 g/dL 6.3 - 7.9 Albumin 3.6 g/dL 3.4-4.7 Alpha-1 Globulin 0.1 g/dL 0.1-0.3 Alpha-2 Globulin 0.9 g/dL 0.6-1.0 Beta Globulin 1.1 g/dL 0.7-1.2 Gamma Globulin 1.2 g/dL 0.6-1.6 Albumin/Globulin Ratio 1.09 Impression See Comment 26 Ganglioside Antibody Panel 08/23/2018 [facility] GM1 IgG <1:250 <=1: 500 Antibody Monosialo GM1 IgM Antibody <1:250 <=1:1000 Asialo GM1 IgG Antibody <1:250 <=1:4000 As[place]o GM1 IgM Antibody <1:250 <=1:4000 Dis[place]o GD1b IgG Antibody <1:250 <=1:1000 [place] GD1b IgM Antibody <1:250 <=1:1000 27 Influenza A&B-fma 08/12/2018 [facility] Influenza A positive (607)- - Influenza B neg 1 Standard intensity warfarin therapeutic range: 2.0-3.0 High intensity warfarin therapeutic range: 2.5-3.5 2 1 sst poured off serum 3 Phenotype Population A-1-AT Concentration Incidence % Reference Interval MM 86.5% 96 - 189 MS 8.0% 83 - 161 MZ 3.9% 60 - 111 FM 0.4% 93 - 191 SZ 0.3% 42 - 75 SS 0.1% 62 - 119 ZZ 0.05% 16 - 38 FS 0.05% 70 - 128 FZ Unknown 44 - 88 FF Unknown Unknown 4 RESULTS VERIFIED BY REPEAT ANALYSIS 5 RESULTS VERIFIED BY REPEAT ANALYSIS 6 RESULTS VERIFIED BY REPEAT ANALYSIS 7 3 Gold Top SSTs [id number] Test Performed by: [facility] [place] [address] 9 Interpretation: Borderline (0.1-0.3) REFERENCE VALUE <0.1 (Negative) Test Performed by: [facility] [place] [address] 10 3 Gold Top SSTs [id number] REFERENCE VALUE Not present Test Performed by: [facility] [address] [place] [address] 12 RESULT: Results suggest past infection. ADDITIONAL INFORMATION [...] primary infection with EBV. Test Performed by: [facility] [address] [place] [address] 13 Troponin-I testing on Plasma Separator Tubes (PST) has a known false positive rate of 0.20-0.40%. All positive troponins reflex immediately to secondary confirmatory testing. Using the [employer]dwave 800 Access Immunoassay systems, the 99th percentile upper reference limit was demonstrated to be < 0.03 ng/mL. 14 Because ethnic data is not always readily [...] 15-29 5 Kidney failure <15 (or dialysis) 15 DIFF DONE ON CONCENTRATED SMEAR 16 No evidence of an acute inflammatory response. No evidence of malignancy. Reviewed by Colette Vital MD 17 Protein Electro, Body Fluid Protein, Total 0.2 [...] integrated into the clinical context for interpretation. Ytwqj-2-Dsaccuou 0.0 g/dL Not Estab. Weswl-3-Bicytone 0.0 g/dL Not Estab. Beta Globulin 0.0 g/dL Not Estab. Gamma Globulin 0.0 g/dL Please note: Protein electrophoresis scan will follow via computer, mail, or hop trainer delivery. Test Report Date: 09/19/2018; 09/21/[address] [facility] [address] Dir: Carley De La Paz MD 18 Because ethnic data is not always readily [...] 15-29 5 Kidney failure <15 (or dialysis) 19 Therapeutic target for the treatment of diabetes mellitus patients is <7% HBA1C, and in selective patients <6.0%. Please refer to [place] [employer] diabetic care guidelines for further information. 20 Normal Range 180 to 914 Indeterminate Range 145 to 180 Deficient Range <145 21 Negative for cANCA and pANCA patterns by immunofluorescence. ADDITIONAL INFORMATION This test was developed and its performance characteristics determined by [facility] in a manner consistent with CLIA requirements. This test has not been cleared or approved by the U.S. Food and Drug Administration. Test Performed by: [facility] - [address] [address] 22 <1:80 (Negative) REFERENCE VALUE <1:80 (Negative) Test Performed by: [facility] - [address] [address] 23 REFERENCE VALUE <20.0 (Negative) Test Performed by: [facility] - [address] [address] 24 REFERENCE VALUE <1.0 (Negative) 25 REFERENCE VALUE <1.0 (Negative) Test Performed by: [address] [address] 26 RESULT: No apparent monoclonal protein on serum electrophoresis. Test Performed by: [facility] - [address] [address] 27 ADDITIONAL INFORMATION This test was developed and its performance characteristics determined by [facility] in a manner consistent with CLIA requirements. This test has not been cleared or approved by the U.S. Food and Drug Administration. Test Performed by: [facility] - [address] [address] Procedures Date Code Description Status 01/07/2019 10475 Finger Or Heel Stick Completed 09/20/2018 93433 Injection Subcutaneous Or Intramuscular Completed 09/13/2018 12877 Injection Subcutaneous Or Intramuscular Completed 08/30/2018 29482 Injection Subcutaneous Or Intramuscular Completed 08/23/2018 78181 Injection Subcutaneous Or Intramuscular Completed 08/12/2018 52754 Pulse Oximetry Completed Medical Devices Description No Information Available Encounters Type Date Location Provider Dx Diagnosis Office Visit 01/07/2019 [facility] Betzy Tucker E78.1 Pure hyperglyceridemia 9:00a AI Linares Office Visit 12/17/2018 Main Office Tere Flannery J02.9 Acute pharyngitis, 11:30a STEPHEN Pope unspecified Office Visit 10/24/2018 Main Office Jun Yoder S45.991A Inj unsp blood vessel 3:00p Desiree Maher at ldr/up arm, right arm, init Office Visit 10/16/2018 [facility] Office Jun Yoder S45.991A Inj unsp blood vessel 11:40a Desiree Maher at ldr/up arm, right arm, init Office Visit 10/09/2018 [facility] Office Jun Yoder 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 01/07/2019 E78.1 Pure hyperglyceridemia AI Galarza 12/17/2018 J02.9 Acute pharyngitis, unspecified Tere Pope, STEPHEN 10/24/2018 S45.991A Other specified injury of unspecified blood Jun Maher M.D. vessel at should 10/16/2018 S45.991A Other specified injury of unspecified blood Jun Maher M.D. 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 10/09/2018 I10 Essential (primary) hypertension Jun Maher M.D. 10/09/2018 R94.5 Abnormal results of liver function studies Jun Maher M.D. 09/20/2018 D51.8 Other vitamin B12 deficiency anemias Jun Maher M.D. 09/13/2018 D51.8 Other vitamin B12 deficiency anemias Jun Maher M.D. 08/30/2018 D51.8 Other vitamin B12 deficiency anemias Jun Maher M.D. 08/23/2018 D51.8 Other vitamin B12 deficiency anemias Jun Maher M.D. 08/12/2018 J09.x2 Influenza due to identified novel influenza AI Galarza A virus with oth Plan of Treatment Future Appointment(s):04/14/2019 9:30 am - AI [facility]arza at [facility]02/10/2019 - Betzy Linares, PAE78.1 Pure hyperglyceridemiaComments: Continue to monitor, don't need to check as much. Check fasting (first thing in the morning) and 1-2hours after lunch a few times a week. Call with any alarming values. Fasting > 130 consistently. After meals consistently > 180-200M79.632 Pain in left forearmComments:After injection. Get DVT ultrasound today to rule out blood clot. We will talk at the imaging centerafter your ultrasound.AllComments:PCMHMedication Management Patient Understands medications he's taking? Yes Are there Barriers to Adherence? No Has the patient been asked about herbal supplements and therapies, and OTC meds ? Yes Care Plan1. Patient has been queried about patient's goals/ preferences and functional/lifestyle goals at relevant visits. Yes If relevant, describe: N/A2. Treatment goals as explained to the patient: above3. Are there barriers to meeting treatment goals? No If Yes, please describe:4. Self-Management goals as described to the patient: Yes As always, we strongly encourage a healthy diet and making physical activity a part of your every day life. If you have questions about how or where to start, please contact the office.Follow up:2 months or sooner prn Functional Status Description No Information Available Mental Status Description No Information Available Referrals Refer to Reason for Referral Status Appt Date Lacey Moore PA-C Abnormal LFT's jw Scheduled 01/08/[id number] [place], [place] [id number] [phone]
--- OUTSIDE RECORDS SUMMARY | 2019-04-02 18:25 | XMS REPORT | Continuity of Care Document ---
:1975 External Reference #:[id number] Author Name Lacey Moore PA-C Address [address] [place] [address] Care Team Providers Name Role Phone Jun Maher MD - Family Medicine Care Team Information Top Waddy [phone] Problems Active Problems Provider Date Elevated levels [...] po qd 30tabs Zoie Hannon, 12/11/2013 Dihydrochloride [employer] 5mg Tablets Dymista Unknown 137-50mcg/Act Suspension Vitamin [...] B-2 4 tab daily Unknown 100mg Tablets [place] 3 Unknown Calcium 600+D 1 by mouth once Unknown a day [id number] Tablets Pseudoephedrine HCL tid prn Unknown Immunizations Description No Information Available Vital Signs Date Vital Result Comment 01/08/2019 8:50am Height 71 inches 5'11" Weight 298.00 lb BP Systolic 154 mmHg BP Diastolic 86 mmHg Heart Rate 84 /min BMI (Body Mass Index) 41.6 kg/m2 Results Test Date Facility Test Result H/L Range Note Laboratory test 02/07/2019 [facility] [place] Surgical SEE RESULT 1 finding Pathology Order BELOW Platelet Count 02/07/2019 [facility] [place] Platelet Count 265 10^3/uL Normal 150-450 Mean Platelet Volume 9.2 fL Normal 7.4-10.4 Inr/Protime 02/07/2019 [facility] [place] Inr 0.91 Normal 0.82-1.09 2 Laboratory test 02/07/2019 [facility] [place] Partial Thrombo 25.9 seconds Low 26.0- 38.0 finding Time PTT Liver Function Panel 01/08/2019 [facility] [place] Albumin 4.1 g/dL Normal 3.2-5.2 Total Bilirubin 0.40 mg/dL Normal 0.2-1.0 Direct Bilirubin 0.10 mg/dL Normal 0.03-0.18 Indirect Bilirubin 0.3 mg/dL Normal 0.3-1.0 Total Protein 6.9 g/dL Normal 6.4-8.9 Globulin 2.8 g/dL Normal 2-4 Albumin/Globulin Ratio 1.5 Normal 1-3 Alkaline Phosphatase 90 U/L Normal 34-104 Alt 161 U/L High 7-52 Ast 45 U/L High 13-39 Laboratory test 01/08/2019 [facility] [place] Alpha 1 Antitrypsin 76 mg/dL Abnormal 100 - 190 3 finding A1a Ceruloplasmin 20.5 mg/dL 4 Smooth Muscle Antibody Negative Negative 5 Liver-Kidney Microsome Igg Abs <5.0 U 6 Immunoglobulin G (Igg) 1510 mg/dL 767 - 1590 7 CMV Igg/Igm 10/09/2018 N2N/CCD Import Cytomegalovirus IgG Positive Abnormal 8, 9 Antibody Cytomegalovirus IgM Antibody Negative Lab Results 10/09/2018 N2N/CCD Import Ebv Capsid Ag IgG Ab Positive Ebv Capsid Ag IgM Ab Negative Petros-Gomez Nuclear Antigen Positive Petros-Gomez Virus Interp See Comment 10 Lab Results 10/09/2018 N2N/CCD Import Alkaline Phosphatase [...] Intestine 1.5 IU/L 0-11 Alp Placental NotPresent 11 Ebv Capsid Ag IgG Ab Positive Ebv Capsid Ag IgM Ab Negative Petros-Gomez Nuclear Antigen Positive Petros-Gomez Virus Interp See Comment 12 Lab Results 10/09/2018 N2N/CCD Import Mitochondrial AB AMA M2 Igg 0.3 U Abnormal 13 Transferrin 252 mg/dL 203-362 14 Alkaline Phosphatase 113 U/L 40-129 Alp Liver 1% 71.6 % 27.8-76.3 Alp Liver 1 80.9 IU/L Abnormal 16.2-70.2 Alp Liver 2% 11.1 % Abnormal 0-8 Alp Liver 2 12.5 IU/L Abnormal 0-5.8 Alp Bone % 16.0 % Abnormal 19.1-67.7 Alp Bone 18.1 IU/L 12.1-42.7 Alp Intestine % 1.3 % 0-20.6 Alp Intestine 1.5 IU/L 0-11 Alp Placental NotPresent 15 Ebv Capsid Ag IgG Ab Positive Ebv Capsid Ag IgM Ab Negative Petros-Gomez Nuclear Antigen Positive Petros-Gomez Virus Interp See Comment 16 Lab Results 10/09/2018 N2N/CCD Import Ferritin 112 ng/mL 22-340 GGTP 230 U/L High 9-50 17 Mitochondrial AB AMA M2 Igg 0.3 U Abnormal 18 Transferrin 252 mg/dL 203-362 19 Alkaline Phosphatase 113 U/L 40-129 Alp Liver 1% 71.6 % 27.8-76.3 Alp Liver 1 80.9 IU/L Abnormal 16.2-70.2 Alp Liver 2% 11.1 % Abnormal 0-8 Alp Liver 2 12.5 IU/L Abnormal 0-5.8 Alp Bone % 16.0 % Abnormal 19.1-67.7 Alp Bone 18.1 IU/L 12.1-42.7 Alp Intestine % 1.3 % 0-20.6 Alp Intestine 1.5 IU/L 0-11 Alp Placental NotPresent 20 Ebv Capsid Ag IgG Ab Positive Ebv Capsid Ag IgM Ab Negative Petros-Gomez Nuclear Antigen Positive Petros-Gomez Virus Interp See Comment 21 Lab Results 10/09/2018 N2N/CCD Import Total Protein 9.7 g/dL High 6.4- 8.3 22 Albumin 4.2 g/dL 3.8-5.5 Globulin 5.5 g/dL High 2-4.8 A/G Ratio 0.8 CALC 0.6-2.3 Alk. Phosphatase 95 U/L 22-95 Alt (SGPT) 63 U/L High 7-35 23 Ast (Sgot) 22 U/L 5-34 Total Bilirubin 0.4 mg/dL 0.2-1.3 Direct Bilirubn 0.2 mg/dL 0-0.6 Indirect Bilirubin 0.20 mg/dL 0.1-1 Ferritin 112 ng/mL 22-340 GGTP 230 U/L High 9-50 24 Mitochondrial AB AMA M2 Igg 0.3 U Abnormal 25 Transferrin 252 mg/dL 203-362 26 Alkaline Phosphatase 113 U/L 40-129 Alp Liver 1% 71.6 % 27.8-76.3 Alp Liver 1 80.9 IU/L Abnormal 16.2-70.2 Alp Liver 2% 11.1 % Abnormal 0-8 Alp Liver 2 12.5 IU/L Abnormal 0-5.8 Alp Bone % 16.0 % Abnormal 19.1-67.7 Alp Bone 18.1 IU/L 12.1-42.7 Alp Intestine % 1.3 % 0-20.6 Alp Intestine 1.5 IU/L 0-11 Alp Placental NotPresent 27 Ebv Capsid Ag IgG Ab Positive Ebv Capsid Ag IgM Ab Negative Petros-Gomez Nuclear Antigen Positive Petros-Gomez Virus Interp See Comment 28 CBC Auto Diff 10/02/2018 N2N/CCD Import White [...] Egfr Non- 78.3 1 Egfr 94.8 1 29 Lab Results 10/02/2018 N2N/CCD Import Magnesium 2.1 mg/dL 1.9-2.7 Troponin I 0.00 ng/mL 30 Hepatitis Acute 10/02/2018 N2N/CCD Import Hepatitis B Surface Nonreactive Panel Antigen Hepatitis B Core IgM Nonreactive Hepatitis A AB IgM Nonreactive HCV Index < 0.0 Index Hepatitis C Antibody Nonreactive Xray 09/05/2018 [facility] [place] Radiology US, Abdomen, Complete ([id number]) <pending> 1 SEE RESULT BELOW Name: IMMANUEL,JOHN : [address]: Lacey CLOUD Acct: [id number] Unit: [id number] AGE: 43 Location: Re02/07/19 SEX: M Status: REG REF SPEC: [id number] MAXIMINO: 02/07/[address]: Lacey CLOUD REQ: [id number] RECD: 02/07/19-134 STATUS: ALBINA HERNANDEZ DR: Nena Newell MD _ ORDERED: LEVEL 5, SPEC [facility] [place] FINAL DIAGNOSIS Liver, core biopsy: -- Limited core sample with mild reactive hepatocellular changes and focal bile duct metaplasia. See comment. Comment: The core sample is limited (6 mm in length) and demonstrates only one partial portal tract demonstrating focal bile duct metaplasia. Well-preserved portal tracts is not present for evaluation. A single fibrous band is noted intervening likely representing subcapsular liver parenchyma. The parenchyma demonstrates mild reactive changes and minimal macrovesicular steatosis. No inflammation is seen. No hepatocellular or limiting plate necrosis is seen. No bile deposition is seen. A trichrome stain performed with appropriate controls demonstrates no fibrosis. The findings are nonspecific though some degree of cholestasis is suggested by the focal bile duct metaplasia. Correlation with clinical and serologic studies is recommended. 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 CLINICAL HISTORY Elevated alkaline phosphatase and transaminases, borderline anti- mitochondrial antibody, obesity PRE-OPERATIVE DIAGNOSIS R74.0, R74.8 CONTINUED ON NEXT PAGE DEPARTMENT OF PATHOLOGY, [address] [place], [place] [id number] Olegario Eagle M.D. Director [facility] # [id number] GROSS DESCRIPTION The specimen is received in formalin labeled, Liver Core Biopsy, and consists of a 0.8 x 0.1 cm tapia-red soft tissue core admixed with scant tapia-orange soft tissue fragments. Entirely submitted, one cassette. Signed by and Reported on: Olegario Eagle MD 1007 END OF REPORT DEPARTMENT OF PATHOLOGY, [address] [place] [address] Olegario Eagle M.D. Director [facility] # [id number] 2 Standard intensity warfarin therapeutic range: 2.0-3.0 High intensity warfarin therapeutic range: 2.5-3.5 3 Test Performed by: [facility] - [facility] [address] [place] [address] 4 REFERENCE VALUE 19.0 - 31.0 Test Performed by: [facility] - [facility] [address] [place] [address] 5 ADDITIONAL INFORMATION This test was developed and its performance characteristics determined by [facility] in a manner consistent with CLIA requirements. This test has not been cleared or approved by the U.S. Food and Drug Administration. Test Performed by: [facility] - [address] [address] 6 REFERENCE VALUE <=20.0 (Negative) Test Performed by: [facility] [address] 7 Test Performed by: [facility] [address] 8 3 [facility] [id number] Interpretation: Borderline (0.1-0.3) REFERENCE VALUE <0.1 (Negative) Test Performed by: [facility] [address] 10 RESULT: Results suggest past infection. ADDITIONAL INFORMATION [...] with EBV. Test Performed by: [facility] [address] 11 REFERENCE VALUE Not present Test Performed by: [facility] - [facility] [address] [place] [address] 12 RESULT: Results suggest past infection. ADDITIONAL [...] with EBV. Test Performed by: [facility] [address] 13 Interpretation: Borderline (0.1-0.3) REFERENCE VALUE <0.1 (Negative) Test Performed by: [facility] [address] 14 3 [employer] SSTs [id number] REFERENCE VALUE Not present Test Performed by: [facility] - [facility] [address] [place] [address] 16 RESULT: Results suggest past infection. ADDITIONAL INFORMATION [...] primary infection with EBV. Test Performed by: [facility] - [facility] [address] [place] [address] 17 RESULTS VERIFIED BY REPEAT ANALYSIS 18 Interpretation: Borderline (0.1-0.3) REFERENCE VALUE <0.1 (Negative) Test Performed by: [place] [address] 19 3 [employer] SSTs [id number] REFERENCE VALUE Not present Test Performed by: [facility] - [address] [address] 21 RESULT: Results suggest past infection. ADDITIONAL INFORMATION [...] with EBV. Test Performed by: [facility] - [facility] [address] [place] [address] 22 RESULTS VERIFIED BY REPEAT ANALYSIS 23 RESULTS VERIFIED BY REPEAT ANALYSIS 24 RESULTS VERIFIED BY REPEAT ANALYSIS 25 Interpretation: Borderline (0.1-0.3) REFERENCE VALUE <0.1 (Negative) Test Performed by: [facility] - [facility] [address] [place] [address] 26 3 [facility] SSTs [id number] 27 REFERENCE VALUE Not present Test Performed by: [facility] - [facility] [address] [place] [address] 28 RESULT: Results suggest past infection. ADDITIONAL INFORMATION [...] with EBV. Test Performed by: [facility] - [facility] [address] [place] [address] 29 Because ethnic data is not always readily [...] 15-29 5 Kidney failure <15 (or dialysis) 30 Troponin-I testing on Plasma Separator Tubes (PST) has a known false positive rate of 0.20-0.40%. All positive troponins reflex immediately to secondary confirmatory testing. Using the [employer] DxI 800 Access Immunoassay systems, the 99th percentile upper reference limit was demonstrated to be < 0.03 ng/mL. Procedures Description No Information Available Medical Devices Description No Information Available Encounters Type Date Location Provider Dx Diagnosis Office Visit 01/08/2019 [facility] Lacey Cross R74.0 Nonspec elev of 8:45a [facility], PA-C levels of transamns & lactic acid dehydrgnse Assessments Date Code Description Provider 01/08/2019 R74.0 Nonspecific elevation of levels of Lacey Moore PA -C transaminase and lactic acid dehydrogenase [LDH] Plan of Treatment No Information Available Functional Status Description No Information Available Mental Status Description No Information Available Referrals Description No Information Available
--- OUTSIDE RECORDS SUMMARY | 2019-04-02 18:25 | XMS REPORT | Continuity of Care Document ---
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 Problems Active Problems Provider Date Elevated levels [...] po qd 30tabs Zoie Hannon, 12/11/2013 Dihydrochloride [employer] 5mg Tablets Dymista Unknown 137-50mcg/Act Suspension Vitamin [...] B-2 4 tab daily Unknown 100mg Tablets [place] 3 Unknown Calcium 600+D 1 by mouth once Unknown a day [id number] Tablets Pseudoephedrine HCL tid prn Unknown Immunizations Description No Information Available Vital Signs Date Vital Result Comment 01/08/2019 8:50am Height 71 inches 5'11" Weight 298.00 lb BP Systolic 154 mmHg BP Diastolic 86 mmHg Heart Rate 84 /min BMI (Body Mass Index) 41.6 kg/m2 Results Test Date Facility Test Result H/L Range Note Platelet Count 02/07/2019 [facility] [place] Platelet Count 265 10^3/uL Normal 150-450 Mean Platelet Volume 9.2 fL Normal 7.4-10.4 Inr/Protime 02/07/2019 [facility] [place] Inr 0.91 Normal 0.82-1.09 1 Laboratory test 02/07/2019 [facility] [place] Partial Thrombo 25.9 seconds Low 26.0- 38.0 finding Time PTT Liver Function Panel 01/08/2019 [facility] [place] Albumin 4.1 g/dL Normal 3.2-5.2 Total Bilirubin 0.40 mg/dL Normal 0.2-1.0 Direct Bilirubin 0.10 mg/dL Normal 0.03-0.18 Indirect Bilirubin 0.3 mg/dL Normal 0.3-1.0 Total Protein 6.9 g/dL Normal 6.4-8.9 Globulin 2.8 g/dL Normal 2-4 Albumin/Globulin Ratio 1.5 Normal 1-3 Alkaline Phosphatase 90 U/L Normal 34-104 Alt 161 U/L High 7-52 Ast 45 U/L High 13-39 Laboratory test 01/08/2019 [facility] [place] Alpha 1 Antitrypsin 76 mg/dL Abnormal 100 - 190 2 finding A1a Ceruloplasmin 20.5 mg/dL 3 Smooth Muscle Antibody Negative Negative 4 Liver-Kidney Microsome Igg Abs <5.0 U 5 Immunoglobulin G (Igg) 1510 mg/dL 767 - 1590 6 CMV Igg/Igm 10/09/2018 N2N/CCD Import Cytomegalovirus IgG Positive Abnormal 7, 8 Antibody Cytomegalovirus IgM Antibody Negative Lab Results 10/09/2018 N2N/CCD Import Ebv Capsid Ag IgG Ab Positive Ebv Capsid Ag IgM Ab Negative Petros-Gomez Nuclear Antigen Positive Petros-Gomez Virus Interp See Comment 9 Lab Results 10/09/2018 N2N/CCD Import Alkaline Phosphatase [...] Intestine 1.5 IU/L 0-11 Alp Placental NotPresent 10 Ebv Capsid Ag IgG Ab Positive Ebv Capsid Ag IgM Ab Negative Petros-Gomez Nuclear Antigen Positive Petros-Gomez Virus Interp See Comment 11 Lab Results 10/09/2018 N2N/CCD Import Mitochondrial AB AMA M2 Igg 0.3 U Abnormal 12 Transferrin 252 mg/dL 203-362 13 Alkaline Phosphatase 113 U/L 40-129 Alp Liver 1% 71.6 % 27.8-76.3 Alp Liver 1 80.9 IU/L Abnormal 16.2-70.2 Alp Liver 2% 11.1 % Abnormal 0-8 Alp Liver 2 12.5 IU/L Abnormal 0-5.8 Alp Bone % 16.0 % Abnormal 19.1-67.7 Alp Bone 18.1 IU/L 12.1-42.7 Alp Intestine % 1.3 % 0-20.6 Alp Intestine 1.5 IU/L 0-11 Alp Placental NotPresent 14 Ebv Capsid Ag IgG Ab Positive Ebv Capsid Ag IgM Ab Negative Petros-Gomez Nuclear Antigen Positive Petros-Gomez Virus Interp See Comment 15 Lab Results 10/09/2018 N2N/CCD Import Ferritin 112 ng/mL 22-340 GGTP 230 U/L High 9-50 16 Mitochondrial AB AMA M2 Igg 0.3 U Abnormal 17 Transferrin 252 mg/dL 203-362 18 Alkaline Phosphatase 113 U/L 40-129 Alp Liver 1% 71.6 % 27.8-76.3 Alp Liver 1 80.9 IU/L Abnormal 16.2-70.2 Alp Liver 2% 11.1 % Abnormal 0-8 Alp Liver 2 12.5 IU/L Abnormal 0-5.8 Alp Bone % 16.0 % Abnormal 19.1-67.7 Alp Bone 18.1 IU/L 12.1-42.7 Alp Intestine % 1.3 % 0-20.6 Alp Intestine 1.5 IU/L 0-11 Alp Placental NotPresent 19 Ebv Capsid Ag IgG Ab Positive Ebv Capsid Ag IgM Ab Negative Petros-Gomez Nuclear Antigen Positive Petros-Gomez Virus Interp See Comment 20 Lab Results 10/09/2018 N2N/CCD Import Total Protein 9.7 g/dL High 6.4- 8.3 21 Albumin 4.2 g/dL 3.8-5.5 Globulin 5.5 g/dL High 2-4.8 A/G Ratio 0.8 CALC 0.6-2.3 Alk. Phosphatase 95 U/L 22-95 Alt (SGPT) 63 U/L High 7-35 22 Ast (Sgot) 22 U/L 5-34 Total Bilirubin 0.4 mg/dL 0.2-1.3 Direct Bilirubn 0.2 mg/dL 0-0.6 Indirect Bilirubin 0.20 mg/dL 0.1-1 Ferritin 112 ng/mL 22-340 GGTP 230 U/L High 9-50 23 Mitochondrial AB AMA M2 Igg 0.3 U Abnormal 24 Transferrin 252 mg/dL 203-362 25 Alkaline Phosphatase 113 U/L 40-129 Alp Liver 1% 71.6 % 27.8-76.3 Alp Liver 1 80.9 IU/L Abnormal 16.2-70.2 Alp Liver 2% 11.1 % Abnormal 0-8 Alp Liver 2 12.5 IU/L Abnormal 0-5.8 Alp Bone % 16.0 % Abnormal 19.1-67.7 Alp Bone 18.1 IU/L 12.1-42.7 Alp Intestine % 1.3 % 0-20.6 Alp Intestine 1.5 IU/L 0-11 Alp Placental NotPresent 26 Ebv Capsid Ag IgG Ab Positive Ebv Capsid Ag IgM Ab Negative Petros-Gomez Nuclear Antigen Positive Petros-Gomez Virus Interp See Comment 27 CBC Auto Diff 10/02/2018 N2N/CCD Import White [...] Egfr Non- 78.3 1 Egfr 94.8 1 28 Lab Results 10/02/2018 N2N/CCD Import Magnesium 2.1 mg/dL 1.9-2.7 Troponin I 0.00 ng/mL 29 Hepatitis Acute 10/02/2018 N2N/CCD Import Hepatitis B Surface Nonreactive Panel Antigen Hepatitis B Core IgM Nonreactive Hepatitis A AB IgM Nonreactive HCV Index < 0.0 Index Hepatitis C Antibody Nonreactive Xray 09/05/2018 [facility] [place] Radiology US, Abdomen, Complete (20206) <pending> 1 Standard intensity warfarin therapeutic range: 2.0-3.0 High intensity warfarin therapeutic range: 2.5-3.5 2 Test Performed by: [facility] - [address] [address] 3 REFERENCE VALUE 19.0 - 31.0 Test Performed by: [facility] - [facility] [address] [place] [address] 4 ADDITIONAL INFORMATION This test was developed and its performance characteristics determined by [facility] in a manner consistent with CLIA requirements. This test has not been cleared or approved by the U.S. Food and Drug Administration. Test Performed by: [facility] - [address] [address] 5 REFERENCE VALUE <=20.0 (Negative) Test Performed by: [facility] - [address] [address] 6 Test Performed by: [facility] [place] [address] 7 3 [employer] SSTs [id number] Interpretation: Borderline (0.1-0.3) REFERENCE VALUE <0.1 (Negative) Test Performed by: [facility] [place] [address] 9 RESULT: Results suggest past infection. ADDITIONAL INFORMATION [...] primary infection with EBV. Test Performed by: [facility] - [address] [address] 10 REFERENCE VALUE Not present Test Performed by: [facility] - [address] [address] 11 RESULT: Results suggest past infection. ADDITIONAL INFORMATION [...] primary infection with EBV. Test Performed by: [facility] - [address] [address] 12 Interpretation: Borderline (0.1-0.3) REFERENCE VALUE <0.1 (Negative) Test Performed by: [facility] - [address] [address] 13 3 [facility] [id number] REFERENCE VALUE Not present Test Performed by: [facility] - [address] [address] 15 RESULT: Results suggest past infection. ADDITIONAL INFORMATION [...] primary infection with EBV. Test Performed by: [facility] - [facility] [address] [place] [address] 16 RESULTS VERIFIED BY REPEAT ANALYSIS 17 Interpretation: Borderline (0.1-0.3) REFERENCE VALUE <0.1 (Negative) Test Performed by: [place] [address] 18 3 [facility] [id number] REFERENCE VALUE Not present Test Performed by: [facility] - [address] [address] 20 RESULT: Results suggest past infection. ADDITIONAL INFORMATION [...] primary infection with EBV. Test Performed by: [place] [address] 21 RESULTS VERIFIED BY REPEAT ANALYSIS 22 RESULTS VERIFIED BY REPEAT ANALYSIS 23 RESULTS VERIFIED BY REPEAT ANALYSIS 24 Interpretation: Borderline (0.1-0.3) REFERENCE VALUE <0.1 (Negative) Test Performed by: [facility] [address] [address] 25 3 [employer] SSTs [id number] REFERENCE VALUE Not present Test Performed by: [facility] [address] [place] [address] 27 RESULT: Results suggest past infection. ADDITIONAL INFORMATION [...] primary infection with EBV. Test Performed by: [facility] - [address] [address] 28 Because ethnic data is not always readily [...] 15-29 5 Kidney failure <15 (or dialysis) 29 Troponin-I testing on Plasma Separator Tubes (PST) has a known false positive rate of 0.20-0.40%. All positive troponins reflex immediately to secondary confirmatory testing. Using the [employer] DxI 800 Access Immunoassay systems, the 99th percentile upper reference limit was demonstrated to be < 0.03 ng/mL. Procedures Description No Information Available Medical Devices Description No Information Available Encounters Type Date Location Provider Dx Diagnosis Office Visit 01/08/2019 Gastroenterology Lacey Cross R74.0 Nonspec elev of 8:45a [facility] PA-C levels of transamns & lactic acid dehydrgnse Assessments Date Code Description Provider 01/08/2019 R74.0 Nonspecific elevation of levels of AI Francois transaminase and lactic acid dehydrogenase [LDH] Plan of Treatment No Information Available Functional Status Description No Information Available Mental Status Description No Information Available Referrals Description No Information Available
--- OUTSIDE RECORDS SUMMARY | 2019-04-02 18:25 | XMS REPORT | Continuity of Care Document ---
:1975 External Reference #:[id number] Author Name Lacey Moore PA-C Address [address] [place] [address] Care Team Providers Name Role Phone Jun Maher MD - Family Medicine Care Team Information M[employer]er Problems Active Problems Provider Date Elevated levels [...] po qd 30tabs Zoie Hannon, 12/11/2013 Dihydrochloride [employer] OFF[employer]ER 5mg Tablets Dymista Unknown 137-50mcg/Act Suspension Vitamin [...] B-2 4 tab daily Unknown 100mg Tablets [facility] 3 Unknown Calcium 600+D 1 by mouth once Unknown a day [id number] Tablets Pseudoephedrine HCL tid prn Unknown Immunizations Description No Information Available Vital Signs Date Vital Result Comment 01/08/2019 8:50am Height 71 inches 5'11" Weight 298.00 lb BP Systolic 154 mmHg BP Diastolic 86 mmHg Heart Rate 84 /min BMI (Body Mass Index) 41.6 kg/m2 Results Test Date Facility Test Result H/L Range Note Liver Function Panel 01/08/2019 [facility] Albumin 4.1 g/dL Normal 3.2-5.2 Total Bilirubin 0.40 mg/dL Normal 0.2-1.0 Direct Bilirubin 0.10 mg/dL Normal 0.03-0.18 Indirect Bilirubin 0.3 mg/dL Normal 0.3-1.0 Total Protein 6.9 g/dL Normal 6.4-8.9 Globulin 2.8 g/dL Normal 2-4 Albumin/Globulin Ratio 1.5 Normal 1-3 Alkaline Phosphatase 90 U/L Normal 34-104 Alt 161 U/L High 7-52 Ast 45 U/L High 13-39 Laboratory test 01/08/2019 [facility] Alpha 1 Antitrypsin 76 mg/dL Abnormal 100 [...] Hepatitis C Antibody Nonreactive Xray 09/05/2018 [facility] Radiology US, Abdomen, Complete ([id number]) <pending> 1 Test Performed by: [facility] [address] [place] [address] 2 REFERENCE VALUE 19.0 - 31.0 Test Performed by: [facility] - [facility] [address] [place] [address] 3 ADDITIONAL INFORMATION This test was developed and its performance characteristics determined by [facility] in a manner consistent with CLIA requirements. This test has not been cleared or approved by the U.S. Food and Drug Administration. Test Performed by: [facility] [place] [address] 4 REFERENCE VALUE <=20.0 (Negative) Test Performed by: [facility] [place] [address] 5 Test Performed by: [facility] - [address] [address] 6 3 Gold Top SSTs [id number] RESULTS VERIFIED BY REPEAT ANALYSIS 8 RESULTS VERIFIED BY REPEAT ANALYSIS 9 RESULTS VERIFIED BY REPEAT ANALYSIS 10 Interpretation: Borderline (0.1-0.3) REFERENCE VALUE <0.1 (Negative) Test Performed by: [facility] [place] [address] 11 3 Gold Top SSTs [id number] 12 REFERENCE VALUE Not present Test Performed by: [facility] - [facility] [address] [place] [address] 13 RESULT: Results suggest past infection. ADDITIONAL [...] primary infection with EBV. Test Performed by: [facility] [place] [address] 14 RESULTS VERIFIED BY REPEAT ANALYSIS 15 Interpretation: Borderline (0.1-0.3) REFERENCE VALUE <0.1 (Negative) Test Performed by: [facility] [place] [address] 16 3 Gold Top SSTs [id number] 17 REFERENCE VALUE Not present Test Performed by: [facility] - [place] [id number] 18 RESULT: Results suggest past infection. ADDITIONAL [...] primary infection with EBV. Test Performed by: [facility] [place] [address] 19 Interpretation: Borderline (0.1-0.3) REFERENCE VALUE <0.1 (Negative) Test Performed by: [facility] [place] [address] 20 3 Gold Top SSTs [id number] 21 REFERENCE VALUE Not present Test Performed by: [facility] - [facility] [address] [place] [address] 22 RESULT: Results suggest past infection. ADDITIONAL [...] primary infection with EBV. Test Performed by: [facility] - [facility] [place] [address] 23 REFERENCE VALUE Not present Test Performed by: [facility] - [facility] [address] [place] [address] 24 RESULT: Results suggest past infection. ADDITIONAL [...] primary infection with EBV. Test Performed by: [facility] [address] [place] [address] 25 RESULT: Results suggest past infection. ADDITIONAL [...] primary infection with EBV. Test Performed by: [facility] - [facility] [address] [place] [address] 26 Interpretation: Borderline (0.1-0.3) REFERENCE VALUE <0.1 (Negative) Test Performed by: [facility] - [place] [address] [place] [address] 27 Because ethnic data is not always [...] immediately to secondary confirmatory testing. Using the [employer] DxI 800 Access Immunoassay systems, the 99th percentile upper reference limit was demonstrated to be < 0.03 ng/mL. Procedures Description No Information Available Medical Devices Description No Information Available Encounters Type Date Location Provider Dx Diagnosis Office Visit 01/08/2019 [facility] Lacey Cross R74.0 Nonspec elev of 8:45a [facility] Swanstrom, PA-C levels of transamns & lactic acid dehydrgnse Assessments Date Code Description Provider 01/08/2019 R74.0 Nonspecific elevation of levels of Laceytommy Cross Swyaatrom, PA -C transaminase and lactic acid dehydrogenase [LDH] Plan of Treatment No Information Available Functional Status Description No Information Available Mental Status Description No Information Available Referrals Description No Information Available
--- OUTSIDE RECORDS SUMMARY | 2019-04-02 18:25 | XMS REPORT | Continuity of Care Document ---
:1975 External Reference #:[id number] Author Name Krishna Bear M.D. (transmitted by agent of provider Gilda Cope) Address [address] [facility], [place] [address] Care Team Providers Name Role Phone Jun Maher MD - Family Care Team Information Acetylene Torch Solderer [phone] Medicine Eran Carmona MD - Ophthalmology Care Team Information Acetylene Torch Solderer Romain Vivar MD - Interventional Care Team Information Acetylene Torch Solderer Pain Medicine Problems Active Problems Provider Date Migraine without aura Aruna De La Rosa M.D. 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 Onset: 02/10/2019 Social History Type Date Description Comments Sex Unknown Tobacco Use Start: Unknown End: Former Cigarette Smoker Unknown Smoking Status Reviewed: 02/10/19 Former Cigarette Smoker ETOH Use Rarely consumes [...] 20mg Capsules By Mouth Every N.P. DR Luisa Sanford 100gm via iv Jose Antonio Howard, 01/06/2019 10GM/100ML over two days N.P. Solution every 3 weeks first infusion 3 weeks after last 40gm infusion times 3 Prednisone take 6 pills a 180tabs G61.81 Jose Antonio [place], 10/23/2018 10mg Tablets day N.P. Calcium 600 + D 1 tablet daily 30tabs G61.81 Jose Antonio [place], 09/23/2018 N.P. [id number] Tablets Vitamin Deficiency inject 1000 mcg 3units [...] (OTC) Tablets Butalbital/Acetaminoph take 1 every 8 [facility], en/Caffeine hours for M.D. 50-300-40mg migraine Capsules headaches, History Medications Privigen 100gm via iv 400ml Jose Antonio Howard, 12/30/2018 - 40GM/400ML over two days N.P. 01/06/2019 Solution every 3 weeks first infusion 3 weeks after last 40gm infusion times 3 Prednisone 3 tablets by 120tabs G61.[address] [facility], 09/23/2018 - 20mg mouth daily N.P. 10/23/2018 Tablets Omeprazole Take 1 Capsule 30caps G61.[address] [facility], 09/23/2018 - 20mg By Mouth Every N.P. 01/27/[address] Day Medications Administered in Office Medication SIG Qnty Indications Ordering Provider Date Depomedrol 80MG Arnold Anderson M.D. 07/12/2011 Injection Immunizations Description No Information Available Vital Signs Date Vital Result Comment 02/10/2019 12:02pm Height 71 inches 5'11" Weight 290.00 lb Heart Rate 105 /min BP Systolic 122 mmHg BP Diastolic 92 mmHg BMI (Body Mass Index) 40.4 kg/m2 01/02/2019 2:36pm Height 71 inches 5'11" Weight 285.00 lb Heart Rate 107 /min BP Systolic 128 mmHg BP Diastolic 86 mmHg BMI (Body Mass Index) 39.7 kg/m2 Results Test Date Facility Test Result H/L Range Note CBC Auto Diff 12/31/2018 [facility] White Blood 11.2 10^3/uL High 3.5-10.[address] [place] [address] [phone] Red Blood Count 4.30 10^6/uL Normal 4.18-5.48 [...] Blood Cells % 0.0 Comp Metabolic 12/31/2018 [facility] Sodium 139 mmol/L Normal 135-[address] [place] [address] [phone] Potassium 4.2 mmol/L Normal 3.5-5.0 Chloride 106 [...] Egfr 84.4 >60 1 Laboratory test 09/17/2018 [facility] CSF Protein 99 mg/dL High 15-[address] [place] [address] [phone] CSF Glucose 65 mg/dL Normal 40-70 CSF Cell Count 09/17/2018 [facility] Body Fluid Cerebral Spinal [address] [place] [address] [phone] Body Fluid Appearance Clear Body Fluid Color Colorless CSF Tube # 4 Body Fluid Volume 1.5 mL Body Fluid WBC 0 /mcL Body Fluid RBC 2 /mcL Body Fluid Neutrophils 1 % Body Fluid Lymph 85 % Body Fluid Glades 14 % Body Fluid Other Cells 2 Body Fluid Total Cells Counted 100 Body Fluid Comment SEE COMMENTS 2 Fluid Reviewed By MD (SEE NOTE) 3 Laboratory test 09/17/2018 [facility] Miscellaneous Test C [address] [place] [address] [phone] Vitamin B12 And 08/23/2018 [facility] Vitamin B12 283 Normal 180-9 [address] pg/mL 14 [place] [address] [phone] Folic Acid (Folate) 10.14 ng/mL >3.99 Laboratory test 08/23/2018 [facility] Hemoglobin A1c 5.5 % Normal 4.0-5.[address] (Glyco HGB) [place] [address] [phone] Lyme Screen W/ Reflex To WB Negative Negative Protein 08/23/2018 [facility] Total 6.9 g/dL 6.3 - Electrophoresis [address] Protein(Pep) 7.9 [place] [address] [phone] Albumin 3.6 g/dL 3.4-4.7 Alpha-1 Globulin 0.1 g/dL 0.1-0.3 Alpha-2 Globulin 0.9 g/dL 0.6-1.0 Beta Globulin 1.1 g/dL 0.7-1.2 Gamma Globulin 1.2 g/dL 0.6-1.6 Albumin/Globulin Ratio 1.09 Impression See Comment 7 Laboratory test 08/23/2018 [facility] Cyclic Citrullinated < 15.6 U [address] [place] [place] [address] [phone] Nuclear AB (Luisa) By Ifa Igg <1:80 (Negative) 9 Ssa/SSB Abs Igg 08/23/2018 [facility] SS-A/Ro Antibody <0.2 U [address] [place] [address] [phone] SS-B/La Antibody <0.2 U 11 Neutrophil Cytoplasmic 08/23/2018 [facility] C-Anca Negative Negative AB [address] [place] [address] [phone] P-Anca Negative Negative 12 Ganglioside 08/23/2018 [facility] Monosialo GM1 <1:250 <=1: 500 Antibody Panel [address] [employer] [address] [phone] Monosialo GM1 IgM Antibody <1:250 <=1:1000 Asialo GM1 IgG Antibody <1:250 <=1:4000 Asialo GM1 IgM Antibody <1:250 <=1:4000 Disialo GD1b IgG Antibody <1:250 <=1:1000 Disialo GD1b IgM Antibody <1:250 <=1:1000 13 1 Because ethnic data is not always [...] integrated into the clinical context for interpretation. Frxos-9-Iwaerxjy 0.0 g/dL Not Estab. Lnusw-1-Drdpgwbs 0.0 g/dL Not Estab. Beta Globulin 0.0 g/dL Not Estab. Gamma Globulin 0.0 g/dL Please note: Protein electrophoresis scan will follow via computer, mail, or truer pinion and wheel delivery. Test Report Date: 09/19/2018; 09/21/2018 [facility] [address] [address] Dir: Carley De La Paz MD 5 Normal Range 180 to 914 Indeterminate Range 145 to 180 Deficient Range <145 6 Therapeutic target for the treatment of diabetes mellitus patients is <7% HBA1C, and in selective patients <6.0%. Please refer to [place] [employer] diabetic care guidelines for further information. 7 RESULT: No apparent monoclonal protein on serum electrophoresis. Test Performed by: [facility] [employer] [place] [address] 8 REFERENCE VALUE <20.0 (Negative) Test Performed by: [facility] [place] [address] 9 <1:80 (Negative) REFERENCE VALUE <1:80 (Negative) Test Performed by: [facility] [employer] - [address] [address] REFERENCE VALUE <1.0 (Negative) 11 REFERENCE VALUE <1.0 (Negative) Test Performed by: [facility] - [address] [address] 12 Negative for cANCA and pANCA patterns by immunofluorescence. ADDITIONAL INFORMATION This test was developed and its performance characteristics determined by [facility] in a manner consistent with CLIA requirements. This test has not been cleared or approved by the U.S. Food and Drug Administration. Test Performed by: [facility] [employer] - [address] [address] 13 ADDITIONAL INFORMATION This test was developed and its performance characteristics determined by [facility] in a manner consistent with CLIA requirements. This test has not been cleared or approved by the U.S. Food and Drug Administration. Test Performed by: [facility] - [address] [address] Procedures Date Code Description Status 08/23/2018 96810 Nerve Conduction -08 Studies Completed 08/23/2018 79709 Needle Electromyography Each Extremity W/Related Completed Paraspinal Areas 12/19/2016 [id number] Diabetic Retinal Eye Exam Completed Medical Devices Description No Information Available Encounters Type Date Location Provider Dx Diagnosis Office Visit 02/10/2019 [facility] Krishna Bear G61.81 Chronic 12:00p [facility] Desiree inflammatory demyelinating polyneuritis G43.009 Migraine w/o aura, not intractable, w/o status migrainosus R73.9 Hyperglycemia, unspecified Office Visit 01/02/2019 [facility] Jose Antonio G61.81 Chronic 2:30p Neurologic Howard, N.P. inflammatory [facility] demyelinating polyneuritis G43.009 Migraine w/o aura, not intractable, w/o status migrainosus R73.9 Hyperglycemia, unspecified Office Visit 12/09/2018 [facility] Krishna G61.81 Chronic 12:15p Neurologic Desiree Bear inflammatory [facility] demyelinating polyneuritis Office Visit 11/11/2018 [facility] Jose Antonio Howard G61.0 Guillain-Colville 1:00p Neurologic N.P. syndrome 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 syndrome 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 inflammatory demyelinating polyneuritis Office 10/05/2018 [facility] Krishna G61.81 Chronic Visit 7:00a Africa Bear M.D. 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 R74.0 Nonspec elev of levels of transamns & lactic acid dehydrgnse J45.909 Unspecified asthma, uncomplicated I10 Essential (primary) hypertension [facility] G61.81 Chronic 9:23a heide Marsh MD inflammatory Hospitalists demyelinating polyneuritis 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 R74.0 Nonspec elev of levels of transamns & lactic acid dehydrgnse J45.909 Unspecified asthma, uncomplicated I10 Essential (primary) hypertension Office 10/04/2018 [facility] Kirt G61.81 Chronic Visit 7:00a Clinic MD Sher inflammatory demyelinating polyneuritis Office 10/03/2018 [facility] Kirt G61.81 Chronic Visit 7:00a Clinic MD Sher inflammatory demyelinating polyneuritis Office 10/03/2018 [facility] Karley G61.81 Chronic Visit 9:23a Assoc, Hospitalists ANTONIA Russo inflammatory demyelinating polyneuritis 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 R74.0 Nonspec elev of levels of transamns & lactic acid dehydrgnse J45.909 Unspecified asthma, uncomplicated I10 Essential (primary) hypertension Office 10/02/2018 [facility] Kirt G61.81 Chronic Visit 7:00a Clinic MD Sher inflammatory demyelinating polyneuritis Office 10/02/2018 [facility] Karley R53.1 Weakness Visit 9:22a [facility], Hospitalists ANTONIA Russo G62.9 Polyneuropathy, unspecified I10 Essential (primary) hypertension R00.0 Tachycardia, unspecified J45.909 Unspecified asthma, uncomplicated R74.8 Abnormal levels of other serum enzymes Office Visit 09/23/2018 Estuardo Brady G61.81 Chronic 3:30p Neurologic Howard, N.P. inflammatory 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 11/11/2018 G43.009 Migraine without aura, not Jose Antonio Howard, N.P. 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 10/08/2018 G43.009 Migraine without aura, not Jose Antonio Howard, N.P. 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 Irineo Knight MD 10/05/2018 R74.0 Nonspec elev of levels of transs & Irineo Knight MD lactic acid dehydrgnse 10/05/2018 J45.909 Unspecified asthma, uncomplicated Irineo Knight MD 10/05/2018 I10 Essential (primary) hypertension Irineo Knight MD 10/04/2018 G61.81 Chronic inflammatory demyelinating Kirt Olivarez MD polyneuritis 10/04/2018 G61.81 Chronic inflammatory demyelinating Irineo Knight MD polyneuritis 10/04/2018 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909 Unspecified asthma, uncomplicated Karley O'jone, PA-C 10/03/2018 I10 Essential (primary) hypertension Karley O'jone, PA-C 10/02/2018 G61.81 Chronic inflammatory demyelinating Kirt Olivarez MD polyneuritis 10/02/2018 R53.1 Weakness Karley O'jone, PA-C 10/02/2018 G62.9 Polyneuropathy, unspecified Karley O'jone, PA-C 10/02/2018 I10 Essential (primary) hypertension Karley O'jone, PA-C 10/02/2018 R00.0 Tachycardia, unspecified Karley O'jone, PA-C 10/02/2018 J45.909 Unspecified asthma, uncomplicated Karley O'jone, PA-C 10/02/2018 R74.8 Abnormal levels of other serum enzymes Karley Sanders'jone, PA- C 09/23/2018 G61.81 Chronic inflammatory demyelinating Jose Antonio Howard, N.P. polyneuritis 09/23/2018 G43.009 Migraine without aura, not Jose Antonio Howard, N.P. 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 polyneuritis Plan of Treatment Future Appointment(s):03/13/2019 10:30 am - Jose Antonio Howard N.P. at [facility]02/10/2019 - Krishna Bear M.D.G61.81 Chronic inflammatory demyelinating polyneuritisFollow up:Follow up in 1 month with ReganG43.009 Migraine without aura, not intractable, without status orukaX90.9 Hyperglycemia, unspecified Functional Status Description No Information Available Mental Status Description No Information Available Referrals Refer to Dr Reason for Referral Status Appt [facility] Neuromuscular Dept [facility] [address] [place] [address] [phone] Romain Vivar MD Referral [place] [address] [phone] Romain Vivar [place] [address] [phone] Romain Vivar MD Referral [place] [address] [phone]
--- OUTSIDE RECORDS SUMMARY | 2019-04-02 18:25 | XMS REPORT | Continuity of Care Document ---
:1975 External Reference #:[id number] Author Name AI Galarza (transmitted by agent of provider Jun Maher M.D.) Address [address] [place] [address] Care Team Providers Name Role Phone Arnold Anderson MD - Orthopaedic Care Team Information [facility] Surgery Sherif Bojorquez And Pamella - Care Team Information Precision Filer Hand [phone] Physical Therapist [facility] Utilization Naturopathic Physician Care Team Information Precision Filer Hand - Health Educator Eran Drake ([place] - Direct) Care Team Information Prec[facility] Filer Hand - Otolaryngology Jun Maher MD - Family Medicine Care Team Information Precision Filer Hand [phone] Leonel Bryan - Sports Medicine Care Team Information [facility] Hand Doc Allergy & Asthma - Allergy & Care Team Information [facility] Hand Immunology Martin Urban MD - Infectious Care Team Information [facility] Hand Disease Problems Active Problems Provider Date Hyperlipidemia [...] Provider Freestyle Lite Blood check blood 1units Jun Chandana 01/13/2019 Glucose Monitoring sherwin Maher M.D. System times daily - Device dx e78.1 last seen 01/07/19 Freestyle Lite Test test blood 100units [facility]. 01/13/2019 Strips sugars leodan Maher M.D. times daily e78.1 last seen 01/07/19 Freestyle [facility]2019 Misc sugar leodan Maher M.D. times a day dx: e78.1 - last seen 01/07/19 Levocetirizine 1 po qd 30tabs Zoie Hannon, 12/11/2013 Dihydrochloride HISTOLOGIST 5mg Tablets Vitamin B2 400MG 1 po qd Unknown Calcium + D 1 tab daily Unknown Omeprazole 1 by mouth Unknown 20mg Capsules DR every day Metoprolol Tartrate take one tablet 60tabs Jun AChandana 25mg by mouth twice Desiree Maher Tablets [...] E78.1 Jun Yoder 01/07/2019 - Self-Monitoring dispense lancetsNika M.D. 01/13/2019 Blood Glucose System strips, and alcohol [...] 10/09/2018 Note For Work Please excuse from [employer] Jun Yoder 08/12/2018 - work due to Desiree [...] CPT Code Status Date Vaccine Lot # [id number] Given 02/12/2018 Tetanus And Diptheria Adult Preservative Free [id number] >7Yrs 29531 Given 12/26/2006 Tdap Tetanus, W Pertussis [id number] Vital Signs Date Vital Result Comment 02/10/2019 [...] Date Facility Test Result H/L Range Note Xray Convenient Care Ultrasound SEE ATTACHED 9 [facility] Extremity [phone] W/Doppler LT Platelet [facility] Platelet Count 265 10^3/uL Normal 150-450 Count 9 Mean Platelet Volume 9.2 fL Normal 7.4-10.4 Inr/Protime 02/07/2019 [facility] Inr 0.91 Normal 0.82-1.09 1 Laboratory test 02/07/2019 [facility] Partial 25.9 seconds Low 26.0-38.0 finding Thrombo Time PTT Qgxwy-4-Ugaacqujd 01/23/2019 [facility] Oifjm-5-Yswgf 68 mg/dL Low 90-[address] [facility] [place] [address] (607)- - Phenotype (PI) MZ 3 Laboratory test 01/07/2019 [facility] Hemoglobin A1c 6.0% % High 4.1 -5.7 finding (607)- - (Fma) Laboratory test 12/18/2018 [facility] ([facility] Lab Test SEE ATTACHED finding Laboratory test 12/17/2018 [facility] Quickstrep negative Negative finding (607)- - Laboratory test 12/16/2018 [facility] ([facility]) [facility] Lab Test SEE ATTACHED finding Hepatic 10/09/2018 [...] 22-340 GGTP 230 U/L High 9-50 6 Laboratory test finding 10/09/2018 [facility] Mitochondrial AB AMA M2 0.3 U Abnormal 7, 8 Igg Transferrin 252 mg/dL Normal 203-362 9 Alkaline Phos Isoenzymes 10/09/2018 [facility] Alkaline Phosphatase 113 U/L 40 - 129 Alp Liver 1% 71.6 % 27.8-76.3 Alp Liver 1 80.9 IU/L Abnormal 16.2-70.2 Alp Liver 2% 11.1 % Abnormal 0.0-8.0 Alp Liver 2 12.5 IU/L Abnormal 0.0-5.8 Alp Bone % 16.0 % Abnormal 19.1-67.7 Alp Bone 18.1 IU/L 12.1-42.7 Alp Intestine % 1.3 % 0.0-20.6 Alp Intestine 1.5 IU/L 0.0-11.0 Alp Placental NotPresent 10 Petros Gomez Comprehensive 10/09/2018 [facility] Ebv Capsid Ag IgG Ab Positive Negative Ebv Capsid Ag IgM Ab Negative Negative Petros-Gomez Nuclear Antigen Positive Negative Petros-Gomez Virus Interp See Comment 11 CMV Igg/Igm 10/09/2018 [facility] Cytomegalovirus IgG Positive Abnormal Negative 12 Antibody Cytomegalovirus IgM Antibody Negative Negative Hepatitis Acute Panel 10/02/2018 [facility] Hepatitis B Surface Nonreactive Nonreactive Antigen Hepatitis B Core IgM Nonreactive Nonreactive Hepatitis A AB IgM Nonreactive Nonreactive HCV Index < 0.0 Index Hepatitis C Antibody Nonreactive Nonreactive CBC Auto Diff 10/02/2018 [facility] White Blood Count 10.7 10^3/uL Normal 3.5- [...] 10^3/uL Nucleated Red Blood Cells % 0.1 Manual Differential 10/02/2018 [facility] Immature Granulocytes 2.0 % Normal 0- 9 Neutrophil % 84.0 % Lymphocytes % 12.0 % Monocytes % 2.0 % Metamyelocytes % 1.0 % Normal 0-2 Myelocytes % 1.0 % Normal 0-1 RBC Morphology Normal Normal Comp Metabolic Panel 10/02/2018 [facility] Sodium 135 mmol/L Normal 135-145 Potassium 4.3 [...] Egfr Non- 78.3 >60 Egfr 94.8 >60 13 Laboratory test finding 10/02/2018 [facility] Magnesium 2.1 mg/dL Normal 1.9- 2.7 Troponin I 0.00 ng/mL <0.04 14 Laboratory test finding 09/17/2018 [facility] Miscellaneous Test C 15 CSF Cell Count 09/17/2018 [facility] Body Fluid Source Cerebral Spinal Body Fluid Appearance Clear Body Fluid Color Colorless CSF Tube # 4 Body Fluid Volume 1.5 mL Body Fluid WBC 0 /mcL Body Fluid RBC 2 /mcL Body Fluid Neutrophils 1 % Body Fluid Lymph 85 % Body Fluid [place] 14 % Body Fluid Other Cells 2 Body Fluid Total Cells Counted 100 Body Fluid Comment SEE COMMENTS 16 Fluid Reviewed By (SEE NOTE) 17 Laboratory test finding 09/17/2018 [facility] CSF Protein 99 mg/dL High 15-45 CSF Glucose 65 mg/dL Normal 40-70 CBC Auto Diff 09/02/2018 [facility] White Blood Count 6.3 10^3/uL Normal 3.5- [...] Cells % 0 Comp Metabolic Panel 09/02/2018 [facility] Sodium 138 mmol/L Normal 135-145 Potassium 4.1 [...] Egfr 102.7 >60 18 Laboratory test 09/02/2018 [facility] LDH 150 U/L Normal 140-271 finding Laboratory test 08/23/2018 [facility] Hemoglobin A1c (Glyco 5.5 % Normal 4.0- 5.6 19 finding HGB) Folic Acid (Folate) 10.14 ng/mL >3.99 Vitamin B12 283 pg/mL Normal 180-914 20 Lyme Screen W/ Reflex To WB Negative Negative Anca AB Ser If 08/23/2018 [facility] C-Anca Negative Negative P-Anca Negative Negative 21 Laboratory test finding 08/23/2018 [facility] Nuclear AB (Luisa) By <1:80 (Negative ) 22 Ifa Igg Cyclic Citrullinated Pep Igg <15.6 U 23 Ssa/SSB Abs Igg 08/23/2018 [facility] SS-A/Ro Antibody <0.2 U 24 SS-B/La Antibody <0.2 U 25 Protein Electrophoresis 08/23/2018 [facility] Total Protein(Pep) 6.9 g/dL 6.3 - 7.9 Albumin 3.6 g/dL 3.4-4.7 Alpha-1 Globulin 0.1 g/dL 0.1-0.3 Alpha-2 Globulin 0.9 g/dL 0.6-1.0 Beta Globulin 1.1 g/dL 0.7-1.2 Gamma Globulin 1.2 g/dL 0.6-1.6 Albumin/Globulin Ratio 1.09 Impression See Comment 26 Ganglioside Antibody Panel 08/23/2018 [facility] Monosialo GM1 IgG <1:250 <=1: 500 Antibody Monosialo GM1 IgM Antibody <1:250 <=1:1000 Asialo GM1 IgG Antibody <1:250 <=1:4000 Asialo GM1 IgM Antibody <1:250 <=1:4000 Disialo GD1b IgG Antibody <1:250 <=1:1000 Disialo GD1b IgM Antibody <1:250 <=1:1000 27 Influenza A&B-fma 08/12/2018 [facility] Influenza A positive (607)- - [...] REPEAT ANALYSIS 7 3 Gold Top SSTs [id number] Interpretation: Borderline (0.1-0.3) REFERENCE VALUE <0.1 (Negative) Test Performed by: [facility] [address] [place] [address] 9 3 Gold Top SSTs [id number] REFERENCE VALUE Not present Test Performed by: [facility] - [facility] [address] [place] [address] 11 RESULT: Results suggest past infection. ADDITIONAL [...] primary infection with EBV. Test Performed by: [facility] [place] [address] 12 Test Performed by: [place] [address] 13 Because ethnic data is not always readily [...] 15-29 5 Kidney failure <15 (or dialysis) 14 Troponin-I testing on Plasma Separator Tubes (PST) has a known false positive rate of 0.20-0.40%. All positive troponins reflex immediately to secondary confirmatory testing. Using the [employer] DxI 800 Access Immunoassay systems, the 99th percentile upper reference limit was demonstrated to be < 0.03 ng/mL. 15 Protein Electro, Body Fluid Protein, Total 0.2 [...] integrated into the clinical context for interpretation. Blsnw-9-Psvrvnhu 0.0 g/dL Not Estab. Cgbon-3-Wpgnanyv 0.0 g/dL Not Estab. Beta Globulin 0.0 g/dL Not Estab. Gamma Globulin 0.0 g/dL Please note: Protein electrophoresis scan will follow via computer, mail, or stereo map plotter operator delivery. Test Report Date: 09/19/2018; 09/21/2018 RN [facility] [address] [address] Dir: Carley De La Paz MD 16 DIFF DONE ON CONCENTRATED SMEAR 17 No evidence of an acute inflammatory response. No evidence of malignancy. Reviewed by Colette Vital MD 18 Because ethnic data is not [...] in selective patients <6.0%. Please refer to [employer] diabetic care guidelines for further information. 20 Normal Range 180 to 914 Indeterminate Range 145 to 180 Deficient Range <145 21 Negative for cANCA and pANCA patterns by immunofluorescence. ADDITIONAL INFORMATION This test was developed and its performance characteristics determined by [facility] in a manner consistent with CLIA requirements. This test has not been cleared or approved by the U.S. Food and Drug Administration. Test Performed by: [facility] [place] [address] 22 <1:80 (Negative) REFERENCE VALUE <1:80 (Negative) Test Performed by: [facility] [place] [address] 23 REFERENCE VALUE <20.0 (Negative) Test Performed by: [facility] [place] [address] 24 REFERENCE VALUE <1.0 (Negative) 25 REFERENCE VALUE <1.0 (Negative) Test Performed by: [place] [address] 26 RESULT: No apparent monoclonal protein on serum electrophoresis. Test Performed by: [facility] [place] [address] 27 ADDITIONAL INFORMATION This test was developed and its performance characteristics determined by [facility] in a manner consistent with CLIA requirements. This test has not been cleared or approved by the U.S. Food and Drug Administration. Test Performed by: [address] [address] Procedures Date Code Description Status 01/07/2019 95772 Finger Or Heel Stick Completed 09/20/2018 51690 Injection Subcutaneous Or Intramuscular Completed 09/13/2018 70996 Injection Subcutaneous Or Intramuscular Completed 08/30/2018 50561 Injection Subcutaneous Or Intramuscular Completed 08/23/2018 37077 Injection Subcutaneous Or Intramuscular Completed 08/12/2018 02749 Pulse Oximetry Completed Medical Devices Description No Information Available Encounters Type Date Location Provider Dx Diagnosis Office Visit 01/07/2019 [facility] Office Betzy Tucker E78.1 Pure hyperglyceridemia 9:00a AI Linares Office Visit 12/17/2018 Main Office Tere Flannery J02.9 Acute pharyngitis, 11:30a STEPHEN Pope unspecified Office Visit 10/24/2018 Main Office Jun Yoder S45.991A Inj unsp blood vessel 3:00p Desiree Maher at shldr/up arm, right arm, init Office Visit 10/16/2018 [facility] Office Jun Yoder S45.991A Inj unsp blood vessel 11:40a Desiree Maher at shldr/up arm, right arm, init Office Visit 10/09/2018 [facility] Office Jun Yoder 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 01/07/2019 E78.1 Pure hyperglyceridemia AI Galarza 12/17/2018 J02.9 Acute pharyngitis, unspecified Tere Pope, MATERIAL DAMAGE APPRAISER 10/24/2018 S45.991A Other specified injury of unspecified blood Jun Maher M.D. vessel at should 10/16/2018 S45.991A Other specified injury of unspecified blood Jun Maher M.D. 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 10/09/2018 I10 Essential [...] Appointment(s):04/14/2019 9:30 am - AI Galarza at [facility]02/10/2019 - Betzy Linares, PAE78.1 Pure hyperglyceridemiaComments: [...] Moore PA-C Abnormal LFT's jw Scheduled 01/08/[address] [place], [place] [id number] [phone]
--- OUTSIDE RECORDS SUMMARY | 2019-04-02 18:25 | XMS REPORT | Continuity of Care Document ---
:1975 External Reference #:[id number] Author Name Lacey Moore PA-C Address [address] [place] [address] Care Team Providers Name Role Phone Jun Maher MD - Family Medicine Care Team Information Tin Pot Operator [phone] Problems Active Problems Provider Date Elevated levels [...] po qd 30tabs Zoie Hannon, 12/11/2013 Dihydrochloride TOE LASTER 5mg Tablets Dymista Unknown 137-50mcg/Act Suspension Vitamin [...] B-2 4 tab daily Unknown 100mg Tablets Moapa 3 Unknown Calcium 600+D 1 by mouth once Unknown a day [id number]-Mhdx Tablets Pseudoephedrine HCL tid prn Unknown Immunizations Description No Information Available Vital Signs Date Vital Result Comment 01/08/2019 8:50am Height 71 inches 5'11" Weight 298.00 lb BP Systolic 154 mmHg BP Diastolic 86 mmHg Heart Rate 84 /min BMI (Body Mass Index) 41.6 kg/m2 Results Test Date Facility Test Result H/L Range Note Laboratory test 02/07/2019 [facility] Surgical SEE RESULT 1 finding Pathology Order BELOW Platelet Count 02/07/2019 [facility] Platelet Count 265 10^3/uL Normal 150-450 Mean Platelet Volume 9.2 fL Normal 7.4-10.4 Inr/Protime 02/07/2019 [facility] Inr 0.91 Normal 0.82-1.09 2 Laboratory test 02/07/2019 [facility] Partial Thrombo 25.9 seconds Low 26.0- 38.0 finding Time PTT Liver Function Panel 01/08/2019 [facility] Albumin 4.1 g/dL Normal 3.2-5.2 Total Bilirubin 0.40 mg/dL Normal 0.2-1.0 Direct Bilirubin 0.10 mg/dL Normal 0.03-0.18 Indirect Bilirubin 0.3 mg/dL Normal 0.3-1.0 Total Protein 6.9 g/dL Normal 6.4-8.9 Globulin 2.8 g/dL Normal 2-4 Albumin/Globulin Ratio 1.5 Normal 1-3 Alkaline Phosphatase 90 U/L Normal 34-104 Alt 161 U/L High 7-52 Ast 45 U/L High 13-39 Laboratory test 01/08/2019 [facility] Alpha 1 Antitrypsin 76 mg/dL Abnormal 100 [...] C Antibody Nonreactive Xray 09/05/2018 [facility] Radiology US, Abdomen, Complete (09198) <pending> 1 SEE RESULT BELOW Name: IMMANUEL,JOHN : [address]: Lacey CLOUD Acct: [id number] Unit: [id number] AGE: 43 Location: Re02/07/19 SEX: M Status: REG REF SPEC: [id number] MAXIMINO: 02/07/[address]: Lacey CLOUD REQ: [id number] RECD: 02/07/19-134 STATUS: ALBINA HERNANDEZ DR: Nena Newell MD _ ORDERED: LEVEL 5, SPEC [facility] FINAL DIAGNOSIS Liver, core biopsy: -- Limited [...] repeat biopsy with acquisition of a more utility sales representative sample may be considered as warranted. CLINICAL HISTORY Elevated alkaline phosphatase and transaminases, borderline anti- mitochondrial antibody, obesity PRE-OPERATIVE DIAGNOSIS R74.0, R74.8 CONTINUED ON NEXT PAGE DEPARTMENT OF PATHOLOGY, [address] [place], [place] [address] Olegario Eagle M.D. Director [facility] # [id number] GROSS DESCRIPTION The specimen is received in formalin labeled, Liver Core Biopsy, and consists of a 0.8 x 0.1 cm tapia-red soft tissue core admixed with scant tapia-orange soft tissue fragments. Entirely submitted, one cassette. Signed by and Reported on: Olegario Eagle MD 1007 END OF REPORT DEPARTMENT OF PATHOLOGY, [address] [place] [address] Olegario Eagle M.D. Director [facility] # [id number] 2 Standard intensity warfarin therapeutic range: 2.0-3.0 High intensity warfarin therapeutic range: 2.5-3.5 3 Test Performed by: [employer] [facility] [employer] - [facility] [address] [place] [address] 4 REFERENCE VALUE 19.0 - 31.0 Test Performed by: [facility] [address] [place] [address] 5 ADDITIONAL INFORMATION This test was developed and its performance characteristics determined by [facility] in a manner consistent with CLIA requirements. This test has not been cleared or approved by the U.S. Food and Drug Administration. Test Performed by: [facility] - [address] [address] 6 REFERENCE VALUE <=20.0 (Negative) Test Performed by: [facility] [place] [address] 7 Test Performed by: [facility] [place] [address] 8 3 [facility] [id number] 9 Interpretation: Borderline (0.1-0.3) REFERENCE VALUE <0.1 (Negative) Test Performed by: [facility] [place] [address] 10 RESULT: Results suggest past infection. ADDITIONAL [...] primary infection with EBV. Test Performed by: [facility] [place] [address] 11 REFERENCE VALUE Not present Test Performed by: [facility] [address] [place] [address] 12 RESULT: Results suggest past infection. ADDITIONAL [...] primary infection with EBV. Test Performed by: [facility] [place] [address] 13 Interpretation: Borderline (0.1-0.3) REFERENCE VALUE <0.1 (Negative) Test Performed by: [facility] [place] [address] 14 3 Gold Top SSTs [id number] 15 REFERENCE VALUE Not present Test Performed by: [facility] [address] [place] [address] 16 RESULT: Results suggest past infection. ADDITIONAL [...] Performed by: [facility] [employer] - [facility] [address] [place] [address] 17 RESULTS VERIFIED BY REPEAT ANALYSIS 18 Interpretation: Borderline (0.1-0.3) REFERENCE VALUE <0.1 (Negative) Test Performed by: [place] [address] 19 3 Gold Top SSTs [id number] 20 REFERENCE VALUE Not present Test Performed by: [facility] - [address] [address] 21 RESULT: Results suggest past infection. ADDITIONAL [...] primary infection with EBV. Test Performed by: [facility] [address] [place] [address] 22 RESULTS VERIFIED BY REPEAT ANALYSIS 23 RESULTS VERIFIED BY REPEAT ANALYSIS 24 RESULTS VERIFIED BY REPEAT ANALYSIS 25 Interpretation: Borderline (0.1-0.3) REFERENCE VALUE <0.1 (Negative) Test Performed by: [facility] [address] [place] [address] 26 3 [facility] SSTs [id number] 27 REFERENCE VALUE Not present Test Performed by: [facility] [address] [place] [address] 28 RESULT: Results suggest past infection. ADDITIONAL [...] primary infection with EBV. Test Performed by: [facility] [address] [place] [address] 29 Because ethnic data is not always [...] immediately to secondary confirmatory testing. Using the [employer] DxI 800 Access Immunoassay systems, the 99th percentile upper reference limit was demonstrated to be < 0.03 ng/mL. Procedures Description No Information Available Medical Devices Description No Information Available Encounters Type Date Location Provider Dx Diagnosis Office Visit 01/08/2019 Gastroenterology Lacey Cross R74.0 Nonspec elev of 8:45a [facility] Brandontrom, PA-C levels of transamns & lactic acid dehydrgnse Assessments Date Code Description Provider 01/08/2019 R74.0 Nonspecific elevation of levels of Lacey Moore PA -C transaminase and lactic acid dehydrogenase [LDH] Plan of Treatment No Information Available Functional Status Description No Information Available Mental Status Description No Information Available Referrals Description No Information Available
[2019-04-02 18:32] VITALS: BP 144/100
== END 2019-04-02 18:55 | disposition home or self-care (01) ==
LOC: UCEAST 18:19
DX: S61.216A Laceration without foreign body of right little finger without damage to nail, initial encounter (principal); I10 Essential (primary) hypertension; J44.9 Chronic obstructive pulmonary disease, unspecified; Z88.5 Allergy status to narcotic agent; Z88.8 Allergy status to other drugs, medicaments and biological substances; Z79.82 Long term (current) use of aspirin; Z87.891 Personal history of nicotine dependence; X58.XXXA Exposure to other specified factors, initial encounter; Y92.9 Unspecified place or not applicable
CPT/HCPCS: 12001; 99212; G0463

== ENCOUNTER 2019-04-07 10:22 | Emergency (ER) | payer OTHER ==
--- NOTE | 2019-04-07 10:52 | ED ---
Lower Extremity - HPI Summary HPI Summary: Pt is a 43 y/o M presenting to the ED with R calf pain initially onset about 4 days ago. He thought he twisted his calf in the night, but was sent here by his physician to ensure theres no DVT. He reports some mild pain. Pt denies edema or erythema. - History of Current Complaint Chief Complaint: EDExtremityLower Stated Complaint: PAIN IN RT CALF PER PT Time Seen by Provider: 04/07/19 10:29 Hx Obtained From: Patient Mechanism Of Injury: Unknown Onset of Pain: Days Onset/Duration: Still Present Severity Initially: Mild Severity Currently: Moderate Pain Intensity: 5 Pain Scale Used: 0-10 Numeric Timing: Constant, Lasting Days Location: Is Discrete @ - back of R calf Associated Signs And Symptoms: Negative: Swelling, Redness Aggravating Factor(s): Nothing Alleviating Factor(s): Nothing Able to Bear Weight: Yes - Allergies/Home Medications Allergies/Adverse Reactions: Allergies Allergy/AdvReac Type Severity Reaction Status Date / Time codeine Allergy Mild Hallucinati Verified 04/07/19 10:27 ons gabapentin Allergy Anxiety Verified 04/07/19 10:27 [id number] Antimigraine Allergy Palpitation Verified 04/07/19 10:27 Agents s Home Medications: Home Medications Acetaminophen TAB* [Tylenol TAB*] 325 mg PO Q6H PRN 04/07/19 [History Confirmed 04/07/19] Azelastine/Fluticasone RONNIE(NF [Dymista(NF)] 1 spray BOTH NARES DAILY PRN [History Confirmed 04/07/19] Butalb/Acetamin/Caff TAB* [Fioricet TAB*] 1 tab PO Q6H PRN 04/07/19 [History Confirmed 04/07/19] Docusate CAP* [Colace Cap*] 200 mg PO DAILY 04/07/19 [History Confirmed 04/07/19 ] Metoprolol Tartrate TAB* [Lopressor TAB*] 25 mg PO BID 04/07/19 [History Confirmed 04/07/19] Riboflavin (B2) (NF) [Vitamin B-2 (NF)] 400 mg PO DAILY 04/07/19 [History Confirmed 04/07/19] PMH/Surg Hx/FS Hx/Imm Hx Previously Healthy: Yes Endocrine/Hematology History: Denies: Hx Diabetes, Hx Anemia, Hx Unexplained Bleeding, Other Endocrine/ Hematological Disorders Cardiovascular History: Reports: Hx Hypercholesterolemia, Hx Hypertension Denies: Hx Aneurysm, Hx Angina, Hx Angioplasty, Hx Auto Implanted Cardiovert Defib, Hx Cardiac Arrest, Hx Cardiomegaly, Hx Congenital Heart Disease, Hx Congestive Heart Failure, Hx Coronary Artery Disease, Hx Deep Vein Thrombosis, Hx Embolism, Hx Hypotension, Hx Pacemaker/ICD, Hx Peripheral Vascular Disease, Hx Rheumatic Fever, Hx Syncope, Hx Valvular Heart Disease, Other Cardiovascular Problems/Disorders Respiratory History: Reports: Hx Asthma, Hx Pneumonia, Hx Seasonal Allergies Denies: Other Respiratory Problems/Disorders GI History: Denies: Other GI Disorders History: Denies: Hx Dialysis, Hx Renal Disease, Other Problems/Disorders Musculoskeletal History: Reports: Hx Arthritis, Hx Back Problems Denies: Hx Rheumatoid Arthritis, Hx Osteoporosis, Hx Scoliosis, Other Musculoskeletal History Sensory History: Reports: Hx Contacts or Glasses Denies: Hx Cataracts, Hx Eye Injury, Hx Eye Prosthesis, Hx Glaucoma, Hx Legally Blind, Hx Macular Degeneration, Hx Vision Problem, Hx Deafness, Hx Hearing Aid, Hx Hearing Problem, Other Sensory Impairments Opthamlomology History: Reports: Hx Contacts or Glasses Denies: Hx Cataracts, Hx Eye Injury, Hx Eye Prosthesis, Hx Glaucoma, Hx Legally Blind, Hx Macular Degeneration, Hx Vision Problem, Other Sensory Impairments Neurological History: Reports: Hx Headaches, Hx Migraine Denies: Hx Dementia, Hx Developmental Delay, Hx Nerve Disease, Hx Seizures, Hx Spinal Cord Injury, Hx Transient Ischemic Attacks (TIA), Other Neuro Impairments/Disorders Psychiatric History: Reports: Hx Depression, Hx Inpatient Treatment - 2008, Hx Suicide Attempt Denies: Hx Anxiety, Hx Panic Disorder, Other Psychiatric Issues/Disorders - Surgical History Surgery Procedure, Year, and Place: LEFT KNEE ARTHOSCOPY. STRICTURE REMOVED FROM [facility]. ADENOIDS Hx Anesthesia Reactions: No Infectious Disease History: No Infectious Disease History: Reports: Hx Shingles Denies: Hx Clostridium Difficile, Hx Hepatitis, Hx Human Immunodeficiency Virus (HIV), Hx of Known/Suspected MRSA, Traveled Outside the [place] in Last 30 Days - Family History Known Family History: Negative: Cardiac Disease, Seizure Disorder - Social History Alcohol Use: None Hx Substance Use: No Substance Use Type: Reports: None Hx Tobacco Use: Yes Smoking Status (MU): Former Smoker Length of Time of Smoking/Using Tobacco: 5 years Have You Smoked in the Last Year: No Review of Systems Positive: Myalgia. Negative: Edema Negative: Other - erythema All Other Systems Reviewed And Are Negative: Yes Physical Exam - Summary Physical Exam Summary: Appearance: The patient is well-nourished in no acute distress and in no acute pain. Skin: The skin is warm and dry, and skin color reflects adequate perfusion. HEENT: The head is normocephalic and atraumatic. The pupils are equal and reactive. The conjunctivae are clear and without drainage. Nares are patent and without drainage. Mouth reveals moist mucous membranes, and the throat is without erythema and exudate. The external ears are intact. The ear canals are patent and without drainage. The tympanic membranes are intact. Neck: The neck is supple with full range of motion and non-tender. There are no carotid bruits. There is no neck vein distension. Respiratory: Chest is non-tender. Lungs are clear to auscultation and breath sounds are symmetrical and equal. Cardiovascular: Heart is regular rate and rhythm. There is no murmur or rub auscultated. There is no peripheral edema and pulses are symmetrical and equal. Abdomen: The abdomen is soft and non-tender. There are normal bowel sounds heard in all four quadrants and there is no organomegaly palpated. Musculoskeletal: There is no back tenderness noted. There is full range of motion in all extremities. There is good capillary refill. There is no peripheral edema. There is mild tenderness to the mid-R calf. Neurological: Patient is alert and oriented to person, place and time. The patient has symmetrical motor strength in all four extremities. Cranial nerves are grossly intact. Deep tendon reflexes are symmetrical and equal in all four extremities. Psychiatric: The patient has an appropriate affect and does not exhibit any anxiety or depression. Triage Information Reviewed: Yes Vital Signs On Initial Exam: Initial Vitals Temp Pulse Resp BP Pulse Ox 98.3 F 106 18 147/104 94 04/07/19 10:25 04/07/19 10:25 04/07/19 10:25 04/07/19 10:25 04/07/19 10:25 Vital Signs Reviewed: Yes Procedures - Sedation Patient Received Moderate/Deep Sedation with Procedure: No Diagnostics - Vital Signs Vital Signs Temp Pulse Resp BP Pulse Ox 04/07/19 10:25 98.3 F 106 18 147/104 94 - Laboratory Lab Statement: Any lab studies that have been ordered have been reviewed, and results considered in the medical decision making process. - Ultrasound DVT US R leg Ultrasound Interpretation Completed By: Radiologist Summary of Ultrasound Findings: There is occlusive thrombosis at the RIGHT gastrocnemius vein at the proximal calf and at the paired peroneal deep calf veins (DVT). Negative for DVT at the popliteal vein or more proximal RIGHT lower extremity veins. ED physician has reviewed this report. Lower Extremity Course/Dx - Course Course Of Treatment: Mr. Barrett was found to have DVT and started on Xarelto. I recommended close follow-up with Dr. Maher and return for any problems. - Diagnoses Provider Diagnoses: DVT (deep venous thrombosis) Discharge ED - Sign-Out/Discharge Documenting (check all that apply): Patient Departure - Discharge Plan Condition: Stable Disposition: HOME Prescriptions: Rivaroxaban TAB(*) [Xarelto 15 mg(*)] 15 mg PO BID #42 tab Patient Education Materials: Deep Vein Thrombosis (ED) Referrals: Jun Maher MD [Primary Care Provider] - Additional Instructions: Please follow up with Dr. Maher within the next week. Return to the emergency department with any new or worsening symptoms. - Billing Disposition and Condition Condition: STABLE Disposition: Home - Attestation Statements Document Initiated by Mtibe: Yes Documenting Scribe: Rafaela Denney Provider For Whom Davon is Documenting (Include Credential): Nic Rea MD. Scribe Attestation: Rafaela Marie, scribed for Nic Rea MD. on 04/07/19 at 1506. Scribe Documentation Reviewed: Yes Provider Attestation: The documentation as recorded by the Rafaela gatica accurately reflects the service I personally performed and the decisions made by me, Nic Rea MD. Status of Scribe Document: Viewed
[2019-04-07 13:19] VITALS: BP 154/102
== END 2019-04-07 13:10 | disposition home or self-care (01) ==
LOC: ED 10:22
DX: I82.451 Acute embolism and thrombosis of right peroneal vein (principal); E78.00 Pure hypercholesterolemia, unspecified; I10 Essential (primary) hypertension; J45.909 Unspecified asthma, uncomplicated; F32.9 Major depressive disorder, single episode, unspecified; Z87.891 Personal history of nicotine dependence; Z79.899 Other long term (current) drug therapy; Z88.5 Allergy status to narcotic agent; Z88.8 Allergy status to other drugs, medicaments and biological substances
CPT/HCPCS: 99282

== ENCOUNTER 2022-10-29 15:52 | Inpatient (IN) ==
[2022-10-29] MEDS ORDERED: Lactated Ringers SEPSIS* BAG 2,260 ML IV ONE (16:07)
[2022-10-29 16:36] LABS: Hematocrit 41.8 % (38-53); Hemoglobin 14.2 g/dL (13.2-16.3); Mean Corpuscular Hemoglobin 30.1 pg (27-33); Mean Corpuscular Volume 88.5 fL (80-97); Mean Platelet Volume 9.2 fL (7.5-11.2); Platelet Count 208 10^3/uL (150-450); Red Blood Count 4.73 10^6/uL (4.06-5.63); Red Cell Distribution Width 13.8 % (12-17); White Blood Count 17.8 10^3/uL (3.6-10.2)
[2022-10-29 16:46] LABS: INR 1.3 (0.88-1.18)
[2022-10-29 16:53] LABS: Albumin 3.7 g/dL (3.2-5.2); Albumin/Globulin Ratio 1.1 (1-3); C Reactive Protein 166.74 mg/L (<8.01); Calcium 8.6 mg/dL (8.6-10.3); Creatinine, Serum 1.3 mg/dL (0.67-1.17); Globulin 3.3 g/dL (2-4); Potassium 3.8 mmol/L (3.5-5.0); Total Bilirubin 1.7 mg/dL (0.2-1.0); eGFR CKD-EPI 68.6 (>60)
[2022-10-29] MEDS ORDERED: Acetaminophen IV 1 GM/100ML 1,000 MG/100 ML BAG IV ONE (17:04)
[2022-10-29 17:16] LABS: Rapid Strep Molecular Negative (Negative)
[2022-10-29 17:24] LABS: RBC Morphology Normal (Normal)
[2022-10-29 17:25] LABS: ABS Basophils 0.1 10^3/uL (0.0-0.1); ABS Lymphocytes 1.1 10^3/uL (1.0-4.8); ABS Monocytes 0.5 10^3/uL (0.0-1.1); ABS Neutrophils 16.1 10^3/uL (1.5-7.6); ABS Nucleated RBC 0.01 10^3/ul; Eosinophil % 0.1 %; Lymphocyte % 6.2 %
[2022-10-29 18:21] LABS: High Sensitivity Troponin 1 Hr 10 pg/mL (<20)
[2022-10-29] MEDS ORDERED: Ondansetron 4 mg VIAL 2 MG/ML 2 ml VIAL IV ONE (18:30)
[2022-10-29] MEDS ORDERED: Azithromycin 500 mg/250 ml NS 500 MG/250 ML BAG IVPB ONE (18:54)
[2022-10-29] MEDS ORDERED: cefTRIAXone 2 GM ADDV.VIAL 2 GM in NS 0.9% 100 ml BAG 100 ML IV ONE (18:54)
[2022-10-29] MEDS ORDERED: cefTRIAXone 2 gm/50 mL D5W 2 GM/50 ML BAG IV ONE (19:30)
[2022-10-29] MEDS ORDERED: Ondansetron 4 mg VIAL 2 MG/ML 2 ml VIAL IV PRN (20:46)
[2022-10-29] MEDS: BETAMETHASONE VAL 0.1% TOPICAL SCH (21:57)
[2022-10-29] MEDS: Lactated Ringers 1000 ml BAG 1,000 ML IV SCH (21:57)
[2022-10-29] MEDS ORDERED: Albuterol HFA INHALER 8 gm MDI INH PRN (22:07)
[2022-10-29] MEDS ORDERED: Butalb/Acetamin/Caff TAB 325-50-40MG PO PRN (22:07)
[2022-10-30 06:15] LABS: ABS Basophils 0.1 10^3/uL (0.0-0.1); ABS Lymphocytes 1.3 10^3/uL (1.0-4.8); ABS Monocytes 0.8 10^3/uL (0.0-1.1); ABS Neutrophils 12.2 10^3/uL (1.5-7.6); Eosinophil % 0.3 %; Hematocrit 36.4 % (38-53); Hemoglobin 12.4 g/dL (13.2-16.3); Lymphocyte % 9.1 %; Mean Corpuscular Hemoglobin 30.1 pg (27-33); Mean Corpuscular Hgb Conc 34.1 g/dL (31-36); Mean Corpuscular Volume 88.2 fL (80-97); Mean Platelet Volume 9.7 fL (7.5-11.2); Platelet Count 195 10^3/uL (150-450); Red Blood Count 4.13 10^6/uL (4.06-5.63); Red Cell Distribution Width 13.6 % (12-17); White Blood Count 14.4 10^3/uL (3.6-10.2)
[2022-10-30 06:30] LABS: C Reactive Protein 184.39 mg/L (<8.01); Calcium 7.8 mg/dL (8.6-10.3); Creatinine, Serum 1.46 mg/dL (0.67-1.17); Globulin 2.9 g/dL (2-4); Total Bilirubin 1.3 mg/dL (0.2-1.0); Total Protein 5.9 g/dL (6.4-8.9); eGFR CKD-EPI 59.7 (>60)
[2022-10-30] MEDS: Lactated Ringers 1000 ml BAG 1,000 ML IV SCH ×3 (06:37→21:24)
[2022-10-30] MEDS: Mometasone/Formoter 200/5 MDI INH SCH ×2 (07:18→19:17)
[2022-10-30] MEDS: BETAMETHASONE VAL 0.1% TOPICAL SCH ×2 (07:40→16:33)
[2022-10-30] MEDS: Calcium/Vitamin D TAB 250/125 TAB PO SCH (07:40)
[2022-10-30] MEDS: CMCS: Riboflavin (B2) 100 mg TAB(NF) PO SCH (07:40)
[2022-10-30] MEDS: NF: Azelastine/Fluticasone 137-50 MCG BTL (NF) BOTH NARES SCH ×2 (07:41→20:26)
[2022-10-30 09:01] LABS: Urine Appearance Clear; Urine Bilirubin Negative (Negative); Urine Blood Negative (Negative); Urine Color Yellow; Urine Glucose Negative (Negative); Urine Ketones Negative (Negative); Urine Nitrite Negative (Negative); Urine Protein Negative (Negative); Urine Specific Gravity 1.015 (1.002-1.030); Urine Urobilinogen Negative (Negative)
[2022-10-30] MEDS: Triamcinolone 0.5% OINT 1 TUBE TOPICAL SCH ×3 (20:24→21:38)
[2022-10-31 06:19] LABS: ABS Eosinophils 0.1 10^3/uL (0.0-0.5); ABS Lymphocytes 1.5 10^3/uL (1.0-4.8); ABS Monocytes 0.3 10^3/uL (0.0-1.1); ABS Neutrophils 4.5 10^3/uL (1.5-7.6); ABS Nucleated RBC 0.01 10^3/ul; Eosinophil % 1.8 %; Hematocrit 34.7 % (38-53); Hemoglobin 11.7 g/dL (13.2-16.3); Lymphocyte % 22.6 %; Mean Corpuscular Hemoglobin 30.2 pg (27-33); Mean Corpuscular Hgb Conc 33.6 g/dL (31-36); Mean Corpuscular Volume 89.9 fL (80-97); Nucleated Red Blood Cells % 0.1 /100 WBC (0.0-0.4); Platelet Count 168 10^3/uL (150-450); Red Blood Count 3.86 10^6/uL (4.06-5.63); Red Cell Distribution Width 13.9 % (12-17); White Blood Count 6.4 10^3/uL (3.6-10.2)
[2022-10-31 06:51] LABS: Calcium 7.9 mg/dL (8.6-10.3); Creatinine, Serum 1.21 mg/dL (0.67-1.17); Magnesium 1.9 mg/dL (1.9-2.7); Phosphorus 2.7 mg/dL (2.5-5.0); Potassium 3.4 mmol/L (3.5-5.0); eGFR CKD-EPI 74.8 (>60)
[2022-10-31] MEDS ORDERED: Potassium EFFERVES 25 meq TAB PO ONE (07:11)
[2022-10-31] MEDS ORDERED: Lactated Ringers 1000 ml BAG 1,000 ML IV SCH (07:30)
[2022-10-31] MEDS: Mometasone/Formoter 200/5 MDI INH SCH (07:34)
[2022-10-31] MEDS ORDERED: [UNRECOGNIZED DRUG - OTHER] PO SCH (09:00)
[2022-10-31] MEDS: CMCS: Riboflavin (B2) 100 mg TAB(NF) PO SCH (09:50)
[2022-10-31] MEDS: Calcium/Vitamin D TAB 250/125 TAB PO SCH (09:51)
[2022-10-31] MEDS: NF: Azelastine/Fluticasone 137-50 MCG BTL (NF) BOTH NARES SCH (09:52)
[2022-10-31] MEDS: Triamcinolone 0.5% OINT 1 TUBE TOPICAL SCH ×2 (09:53→14:30)
[2022-10-31 11:55] VITALS: BP 123/60
[2022-10-31] MEDS ORDERED: Al Hydrox/Mg Hydrox/Simet LIQ 30 ML UDC PO ONE (12:08)
[2022-11-01 10:33] LABS: Cytomegalovirus IgG Antibody Positive (Negative)
[2022-11-01 21:24] LABS: Anaplasma phagocytophilum Negative (Negative); B. miyamotoi PCR, B Negative (Negative); Babesia divergens/MO-1 Negative (Negative); Babesia ducani Negative (Negative); Ehrlichia chaffeensis Negative (Negative); Ehrlichia ewingii/canis Negative (Negative); Ehrlichia muris eauclairensis Negative (Negative)
[2022-11-02 11:08] LABS: EBV Capsid Ag IgG Ab Positive (Negative); EBV Capsid Ag IgM Ab Negative (Negative); Epstein-Barr Nuclear Antigen Positive (Negative)
== END 2022-10-31 15:45 | disposition home or self-care (01) | DRG 872 ==
LOC: ED 15:52 → SUATTDRO 20:35 → EDHOLD 20:35 → MEDTELE 23:28
PROVIDERS: ADMIT Internal Medicine; ATTEND Internal Medicine

== ENCOUNTER 2022-11-18 18:51 | Observation (INO) ==
[2022-11-18] MEDS ORDERED: Ondansetron 4 mg VIAL 2 MG/ML 2 ml VIAL IV ONE (19:01)
[2022-11-18 19:21] LABS: ABS Basophils 0.2 10^3/uL (0.0-0.1); ABS Eosinophils 0.3 10^3/uL (0.0-0.5); ABS Lymphocytes 2.4 10^3/uL (1.0-4.8); ABS Monocytes 0.7 10^3/uL (0.0-1.1); ABS Neutrophils 5.8 10^3/uL (1.5-7.6); ABS Nucleated RBC 0.01 10^3/ul; Hematocrit 40.5 % (38-53); Hemoglobin 13.6 g/dL (13.2-16.3); Lymphocyte % 25.7 %; Mean Corpuscular Hemoglobin 30.2 pg (27-33); Mean Corpuscular Hgb Conc 33.7 g/dL (31-36); Mean Corpuscular Volume 89.7 fL (80-97); Mean Platelet Volume 8.5 fL (7.5-11.2); Nucleated Red Blood Cells % 0.1 /100 WBC (0.0-0.4); Platelet Count 476 10^3/uL (150-450); Red Blood Count 4.51 10^6/uL (4.06-5.63); White Blood Count 9.5 10^3/uL (3.6-10.2)
[2022-11-18] MEDS ORDERED: Prochlorperazine 5 mg/ml 2 ml VIAL (10 mg) IV ONE (19:36)
[2022-11-18 19:38] LABS: Activated Partial Thrombo Time 26.4 seconds (26.0-38.0); INR 0.99 (0.88-1.18)
[2022-11-18 19:39] LABS: Albumin 4.2 g/dL (3.2-5.2); Albumin/Globulin Ratio 1.3 (1-3); Creatinine, Serum 1.2 mg/dL (0.67-1.17); Globulin 3.2 g/dL (2-4); HDL Cholesterol 54.8 mg/dL; Potassium 4.1 mmol/L (3.5-5.0); Total Bilirubin 0.3 mg/dL (0.2-1.0); Total Protein 7.4 g/dL (6.4-8.9); eGFR CKD-EPI 75.5 (>60)
[2022-11-18] MEDS ORDERED: Iodixanol (CONTRAST) 320 MG/ML 100 ML SDV IV ONE (20:46)
[2022-11-18] MEDS ORDERED: diazePAM INJ CARPUJECT 5 MG/ML SYRINGE IV ONE (20:56)
[2022-11-18] MEDS ORDERED: Lactated Ringers 1000 ml BAG 1,000 ML IV ONE (21:39)
[2022-11-19] MEDS ORDERED: Ondansetron 4 mg VIAL 2 MG/ML 2 ml VIAL IV PRN (00:09)
[2022-11-19] MEDS ORDERED: Albuterol HFA INHALER 8 gm MDI INH PRN (00:34)
[2022-11-19 02:45] LABS: ABS Basophils 0.1 10^3/uL (0.0-0.1); ABS Eosinophils 0.1 10^3/uL (0.0-0.5); ABS Lymphocytes 2.2 10^3/uL (1.0-4.8); ABS Monocytes 0.8 10^3/uL (0.0-1.1); ABS Neutrophils 7.7 10^3/uL (1.5-7.6); ABS Nucleated RBC 0.01 10^3/ul; Hematocrit 37.7 % (38-53); Hemoglobin 12.9 g/dL (13.2-16.3); Lymphocyte % 20.1 %; Mean Corpuscular Hemoglobin 30.5 pg (27-33); Mean Corpuscular Hgb Conc 34.3 g/dL (31-36); Mean Platelet Volume 8.7 fL (7.5-11.2); Nucleated Red Blood Cells % 0.1 /100 WBC (0.0-0.4); Platelet Count 402 10^3/uL (150-450); Red Blood Count 4.23 10^6/uL (4.06-5.63); Red Cell Distribution Width 13.9 % (12-17)
[2022-11-19 03:01] LABS: Albumin 3.8 g/dL (3.2-5.2); Albumin/Globulin Ratio 1.3 (1-3); Calcium 8.8 mg/dL (8.6-10.3); Creatinine, Serum 1.02 mg/dL (0.67-1.17); Potassium 4.3 mmol/L (3.5-5.0); Total Bilirubin 0.5 mg/dL (0.2-1.0); Total Protein 6.8 g/dL (6.4-8.9); eGFR CKD-EPI 91.8 (>60)
[2022-11-19] MEDS: Mometasone/Formoter 200/5 MDI INH SCH ×2 (07:11→20:13)
[2022-11-19] MEDS ORDERED: NF: RIMEGEPANT SULFATE 75 MG ODT TAB (NF) PO SCH (09:00)
[2022-11-19] MEDS: NF: Azelastine/Fluticasone 137-50 MCG BTL (NF) BOTH NARES SCH ×2 (10:10→21:00)
[2022-11-20 06:46] LABS: ABS Eosinophils 0.3 10^3/uL (0.0-0.5); ABS Lymphocytes 2.9 10^3/uL (1.0-4.8); ABS Monocytes 0.7 10^3/uL (0.0-1.1); ABS Neutrophils 4.6 10^3/uL (1.5-7.6); Eosinophil % 3.5 %; Hematocrit 37.8 % (38-53); Hemoglobin 12.6 g/dL (13.2-16.3); Lymphocyte % 34.1 %; Mean Corpuscular Hemoglobin 30.2 pg (27-33); Mean Corpuscular Hgb Conc 33.4 g/dL (31-36); Mean Corpuscular Volume 90.4 fL (80-97); Mean Platelet Volume 8.4 fL (7.5-11.2); Platelet Count 359 10^3/uL (150-450); Red Blood Count 4.18 10^6/uL (4.06-5.63); Red Cell Distribution Width 14.1 % (12-17); White Blood Count 8.6 10^3/uL (3.6-10.2)
[2022-11-20] MEDS: Mometasone/Formoter 200/5 MDI INH SCH (07:20)
[2022-11-20] MEDS: NF: Azelastine/Fluticasone 137-50 MCG BTL (NF) BOTH NARES SCH (09:16)
[2022-11-20] MEDS ORDERED: Sulfur Hexaflouride MICROSPHR 25 MG VIAL ONE (10:17)
[2022-11-20 11:01] VITALS: BP 157/81
== END 2022-11-20 15:00 | disposition home or self-care (01) ==
LOC: EDHOLD 18:51 → ED 18:51 → SUATTDRO 23:44 → MEDTELE 11-19 00:58
PROVIDERS: ADMIT Internal Medicine; ATTEND Internal Medicine

== ENCOUNTER 2023-05-01 05:58 | Observation (INO) ==
[2023-05-01] MEDS ORDERED: Iodixanol (CONTRAST) 320 MG/ML 100 ML SDV IV ONE (06:29)
[2023-05-01 06:42] LABS: ABS Basophils 0.2 10^3/uL (0.0-0.1); ABS Eosinophils 0.4 10^3/uL (0.0-0.5); ABS Lymphocytes 2.8 10^3/uL (1.0-4.8); ABS Monocytes 0.8 10^3/uL (0.0-1.1); ABS Nucleated RBC 0.01 10^3/ul; Eosinophil % 4.8 %; Hematocrit 42.3 % (38-53); Hemoglobin 14.3 g/dL (13.2-16.3); Lymphocyte % 30.4 %; Mean Corpuscular Hemoglobin 30.5 pg (27-33); Mean Corpuscular Hgb Conc 33.9 g/dL (31-36); Mean Corpuscular Volume 89.9 fL (80-97); Mean Platelet Volume 8.8 fL (7.5-11.2); Nucleated Red Blood Cells % 0.1 %/100WBC (0.0-0.8); Platelet Count 296 10^3/uL (150-450); Red Cell Distribution Width 13.7 % (12-17); White Blood Count 9.2 10^3/uL (3.6-10.2)
[2023-05-01 06:48] LABS: Activated Partial Thrombo Time 39.2 seconds (26.0-38.0); INR 1.4 (0.83-1.13)
[2023-05-01 06:51] LABS: Albumin 4.5 g/dL (3.2-5.2); Albumin/Globulin Ratio 1.2 (1-3); Calcium 9.2 mg/dL (8.6-10.3); Creatinine, Serum 1.28 mg/dL (0.67-1.17); Direct Bilirubin 0.1 mg/dL (0.03-0.18); Globulin 3.8 g/dL (2-4); HDL Cholesterol 59.6 mg/dL; Indirect Bilirubin 0.3 mg/dL (0.3-1.0); Potassium 3.9 mmol/L (3.5-5.0); Total Bilirubin 0.4 mg/dL (0.2-1.0); Total Protein 8.3 g/dL (6.4-8.9); eGFR CKD-EPI 69.9 (>60)
[2023-05-01 08:28] LABS: Urine Appearance Clear; Urine Bilirubin Negative (Negative); Urine Blood Negative (Negative); Urine Color Yellow; Urine Glucose Negative (Negative); Urine Ketones Negative (Negative); Urine Nitrite Negative (Negative); Urine Protein Negative (Negative); Urine Specific Gravity 1.038 (1.002-1.030); Urine Urobilinogen Negative (Negative)
[2023-05-01] MEDS ORDERED: Albuterol HFA INHALER 8 gm MDI INH PRN (08:41)
[2023-05-01] MEDS ORDERED: [UNRECOGNIZED DRUG - OTHER] SUBCUT SCH (08:45)
[2023-05-01] MEDS ORDERED: CALCIUM CARBONATE VIT D3 MIN PO SCH (09:00)
[2023-05-01] MEDS ORDERED: LevoCETirizine 5 mg TAB (NF) PO SCH (09:00)
[2023-05-01] MEDS ORDERED: CYANOCOBALAMIN 1000 MCG PO SCH (09:00)
[2023-05-01] MEDS ORDERED: CALCIUM PO SCH (09:00)
[2023-05-01] MEDS ORDERED: Azelastine/Fluticasone 137-50 MCG BTL (NF) BOTH NARES SCH (09:00)
[2023-05-01] MEDS: Mometasone/Formoter 200/5 MDI INH SCH ×2 (09:56→19:57)
[2023-05-01] MEDS: ATOGEPANT 60 MG PO SCH (10:26)
[2023-05-01] MEDS: CMCS: Riboflavin (B2) 100 mg TAB(NF) PO SCH (10:27)
[2023-05-01] MEDS: Calcium/Vitamin D TAB 250/125 TAB PO SCH (12:03)
[2023-05-01] MEDS ORDERED: Sulfur Hexaflouride MICROSPHR 25 MG VIAL ONE (15:37)
[2023-05-01] MEDS: D5LR 1000 ml BAG 1,000 ML IV SCH (17:32)
[2023-05-01] MEDS: NF:Azelastine/Fluticasone 137-50 MCG BTL (NF) BOTH NARES SCH (22:31)
[2023-05-02] MEDS: D5LR 1000 ml BAG 1,000 ML IV SCH ×2 (00:12→08:13)
[2023-05-02 05:51] LABS: ABS Basophils 0.2 10^3/uL (0.0-0.1); ABS Eosinophils 0.4 10^3/uL (0.0-0.5); ABS Lymphocytes 2.5 10^3/uL (1.0-4.8); ABS Monocytes 0.5 10^3/uL (0.0-1.1); ABS Neutrophils 3.5 10^3/uL (1.5-7.6); ABS Nucleated RBC 0.01 10^3/ul; Eosinophil % 5.5 %; Hematocrit 39.5 % (38-53); Hemoglobin 13.5 g/dL (13.2-16.3); Lymphocyte % 35.2 %; Mean Corpuscular Hemoglobin 30.9 pg (27-33); Mean Corpuscular Hgb Conc 34.3 g/dL (31-36); Mean Platelet Volume 8.8 fL (7.5-11.2); Nucleated Red Blood Cells % 0.2 %/100WBC (0.0-0.8); Platelet Count 243 10^3/uL (150-450); Red Blood Count 4.38 10^6/uL (4.06-5.63); Red Cell Distribution Width 13.5 % (12-17); White Blood Count 7.1 10^3/uL (3.6-10.2)
[2023-05-02 06:13] LABS: Calcium 8.8 mg/dL (8.6-10.3); Creatinine, Serum 1.05 mg/dL (0.67-1.17); Potassium 3.6 mmol/L (3.5-5.0); eGFR CKD-EPI 88.7 (>60)
[2023-05-02] MEDS: Mometasone/Formoter 200/5 MDI INH SCH (09:29)
[2023-05-02] MEDS: Calcium/Vitamin D TAB 250/125 TAB PO SCH (10:34)
[2023-05-02] MEDS: ATOGEPANT 60 MG PO SCH (10:34)
[2023-05-02] MEDS: NF:Azelastine/Fluticasone 137-50 MCG BTL (NF) BOTH NARES SCH (10:34)
[2023-05-02] MEDS: CMCS: Riboflavin (B2) 100 mg TAB(NF) PO SCH (10:34)
[2023-05-02 15:39] VITALS: BP 149/82
== END 2023-05-02 16:05 | disposition home or self-care (01) ==
LOC: ED 05:58 → EDHOLD 05:58 → MEDTELE 17:55
PROVIDERS: ADMIT Student in an Organized Health Care Education/Training Program; ATTEND Student in an Organized Health Care Education/Training Program

== ENCOUNTER 2023-09-06 10:30 | Observation (INO) ==
[2023-09-06 10:58] LABS: ABS Eosinophils 0.3 10^3/uL (0.0-0.5); ABS Lymphocytes 1.9 10^3/uL (1.0-4.8); ABS Monocytes 0.6 10^3/uL (0.0-1.1); ABS Neutrophils 4.6 10^3/uL (1.5-7.6); ABS Nucleated RBC 0.01 10^3/ul; Eosinophil % 3.7 %; Hematocrit 40.9 % (38-53); Hemoglobin 13.8 g/dL (13.2-16.3); Lymphocyte % 25.5 %; Mean Corpuscular Hemoglobin 30.7 pg (27-33); Mean Corpuscular Hgb Conc 33.8 g/dL (31-36); Mean Corpuscular Volume 90.9 fL (80-97); Mean Platelet Volume 8.7 fL (7.5-11.2); Nucleated Red Blood Cells % 0.1 %/100WBC (0.0-0.8); Platelet Count 251 10^3/uL (150-450); Red Cell Distribution Width 13.6 % (12-17); White Blood Count 7.5 10^3/uL (3.6-10.2)
[2023-09-06 11:09] LABS: INR 1.78 (0.83-1.13)
[2023-09-06 11:23] LABS: High Sens Troponin Baseline 4 pg/mL (<20)
[2023-09-06 12:11] LABS: ALT 38 U/L (7-52); Albumin 4.3 g/dL (3.2-5.2); Albumin/Globulin Ratio 1.6 (1-3); Alkaline Phosphatase 144 U/L (35-149); Anion Gap 9 mmol/L (2-16); Blood Urea Nitrogen 15 mg/dL (6-24); CO2 Carbon Dioxide 28 mmol/L (22-32); Calcium 8.8 mg/dL (8.6-10.3); Chloride 102 mmol/L (101-111); Creatinine, Serum 1.14 mg/dL (0.67-1.17); Globulin 2.7 g/dL (2-4); Glucose 86 mg/dL (70-100); Sodium 139 mmol/L (135-145); Total Bilirubin 0.7 mg/dL (0.2-1.0); eGFR CKD-EPI 79.8 (>60)
[2023-09-06 12:36] LABS: Potassium Redraw 3.7 mmol/L (3.5-5.0)
[2023-09-06 16:03] LABS: Magnesium 1.9 mg/dL (1.9-2.7)
[2023-09-06 16:22] LABS: Cholesterol 202 mg/dL; HDL Cholesterol 61.2 mg/dL; LDL Cholesterol 122 mg/dL; Triglycerides 95 mg/dL
[2023-09-06] MEDS: Mometasone/Formoter 200/5 MDI INH SCH (21:41)
[2023-09-07 05:36] LABS: Calcium 8.8 mg/dL (8.6-10.3); Creatinine, Serum 1.08 mg/dL (0.67-1.17); Magnesium 1.9 mg/dL (1.9-2.7); Potassium 4.2 mmol/L (3.5-5.0); eGFR CKD-EPI 85.2 (>60)
[2023-09-07] MEDS ORDERED: Regadenoson 0.4 MG/5 ML SYRINGE ONE (07:23)
[2023-09-08 09:34] VITALS: BP 112/68
== END 2023-09-08 11:36 | disposition home or self-care (01) ==
LOC: ED 10:30 → EDHOLD 10:30
PROVIDERS: ADMIT Student in an Organized Health Care Education/Training Program; ATTEND Student in an Organized Health Care Education/Training Program